=== PATIENT | female | born 1980 | race Caucasian/White ===

== ENCOUNTER 2023-12-16 14:30 | Outpatient (OUT) | payer OTHER, SELFPAY ==
--- NOTE | 2023-12-16 15:06 | P.GSHP_ITS ---
History of Present Illness History of Present Illness Chief complaint: left kidney stone Narrative: Patient presents for preadmission testing. Please see HPI from Dr. Bill dated December 11, 2023. Review of Systems ROS Narrative Please see ROS from Dr. Bill dated December 11, 2023. [facility] Medical History (Updated 12/16/23 @ 14:57 by Debby Rivera NP) Encounter for removal of skin lesion ?L98.9 - Disorder of the skin and subcutaneous tissue, unspecified (ICD-10) Malignant melanoma ?C43.9 - Malignant melanoma of skin, unspecified (ICD-10) PTSD (post-traumatic stress disorder) ?F43.10 - Post-traumatic stress disorder, unspecified (ICD-10) Panic attacks ?F41.0 - Panic disorder [episodic paroxysmal anxiety] (ICD-10) Migraine ?G43.909 - Migraine, unspecified, not intractable, without status migrainosus (ICD-10) Kidney stones ?N20.0 - Calculus of kidney (ICD-10) S/P extracorporeal shock wave therapy ?Z98.890 - Other specified postprocedural states (ICD-10) Surgical History (Updated 12/16/23 @ 14:57 by Debby Rivera NP) History of appendectomy ?Z90.49 - Acquired absence of other specified parts of digestive tract (ICD- 10) History of hysterectomy ?Z90.710 - Acquired absence of both cervix and uterus (ICD-10) S/P cystoscopy ?Z98.890 - Other specified postprocedural states (ICD-10) S/P ureteral stent placement ?Z96.0 - Presence of urogenital implants (ICD-10) Family History (Updated 12/16/23 @ 14:55 by Debby Rivera NP) Other Cancer Family history of DVT Family history of diabetes mellitus Family history of hypertension Family history of stroke Social History (Updated 12/16/23 @ 14:54 by Debby Rivera NP) Within the past year, how often did you have a drink containing alcohol: monthly or less Smoking status: Never smoker Non-prescribed substance use: denies use 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 Highest level of school completed/degree received: Master's degree Meds Home Medications and Allergies Allergies Allergy/AdvReac Type Severity Reaction Status Date / Time latex Allergy Rash Verified 12/16/23 14:53 levofloxacin [From Levaquin] Allergy blisters Verified 12/16/23 14:53 Penicillins Allergy Rash Verified 12/16/23 14:53 Exam Narrative Exam Narrative: Constitutional: Awake, alert, comfortable, well-appearing, nontoxic, interactive, vital signs as charted Head: Normocephalic, atraumatic Neck: Supple, normal appearance, normal range of motion, no meningeal signs, no lymphadenopathy Respiratory: No respiratory distress, breath sounds clear Cardiovascular: Regular rate and rhythm, strong and regular heart tones Abdomen: Nontender, normal bowel sounds, soft, no CVA tenderness Musculoskeletal: Normal gait, no swelling or edema Skin: No rashes or induration, no lesions, only visible skin inspected Neuro: No neurological deficits, normal sensation Psychiatric: Oriented ?3, normal affect Assessment and Plan Assessment and Plan (1) Kidney stones: Plan Left ESWL scheduled with Dr. Bill December 19, 2023.
[2023-12-16 15:08] LABS: Basophils Percent Auto 0.5 % (0.2-2.0); Eosinophils Percent Auto 0.4 % (0.9-7.0); Hematocrit 40.6 % (36.0-48.0); Hemoglobin 13.7 g/dL (12.0-16.0); Immature Granulocytes Abs Auto 0.01 10^3/uL (0.00-0.03); Immature Granulocytes Pct Auto 0.1 % (0.0-0.5); Lymphocytes Absolute Auto 2.3 10^3/uL (1.2-3.8); Lymphocytes Percent Auto 30.3 % (20.5-60.0); Mean Corpuscular HGB Conc 33.7 g/dL (29.9-35.2); Mean Corpuscular Hemoglobin 30.5 pg (26.7-34.0); Mean Corpuscular Volume 90.4 fL (81.0-99.0); Mean Platelet Volume 9.6 fL (9.5-13.5); Monocytes Absolute Auto 0.7 10^3/uL (0.3-0.8); Monocytes Percent Auto 9.8 % (1.7-12.0); Neutrophils Absolute Auto 4.4 10^3/uL (1.4-6.5); Neutrophils Percent Auto 58.9 % (43.0-75.0); Platelet Count 350 10^3/uL (150-450); Red Blood Count 4.49 10^6/uL (4.20-5.40); Red Cell Distribution Width 12.3 % (11.0-15.0); White Blood Count 7.5 10^3/uL (4.0-11.0)
[2023-12-16 15:24] LABS: INR 1.07; Partial Thromboplastin Time 29.3 sec (22.3-36.2); Prothrombin Time 11.3 sec (9.0-11.6)
[2023-12-16 15:25] LABS: Anion Gap 9.1; BUN Creatinine Ratio 7.9; Calcium 9.4 mg/dL (8.5-10.1); Carbon Dioxide 28.6 mmol/L (21.0-32.0); Chloride 102 mmol/L (98-107); Estimated GFR (African America >60 (>=60); Estimated GFR (Non-African Ame 52 (>=60); Glucose 100 mg/dL (74-106); Potassium 3.7 mmol/L (3.5-5.1); Sodium 136 mmol/L (136-145)
== END 2023-12-16 14:31 | disposition home or self-care (01) ==
LOC: PST 14:32
PROVIDERS: PCP Family Medicine; Visit Provider Urology
DX: Z01.812 Encounter for preprocedural laboratory examination (principal); Z01.818 Encounter for other preprocedural examination; N20.0 Calculus of kidney
CPT/HCPCS: 36415; 80048; 85025; 85610; 85730; G0463

== ENCOUNTER 2023-12-19 06:47 | Day surgery (SDC) | payer OTHER, SELFPAY ==
[2023-12-16 15:04] VITALS: BP 115/75; PULSE 69; TEMP 36.6; O2SAT 99; BMI 22.7
[2023-12-19] VITALS (10 sets, daily range): BP systolic 100–125; BP diastolic 64–77; PULSE 51–86; TEMP 36.1–36.6; O2SAT 97–100; BMI 22.7
--- NOTE | 2023-12-19 06:45 | XR_ITS ---
The [address] [address] Patient Name: GISELLE BARRETT MRN: [id number] date: 1980 Sex: F Assigned Patient Location: [facility] Current Patient Location: Accession/Order Number: [id number] Exam Date: 12/19/2023 06:51 Report Date: 12/19/2023 13:20 At the request of: ERICA BILLINGS Procedure: XR abdomen 1V EXAMINATION: XR abdomen 1V HISTORY: kidney stones COMPARISON: 08/02/2022 FINDINGS: KIDNEY/URETER - RIGHT: Increase in upper pole medullary calcifications KIDNEY/URETER - LEFT: Moderately increased diffuse medullary calcifications. Previously noted 10 mm lower pole calcification is normal. Identified PELVIS: No visible ureteral calcifications. Any visible calcifications favor phleboliths. BOWEL: No abnormal dilation or deviation. BONES: No acute abnormality. OTHER: Negative. No abnormal gaseous collections. XR/XR abdomen 1V IMPRESSION: Bilateral medullary nephrocalcinosis, left greater than right Electronically authenticated by: JOYCELYN ADEN Date: 12/19/2023 13:20
--- OUTSIDE RECORDS SUMMARY | 2023-12-19 06:50 | XMS_ITS | CCD ---
Author Organization [facility] Care Team Providers Care Accounts Supervisor Name Role Phone DO Arcenio Rdz Primary Care Provider [phone] MD Tushar Madsen Emergency Provider [phone] DO Arcenio Rdz Primary Care Provider MD Fred Bill Attending Provider DO Kyra Dee Emergency Provider MD Jillian Hahn Admit Provider MD Jillian Hahn Attending Provider MD Dominique Sifuentes Other Provider MD Pete Cardozo Attending Provider [phone] PA[address] EMERY Admitting Unavailable PAY ., DR EMERY Consulting Unavailable PAY ., DR EMERY Attending Unavailable KENDELL, DR ASHTON Primary Care Unavailable BILL ., DR MALDONADO Admitting Unavailable BILL ., DR MALDONADO Consulting Unavailable BILL ., DR MALDONADO Attending Unavailable KENDELL, DR ASHTON Primary Care Unavailable MARSHALL BEST Consulting Unavailable BILL ., DR MALDONADO Admitting Unavailable BILL ., DR MALDONADO Attending Unavailable KENDELL, DR ASHTON Primary Care Unavailable DO Arcenio Rdz Primary Care Provider MD Fred Bill Attending Provider [phone] ARCENIO RDZ Primary Care Physician DO Arcenio Rdz Primary Care Provider Enrico Woods DO Unavailable Arcenio Rdz DO Primary Care Provider DO Arcenio Rdz Primary Care Provider [phone] MD Fred Bill Attending Provider [phone] Fred Bill Attending Unavailable Arcenio Rdz Primary Care Unavailable Bill, Fred Admitting Unavailable Bill, Fred Admitting Unavailable Bill, Fred Attending Unavailable Arcenio Rdz Primary Care Unavailable Jillian Hahn Admitting Unavailable Arcenio Rdz Primary Care Unavailable Dominique Sifuentes Consulting Unavailable CasPete Attending Unavailable Landy, Fred Attending Unavailable Arcenio Rdz Primary Care Unavailable Bill, Fred Admitting Unavailable BILL, Fred R Attending Unavailable LANDY, Fred R Attending Unavailable MACIEL RDZ Attending Unavailable MACIEL RDZ Referring Unavailable BILL, FRED Devine Referring Unavailable Allergies Allergy Classification Reported Allergen(s) Allergy Type Date of Onset Reaction(s) Facility (12 sources) Latex; Translations: [latex] Propensity to adverse reactions 3 Unknown (qualifier value), Hives, Itching, Rash, Swelling [facility] (1 source) Cephalexin Drug Allergy 0 [facility] Repository (2 sources) levoFLOXacin; Translations: [Levaquin] Drug Allergy 0 [facility] Repository (3 sources) levoFLOXacin; Translations: [levofloxacin] Drug Allergy 4 Unknown [facility] (3 sources) Penicillin; Translations: [penicillin] Drug Allergy Unknown Reaction [facility] (1 source) Penicillin G Drug Allergy 4 Unknown [facility] Medications Current Medications Medication Drug Class(es) Dates Sig (Normalized) Sig (Original) cetirizine hydrochloride 10 mg oral tablet (5 sources) Histamine-1 Receptor Antagonist Start: 07-17-2022 take 1 tablet by mouth once daily Cetirizine (Zyrtec) 10 mg Tablet Active 10 MG PO Daily July 17, 2022 12:00am lactobacillus acidophilus [id number] unt oral capsule (5 sources) Start: 07-17-2022 take 10 capsules by mouth once daily Lactobacillus Acidophilus (Probiotic) 10 billion cell Capsule Active 28258 MMU CELLS PO Daily July 17, 2022 12:00am oxybutynin chloride 5 mg oral tablet (12 sources) Cholinergic Muscarinic Antagonist Start: 07-17-2022 take 5 mg by mouth three times daily Oxybutynin Chloride Active 5 MG PO Three times daily 90 July 17, 2022 12:00am Start: 11-07-2019 End: 02-22-2021 take 5 mg by mouth twice daily Oxybutynin Chloride Dis continued 5 MG PO Twice daily 60 November 07, 2019 12:00am February 22, 2021 5:36pm tamsulosin hydrochloride 0.4 mg oral capsule (5 sources) alpha-Adrenergic [place] Start: 07-17-2022 take 0.4 mg by mouth once daily at bedtime Tamsulosin Active 0.4 MG PO Daily at bedtime July 17, 2022 12:00am Topamax (8 sources) Start: 11-17-2019 Topamax Oral Start Date: 11/17/19 Status: Ordered Start: 11-07-2019 take 25 mg by mouth twice hussain y Topiramate Active 25 MG PO Twice daily November 07, 2019 12:00am Completed/Discontinued Medications Medication Drug Class(es) Dates Sig (Normalized) Sig (Original) acetaminophen 325 mg / HYDROcodone bitartrate 5 mg oral tablet (7 sources) Opioid Agonist Start: 11-07-2019 End: 02-22-2021 take 1 tablet by mouth every four to six hours Hydrocodone-Acetamin ophen ([place]) 5-325 mg tablet Discontinued 1 TAB PO EVERY 4-6 HOURS 10 3 November 07, 2019 February 22, 2021 5:36pm amoxicillin 875 mg / clavulanate 125 mg oral tablet (7 sources) Penicillin-class Antibacterial Start: 07-16-2021 End: 07-17-2022 take 1 tablet by mouth twice daily Amoxicillin-Pot Clavulanate Discontinued 1 TAB PO Twice daily July 16, 2021 12:00am July 17, 2022 11:26am cephalexin 500 mg oral capsule (7 sources) Cephalosporin Antibacterial Start: 11-03-2019 End: 02-22-2021 take 1 capsule by mouth every eight hours Cephalexin (Keflex) 500 mg capsule Discontinued 500 MG PO Q8H 30 10 November 03, 2019 12:00am February 22, 2021 5:37pm citric acid 128 mg/ml / sodium citrate 98 mg/ml oral solution (1 source) Calculi Dissolution Agent, Anti-coagulant Start: 12-11-2023 take 4 [tsp_us] by mouth twice daily Oracit oral solution 4 tbsp, Oral, BID, 3,600 mL, Refill(s) 11, Take 4 tsp BID daily, [facility]/pharmacy #[id number], 167, cm, 12/11/23 8:27:00 EDT, Height/Length Dosing, 63.7, kg, 12/11/23 8:27:00 EDT, Weight Dosing Start Date: 12/11/23 Status: Ordered ondansetron 4 mg disintegrating oral tablet (7 sources) Serotonin-3 Receptor Antagonist Start: 11-03-2019 End: 02-22-2021 take 4 mg by mouth every eight hours Ondansetron Discontinued 4 MG PO Q8H 9 November 03, 2019 12:00am February 22, 2021 5:36pm phenazopyridine hydrochloride 100 mg oral tablet (7 sources) Start: 11-03-2019 End: 11-07-2019 take 1 tablet by mouth every eight hours Phenazopyridine (Pyridium) 100 mg tablet Discontinued 100 MG PO Q8H November 03, 2019 12:00am November 07, 2019 1:50am promethazine hydrochloride 25 mg oral tablet (7 sources) Phenothiazine Start: 07-30-2018 End: 02-22-2021 take 25 mg by mouth every six hours Promethazine Discontinued 25 MG PO Q6H July 30, 2018 12:00am February 22, 2021 5:36pm sertraline 100 mg oral tablet (16 sources) Serotonin Reuptake Inhibitor Start: 02-22-2021 End: 07-17-2022 take 100 mg by mouth once daily at bedtime Sertraline Discontinued 100 MG PO Daily at bedtime February 22, 2021 1:00am July 17, 2022 11:26am Start: 11-17-2019 ZolofYessica Acosta Start Date: 11/17/19 Status: Ordered Start: 11-07-2019 End: 02-22-2021 take 50 mg by mouth once daily Sertraline Discontinued 50 MG PO Daily November 07, 2019 12:00am February 22, 2021 5:36pm traMADol hydrochloride 50 mg oral tablet (7 sources) Opioid Agonist Start: 03-01-2021 End: 07-16-2021 take 50 mg by mouth every four to six hours Tramadol Discontinued 50 MG PO EVERY 4-6 HOURS 04 10March 01, 2021 1:00am July 16, 2021 1:52pm vitamin e 100 unt oral capsule (7 sources) Start: 02-22-2021 End: 07-17-2022 take 100 [IU] by mouth once daily at bedtime Vitamin E Discontinued 100 UNIT PO Daily at bedtime February 22, 2021 1:00am July 17, 2022 11:26am Start: 02-22-2021 End: 07-17-2022 take 100 [IU] by mouth once daily at bedtime Vitamin E Discontinued 100 UNIT PO Daily at bedtime February 22, 2021 1:00am July 17, 2022 11:26am Problems Active Problems Problem Classification Problem Date Documented Date Episodic/Chronic Abdominal pain (13 sources) Abdominal pain; Translations: [Unspecified abdominal pain] Onset: 07-20-2022 Resolved: 04-23-2023 03-01-2021 Episodic Anxiety disorders (4 sources) Anxiety disorder, unspecified; Translations: [Agoraphobia with panic attacks] Onset: 07-23-2022 04-23-2023 Chronic Biliary tract disease (1 source) Calculus of bile duct without cholangitis or cholecystitis without obstruction; Translations: [CALC BD NO CHOLANG/CHOLCYST NO OBST] Onset: 07-23-2022 Episodic Calculus of urinary tract (20 sources) Kidney stone; Translations: [Calculus of kidney] Onset: 07-17-2022 11-07-2019 Episodic Esophageal disorders (1 source) Gastro-esophageal reflux disease without esophagitis; Translations: [GERD WITHOUT ESOPHAGITIS] Onset: 07-23-2022 Chronic Fluid and electrolyte disorders (16 sources) Metabolic acidosis; Translations: [Acidosis] Onset: 04-23-2023 11-07-2019 Episodic Genitourinary symptoms and ill-defined conditions (4 sources) Hematuria, unspecified; Translations: [Increased frequency of urination] Onset: 07-23-2022 03-27-2019 Episodic Headache; including migraine (15 sources) Migraine; Translations: [Migraine, unspecified, not intractable, without status migrainosus] Onset: 07-17-2022 07-30-2018 Chronic Menopausal disorders (1 source) Menopausal flushing; Translations: [Menopausal and female climacteric states] Onset: 04-23-2023 04-23-2023 Chronic Nausea and vomiting (1 source) Nausea; Translations: [NAUSEA] Onset: 07-23-2022 Episodic Other diseases of bladder and urethra (3 sources) Urethral stricture; Translations: [Unspecified urethral stricture, female] Onset: 04-23-2023 11-17-2019 Episodic Other diseases of kidney and ureters (4 sources) Hydronephrosis; Translations: [Hydronephrosis with renal and ureteral calculous obstruction] 11-07-2019 Episodic Other diseases of kidney and ureters (4 sources) Hydronephrosis with renal and ureteral calculous obstruction; Translations: [Hydronephrosis with urinary obstruction due to ureteral calculus] Onset: 04-23-2023 11-07-2019 Episodic Other injuries and conditions due to external causes (3 sources) Foreign body in bladder; Translations: [Foreign body in bladder, initial encounter] Onset: 04-23-2023 11-17-2019 Episodic Other non-epithelial cancer of skin (5 sources) Unspecified malignant neoplasm of skin, unspecified; Translations: [Other specified malignant neoplasm of skin, unspecified] Onset: 07-23-2022 03-27-2019 Episodic Other screening for suspected conditions (not mental disorders or infectious disease) (2 sources) Patient encounter status; Translations: [Encounter for screening for malignant neoplasm of vagina] 04-23-2023 Episodic Other skin disorders (3 sources) Acne; Translations: [Acne, unspecified] Onset: 04-23-2023 03-27-2019 Episodic Other upper respiratory disease (1 source) Allergic rhinitis due to animal hair and dander; Translations: [Allergic rhinitis due to animal (cat) (dog) hair and dander] Onset: 04-23-2023 04-23-2023 Chronic Other upper respiratory disease (1 source) Allergic rhinitis; Translations: [Other allergic rhinitis] Onset: 04-23-2023 04-23-2023 Chronic Other upper respiratory infections (8 sources) Sinusitis; Translations: [Chronic sinusitis, unspecified] Onset: 04-23-2023 07-16-2021 Chronic Prolapse of female genital organs (3 sources) Midline cystocele; Translations: [Cystocele, midline] Onset: 04-23-2023 04-23-2023 Chronic Residual codes; unclassified (1 source) Acquired absence of both cervix and uterus; Translations: [ACQUIRED ABSENCE BOTH CERVIX AND UTERUS] Onset: 07-23-2022 Episodic Residual codes; unclassified (1 source) Unspecified symptoms and signs involving cognitive functions and awareness; Translations: [UNS SX SIGNS COG FUNC AND AWARENESS] Onset: 07-23-2022 Episodic Residual codes; unclassified (1 source) Insomnia; Translations: [Insomnia, unspecified] Onset: 04-23-2023 04-23-2023 Episodic Syncope (8 sources) Syncope; Translations: [Syncope and collapse] Onset: 04-23-2023 07-16-2021 Episodic Past or Other Problems Problem Classification Problem Date Documented Da te Episodic/Chronic Menstrual disorders (2 sources) Excessive and frequent menstruation; Translations: [Excessive and frequent menstruation with regular cycle] Onset: 04-23-2023 Resolved: 04-23-2023 04-23-2023 Chronic Urinary tract infections (20 sources) Urinary tract infectious disease; Translations: [Urinary tract infection, site not specified] Onset: 07-17-2022 11-03-2019 Episodic Results Test Name Value Interpretation Reference Range Facility Ambulatory Visit Summaryon 0 12-11-2023 Ambulatory Visit Summary Ambulatory Visit Summary NENAGISELLE Edd :1980 Visit Date:12/11/2023 Ambulatory Visit Instructions Your Diagnosis Kidney stones Your Care Team Attending Physician - Fred BILL MD Primary Care Physician - ARCENIO RDZ DO This Is Your Medications List Contact prescribing physician if questions or concerns potassium citrate (potassium CITRATE 10 mEq ER Tab) Procedures Performed Cystoscopic insertion of ureteric stent (07/17/2022), Hysterectomy (2020), Cystoscopic removal of ureteric stent (11/17/2019), ESWL - Extracorporeal shockwave lithotripsy for renal calculus (11/12/2019), ESWL of kidney (09/29/2015), ESWL of kidney (05/06/2014), ESWL of kidney (05/31/2011), ESWL of kidney (07/08/2008), Ureteroscopic extraction of ureteric calculus without disintegration (08/28/2007), Cystoscopic insertion of ureteric stent (08/16/2006), ESWL of kidney. Discharge Vitals Heart Rate (Peripheral) 84 Respiratory Rate 16 Blood Pressure 140/88 Height 167 cm Height 66 in Weight 63.7 kg Weight 140.14 lb BMI 22.84 What to do next You Need to Schedule the Following Appointments Follow Up with LANDY CRABTREE, HARLAN Brito When: Comments: nigel Puga ESWL Where: [facility] [address], [place] [id number]- [phone] Medications What How Much When Instructions Unchanged potassium citrate (potassium CITRATE 10 mEq ER Tab) 1 Tablets By Mouth 2 times a day Contact prescribing physician if questions or concerns Allergies Latex (Unknown) Levaquin (Unknown Reaction) penicillin (Unknown Reaction) Problems Ongoing - Any problem that you are currently receiving treatment for. Acne Foreign body in bladder, initial encounter Frequent urination Kidney stones Migraine headache Personal history of kidney stones Personal history of skin cancer Stricture of female urethra Patient Survey You may receive a survey via text or e-mail asking about your office visit. Please share your experience with us by completing your survey. We appreciate your feedback and thank you for choosing us for your care. Education Materials Laser Therapy for Kidney Stones, Care After After laser therapy for kidney stones, it is common to have: ? Pain. ? A burning feeling when you pee (urinate). ? Small amounts of blood in your pee (urine). ? A need to pee a lot. ? Parts of the kidney stone in your pee. ? Mild discomfort in your back when you pee. You may have this if you had a small mesh tube (stent) placed during the procedure. Follow these instructions at home: Medicines ? Take kpec-sop-eyqupgl and prescription medicines only as told by your health care provider. ? If you were prescribed antibiotics, take them as told by your provider. Do not stop using the antibiotic even if you start to feel better. ? Ask your provider if the medicine prescribed to you: ? Requires you to avoid driving or using machinery. ? Can cause constipation. You may need to take these actions to prevent or treat constipation: ? Drink enough fluid to keep your pee pale yellow. ? Take nmbu-ish-estlvby or prescription medicines. ? Eat foods that are high in fiber, such as beans, whole grains, and fresh fruits and vegetables. ? Limit foods that are high in fat and processed sugars, such as fried or sweet foods. Activity ? If you were given a sedative during the procedure, it can affect you for several hours. Do not drive or operate machinery until your provider says that it is safe. ? Return to your normal activities as told by your provider. Ask your provider what activities are safe for you. General instructions ? Your provider may recommend that you drink a lot of water for a few hours after your procedure. If you have heart or kidney disease, ask your provider how much you should drink. ? You may be asked to strain your pee to collect any stone pieces that you pass. Your provider may have these pieces tested. ? Do not take baths, swim, or use a hot tub until your provider approves. Ask your provider if you may take warm baths to soothe the burning. ? Keep all follow-up visits. If you have a stent, you will need to go back to your provider to have it removed. Your provider may give you more instructions. Make sure you know what you can and cannot do. Contact a health care provider if: ? You have pain or a burning feeling that lasts for more than 2 days. ? You feel nauseous. ? You vomit more and more often. ? You have trouble peeing. ? You have pain that gets worse or does not get better with medicine. ? You have a fever or shaking chills. Get help right away if: ? You cannot pee, even when your bladder feels full. ? You faint. ? You have chest pain, shortness of breath, or cough up blood. ? You have: ? Bright red blood or blood clots in your pee. ? Sever (more content not included)... Normal [facility] Urology Office/Clinic Noteon 12-11-2023 Urology Office/Clinic Note Urology Office/Clinic Note Chief Complaint 1 year follow up HPI Staff 1 yr with KUB-12/09/23 [facility] [place] [facility] [place] multiple punctate L nephrolithiasis, largest 3 mm. Previous Dx: kidney stones, hx of kidney stones. S/p 24hr urine 10/10/22. L laser litho, L ESWL 08/02/22. L ESWL 11/12/19. Pt is taking Pottasium citrate once a day instead of BID. Dysuria: denies pain or burning Incomplete bladder emptying: denies Hematuria: denies Frequency: denies Urgency: yes Nocturia: denies Stream: denies hesitancy, denies weak stream Leaking: denies Post void dripping: denies Wearing pads/ Depends: denies Urge incontinence: denies Stress incontinence: denies Incontinence without Sensory Awareness: denies Abdominal pain: denies Flank pain: denies Sexual complaints: denies History of Present Illness Tests reviewed: reviewed UA, KUBs I have reviewed the previous health record information and history for this patient from Dr. Bill. I have reviewed and verified the staff HPI to be accurate for this encounter. Review of Systems PHQ Score Initial Depression Screen Score: 0 SCORE ROS - Provider Constitutional: denies weight loss, denies hot flashes. Eyes: denies eye problems. Gastrointestinal: denies nausea, denies vomiting. Cardiovascular: denies chest pain or angina. Integumentary: no dryness Musculoskeletal: denies musculoskeletal symptoms. ENMT: denies otolaryngeal symptoms. Respiratory: no shortness of breath. Heme/Lymph: denies easy bleeding tendency, denies easy bruising tendency. Psychiatric: no confusion, no anxiety. Genitourinary: See HPI. Physical Exam Vitals & Measurements HR: 84(Peripheral) RR: 16 BP: 140/88 HT: 66 in HT: 167 cm WT: 63.7 kg WT: 140.14 lb BMI: 22.84 General Appearance: alert , no acute distress, well nourished, well developed female. Assessment/Plan 1. Kidney stones (N20.0: Calculus of kidney) S/p L ESWL 11/12/19. S/p L ESWL/L stent removal/L URS/L laser litho 08/02/22. 24hr urine 10/10/22 - low citric acid Electrolyte panel 10/10/22 - high Cl KUB 11/28/22 [facility] - L punctate stones, largest measuring 3mm. KUB 06/03/23 [facility] - Multiple punctate L nephrolithiasis, measures up to 3mm. Personal review: around 7 stones on L. KUB 12/09/23 [facility] - Moderate burden microlithiasis along L renal calyces, similar to prior. Question punctate RSP calyceal nephrolith. No definite ureterolithiasis. Calculi within pelvis are favored phleboliths. Personal review: multiple stones on L, bowel contents obstruct view. Unable to tolerate Effer-K (effervescent) as it upsets her stomach. Reviewed imaging results. Still has many small stones on left. Denies current pain. UA today negative for blood and infection. Discussed options of continued monitoring vs intervention. Pt prefers to treat stones given discomfort with stone passage and wanting to avoid stent placement. Risks/benefits of operative intervention discussed. Switched to potassium citrate 10mg bid at prior OV, taking this qd most days due to getting an upset stomach. Discussed switching meds given intolerance but need for stone prevention. Pt is interested. Drinks ~128oz of water per day. Relates this to urinary frequency. -Cont increased water intake -D/c potassium citrate -Start Oracit. Rx sent [facility]. -Will schedule Left ESWL. The procedure risks, benefits, details and treatment alternatives have been discussed with the patient. These include blood urine, infection, bleeding around the kidney, kidney bruising, inability to break up the stone, need for blood transfusion, stent pain, injury to the ureter, bladder irritation from the stent, flank pain, and need for additional procedures, among others. Full informed consent has been obtained. Will order General anesthesia. Follow-up With When Contact Information LANDY CRABTREE, Fred Devine, [facility] [address], [place] [address]- [phone] Additional Instructions: sched L ESWL Patient Education Laser Therapy for Kidney Stones, Care After Laser Therapy for Kidney Stones Kidney Stones, [id number] IChristina, personally scribed for Dr. Bill on 12/11/2023 09:11:27. . Documentation recorded by the scribeChristina, accurately reflects the services(s) I performed and decisions made by me. Authenticated by Dr. Bill on 12/11/2023 09:16:40. Problem List/Past Medical History Ongoing Acne Foreign body in bladder, initial encounter Frequent urination Kidney stones Migraine headache Personal history of kidney stones Personal history of skin cancer Stricture of female urethra Historical No qualifying data Procedure/Surgical History Cystoscopic insertion of ureteric stent (07/17/2022), Hysterectomy (2020), Cystoscopic removal of ureteric stent (11/17/2019), ESWL - Extracorporeal shockwave lithotripsy for renal calculus (11/12/2019), ESWL of kidney (09/28 (more content not included)... Normal [facility] Comment on above: Result Comment: Elec tronically Signed By: Fred BILL MD\.br\Date and Time Signed: 12/11/23 09:16 EDT\.br\Electronically Co-Signed By: Christina Lopes\.br\Date and Time Co-Signed: 12/11/23 09:13 EDT XR ABDOMEN 1 VIEWon 12-09-19 XR ABDOMEN 1 VIEW TITLE OF EXAM: XR - ABDOMEN 1 VIEW REASON FOR EXAM: History of renal stones. TECHNIQUE: 2 radiographs of the abdomen COMPARISONS: Abdomen radiograph 08/02/2022 FINDINGS: Evaluation of the left kidney is hindered by overlying colonic stool and other tissues. Interval removal of the left nephroureteral stent. Moderate burden microlithiasis along left renal calyces, similar to prior accounting for technique differences. Question punctate right superior pole calyceal nephrolith. No definite ureterolithiasis; multiple ovoid subcentimeter pelvic mineralized lesions are favored phleboliths. No acute osseous or focal soft tissue abnormality. IMPRESSION: 1. Left calyceal nephrolithiasis, similar to prior accounting for technique differences. Consider medullary nephrocalcinosis. 2. Question punctate right calyceal nephrolith. 3. Calculi within the pelvis are favored phleboliths. Distal ureterolithiasis is not radiographically excluded. DICTATED ON: 12/10/2023 9:46 AM This report has been electronically signed and approved by the interpreting radiologist. Electronically Signed Kaden Israel M.D. 2023-12-10 09:50:35 Normal Not Available BI MAMMOGRAM SCREENING TOMOS YNTHESIS BILATERALon 11-06-2023 BI MAMMOGRAM SCREENING TOMOSYNTHESIS BILATERAL This is a summary report. The complete report is available in the patient's medical record. If you cannot access the medical record, please contact the sending organization for a detailed fax or copy. BI MAMMOGRAM SCREENING TOMOSYNTHESIS BILATERAL : 11/06/2023 3:16 PM CLINICAL HISTORY: screening. COMPARISONS: December 22, 2020; May 18, 2022. TECHNIQUE: Routine full field 3D breast tomosynthesis was performed bilaterally. CAD analysis was performed and used in the interpretation. FINDINGS: Both breasts remain heterogeneously dense with stable mild asymmetry. There are no dominant masses, suspicious microcalcifications, or areas of architectural distortion identified on today's examination. There is no significant change when compared to the prior examinations identified, given differences in technique and positioning. IMPRESSION: BI-RADS 2: BENIGN FINDINGS. DENSITY: Heterogeneously dense. Board Certified Radiologists. Accredited by the ACR and FDA. MAMMOGRAPHY IS VERY IMPORTANT TO YOUR HEALTH. THE [employer] GUIDELINES RECOMMEND THAT WOMEN 40 YEARS OF AGE AND OLDER SHOULD HAVE A MAMMOGRAM EVERY YEAR. A REMINDER LETTER WILL BE SENT AT THE APPROPRIATE TIME. ELECTRONICALLY SIGNED BY: Yane Willett DO Normal Not Available Comment on above: Order Comment: Last mammogram 05-18-22 NOMS. Us or spot compression prn RAD - MISCon 06-04-2023 RAD - MISC [id number] Normal [facility] XR abdomen 1Von 06-03-2023 XR abdomen 1V [facility] [place] [address] XRay Report Signed Patient: Giselle Nova MR#: [id number] : 1980 Acct:[id number] Age/Sex: 42 / F ADM Date: 06/03/23 Loc: XD Room: Type: [facility] Attending Dr: Fred Bill MD Copies to: Fred Bill MD Ordering Provider: Fred Bill MD Date of Service: 06/03/23 XR/XR abdomen 1V: N20.0,Z87.442 Single view of abdomen COMPARISON: 11/28/2022 HISTORY: Bilateral kidney stone follow-up assessment THORAX: Lung bases unremarkable. FREE AIR: Supine position limits assessment BOWEL: No gaseous intestinal distention. STOOL: No significant stool RENAL STONES: Multiple punctate left nephrolithiasis redemonstrated. This measures up to 3 mm. VASCULAR CALCIFICATIONS: Redemonstrated SOFT TISSUE: Unremarkable BONES: Unremarkable POSTSURGICAL CHANGES: None XR/XR abdomen 1V IMPRESSION: Similar multiple punctate left nephrolithiasis. Largest measures up to 3 mm. Impression dictated by: Yuly Tamayo M.D.06/03/2023 6:05 PM Dictation Location: [place] [address] Transcribed By: PHUC 06/03/231804 Dictated By: Yuly Tamayo DO 06/03/231803 Signed By: 06/03/23 180 [facility] XR KUBon 11-28-2022 XR KUB [facility] [place] Main [place] [address] [place] [address] XRay Report Signed Patient: Giselle Nova MR#: [id number] : 1980 Acct:[id number] Age/Sex: 42 / F ADM Date: 11/28/22 Loc: ICXD Room: Type: [facility] Attending Dr: Fred Bill MD Copies to: Fred Bill MD Ordering Provider: Fred Bill MD Date of Service: 11/28/22 XR/XR KUB: KIDNEY STONE KUB: CLINICAL INFORMATION: Follow-up kidney stones. COMPARISON: KUB 08-04 FINDINGS: Left punctate nephrolithiasis, largest measuring 3 mm. No ureteral calculus is seen. No definite right renal calculus is seen. Phleboliths are seen within the pelvis. No bowel obstruction or free air. XR/XR KUB IMPRESSION: MULTIPLE PUNCTATE LEFT NEPHROLITHIASIS, LARGEST MEASURING 3 MM. Impression dictated by: Trip Singh Jr., DGodfreyOGodfrey11/28/2022 4:37 PM Dictation Location: [place] [address] Transcribed By: [facility] 11/28/22 163 Dictated By: Trip Singh Jr, DO 11/28/22 1636 Signed By: 11/28/22 163 [facility] 24 Hr Urine Uric Acidon 07-2 Uric Acid, 24 Hr Urine 442.3 Normal 173.7 -902. 1 [facility] Comment on above: Order Comment: URINE VOLUME (MILLILTERS): 3050 Result Comment: Perf ormed at: CB - [facility] [address] [id number] Flute Polisher: Ash Castro PhD, Phone: [phone] Performed By: #### C ITRIC UR, U24 CA, MAG 24HRU, OXAL 24HRU, URIC 24HRU, PHOS 24HRU ####[facility] ,#### COL T V, U24 NA, CREA24 ####[facility] Nzu[address] Urine Uric Acid 14.5 mg/dL Normal Not Estab. [facility] Comment on above: Order Comment: URINE VOLUME (MILLILTERS): 3050 Performed By: #### C ITRIC UR, U24 CA, MAG 24HRU, OXAL 24HRU, URIC 24HRU, PHOS 24HRU ####[facility] ,#### COL T V, U24 NA, CREA24 ####[facility] Zxx7324 [address] 24 hour urine sodium measure ment (moles/time)Ordered By: Fred Bill on 10-10-2022 Sodium (24H U) [Moles/Time] 137 mmol/24 40-220 [facility] 24 hour urine uric acid kristina urement (mass/time)Ordered By: Fred Bill on 10-10-2022 Urate (24H U) [Mass/Time] 442.3 mg/24 hr 173.7-902. 1 [facility] Comment on above: Performed at: [address] Director: Ash Castro PhD, Phone: [phone] Blood Urea Nitrogenon 2022 Urea nitrogen [Mass/Vol] 11 mg/dL Normal 7-25 [facility] Comment on above: Performed By: #### L YTES, URIC, CA, BUN, PTH, CREAT #### [facility] [address] biopsyOrdered By: Fred Bill on 10-10-[address] CT [address] [facility] Calciumon 10-10-2022 Calcium [Mass/Vol] 9.0 mg/dL Normal 8.6-10.3 [facility] Comment on above: Performed By: #### L YTES, URIC, CA, BUN, PTH, CREAT #### [facility] [address] Calcium [Mass/time] in 24 ho ur UrineOrdered By: Fred Bill on 10-10-2022 Calcium (24H U) [Mass/Time] 262 mg/24 hr 0-320 [facility] Calcium [Mass/volume] in 24 hour UrineOrdered By: Fred Bill on 10-10-2022 Calcium (24H U) [Mass/Vol] 8.6 mg/dL Not Estab. [facility] Calcium [Mass/volume] in Ser um or PlasmaOrdered By: Fred Bill on 10-10-2022 Calcium [Mass/Vol] 9.0 mg/dL 8.6-10.3 [facility] Calcium, 24Hr Urineon 2022 Calcium, Urine 8.6 mg/dL Normal Not Estab. [facility] Comment on above: Order Comment: URINE VOLUME (MILLILTERS): 3050 Performed By: #### C ITRIC UR, U24 CA, MAG 24HRU, OXAL 24HRU, URIC 24HRU, PHOS 24HRU ####[facility] ,#### COL T V, U24 NA, CREA24 ####[address] Calcium, Urine 24 Hr 262 Normal 0-320 [facility] Comment on above: Order Comment: URINE VOLUME (MILLILTERS): 3050 Performed By: #### C ITRIC UR, U24 CA, MAG 24HRU, OXAL 24HRU, URIC 24HRU, PHOS 24HRU ####[facility] ,#### COL T V, U24 NA, CREA24 ####[address] Carbon dioxide, total [Moles /volume] in Serum or PlasmaOrdered By: Fred Bill on 10-10-2022 CO2 [Moles/Vol] 26.7 mmol/L 21.0-31.0 [facility] Chloride [Moles/volume] in S viji or PlasmaOrdered By: Fred Bill on 10-10-2022 Chloride [Moles/Vol] 108 mmol/L 98-107 [facility] Citric Acid, Urine, 24 Houro n 10-10-2022 Citric Acid, Urine 83 mg/L Normal Undefined [facility] Comment on above: Order Comment: URINE VOLUME (MILLILTERS): 3050 Performed By: #### C ITRIC UR, U24 CA, MAG 24HRU, OXAL 24HRU, URIC 24HRU, PHOS 24HRU ####[facility] ,#### COL T V, U24 NA, CREA24 ####[place] [address] [address] Citric Acid, Urine, 24HR 253 Low 320-1240 [facility] Comment on above: Order Comment: URINE VOLUME (MILLILTERS): 3050 Result Comment: This test was developed and its performance characteristics determined by [facility]. It has not been cleared or approved by the Food and Drug Administration. Performed at: [address] [id number] Flute Polisher: Dayan White MD, Phone: [phone] PERFORMED BY: [facility] [address] [facility] [place] [address] PATHOLOGIST PROFESSOR OF VOICE ZURI HOOD M.D. Performed By: #### C ITRIC UR, U24 CA, MAG 24HRU, OXAL 24HRU, URIC 24HRU, PHOS 24HRU ####[facility] ,#### COL T V, U24 NA, CREA24 ####[place] [id number] [facility] Castillo Time and Vol 24 hr uron 10-10-2022 Total Volume, Urine 3050 Normal [facility] Comment on above: Order Comment: URINE COLLECTION TIME (HRS): 24 URINE VOLUME (MILLILTERS): 3050 Result Comment: PERF ORMED BY: [facility] [address] [place] [address] PATHOLOGIST PROFESSOR OF VOICE ZURI HOOD M.D. Performed By: #### C ITRIC UR, U24 CA, MAG 24HRU, OXAL 24HRU, URIC 24HRU, PHOS 24HRU ####[facility] ,#### COL T V, U24 NA, CREA24 ####[facility] Uqb4864 [address] Urine Collection Time 24 Normal [facility] Comment on above: Order Comment: URINE COLLECTION TIME (HRS): 24 URINE VOLUME (MILLILTERS): 3050 Performed By: #### C ITRIC UR, U24 CA, MAG 24HRU, OXAL 24HRU, URIC 24HRU, PHOS 24HRU ####[facility] ,#### COL T V, U24 NA, CREA24 ####[facility] Rgc1256 [address] Creatinineon 10-10-2022 Creatinine [Mass/Vol] 0.80 mg/dL Normal 0.60-1.20 [facility] Comment on above: Performed By: #### L YTES, URIC, CA, BUN, PTH, CREAT #### [facility] [address] GFR/1.73 sq M.predicted MDRD (S/P/Bld) [Vol rate/Area] mL/min/{1.73_m2} Normal [facility] Comment on above: Performed By: #### L YTES, URIC, CA, BUN, PTH, CREAT #### [facility] [address] [place] [address] Creatinine [Mass/volume] in Serum or PlasmaOrdered By: Fred Bill on 10-10-2022 Creatinine [Mass/Vol] 0.80 mg/dL 0.60-1.20 [facility] Creatinine [Mass/volume] in UrineOrdered By: Fred Bill on 10-10-2022 Creatinine (U) [Mass/Vol] 52.00 mg/dL 11.00-20.[address] [facility] Creatinine, 24 Hr Urineon Creatinine 24 Hour, Urine 1.58 g/24_hr Normal 0.80-1.89 [facility] Comment on above: Order Comment: URINE COLLECTION TIME (HRS): 24 URINE VOLUME (MILLILTERS): 3050 Performed By: #### C ITRIC UR, U24 CA, MAG 24HRU, OXAL 24HRU, URIC 24HRU, PHOS 24HRU ####[facility] ,#### COL T V, U24 NA, CREA24 ####[facility] Creatinine, Urine 52.00 mg/dL High 11.00-20.[address] [facility] Comment on above: Order Comment: URINE COLLECTION TIME (HRS): 24 URINE VOLUME (MILLILTERS): 3050 Performed By: #### C ITRIC UR, U24 CA, MAG 24HRU, OXAL 24HRU, URIC 24HRU, PHOS 24HRU ####[facility] ,#### COL T V, U24 NA, CREA24 ####[place] [address] [address] Electrolyteson 10-10-2022 Anion gap [Moles/Vol] 9.4 mmol/L Normal 6.0-15.0 [facility] Comment on above: Performed By: #### L YTES, URIC, CA, BUN, PTH, CREAT #### [facility] [address] Chloride [Moles/Vol] 108 mmol/L High 98-107 [facility] Comment on above: Performed By: #### L YTES, URIC, CA, BUN, PTH, CREAT #### [facility] [address] CO2 [Moles/Vol] 26.7 mmol/L Normal 21.0-31.0 [facility] Comment on above: Performed By: #### L YTES, URIC, CA, BUN, PTH, CREAT #### [facility] [address] Potassium [Moles/Vol] 4.1 mmol/L Normal 3.5-5.1 [facility] Comment on above: Performed By: #### L YTES, URIC, CA, BUN, PTH, CREAT #### [facility] [address] Sodium [Moles/Vol] 140 mmol/L Normal 136-145 [facility] Comment on above: Performed By: #### L YTES, URIC, CA, BUN, PTH, CREAT #### [facility] [address] Magnesium [Mass/time] in 24 hour UrineOrdered By: Fred Bill on 10-10-2022 Magnesium (24H U) [Mass/Time] 134.2 mg/24 hr 12.0-293.0 [facility] Magnesium [Mass/volume] in U rineOrdered By: Fred Bill on 10-10-2022 Magnesium (U) [Mass/Vol] 4.4 mg/dL Not Estab. [facility] Magnesium, Urine 24Hron 09-16 Magnesium, 24Hr Urine 134.2 Normal 12.0-293.0 [facility] Comment on above: Order Comment: URINE VOLUME (MILLILTERS): 3050 Performed By: #### C ITRIC UR, U24 CA, MAG 24HRU, OXAL 24HRU, URIC 24HRU, PHOS 24HRU ####[facility] ,#### COL T V, U24 NA, CREA24 ####[facility] Ppl7435 [address] Magnesium, Urine 4.4 mg/dL Normal Not Estab. [facility] Comment on above: Order Comment: URINE VOLUME (MILLILTERS): 3050 Performed By: #### C ITRIC UR, U24 CA, MAG 24HRU, OXAL 24HRU, URIC 24HRU, PHOS 24HRU ####[facility] ,#### COL T V, U24 NA, CREA24 ####[facility] Goi9941 [address] No Panel InformationOrdered By: Fred Bill on 10-10-2022 Estimated GFR (CKD-EPI) > 60.0 mL/Min [facility] Creatinine Clearance (Chem N/A [facility] Urine Citric Acid 83 mg/L Undefined [facility] Urine Citric Acid 24 Hour 253 mg/24 hr 320-1240 [facility] Comment on above: This test was develo ped and its performance characteristicsdetermined by [facility]. It has not been cleared orapproved by the Food and Drug Administration.Performed at: BN - [facility] [address] [id number] Director: Dayan White MD, Phone: [phone] Urine Creatinine 24 Hour 1.58 g/24 hr 0.80-1.89 [facility] Oxalate [Mass/time] in 24 ho ur UrineOrdered By: Fred Bill on 10-10-2022 Oxalate (24H U) [Mass/Time] 24 mg/[address] [facility] Comment on above: Performed at: [facility] [address] [id number] Director: Dayan White MD, Phone: [phone] Oxalate [Mass/volume] in Uri neOrdered By: Fred Bill on 10-10-2022 Oxalate (U) [Mass/Vol] 8 mg/L Undefined [facility] Oxalate, Quant, 24Hr Urineon 10-10-2022 Oxalates, Urine 8 mg/L Normal Undefined [facility] Comment on above: Order Comment: URINE VOLUME (MILLILTERS): 3050 Performed By: #### C ITRIC UR, U24 CA, MAG 24HRU, OXAL 24HRU, URIC 24HRU, PHOS 24HRU ####[facility] ,#### COL T V, U24 NA, CREA24 ####[place] [address] [place] [id number] [place] Oxalates, Urine 24Hr 24 Normal [facility] Comment on above: Order Comment: URINE VOLUME (MILLILTERS): 3050 Result Comment: Perf ormed at: BN - [facility] [address] [id number] Flute Polisher: Dayan White MD, Phone: [phone] Performed By: #### C ITRIC UR, U24 CA, MAG 24HRU, OXAL 24HRU, URIC 24HRU, PHOS 24HRU ####[facility] ,#### COL T V, U24 NA, CREA24 ####[place] [id number] [place] Parathyrin.intact [Mass/volu me] in Serum or PlasmaOrdered By: Frde Bill on 10-10-2022 Parathyrin.intact [Mass/Vol] 31.0 pg/mL [facility] Parathyroid Hormone Intacton 10-10-2022 Parathyroid Hormone Intact 31.0 pg/mL Normal [facility] Comment on above: Result Comment: PERF ORMED BY: [facility] [address]111 [place] [id number] PATHOLOGIST PROFESSOR OF VOICE ZURI HOOD M.D. Performed By: #### L YTES, URIC, CA, BUN, PTH, CREAT #### [facility] 1[address] [place] [address] [place] Phosphate [Mass/time] in 24 hour UrineOrdered By: Fred Bill on 10-10-2022 Phosphate (24H U) [Mass/Time] 909 mg/24 hr 261-1078 [facility] Phosphate [Mass/volume] in U rineOrdered By: Fred Bill on 10-10-2022 Phosphate (U) [Mass/Vol] 29.8 mg/dL Not Estab. [facility] Phosphorus, 24Hr Urineon Phosphorous, Urine 29.8 mg/dL Normal Not Estab. [facility] Comment on above: Order Comment: URINE VOLUME (MILLILTERS): 3050 Performed By: #### C ITRIC UR, U24 CA, MAG 24HRU, OXAL 24HRU, URIC 24HRU, PHOS 24HRU ####[facility] ,#### COL T V, U24 NA, CREA24 ####[facility] Uss4308 [place] [id number] [place] Phosphorus, Urine 24Hr 909 Normal 261-1078 [facility] Comment on above: Order Comment: URINE VOLUME (MILLILTERS): 3050 Performed By: #### C ITRIC UR, U24 CA, MAG 24HRU, OXAL 24HRU, URIC 24HRU, PHOS 24HRU ####[facility] ,#### COL T V, U24 NA, CREA24 ####[place] [id number] [facility] Potassium [Moles/volume] in Serum or PlasmaOrdered By: Fred Bill on 10-10-2022 Potassium [Moles/Vol] 4.1 mmol/L 3.5-5.1 [facility] Serum or plasma anion gap de terminationOrdered By: Fred Bill on 10-10-2022 Anion gap [Moles/Vol] 9.4 mmol/L 6.0-15.0 [facility] Sodium [Moles/volume] in Ser um or PlasmaOrdered By: Fred Bill on 10-10-2022 Sodium [Moles/Vol] 140 mmol/L 136-145 [facility] Sodium [Moles/volume] in Uri neOrdered By: Fred Bill on 10-10-2022 Sodium (U) [Moles/Vol] 45.0 mmol/L F [facility] Comment on above: No reference range e stablished Sodium, 24 Hr Urineon 2022 Sodium (U) [Moles/Vol] 45.0 mmol/L Normal F [facility] Comment on above: Order Comment: URINE COLLECTION TIME (HRS): 24 URINE VOLUME (MILLILTERS): 3050 Result Comment: No r eference range established Performed By: #### C ITRIC UR, U24 CA, MAG 24HRU, OXAL 24HRU, URIC 24HRU, PHOS 24HRU ####[facility] ,#### COL T V, U24 NA, CREA24 ####[place] [id number] [facility] Sodium 24 Hour Urine 137 Normal 40-220 [facility] Comment on above: Order Comment: URINE COLLECTION TIME (HRS): 24 URINE VOLUME (MILLILTERS): 3050 Performed By: #### C ITRIC UR, U24 CA, MAG 24HRU, OXAL 24HRU, URIC 24HRU, PHOS 24HRU ####[facility] ,#### COL T V, U24 NA, CREA24 ####[place] [id number] [facility] Urate [Mass/volume] in Serum or PlasmaOrdered By: Fred Bill on 10-10-2022 Urate [Mass/Vol] 5.6 mg/dL 2.3-6.6 [facility] Urea nitrogen [Mass/volume] in Serum or PlasmaOrdered By: Fred Bill on 10-10-2022 Urea nitrogen [Mass/Vol] 11 mg/dL 7 [facility] Uric Acidon 10-10-2022 Urate [Mass/Vol] 5.6 mg/dL Normal 2.3-6.6 [facility] Comment on above: Result Comment: PERF ORMED BY: [facility] [address] [place] [address] PATHOLOGIST PROFESSOR OF VOICE ZURI HOOD M.D. Performed By: #### L YTES, URIC, CA, BUN, PTH, CREAT #### [facility] [address] Urine uric acid measurement (mass/volume)Ordered By: Fred Bill on 10-10-2022 Urate (U) [Mass/Vol] 14.5 mg/dL Not Estab. [facility] Urine volume measurementOrde red By: Fred Bill on 10-10-2022 Specimen volume (U) 3050 ml [facility] AMYLASEon 07-20-2022 Amylase [Catalytic activity/Vol] 30 U/L Normal 25-115 [facility] Comment on above: Performed By: #### L IPA, CMP, DAVID #### [facility] [address] [place] [address] [address] Donna Shaw CBC AUTO DIFFon 07-20-2022 BASO # 0.0 103/ul Normal 0.0-0.1 [facility] Comment on above: Performed By: #### C BC #### [facility] [address] [place] [address] [address] Donna Shaw Basophils/100 WBC (Bld) 0.6 % Normal 0.2-2.0 [facility] Comment on above: Performed By: #### C BC #### [facility] [address] [place] [address] [address] Donna Shaw EO # 0.2 103/ul Normal 0.0-0.7 [facility] Comment on above: Performed By: #### C BC #### [facility] [address] [place] [address] Dr. Donna Shaw Eosinophils/100 WBC (Bld) 2.8 % Normal 0.9-7.0 [facility] Comment on above: Performed By: #### C BC #### [facility] [address] [place] [address] Dr. Donna Shaw Erythrocyte distribution width (RBC) [Ratio] 12.7 % Normal 11.0-15.0 [facility] Comment on above: Performed By: #### C BC #### [facility] [address] [place] [address] Dr. Donna Shaw Hematocrit (Bld) [Volume fraction] 38.4 % Normal 36.0-48.0 [facility] Comment on above: Performed By: #### C BC #### [facility] [address] [place] [address] Dr. Donna Shaw Hemoglobin (Bld) [Mass/Vol] 12.9 g/dL Normal 12.0-16.0 [facility] Comment on above: Performed By: #### C BC #### [facility] [address] [place] [address] Dr. Donna Shaw IG # 0.03 10e3/ul Normal 0.00-0.03 [facility] Comment on above: Performed By: #### C BC #### [facility] [address] [place] [address] Dr. Donna Shaw IG % 0.4 % Normal 0.0-0.5 [facility] Comment on above: Performed By: #### C BC #### [facility] [address] [place] [address] Dr. Donna Shaw LYMPH # 2.3 103/ul Normal 1.2-3.8 [facility] Comment on above: Performed By: #### C BC #### [facility] [address] [place] [address] Dr. Donna Shaw Lymphocytes/100 WBC (Bld) 34.1 % Normal 20.5-60.0 [facility] Comment on above: Performed By: #### C BC #### [facility] [address] [place] [address] Dr. Donna Shaw MANUAL DIFF REQ NO Normal [facility] Comment on above: Performed By: #### C BC #### [facility] [address] [place] [address] Dr. Donna Shaw MCH (RBC) [Entitic mass] 29.7 pg Normal 26.7-34.0 [facility] Comment on above: Performed By: #### C BC #### [facility] [address] [place] [address] Dr. Donna Shaw MCHC (RBC) [Mass/Vol] 33.6 g/dL Normal 29.9-35.2 [facility] Comment on above: Performed By: #### C BC #### [facility] [address] [place] [address] Dr. Donna Shaw MCV (RBC) [Entitic vol] 88.5 fL Normal 81.0-99.0 [facility] Comment on above: Performed By: #### C BC #### [facility] [address] [place] [address] Dr. Donna Shaw MONO # 0.6 103/ul Normal 0.3-0.8 [facility] Comment on above: Performed By: #### C BC #### [facility] [address] [place] [address] Dr. Donna Shaw Monocytes/100 WBC (Bld) 8.3 % Normal 1.7-12.0 [facility] Comment on above: Performed By: #### C BC #### [facility] [address] [place] [address] Dr. Donna Shaw NEUT # 3.6 103/ul Normal 1.4-6.5 [facility] Comment on above: Performed By: #### C BC #### [facility] [address] [place] [address] Dr. Donna Shaw Neutrophils/100 WBC (Bld) 53.8 % Normal 43.0-75.0 [facility] Comment on above: Performed By: #### C BC #### [facility] [address] [place] [address] Dr. Donna Shaw Platelet mean volume (Bld) [Entitic vol] 9.0 fL Critically low 9.5-13.5 [facility] Comment on above: Performed By: #### C BC #### [facility] [address] [place] [address] Dr. Donna Shaw PLT 395 103/ul Normal 150-450 [facility] Comment on above: Performed By: #### C BC #### [facility] [address] [place] [address] Dr. Donna Shaw RBC 4.34 106/ul Normal 4.20-5.40 [facility] Comment on above: Performed By: #### C BC #### [facility] [address] [place] [address] Dr. Donna Shaw WBC 6.7 103/ul Normal 4.0-11.0 [facility] Comment on above: Performed By: #### C BC #### [facility] [address] [place] [address] Dr. Donna Shaw LIPASEon 07-20-2022 Lipase [Catalytic activity/Vol] 49.0 U/L Critically low 73.0-393.0 [facility] Comment on above: Performed By: #### L IPA, CMP, DAVID #### [facility] [address] [place] [address] Dr. Donna Shaw PROF 14(COMP METB)on 023 Albumin [Mass/Vol] 3.4 g/dL Normal 3.4-5.0 [facility] Comment on above: Performed By: #### L IPA, CMP, DAVID #### [facility] [address] [place] [address] Dr. Donna Shaw Albumin/Globulin [Mass ratio] 1.1 {ratio} Normal [facility] Comment on above: Performed By: #### L IPA, CMP, DAVID #### [facility] [address] [place] [address] Dr. Donna Shaw ALP [Catalytic activity/Vol] 52 U/L Normal 46-116 [facility] Comment on above: Performed By: #### L IPA, CMP, DAVID #### [facility] [address] [place] [address] Dr. Donna Shaw ALT [Catalytic activity/Vol] 16 U/L Normal 14-59 [facility] Comment on above: Performed By: #### L IPA, CMP, DAVID #### [facility] [address] [place], [place] [address] Dr. Donna Shaw Anion gap [Moles/Vol] 12.4 mmol/L Normal Th e [facility] Comment on above: Performed By: #### L IPA, CMP, DAVID #### [facility] Laboratory [address] [place] [address] Dr. Donna Shaw AST [Catalytic activity/Vol] 12 U/L Critically low 15-37 [facility] Comment on above: Performed By: #### L IPA, CMP, DAVID #### [facility] [address] [place] [address] Dr. Donna Shaw Bilirubin [Mass/Vol] 0.4 mg/dL Normal 0.2-1.0 [facility] Comment on above: Performed By: #### L IPA, CMP, DAVID #### [facility] [address] [place] [address] Dr. Donna Shaw Calcium [Mass/Vol] 8.6 mg/dL Normal 8.5-10.1 [facility] Comment on above: Performed By: #### L IPA, CMP, DAVID #### [facility] [address] [place] [address] Dr. Donna Shaw Chloride [Moles/Vol] 107 mmol/L Normal 98-107 [facility] Comment on above: Performed By: #### L IPA, CMP, DAVID #### [facility] [address] [place] [address] Dr. Donna Shaw CO2 [Moles/Vol] 26.5 mmol/L Normal 21.0-32.0 [facility] Comment on above: Performed By: #### L IPA, CMP, DAVID #### [facility] [address] [place] [address] Dr. Donna Shaw Creatinine [Mass/Vol] 0.71 mg/dL Normal 0.55-1.02 [facility] Comment on above: Performed By: #### L IPA CMP, DAVID #### [facility] [address] [place] [address] Dr. Donna Shaw EGFR-AF BURKINAN >60 Normal >=60 [facility] Comment on above: Performed By: #### L IPA CMP, DAVID #### [facility] [address] [address] [address] Donna Shaw EGFR-NON AF BURKINAN >60 Normal >=60 [facility] Comment on above: Performed By: #### L IPA CMP, DAVID #### [facility] [address] [place] [address] Dr. Donna Shaw Globulin (S) [Mass/Vol] 3.2 g/dL Normal [facility] Comment on above: Performed By: #### L IPA CMP, DAVID #### [facility] [address] [address] [address] Donna Shaw Glucose [Mass/Vol] 92 mg/dL Normal 74-106 [facility] Comment on above: Performed By: #### L IPA CMP, DAVID #### [facility] [address] [place] [address] Dr. Donna Shaw Potassium [Moles/Vol] 3.9 mmol/L Normal 3.5-5.1 [facility] Comment on above: Performed By: #### L IPA, CMP, DAVID #### [facility] [address] [place] [address] Dr. Donna Shaw Protein [Mass/Vol] 6.6 g/dL Normal 6.4-8.2 [facility] Comment on above: Performed By: #### L IPA CMP, DAVID #### [facility] [address] [address] [address] Donna Shaw Sodium [Moles/Vol] 142 mmol/L Normal 136-145 [facility] Comment on above: Performed By: #### L IPA, CMP, DAVID #### [facility] [address] [address] [address] Donna Shaw Urea nitrogen [Mass/Vol] 8.0 mg/dL Normal 7.0-18.0 [facility] Comment on above: Performed By: #### L IPA, CMP, DAVID #### [facility] [address] [place] [address] Dr. Donna Shaw Urea nitrogen/Creatinine [Mass ratio] 11.3 mg/mg Normal [facility] Comment on above: Performed By: #### L IPA, CMP, DAVID #### [facility] [address] [place] [address] Dr. Donna Shaw PROTIMEon 07-20-2022 INR Coag (PPP) [Relative time] 0.97 {INR} Normal [facility] Comment on above: Performed By: #### P TT, PT #### [facility] [address] [place] [address] Dr. Donna Shaw INR GUIDELINES SEE BELOW Normal [facility] Comment on above: Result Comment: IZABEL RED INR: 2.0 - 3.0 CONDITIONS NOT LISTED BELOW 2.5 - 3.5 FOR PROSTHETIC HEART VALVE REPLACEMENT 2.5 - 3.5 RECURRENT THROMBOSIS Performed By: #### P TT, PT #### [facility] [address] [place] [address] Dr. Donna Shaw PT Coag (PPP) [Time] 10.3 s Normal 9.0-11.6 [facility] Comment on above: Performed By: #### P TT, PT #### [facility] [address] [place] [address] Dr. Donna Shaw PTTon 07-20-2022 aPTT Coag (Bld) [Time] 28.2 s Normal 22.3-36.2 [facility] Comment on above: Performed By: #### P TT, PT #### [facility] [address] [place] [address] Dr. Donna Shaw Basic Metabolic Panelon Anion gap [Moles/Vol] 10.1 mmol/L Normal 6.0-15.0 [facility] Comment on above: Performed By: #### C BC, BMP ####[facility] [place] [address] [facility] Calcium [Mass/Vol] 8.4 mg/dL Low 8.6-10.3 [facility] Comment on above: Performed By: #### C BC, BMP ####[facility] [place] [address] [facility] Chloride [Moles/Vol] 109 mmol/L High 98-107 [facility] Comment on above: Performed By: #### C BC, BMP ####[address] [place] [address] [facility] CO2 [Moles/Vol] 21.9 mmol/L Normal 21.0-31.0 [facility] Comment on above: Performed By: #### C BC, BMP ####[address] [address] [place] [id number] [facility] Creatinine [Mass/Vol] 0.87 mg/dL Normal 0.60-1.20 [facility] Comment on above: Performed By: #### C BC, BMP ####[address] [address] [place] [id number] [place] Creatinine Clr Calc Pharmacy 78.86 [facility] Comment on above: Result Comment: PERF ORMED BY: [facility] [address] [place] [id number] PATHOLOGIST PROFESSOR OF VOICE ZURI HOOD M.D. Performed By: #### C BC, BMP ####[address] [address] [place] [id number] [facility] GFR/1.73 sq M.predicted MDRD (S/P/Bld) [Vol rate/Area] mL/min/{1.73_m2} [facility] Comment on above: Performed By: #### C BC, BMP ####[address] [place] [address] [place] [id number] [facility] Glucose [Mass/Vol] 137 mg/dL High 70-100 [facility] Comment on above: Result Comment: [place] Glucose Reference Range is dependent on time and content of last meal. Glucose of more than 200 mg/dL in a nonstressed, ambulatory subject supports the diagnosis of Diabetes Mellitus. ADA recommended reference range Performed By: #### C BC, BMP ####[facility] [id number] [place] [id number] [facility] Potassium [Moles/Vol] 4.0 mmol/L Normal 3.5-5.1 [facility] Comment on above: Performed By: #### C BC, BMP ####[facility] [id number] Sodium [Moles/Vol] 137 mmol/L Normal 136-145 [facility] Comment on above: Performed By: #### C BC, BMP ####[facility] [id number] Urea nitrogen [Mass/Vol] 11 mg/dL Normal 7-25 [facility] Comment on above: Performed By: #### C BC, BMP ####[facility] [id number] Basophils Auto (Bld) [#/Vol] Ordered By: Jillian Hahn on 07-18-2022 Basophils (Bld) [#/Vol] 0.0 10*3/uL 0.0-0.2 [facility] Basophils/100 WBC Auto (Bld) Ordered By: Jillian Hahn on 07-18-2022 Basophils/100 WBC (Bld) 0.3 % . [facility] Calcium [Mass/volume] in Ser um or PlasmaOrdered By: Jillian Hahn on 07-18-2022 Calcium [Mass/Vol] 8.4 mg/dL 8.6-10.3 [facility] Carbon dioxide, total [Moles /volume] in Serum or PlasmaOrdered By: Jillian Hahn on 07-18-2022 CO2 [Moles/Vol] 21.9 mmol/L 21.0-31.0 [facility] Chloride [Moles/volume] in S viji or PlasmaOrdered By: Jillian Hahn on 07-18-2022 Chloride [Moles/Vol] 109 mmol/L 98-107 [facility] Complete Blood Count Auto Di ffon 07-18-2022 Basophils (Bld) [#/Vol] 0.0 10*3/uL Normal 0.0-0.2 [facility] Comment on above: Result Comment: PERF ORMED BY: [facility] [address] [place] [address] PATHOLOGIST PROFESSOR OF VOICE ZURI HOOD M.D. Performed By: #### C BC, BMP ####[address] [place] [address] [place] [phone] [facility] Basophils/100 WBC (Bld) 0.3 % Normal . [facility] Comment on above: Performed By: #### C BC, BMP ####[address] [place] [phone] [facility] Eosinophils (Bld) [#/Vol] 0.0 10*3/uL Normal 0.0-0.45 [facility] Comment on above: Performed By: #### C ALLAN, BMP ####[place] [address] Eosinophils/100 WBC (Bld) 0.1 % Normal . [facility] Comment on above: Performed By: #### C ALLAN, BMP ####[address] [place] [id number] [facility] Erythrocyte distribution width (RBC) [Ratio] 13.5 % Normal 11.9-15.3 [facility] Comment on above: Performed By: #### C ALLAN, BMP ####[place] [id number] [facility] Hematocrit (Bld) [Volume fraction] 39.3 % Normal 34.0-46.4 [facility] Comment on above: Performed By: #### C BC, BMP ####[address] [place] [phone] [facility] Hemoglobin (Bld) [Mass/Vol] 13.2 g/dL Normal 11.8-15.4 [facility] Comment on above: Performed By: #### C BC, BMP ####[place] [id number] [facility] Lymphocytes (Bld) [#/Vol] 0.8 10*3/uL Low 1.00-4.8 [facility] Comment on above: Performed By: #### C BC, BMP ####[address] [place] [phone] [facility] Lymphocytes/100 WBC (Bld) 10.9 % Normal . [facility] Comment on above: Performed By: #### C BC, BMP ####[address] [place] [phone] [facility] MCH (RBC) [Entitic mass] 29.9 pg Normal 24.7-34.3 [facility] Comment on above: Performed By: #### C BC, BMP ####[address] [place] [id number] [facility] MCV (RBC) [Entitic vol] 88.9 fL Normal 80-100 [facility] Comment on above: Performed By: #### C ALLAN, BMP ####[place] [phone] [facility] Mean Corpuscular HGB Conc 33.6 g/dL Normal 32.0-35.0 [facility] Comment on above: Performed By: #### C BC, BMP ####[place] [id number] [facility] Monocytes (Bld) [#/Vol] 0.2 10*3/uL Normal 0.0-0.8 [facility] Comment on above: Performed By: #### C BC, BMP ####[place] [id number] [facility] Monocytes/100 WBC (Bld) 2.3 % Normal . [facility] Comment on above: Performed By: #### C BC, BMP ####[place] [id number] [facility] Neutrophils (Bld) [#/Vol] 6.3 10*3/uL Normal 1.8-7.7 [facility] Comment on above: Performed By: #### C BC, BMP ####[place] [id number] [facility] Neutrophils/100 WBC (Bld) 86.4 % Normal . [facility] Comment on above: Performed By: #### C ALLAN, BMP ####[facility] [place] [address] [facility] NRBC% 0.1 /100{WBC} Normal 0-0.5 [facility] Comment on above: Performed By: #### C ALLAN, BMP ####[address] [place] [address] [facility] Platelet mean volume (Bld) [Entitic vol] 7.6 fL Normal 6.3-10.7 [facility] Comment on above: Performed By: #### C ALLAN, BMP ####[address] [place] [address] [facility] Platelets (Bld) [#/Vol] 356 10*3/uL Normal 150-450 [facility] Comment on above: Performed By: #### C ALLAN, BMP ####[address] [place] [address] [facility] RBC (Bld) [#/Vol] 4.42 10*6/uL Normal 3.60-5.00 [facility] Comment on above: Performed By: #### C ALLAN, BMP ####[address] [address] [facility] WBC (Bld) [#/Vol] 7.3 10*3/uL Normal 3.8-11.6 [facility] Comment on above: Performed By: #### C ALLAN, BMP ####[place] [id number] [facility] Creatinine [Mass/volume] in Serum or PlasmaOrdered By: Jillian Hahn on 07-18-2022 Creatinine [Mass/Vol] 0.87 mg/dL 0.60-1.20 [facility] Eosinophils Auto (Bld) [#/Vo l]Ordered By: Jillian Hahn on 07-18-2022 Eosinophils (Bld) [#/Vol] 0.0 10*3/uL 0.0-0.45 [facility] Eosinophils/100 WBC Auto (Bl d)Ordered By: Jillian Hahn on 07-18-2022 Eosinophils/100 WBC (Bld) 0.1 % . [facility] Erythrocyte distribution wid th Auto (RBC) [Ratio]Ordered By: Jillian Hahn on 07-18-2022 Erythrocyte distribution width (RBC) [Ratio] 13.5 % 11.9-15.3 [facility] [place] urethrocystogram retroon 07-18-2022 [place] urethrocystogram retro [place] [address] Fluoroscopy Report Signed Patient: Giselle Nova MR#: [id number] : 1980 Acct:[id number] Age/Sex: 41 / F ADM Date: 07/17/22 Loc: 4 Room: [address] [place] [address] Type: ADM INOo Attending Dr: Pete Cardozo MD Copies to: MD Jillian Louie MD Ordering Provider: Jillian Hahn MD Date of Service: 07/17/22 [place]/FL urethrocystogram retro: L KIDNEY STONE LEFT RETROGRADE UROGRAM - 6 images COMPARISON: 07/17/2022 KUB and 11/07/2019 CT CLINICAL DATA: Left lower quadrant pain and left-sided stones Multiple spot films of the abdomen were obtained before, during and after retrograde injection of contrast into the distal left ureter. On the book trimmer view, the left renal and ureteropelvic junction stones are again noted. The opacified left ureter is within normal limits for caliber and position. There is a filling defect at the ureteropelvic junction related to the stone. The collecting system is never opacified adequately for evaluation. A wire was placed up to the kidney and subsequently exchanged for an internal ureteral stent. The UPJ stone is believed to been pushed back into the kidney during stent placement. Cumulative Air Kerma in mGy: 107.5 mGy Impression dictated by: Lisa Bunch M.D.07/18/2022 10:30 AM Dictation Location: [place] [address] Transcribed By: [facility] 07/18/22 1030 Dictated By: Lisa Bunch MD 07/18/22 1026 Signed By: 07/18/[address] [facility] Glucose [Mass/volume] in Ser um or PlasmaOrdered By: Jillian Hahn on 07-18-2022 Glucose [Mass/Vol] 137 mg/dL 70-100 [facility] Comment on above: ADA recommended refe rence rangeRandom Glucose Reference Range is dependent on time and content of last meal. Glucose of more than 200 mg/dL in a nonstressed, ambulatory subject supports the diagnosis of Diabetes Mellitus. Hematocrit Auto (Bld) [Volum e fraction]Ordered By: Jillian Hahn on 07-18-2022 Hematocrit (Bld) [Volume fraction] 39.3 % 34.0-46.4 [facility] Hemoglobin [Mass/volume] in BloodOrdered By: Jillian Hahn on 07-18-2022 Hemoglobin (Bld) [Mass/Vol] 13.2 g/dL 11.8-15.4 [facility] Leukocytes [#/volume] correc valente for nucleated erythrocytes in Blood by Automated counOrdered By: Jillian Hahn on 07-18-2022 WBC corrected for nucl RBC Auto (Bld) [#/Vol] 7.3 10*3/uL 3.8-11.6 [facility] Lymphocytes Auto (Bld) [#/Vo l]Ordered By: Jillian Hahn on 07-18-2022 Lymphocytes (Bld) [#/Vol] 0.8 10*3/uL 1.00-4.8 [facility] Lymphocytes/100 WBC Auto (Bl d)Ordered By: Jillian Hahn on 07-18-2022 Lymphocytes/100 WBC (Bld) 10.9 % . [facility] MCH Auto (RBC) [Entitic mass ]Ordered By: Jillian Hahn on 07-18-2022 MCH (RBC) [Entitic mass] 29.9 pg 24.7-34.3 [facility] MCHC Auto (RBC) [Mass/Vol]Or dered By: Jillian Hahn on 07-18-2022 MCHC (RBC) [Mass/Vol] 33.6 g/dL 32.0-35.0 [facility] MCV Auto (RBC) [Entitic vol] Ordered By: Jillian Hahn on 07-18-2022 MCV (RBC) [Entitic vol] 88.9 fL 80-100 [facility] Monocytes Auto (Bld) [#/Vol] Ordered By: Jillian Hahn on 07-18-2022 Monocytes (Bld) [#/Vol] 0.2 10*3/uL 0.0-0.8 [facility] Monocytes/100 WBC Auto (Bld) Ordered By: Jillian Hahn on 07-18-2022 Monocytes/100 WBC (Bld) 2.3 % . [facility] Neutrophils Auto (Bld) [#/Vo l]Ordered By: Jillian Hahn on 07-18-2022 Neutrophils (Bld) [#/Vol] 6.3 10*3/uL 1.8-7.7 [facility] Neutrophils/100 WBC Auto (Bl d)Ordered By: Jillian Hahn on 07-18-2022 Neutrophils/100 WBC (Bld) 86.4 % . [facility] No Panel InformationOrdered By: Jillian Hahn on 07-18-2022 Estimated GFR (CKD-EPI) > 60.0 mL/Min [facility] Creatinine Clearance (Chem 78.86 [facility] Nucleated erythrocytes [Pres ence] in Blood by Automated countOrdered By: Jillian Hahn on 07-18-2022 Nucleated RBC Auto Ql (Bld) 0.1 /100{WBC} 0-0.5 [facility] Platelet mean volume Auto (B ld) [Entitic vol]Ordered By: Jillian Hahn on 07-18-2022 Platelet mean volume (Bld) [Entitic vol] 7.6 fL 6.3-10.7 [facility] Platelets Auto (Bld) [#/Vol] Ordered By: Jillian Hahn on 07-18-2022 Platelets (Bld) [#/Vol] 356 10*3/uL 150-450 [facility] Potassium [Moles/volume] in Serum or PlasmaOrdered By: Jillian Hahn on 07-18-2022 Potassium [Moles/Vol] 4.0 mmol/L 3.5-5.1 [facility] RBC Auto (Bld) [#/Vol]Ordere d By: Jillian Hahn on 07-18-2022 RBC (Bld) [#/Vol] 4.42 10*6/uL 3.60-5.00 [facility] Serum or plasma anion gap de terminationOrdered By: Jillian Hahn on 07-18-2022 Anion gap [Moles/Vol] 10.1 mmol/L 6.0-15.0 [facility] Sodium [Moles/volume] in Ser um or PlasmaOrdered By: Jillian Hahn on 07-18-2022 Sodium [Moles/Vol] 137 mmol/L 136-145 [facility] Urea nitrogen [Mass/volume] in Serum or PlasmaOrdered By: Jillian Hahn on 07-18-2022 Urea nitrogen [Mass/Vol] 11 mg/dL 7-25 [facility] WBC Auto (Bld) [#/Vol]Ordere d By: Jillian Hahn on 07-18-2022 WBC (Bld) [#/Vol] 7.3 10*3/uL 3.8-11.6 [facility] Alanine aminotransferase [En zymatic activity/volume] in Serum or PlasmaOrdered By: Kyra Dee on 07-17-2022 ALT [Catalytic activity/Vol] 10 U/L 7-52 [facility] Albumin [Mass/volume] in Ser um or Plasma by Bromocresol green (BCG) dye binding methoOrdered By: Kyra Dee on 07-17-2022 Albumin BCG dye [Mass/Vol] 4.2 g/dL 3.5-5.7 [facility] Alkaline phosphatase [Enzyma tic activity/volume] in Serum or PlasmaOrdered By: Kyra Dee on 07-17-2022 ALP [Catalytic activity/Vol] 47 U/L 34-104 [facility] Aspartate aminotransferase [ Enzymatic activity/volume] in Serum or PlasmaOrdered By: Kyra Dee on 07-17-2022 AST [Catalytic activity/Vol] 14 U/L 13-39 [facility] Automated erythrocytes count in urine sediment (number/area)Ordered By: Kyra Dee on 07-17-2022 RBC Auto (Urine sed) [#/Area] 10-19 [HPF] 0-4 [facility] Automated leukocytes count i n urine sediment (number/area)Ordered By: Kyra Dee on 07-17-2022 WBC Auto (Urine sed) [#/Area] 20-49 [HPF] 0-4 [facility] Basic Metabolic Panelon Anion gap [Moles/Vol] 12.3 mmol/L Normal 6.0-15.0 [facility] Comment on above: Performed By: #### C BC, LIPASE, HEPATIC, BMP ####[address] Calcium [Mass/Vol] 8.9 mg/dL Normal 8.6-10.3 [facility] Comment on above: Performed By: #### C BC, LIPASE, HEPATIC, BMP ####[address] Chloride [Moles/Vol] 107 mmol/L Normal 98-107 [facility] Comment on above: Performed By: #### C BC, LIPASE, HEPATIC, BMP ####[address] CO2 [Moles/Vol] 22.4 mmol/L Normal 21.0-31.0 [facility] Comment on above: Performed By: #### C BC, LIPASE, HEPATIC, BMP ####[address] Creatinine [Mass/Vol] 1.03 mg/dL Normal 0.60-1.20 [facility] Comment on above: Performed By: #### C BC, LIPASE, HEPATIC, BMP ####[address] Creatinine Clr Calc Pharmacy 66.61 [facility] Comment on above: Performed By: #### C BC, LIPASE, HEPATIC, BMP ####[address] GFR/1.73 sq M.predicted MDRD (S/P/Bld) [Vol rate/Area] mL/min/{1.73_m2} [facility] Comment on above: Performed By: #### C BC, LIPASE, HEPATIC, BMP ####[place] [address] Glucose [Mass/Vol] 91 mg/dL Normal 70-100 [facility] Comment on above: Result Comment: [facility] Glucose Reference Range is dependent on time and content of last meal. Glucose of more than 200 mg/dL in a nonstressed, ambulatory subject supports the diagnosis of Diabetes Mellitus. ADA recommended reference range Performed By: #### C BC, LIPASE, HEPATIC, BMP ####[place] [address] Potassium [Moles/Vol] 3.7 mmol/L Normal 3.5-5.1 [facility] Comment on above: Performed By: #### C BC, LIPASE, HEPATIC, BMP ####[place] [address] Sodium [Moles/Vol] 138 mmol/L Normal 136-145 [facility] Comment on above: Performed By: #### C BC, LIPASE, HEPATIC, BMP ####[address] Urea nitrogen [Mass/Vol] 15 mg/dL Normal 7-25 [facility] Comment on above: Performed By: #### C BC, LIPASE, HEPATIC, BMP ####[place] [address] Basophils Auto (Bld) [#/Vol] Ordered By: Kyra Dee on 07-17-2022 Basophils (Bld) [#/Vol] 0.1 10*3/uL 0.0-0.2 [facility] Basophils/100 WBC Auto (Bld) Ordered By: Kyra Dee on 07-17-2022 Basophils/100 WBC (Bld) 0.6 % . [facility] Bilirubin Test strip Ql (U)O rdered By: Kyra Dee on 07-17-2022 Bilirubin Ql (U) Negative Negative [facility] Bilirubin.direct [Mass/volum e] in Serum or PlasmaOrdered By: Kyra Dee on 07-17-2022 Bilirubin.direct [Mass/Vol] 0.10 mg/dL 0.03-0.18 [facility] Bilirubin.total [Mass/volume ] in Serum or PlasmaOrdered By: Kyra Dee on 07-17-2022 Bilirubin [Mass/Vol] 0.6 mg/dL 0.3-1.0 [facility] Calcium [Mass/volume] in Ser um or PlasmaOrdered By: Kyra Dee on 07-17-2022 Calcium [Mass/Vol] 8.9 mg/dL 8.6-10.3 [facility] Carbon dioxide, total [Moles /volume] in Serum or PlasmaOrdered By: Kyra Dee on 07-17-2022 CO2 [Moles/Vol] 22.4 mmol/L 21.0-31.0 [facility] Chloride [Moles/volume] in S viji or PlasmaOrdered By: Kyra Dee on 07-17-2022 Chloride [Moles/Vol] 107 mmol/L 98-107 [facility] Color Auto (U)Ordered By: Me pedro luis Dee on 07-17-2022 Color (U) Yellow Yellow [facility] Complete Blood Count Auto Di ffon 07-17-2022 Basophils (Bld) [#/Vol] 0.1 10*3/uL Normal 0.0-0.2 [facility] Comment on above: Result Comment: PERF ORMED BY: [facility] [address] [place] [id number] PATHOLOGIST PROFESSOR OF VOICE ZURI HOOD M.D. Performed By: #### C BC, LIPASE, HEPATIC, BMP ####[place] [address] Basophils/100 WBC (Bld) 0.6 % Normal . [facility] Comment on above: Performed By: #### C BC, LIPASE, HEPATIC, BMP ####[place] [address] [place] [id number] [facility] Eosinophils (Bld) [#/Vol] 0.2 10*3/uL Normal 0.0-0.45 [facility] Comment on above: Performed By: #### C BC, LIPASE, HEPATIC, BMP ####[place] [address] [place] [id number] [facility] Eosinophils/100 WBC (Bld) 1.9 % Normal . [facility] Comment on above: Performed By: #### C BC, LIPASE, HEPATIC, BMP ####[address] Erythrocyte distribution width (RBC) [Ratio] 13.4 % Normal 11.9-15.3 [facility] Comment on above: Performed By: #### C BC, LIPASE, HEPATIC, BMP ####[address] Hematocrit (Bld) [Volume fraction] 39.9 % Normal 34.0-46.4 [facility] Comment on above: Performed By: #### C BC, LIPASE, HEPATIC, BMP ####[address] Hemoglobin (Bld) [Mass/Vol] 13.3 g/dL Normal 11.8-15.4 [facility] Comment on above: Performed By: #### C BC, LIPASE, HEPATIC, BMP ####[address] Lymphocytes (Bld) [#/Vol] 1.7 10*3/uL Normal 1.00-4.8 [facility] Comment on above: Performed By: #### C BC, LIPASE, HEPATIC, BMP ####[address] Lymphocytes/100 WBC (Bld) 14.7 % Normal . [facility] Comment on above: Performed By: #### C BC, LIPASE, HEPATIC, BMP ####[address] MCH (RBC) [Entitic mass] 29.3 pg Normal 24.7-34.3 [facility] Comment on above: Performed By: #### C BC, LIPASE, HEPATIC, BMP ####[address] MCV (RBC) [Entitic vol] 87.9 fL Normal 80-100 [facility] Comment on above: Performed By: #### C BC, LIPASE, HEPATIC, BMP ####[place] [address] [place] [id number] [facility] Mean Corpuscular HGB Conc 33.4 g/dL Normal 32.0-35.0 [facility] Comment on above: Performed By: #### C BC, LIPASE, HEPATIC, BMP ####[address] [address] [facility] Monocytes (Bld) [#/Vol] 1.2 10*3/uL High 0.0-0.8 [facility] Comment on above: Performed By: #### C BC, LIPASE, HEPATIC, BMP ####[address] [address] [facility] Monocytes/100 WBC (Bld) 16.75 % Normal 0.00-20.00 [facility] Comment on above: Performed By: #### C BC, LIPASE, HEPATIC, BMP ####[place] [id number] [facility] Monocytes/100 WBC (Bld) 10.3 % Normal . [facility] Comment on above: Performed By: #### C BC, LIPASE, HEPATIC, BMP ####[address] [address] [facility] Neutrophils (Bld) [#/Vol] 8.2 10*3/uL High 1.8-7.7 [facility] Comment on above: Performed By: #### C BC, LIPASE, HEPATIC, BMP ####[place] [id number] [facility] Neutrophils/100 WBC (Bld) 72.5 % Normal . [facility] Comment on above: Performed By: #### C BC, LIPASE, HEPATIC, BMP ####[address] [address] [facility] NRBC% 0.1 /100{WBC} Normal 0-0.5 [facility] Comment on above: Performed By: #### C BC, LIPASE, HEPATIC, BMP ####[place] [id number] [facility] Platelet mean volume (Bld) [Entitic vol] 7.6 fL Normal 6.3-10.7 [facility] Comment on above: Performed By: #### C BC, LIPASE, HEPATIC, BMP ####[place] [address] [place] [address] [facility] Platelets (Bld) [#/Vol] 380 10*3/uL Normal 150-450 [facility] Comment on above: Performed By: #### C BC, LIPASE, HEPATIC, BMP ####[place] [id number] [facility] RBC (Bld) [#/Vol] 4.53 10*6/uL Normal 3.60-5.00 [facility] Comment on above: Performed By: #### C BC, LIPASE, HEPATIC, BMP ####[place] [id number] [facility] WBC (Bld) [#/Vol] 11.4 10*3/uL Normal 3.8-11.6 [facility] Comment on above: Performed By: #### C BC, LIPASE, HEPATIC, BMP ####[place] [id number] [facility] Creatinine [Mass/volume] in Serum or PlasmaOrdered By: Kyra Dee on 07-17-2022 Creatinine [Mass/Vol] 1.03 mg/dL 0.60-1.20 [facility] Dipstick and Microscopicon 0 07-17-2022 Appearance (U) Cloudy Critically abnormal Clear [facility] Comment on above: Order Comment: Name Collection Type:: Clean-Voided Midstream Performed By: #### C UU, ADDONUAPLUS, UHCG ####[place] [phone] [facility] Bacteria,Urine 2+ High None Seen [facility] Comment on above: Order Comment: Name Collection Type:: Clean-Voided Midstream Performed By: #### C UU, ADDONUAPLUS, UHCG ####[place] [phone] [facility] Bilirubin,Urine Negative Normal Negative [facility] Comment on above: Order Comment: Name Collection Type:: Clean-Voided Midstream Performed By: #### C UU, ADDONUAPLUS, UHCG ####[address] [address] [facility] Color (U) Yellow Normal Yellow [facility] Comment on above: Order Comment: Name Collection Type:: Clean-Voided Midstream Performed By: #### C UU, ADDONUAPLUS, UHCG ####[address] [address] [facility] Glucose Ql (U) Normal Normal Normal [facility] Comment on above: Order Comment: Name Collection Type:: Clean-Voided Midstream Performed By: #### C UU, ADDONUAPLUS, UHCG ####[address] [address] [place] Hyaline Casts,Urine 0-8 Normal 0-8 [facility] Comment on above: Order Comment: Name Collection Type:: Clean-Voided Midstream Performed By: #### C UU, ADDONUAPLUS, UHCG ####[address] [address] [facility] Ketones Ql (U) Trace High Negative [facility] Comment on above: Order Comment: Name Collection Type:: Clean-Voided Midstream Performed By: #### C UU, ADDONUAPLUS, UHCG ####[address] [address] [facility] Leukocyte esterase Test strip Ql (U) 2+ High Negative [facility] Comment on above: Order Comment: Name Collection Type:: Clean-Voided Midstream Performed By: #### C UU, ADDONUAPLUS, UHCG ####[address] [address] [place] Nitrite,Urine Negative Normal Negative [facility] Comment on above: Order Comment: Name Collection Type:: Clean-Voided Midstream Performed By: #### C UU, ADDONUAPLUS, UHCG ####[address] [address] [place] Occult Blood,Urine 1+ High Negative [facility] Comment on above: Order Comment: Name Collection Type:: Clean-Voided Midstream Performed By: #### C UU, ADDONUAPLUS, UHCG ####[address] pH (U) 6.0 [pH] Normal 5.0-9.0 [facility] Comment on above: Order Comment: Name Collection Type:: Clean-Voided Midstream Performed By: #### C UU, ADDONUAPLUS, UHCG ####[address] Protein (U) [Mass/Vol] 30 mg/dL High Negative [facility] Comment on above: Order Comment: Name Collection Type:: Clean-Voided Midstream Performed By: #### C UU, ADDONUAPLUS, UHCG ####[address] RBC,Urine 10-19 High 0-4 [facility] Comment on above: Order Comment: Name Collection Type:: Clean-Voided Midstream Performed By: #### C UU, ADDONUAPLUS, UHCG ####[address] Specificy [place],Urine 1.021 Normal 1.001-1.[address] [facility] Comment on above: Order Comment: Name Collection Type:: Clean-Voided Midstream Performed By: #### C UU, ADDONUAPLUS, UHCG ####[place] [phone] [facility] Squamous Epithelial Cell,Urine 3-4 High 0-2 [facility] Comment on above: Order Comment: Name Collection Type:: Clean-Voided Midstream Performed By: #### C UU, ADDONUAPLUS, UHCG ####[address] Urobilinogen,Urine Normal Normal Normal [facility] Comment on above: Order Comment: Name Collection Type:: Clean-Voided Midstream Performed By: #### C UU, ADDONUAPLUS, UHCG ####[facility] [place] [phone] [facility] WBC,Urine 20-49 High 0-4 [facility] Comment on above: Order Comment: Name Collection Type:: Clean-Voided Midstream Performed By: #### [facility] ####[facility] [place] [phone] [facility] ECG 12 lead ECGon 07-17-2022 ECG 12 lead ECG [facility] Main [place] [address] [place] [address] Electrocardiograph Report Signed Patient: Giselle Nova MR#: [id number] : 1980 Acct:[id number] Age/Sex: 41 / F ADM Date: 07/17/22 Loc: ER Room: Type: [facility] ER Attending Dr: Ordering Provider: Kyra Dee DO Date of Service: 07/17/2205/10/1157 ECG/ECG 12 lead ECG: Abdominal Pain Copies to: Test Reason : Blood Pressure : / mmHG Vent. Rate : 077 BPM Atrial Rate : 077 BPM P-R Int : 152 ms QRS Dur : 094 ms QT Int : 386 ms P-R-T Axes : 083 084 070 degrees QTc Int : 436 ms Normal sinus rhythm Confirmed by Luiz SMALL DO ([id number]) on 07/17/2022 12:40:03 PM Referred By: Electronically Signed By:Luiz SMALL DO Transcribed By: MUS Signed By Luiz Small DO 0 07/17/[address] [facility] Eosinophils Auto (Bld) [#/Vo l]Ordered By: Kyra Dee on 07-17-2022 Eosinophils (Bld) [#/Vol] 0.2 10*3/uL 0.0-0.45 [facility] Eosinophils/100 WBC Auto (Bl d)Ordered By: Kyra Dee on 07-17-2022 Eosinophils/100 WBC (Bld) 1.9 % . [facility] Erythrocyte distribution wid th Auto (RBC) [Ratio]Ordered By: Kyra Dee on 07-17-2022 Erythrocyte distribution width (RBC) [Ratio] 13.4 % 11.9-15.3 [facility] Globulin Calc (S) [Mass/Vol] Ordered By: Kyra Dee on 07-17-2022 Globulin (S) [Mass/Vol] 2.5 g/dL [facility] Glucose [Mass/volume] in Ser um or PlasmaOrdered By: Kyra Dee on 07-17-2022 Glucose [Mass/Vol] 91 mg/dL 70-100 [facility] Comment on above: ADA recommended refe rence rangeRandom Glucose Reference Range is dependent on time and content of last meal. Glucose of more than 200 mg/dL in a nonstressed, ambulatory subject supports the diagnosis of Diabetes Mellitus. HCG ( test) IA.rapi d Ql (U)Ordered By: Kyra Dee on 07-17-2022 HCG ( test) Ql (U) Negative [facility] HCG,Urineon 07-17-2022 Beta HCG ( test) Ql (U) Negative Normal [facility] Comment on above: Order Comment: Name Collection Type:: Clean-Voided Midstream Result Comment: PERF ORMED BY: [facility] [address] [facility] [place] [phone] PATHOLOGIST PROFESSOR OF VOICE ZURI HOOD M.D. Performed By: #### C UU, ADDONUAPLUS, CG ####[place] [address] [place] [address] [facility] Hematocrit Auto (Bld) [Volum e fraction]Ordered By: Kyra Dee on 07-17-2022 Hematocrit (Bld) [Volume fraction] 39.9 % 34.0-46.4 [facility] Hemoglobin [Mass/volume] in BloodOrdered By: Kyra Dee on 07-17-2022 Hemoglobin (Bld) [Mass/Vol] 13.3 g/dL 11.8-15.4 [facility] Hepatic Panelon 07-17-2022 Albumin [Mass/Vol] 4.2 g/dL Normal 3.5-5.7 [facility] Comment on above: Performed By: #### C BC, LIPASE, HEPATIC, BMP ####[facility] [address] [place] [phone] [facility] Albumin/Globulin [Mass ratio] 1.7 {ratio} Normal [facility] Comment on above: Performed By: #### C BC, LIPASE, HEPATIC, BMP ####[place] [address] [place] [phone] [facility] ALP [Catalytic activity/Vol] 47 U/L Normal 34-104 [facility] Comment on above: Performed By: #### C BC, LIPASE, HEPATIC, BMP ####[address] ALT [Catalytic activity/Vol] 10 U/L Normal 7-52 [facility] Comment on above: Performed By: #### C BC, LIPASE, HEPATIC, BMP ####[address] AST [Catalytic activity/Vol] 14 U/L Normal 13-39 [facility] Comment on above: Performed By: #### C BC, LIPASE, HEPATIC, BMP ####[address] Bilirubin [Mass/Vol] 0.6 mg/dL Normal 0.3-1.0 [facility] Comment on above: Performed By: #### C BC, LIPASE, HEPATIC, BMP ####[address] Bilirubin,Indirect 0.5 mg/dL Normal [facility] Comment on above: Performed By: #### C BC, LIPASE, HEPATIC, BMP ####[address] Bilirubin.indirect [Mass/Vol] 0.10 mg/dL Normal 0.03-0.18 [facility] Comment on above: Performed By: #### C BC, LIPASE, HEPATIC, BMP ####[address] Globulin (S) [Mass/Vol] 2.5 g/dL Normal [facility] Comment on above: Performed By: #### C BC, LIPASE, HEPATIC, BMP ####[address] Protein [Mass/Vol] 6.7 g/dL Normal 6.4-8.9 [facility] Comment on above: Performed By: #### C BC, LIPASE, HEPATIC, BMP ####[facility] [address] [place] [phone] [facility] Ketones Auto test strip (U) [Mass/Vol]Ordered By: Kyra Dee on 07-17-2022 Ketones (U) [Mass/Vol] Trace Negative [facility] - UrinalysisOrder ed By: Kyra Dee on 07-17-2022 Hyaline casts LM Ql (Urine sed) 0-8 [LPF] 0-8 [facility] Leukocytes [#/volume] correc valente for nucleated erythrocytes in Blood by Automated counOrdered By: Kyra Dee on 07-17-2022 WBC corrected for nucl RBC Auto (Bld) [#/Vol] 11.4 10*3/uL 3.8-11.6 [facility] Lipaseon 07-17-2022 Lipase [Catalytic activity/Vol] 15.0 U/L Normal 11.0-82.0 [facility] Comment on above: Result Comment: PERF ORMED BY: [facility] [address] [place] [phone] PATHOLOGIST PROFESSOR OF VOICE ZURI HOOD M.D. Performed By: #### C BC, LIPASE, HEPATIC, BMP ####[place] [address] [place] [address] [facility] Lipase [Enzymatic activity/v olume] in Serum or PlasmaOrdered By: Kyra Dee on 07-17-2022 Lipase [Catalytic activity/Vol] 15.0 U/L 11.0-82.0 [facility] Lymphocytes Auto (Bld) [#/Vo l]Ordered By: Kyra Dee on 07-17-2022 Lymphocytes (Bld) [#/Vol] 1.7 10*3/uL 1.00-4.8 [facility] Lymphocytes/100 WBC Auto (Bl d)Ordered By: Kyra Dee on 07-17-2022 Lymphocytes/100 WBC (Bld) 14.7 % . [facility] MCH Auto (RBC) [Entitic mass ]Ordered By: Kyra Dee on 07-17-2022 MCH (RBC) [Entitic mass] 29.3 pg 24.7-34.3 [facility] MCHC Auto (RBC) [Mass/Vol]Or dered By: Kyra Dee on 07-17-2022 MCHC (RBC) [Mass/Vol] 33.4 g/dL 32.0-35.0 [facility] MCV Auto (RBC) [Entitic vol] Ordered By: Kyra Dee on 07-17-2022 MCV (RBC) [Entitic vol] 87.9 fL 80-100 [facility] Monocyte distribution width [Entitic volume] in Blood by AutomatedOrdered By: Kyra Dee on 07-17-2022 Monocyte distribution width Auto (Bld) [Entitic vol] 16.75 % 0.00-20.00 [facility] Monocytes Auto (Bld) [#/Vol] Ordered By: Kyra Dee on 07-17-2022 Monocytes (Bld) [#/Vol] 1.2 10*3/uL 0.0-0.8 [facility] Monocytes/100 WBC Auto (Bld) Ordered By: Kyra Dee on 07-17-2022 Monocytes/100 WBC (Bld) 10.3 % . [facility] Neutrophils Auto (Bld) [#/Vo l]Ordered By: Kyra Dee on 07-17-2022 Neutrophils (Bld) [#/Vol] 8.2 10*3/uL 1.8-7.7 [facility] Neutrophils/100 WBC Auto (Bl d)Ordered By: Kyra Dee on 07-17-2022 Neutrophils/100 WBC (Bld) 72.5 % . [facility] Nitrite Test strip Ql (U)Ord ered By: Kyra Dee on 07-17-2022 Nitrite Ql (U) Negative Negative [facility] No Panel InformationOrdered By: Kyra Dee on 07-17-2022 Estimated GFR (CKD-EPI) > 60.0 mL/Min [facility] Creatinine Clearance (Chem 66.61 [facility] Nucleated erythrocytes [Pres ence] in Blood by Automated countOrdered By: Kyra Dee on 07-17-2022 Nucleated RBC Auto Ql (Bld) 0.1 /100{WBC} 0-0.5 [facility] Platelet mean volume Auto (B ld) [Entitic vol]Ordered By: Kyra Dee on 07-17-2022 Platelet mean volume (Bld) [Entitic vol] 7.6 fL 6.3-10.7 [facility] Platelets Auto (Bld) [#/Vol] Ordered By: Kyra Dee on 07-17-2022 Platelets (Bld) [#/Vol] 380 10*3/uL 150-450 [facility] Potassium [Moles/volume] in Serum or PlasmaOrdered By: Kyra Dee on 07-17-2022 Potassium [Moles/Vol] 3.7 mmol/L 3.5-5.1 [facility] Protein Auto test strip (U) [Mass/Vol]Ordered By: Kyra Dee on 07-17-2022 Protein (U) [Mass/Vol] 30 mg/dL Negative Fi [facility] Protein [Mass/volume] in Ser um or PlasmaOrdered By: Kyra Dee on 07-17-2022 Protein [Mass/Vol] 6.7 g/dL 6.4-8.9 [facility] RBC Auto (Bld) [#/Vol]Ordere d By: Kyra Dee on 07-17-2022 RBC (Bld) [#/Vol] 4.53 10*6/uL 3.60-5.00 [facility] Serum or plasma albumin/glob ulin mass ratioOrdered By: Kyra Dee on 07-17-2022 Albumin/Globulin [Mass ratio] 1.7 {ratio} [facility] Serum or plasma anion gap de terminationOrdered By: Kyra Dee on 07-17-2022 Anion gap [Moles/Vol] 12.3 mmol/L 6.0-15.0 [facility] Serum or plasma non-glucuron idated bilirubin measurement (mass/volume)Ordered By: Kyra Dee on 07-17-2022 Bilirubin.indirect [Mass/Vol] 0.5 mg/dL [facility] Sodium [Moles/volume] in Ser um or PlasmaOrdered By: Kyra Dee on 07-17-2022 Sodium [Moles/Vol] 138 mmol/L 136-145 [facility] Specific gravity Auto test s trip (U) [Rel density]Ordered By: Kyra Dee on 07-17-2022 Specific gravity (U) [Rel density] 1.021 1.001-1.[address] [facility] Squamous epithelial cells de tection in urine sediment by light microscopyOrdered By: Kyra Dee on 07-17-2022 Epithelial cells.squamous LM Ql (Urine sed) 3-4 [HPF] 0-2 [facility] Troponin I High Sensitivityo n 07-17-2022 Troponin I High Sensitivity 2.4 pg/mL Normal 0.0-15.0 [facility] Comment on above: Result Comment: PERF ORMED BY: [address] [place] [address] PATHOLOGIST PROFESSOR OF VOICE ZURI HOOD M.D. Performed By: #### H S TROP ####[address] [address] [facility] Troponin I.cardiac [Mass/vol ume] in Serum or Plasma by Detection limit <= 0.01 ng/Ordered By: Kyra Dee on 07-17-2022 Troponin I.cardiac DL <= 0.01 ng/mL [Mass/Vol] 2.4 pg/mL 0.0-15.0 [facility] Urea nitrogen [Mass/volume] in Serum or PlasmaOrdered By: Kyra Dee on 07-17-2022 Urea nitrogen [Mass/Vol] 15 mg/dL 7-25 [facility] Urine Cultureon 07-17-2022 Bacteria identified Cx Nom (U) <9,000 colonies/ml mixed bacterial skin contaminants 2 Days PERFORMED BY: [facility] [address] [place] [address] PATHOLOGIST PROFESSOR OF VOICE ZURI HOOD M.D. Normal [facility] Comment on above: Performed By: #### C UU, ALY, CG ####[address] [address] [facility] Urine bacteria detection by automated methodOrdered By: Kyra Dee on 07-17-2022 Bacteria Auto Ql (U) 2+ None Seen [facility] Urine clarity by refractomet ry automatedOrdered By: Kyra Dee on 07-17-2022 Clarity Refractometry automated (U) Cloudy Clear [facility] Urine culture routineOrdered By: Kyra Dee on 07-17-2022 Bacteria identified Cx Nom (U) [address] [facility] Urine glucose measurement by automated test strip (mass/volume)Ordered By: Kyra Dee on 07-17-2022 Glucose Auto test strip (U) [Mass/Vol] Normal mg/dL Normal [facility] Urine hemoglobin detection b y automated test stripOrdered By: Kyra Dee on 07-17-2022 Hemoglobin Auto test strip Ql (U) 1+ Negative [facility] Urine leukocyte esterase det ection by automated test stripOrdered By: Kyra Dee on 07-17-2022 Leukocyte esterase Auto test strip Ql (U) 2+ Negative [facility] Urobilinogen Auto test strip (U) [Mass/Vol]Ordered By: Kyra Dee on 07-17-2022 Urobilinogen (U) [Mass/Vol] Normal mg/dL Normal [facility] WBC Auto (Bld) [#/Vol]Ordere d By: Kyra Dee on 07-17-2022 WBC (Bld) [#/Vol] 11.4 10*3/uL 3.8-11.6 [facility] XR KUBon 07-17-2022 XR KUB [facility] [place] [address] XRay Report Signed Patient: Giselle Nova MR#: [id number] : 1980 Acct:[id number] Age/Sex: 41 / F ADM Date: 07/17/22 Loc: ER Room: Type: [facility] ER Attending Dr: Copies to: Kyra Dee DO Ordering Provider: Kyra Dee DO Date of Service: 07/17/22 XR/XR KUB: Abdominal Pain, epigastric, hx of kidney stones KUB: COMPARISON: 05/29/2022 CLINICAL DATA: Epigastric pain for the past couple weeks and severe pain at the left lower quadrant with nausea today. History of kidney stones. Supine view of the abdomen and pelvis was obtained. There is air within stomach. There is air and stool within the colon. There is no dilated small bowel. There is a stone at the lower pole of the left kidney measuring approximately 7-8 mm. A stone within the left kidney on the prior has now moved down to the area of the ureteropelvic junction. This stone is approximately 9 mm in size. There are no obvious radiopaque stones on the right. Multiple pelvic phleboliths are again seen. No soft tissue masses are present. The bony structures are intact. XR/XR KUB IMPRESSION: LEFT NEPHROLITHIASIS AND INTERVAL MOVEMENT OF A LEFT STONE TO THE URETEROPELVIC JUNCTION. Impression dictated by: Lisa Bunch M.D.07/17/2022 1:00 PM Dictation Location: [place] [address] Transcribed By: [facility] 07/17/22 1300 Dictated By: Lisa Bunch MD 07/17/22 1258 Signed By: 07/17/[address] [facility] pH Auto test strip (U)Ordere d By: Kyra Dee on 07-17-2022 pH (U) 6.0 [pH] 5.0-9.0 [facility] SCREENING MAMMOGRAM W/DIANA, BILATERAL*on 05-18-2022 SCREENING MAMMOGRAM W/DIANA, BILATERAL* CLINICAL HISTORY: Screening Mammogram COMPARISON: Prior from 12/22/2020 TECHNIQUE: 2D and 3D mammogram imaging of both breasts was performed. RESULT: DENSITY: Heterogeneously dense, which may obscure small masses. There is no suspicious mass, asymmetry, architectural distortion, or calcification. No significant change since the prior mammogram. IMPRESSION: BIRADS 1 : NEGATIVE, NORMAL INTERVAL FOLLOW UP FOLLOW UP: 12 months DENSITY: Heterogeneously dense MAMMOGRAPHY IS VERY IMPORTANT TO YOUR HEALTH. THE CURRENT [employer] AND [employer] GUIDELINES RECOMMENDS ANNUAL MAMMOGRAPHY BEGINNING AT AGE 40 THIS FACILITY USES A REMINDER SYSTEM TO ENSURE ALL PATIENTS RECEIVE REMINDER NOTIFICATIONS AT THE APPROPRIATE TIME BASED ON THE RECOMMENDATIONS OF THIS EXAM. Board Certified Radiologist. Accredited by the ACR and FDA. Report reported and signed by Ck Escalante on 05/18/2022 1633 Normal [facility] Activated partial thrombopla stin time (aPTT) in platelet poor plasma by coagulation aOrdered By: Kristen Viera on 07-16-2021 aPTT Coag (PPP) [Time] 32.0 s 25.1-36.5 Fi [facility] Basophils Auto (Bld) [#/Vol] Ordered By: Kristen Viera on 07-16-2021 Basophils (Bld) [#/Vol] 0.1 10*3/uL 0.0-0.2 [facility] Basophils/100 WBC Auto (Bld) Ordered By: Kristen Viera on 07-16-2021 Basophils/100 WBC (Bld) 1.0 % [facility] Blood hemoglobin measurement (mass/volume)Ordered By: Kristen Viera on 07-16-2021 Hemoglobin (Bld) [Mass/Vol] 13.8 g/dL 11.8-15.4 [facility] Blood leukocytes automated c ount (number/volume)Ordered By: Kristen Viera on 07-16-2021 WBC (Bld) [#/Vol] 11.5 10*3/uL 4.5-11.0 [facility] Creatine kinase [Enzymatic a ctivity/volume] in Serum or PlasmaOrdered By: Kristen Viera on 07-16-2021 CK [Catalytic activity/Vol] 61 U/L 22-269 [facility] Creatinine and Glomerular fi ltration rate.predicted panel (S/P/Bld)Ordered By: Kristen Viera on 07-16-2021 Creatinine [Mass/Vol] 0.70 mg/dL 0.44-1.03 [facility] Eosinophils Auto (Bld) [#/Vo l]Ordered By: Kristen Viera on 07-16-2021 Eosinophils (Bld) [#/Vol] 0.4 10*3/uL 0.0-0.45 [facility] Eosinophils/100 WBC Auto (Bl d)Ordered By: Kristen Viera on 07-16-2021 Eosinophils/100 WBC (Bld) 3.6 % [facility] Erythrocyte distribution wid th Auto (RBC) [Ratio]Ordered By: Kristen Viera on 07-16-2021 Erythrocyte distribution width (RBC) [Ratio] 13.2 % 11.9-15.3 [facility] Estimated glomerular filtrat ion rate (GFR) non- AmericanOrdered By: Kristen Viera on 07-16-2021 GFR/1.73 sq M.predicted among non-blacks MDRD (S/P/Bld) [Vol rate/Area] > 60 mL/Min [facility] Hematocrit Auto (Bld) [Volum e fraction]Ordered By: Kristen Viera on 07-16-2021 Hematocrit (Bld) [Volume fraction] 40.4 % 34.0-46.4 [facility] Laboratory - Chemistry and C hemistry - challengeOrdered By: Kristen Viera on 07-16-2021 Natriuretic peptide B (Bld) [Mass/Vol] 76.0 pg/mL 5-100 [facility] - CoagulationOrde red By: Kristen Viera on 07-16-2021 PT Coag (PPP) [Time] 11.5 s 9.0-12.9 [facility] - Hematology and Cell countsOrdered By: Kristen Viera on 07-16-2021 Nucleated RBC/100 WBC (Bld) [Ratio] 0.0 % 0-0.5 [facility] Lymphocytes Auto (Bld) [#/Vo l]Ordered By: Kristen Viera on 07-16-2021 Lymphocytes (Bld) [#/Vol] 1.3 10*3/uL 1.00-4.8 [facility] Lymphocytes/100 WBC Auto (Bl d)Ordered By: Kristen Viera on 07-16-2021 Lymphocytes/100 WBC (Bld) 11.6 % [facility] MCH Auto (RBC) [Entitic mass ]Ordered By: Kristen Viera on 07-16-2021 MCH (RBC) [Entitic mass] 30.1 pg 24.7-34.3 [facility] MCHC Auto (RBC) [Mass/Vol]Or dered By: Kristen Viera on 07-16-2021 MCHC (RBC) [Mass/Vol] 34.1 g/dL 32.0-35.0 [facility] MCV Auto (RBC) [Entitic vol] Ordered By: Kristen Viera on 07-16-2021 MCV (RBC) [Entitic vol] 88.2 fL 80-100 [facility] Monocytes Auto (Bld) [#/Vol] Ordered By: Kristen Viera on 07-16-2021 Monocytes (Bld) [#/Vol] 0.8 10*3/uL 0.0-0.8 [facility] Monocytes/100 WBC Auto (Bld) Ordered By: Kristen Viera on 07-16-2021 Monocytes/100 WBC (Bld) 7.0 % [facility] Neutrophils Auto (Bld) [#/Vo l]Ordered By: Kristen Viera on 07-16-2021 Neutrophils (Bld) [#/Vol] 8.8 10*3/uL 1.8-7.7 [facility] Neutrophils/100 WBC Auto (Bl d)Ordered By: Kristen Viera on 07-16-2021 Neutrophils/100 WBC (Bld) 76.8 % [facility] No Panel InformationOrdered By: Kristen Viera on 07-16-2021 Estimated GFR () > 60 mL/Min [facility] Comment on above: GFR estimated refere nce range: According to KDOQI guidelines, <60 ml/min/1.73m2 is sufficient to diagnose a patient with chronic kidney disease. Pharmacy Creatinine Clearance (Chem 99.01 [facility] Platelet mean volume Auto (B ld) [Entitic vol]Ordered By: Kristen Viera on 07-16-2021 Platelet mean volume (Bld) [Entitic vol] 7.8 fL 6.3-10.7 [facility] Platelet poor plasma interna tional normalized ratio (INR) by coagulation assay (relatOrdered By: Krsiten Viera on 07-16-2021 INR Coag (PPP) [Relative time] 1.0 {INR} [facility] Comment on above: INR Therapeutic Rang e A) Pre- and Peroperative OAT started two weeks before surgery. NOT HIP SURGERY: 1.5 - 2.5 HIP SURGERY: 2 - 3B) Primary and secondary prevention of venous THROMBOSIS: 2 - 3C) Active venous thrombosis, pulmonary embolismand prevention of recurrent venous thrombosis: 2 - 3D) Prevention of arterial thromboembolismincluding patients with mechanical heart valves: 3 - 4.5 Platelets Auto (Bld) [#/Vol] Ordered By: Kristen Viera on 07-16-2021 Platelets (Bld) [#/Vol] 351 10*3/uL 150-450 [facility] RBC Auto (Bld) [#/Vol]Ordere d By: Kristen Viera on 07-16-2021 RBC (Bld) [#/Vol] 4.58 10*6/uL 3.60-5.00 [facility] Serum or plasma calcium kristina urement (mass/volume)Ordered By: Kristen Viera on 07-16-2021 Calcium [Mass/Vol] 8.7 mg/dL 8.2-10.2 [facility] Serum or plasma chloride will surement (moles/volume)Ordered By: Kristen Viera on 07-16-2021 Chloride [Moles/Vol] 107 mmol/L 95-114 [facility] Serum or plasma creatine kin ase MB (CKMB)/total creatine kinase (CK) ratio by calculaOrdered By: Kristen Viera on 07-16-2021 CK.MB Calc [Catalytic fraction] 3.2 % 0.00-2.50 [facility] Serum or plasma creatine kin ase MB measurement (mass/volume)Ordered By: Kristen Viera on 07-16-2021 CK.MB [Mass/Vol] 2.0 ng/mL 0.6-6.3 [facility] Serum or plasma glucose kristina urement (mass/volume)Ordered By: Kristen Viera on 07-16-2021 Glucose [Mass/Vol] 86 mg/dL 70-100 [facility] Comment on above: ADA recommended refe rence rangeRandom Glucose Reference Range is dependent on time and content of last meal. Glucose of more than 200 mg/dL in a nonstressed, ambulatory subject supports the diagnosis of Diabetes Mellitus. Serum or plasma potassium me asurement (moles/volume)Ordered By: Kristen Viera on 07-16-2021 Potassium [Moles/Vol] 3.9 mmol/L 3.5-5.1 [facility] Serum or plasma sodium measu rement (moles/volume)Ordered By: Kristen Viera on 07-16-2021 Sodium [Moles/Vol] 136 mmol/L 136-146 [facility] Serum or plasma total carbon dioxide measurement (moles/volume)Ordered By: Kristne Viera on 07-16-2021 CO2 [Moles/Vol] 18.5 mmol/L 22.0-30.0 [facility] Serum or plasma urea nitroge n measurement (mass/volume)Ordered By: Kristen Viera on 07-16-2021 Urea nitrogen [Mass/Vol] 13 mg/dL 9- [facility] Troponin I.cardiac [Mass/vol ume] in Serum or Plasma by High sensitivity methodOrdered By: Kristen Viera on 07-16-2021 Troponin I.cardiac High sensitivity method [Mass/Vol] < 3 pg/mL 0-15 [facility] Vital Signs Date Time Vital Sign Value Performing Clinician Facility 12-11-2023 08:24-0400 Blood Pressure Location Fred BILL [facility] 12-11-2023 08:24-0400 Diastolic blood pressure 88 mm[Hg] Fred BILL [facility] 12-11-2023 08:24-0400 Heart rate 84 /min Fred BILL [facility] 12-11-2023 08:24-0400 Respiratory rate 16 /min Fred BILL [facility] 12-11-2023 08:24-0400 Systolic blood pressure 140 mm[Hg] Fred BILL [facility] 04-23-2023 15:57-0500 Body height 166.4 cm Maciel Rdz DO Work Phone: [facility] 04-23-2023 15:57-0500 Body mass index (BMI) [Ratio] 22.94 kg/m2 Maciel Rdz DO Work Phone: [facility] 04-23-2023 15:57-0500 Body weight 63.5 kg Maciel Rdz DO Work Phone: [facility] 04-23-2023 15:57-0500 Diastolic blood pressure 66 mm[Hg] Maciel Rdz DO Work Phone: [facility] 04-23-2023 15:57-0500 Systolic blood pressure 104 mm[Hg] Maciel Rdz DO Work Phone: [facility] 07-18-2022 12:04-0400 Body temperature 98.5 [degF] DO Arcenio Rdz Work Phone: [facility] 07-18-2022 12:04-0400 Diastolic blood pressure 56 mm[Hg] DO Arcenio Rdz Work Phone: [facility] 07-18-2022 12:04-0400 Heart rate 88 /min DO Arcenio Rdz Work Phone: [facility] 07-18-2022 12:04-0400 Respiratory rate 14 /min DO Arcenio Rdz Work Phone: [facility] 07-18-2022 12:04-0400 SaO2% (BldA) [Mass fraction] 98 % DO Arcenio Rdz Work Phone: [facility] 07-18-2022 12:04-0400 Systolic blood pressure 92 mm[Hg] DO Arcenio Rdz Work Phone: [facility] 07-18-2022 00:48-0400 Body weight 65.5 kg DO Arcenio Rdz Work Phone: [facility] 07-17-2022 19:16-0400 Inhaled oxygen flow rate 8 L/min DO Arcenio Rdz Work Phone: [facility] 07-17-2022 18:21-0400 Body height 167.64 cm DO Arcenio Rdz Work Phone: [facility] 07-17-2022 18:21-0400 Body mass index (BMI) [Ratio] 22.8 kg/m2 DO Arcenio Floreser Work Phone: [facility] 05-02-2023 18:21-0400 Body weight 64.41 kg DO Arcenio Kendell Work Phone: [facility] 07-17-2022 16:01-0400 Body temperature 98.3 [degF] DO Arcenio Floreser Work Phone: [facility] 07-17-2022 16:01-0400 Diastolic blood pressure 57 mm[Hg] DO Arcenio Floreser Work Phone: [facility] 07-17-2022 16:01-0400 Heart rate 70 /min DO Arcenio Floreser Work Phone: [facility] 07-17-2022 16:01-0400 Respiratory rate 16 /min DO Arcenio Floreser Work Phone: [phone] [place] [address] 07-17-2022 16:01-0400 SaO2% (BldA) [Mass fraction] 98 % DO Arcenio Floreser Work Phone: [facility] 07-17-2022 16:01-0400 Systolic blood pressure 105 mm[Hg] DO Arcenio Floreser Work Phone: [facility] 07-16-2021 15:44-0400 Diastolic blood pressure 65 mm[Hg] DO Arcenio Floreser Work Phone: [facility] 07-16-2021 15:44-0400 Heart rate 76 /min DO Arcenio Floreser Work Phone: [facility] 07-16-2021 15:44-0400 Respiratory rate 20 /min DO Arcenio Floreser Work Phone: [facility] 07-16-2021 15:44-0400 SaO2% (BldA) [Mass fraction] 97 % DO Arcenio Kendell Work Phone: [facility] 07-16-2021 15:44-0400 Systolic blood pressure 106 mm[Hg] DO Arcenio Kendell Work Phone: [facility] 07-16-2021 11:58-0400 Body height 167.64 cm DO Arcenio Floreser Work Phone: [facility] 07-16-2021 11:58-0400 Body mass index (BMI) [Ratio] 22.6 kg/m2 DO Arcenio Rdz Work Phone: [facility] 07-16-2021 11:58-0400 Body temperature 98.8 [degF] DO Arcenio Rdz Work Phone: [facility] 07-16-2021 11:58-0400 Body weight 63.5 kg DO Arcenio Rdz Work Phone: [facility] Encounters Encounter Date Encounter Type Care Provider Facility Start: 12-19-2023 ambulatory Fred BILL Facili ty:CD:[id number] Start: 12-11-2023 End: 12-11-2023 ambulatory Fred BILL Facility: [place] Start: 12-11-2023 End: 12-11-2023 Patient encounter procedure Fred BILL [facility] Start: 12-09-2023 End: 12-09-2023 ambulatory FRED BILL Not Available Start: 11-06-2023 End: 11-06-2023 ambulatory MACIEL RDZ Not Available Start: 06-03-2023 End: 06-03-2023 ambulatory Fred Bill Facility:[facility] Start: 06-03-2023 End: 06-03-2023 ambulatory DO Arcenio Rdz Work Phone: [facility] Work Phone: Start: 06-03-2023 End: 06-03-2023 Patient encounter procedure DO Arcenio Rdz Work Phone: [facility] [place] Work Phone: Start: 04-23-2023 End: 04-23-2023 Patient encounter status Maciel Rdz DO Work Phone: [facility] Start: 04-23-2023 End: 04-23-2023 Periodic preventive med est patient 40-64yrs Maciel Rdz DO Work Phone: [facility] Comment on above: Encounter for gyneco logical examination without abnormal finding; Encounter for Papanicolaou smear of vagina; Breast cancer screening by mammogram Start: 04-23-2023 End: 04-23-2023 ambulatory MACIEL RDZ Not Available Start: 12-03-2022 End: 12-03-2022 Patient encounter procedure Fred BILL [facility] Start: 11-28-2022 End: 11-28-2022 ambulatory Fred Bill Facility:[facility] Start: 11-28-2022 End: 11-28-2022 ambulatory DO Arcenio Rdz Work Phone: [facility] Work Phone: Start: 11-28-2022 End: 11-28-2022 Patient encounter procedure DO Arcenio Rdz Work Phone: [facility] [address] Work Phone: Start: 10-10-2022 End: 10-10-2022 ambulatory DO Arcenio Rdz Work Phone: [facility] Work Phone: Start: 10-10-2022 End: 10-10-2022 Patient encounter procedure DO Arcenio Rdz Work Phone: [facility] [place] Work Phone: Start: 07-23-2022 Encounter for preprocedural laboratory examination DR YULY TERAN . [facility] Start: 07-20-2022 End: 07-21-[address] FRED BILL . Facility:[facility] Start: 07-20-2022 End: 07-21-2022 Encounter for preprocedural laboratory examination DR FRED BILL . Facility:[facility] Start: 07-17-2022 End: 07-18-2022 ambulatory Jillian Hahn Facility:[facility] Start: 07-17-2022 End: 07-18-2022 Evaluation and management of inpatient DO Arcenio Rdz Work Phone: [facility] Work Phone: Start: 07-17-2022 End: 07-18-2022 observation encounter DO Arcenio Rdz Work Phone: [facility] Work Phone: Start: 05-29-2022 End: 05-29-2022 ambulatory DO Arcenio Rdz Work Phone: [facility] Work Phone: Start: 05-29-2022 End: 05-29-2022 Patient encounter procedure DO Arcenio Rdz Work Phone: [facility] [place] Work Phone: Start: 07-16-2021 End: 07-16-2021 Emergency department patient visit DO Arcenio Rdz Work Phone: [facility]Emergency Room Procedures Date Procedure Procedure Detail Performing Clinician Start: 06-03-2023 Diagnostic radiograp hy of abdomen DO Arcenio Rdz Work Phone: Start: 11-28-2022 Diagnostic radiograp hy of abdomen DO Arcenio Rdz Work Phone: Start: 07-17-2022 Cystoscopy DO Arcenio mcclellan Work Phone: Start: 07-17-2022 Urine culture DO Arcenio nobles Work Phone: Start: 07-17-2022 Diagnostic radiograp hy of abdomen DO Arcenio Rdz Work Phone: Start: 07-17-2022 Cystoscopic insertio n of ureteric stent Fred LANDY Comment on above: Cysto/LRG/ L URS/ L stent placement Start: 05-29-2022 Diagnostic radiograp hy of abdomen DO Arcenio Rdz Work Phone: Start: 05-18-2022 Mammography Maciel Samson uner DO Work Phone: Start: 07-16-2021 CT of head without contrast DO Arcenio Rdz Work Phone: Start: 07-16-2021 Plain chest X-ray DO Delfino hillman Kendell Work Phone: Start: 03-18-2020 Hysterectomy Fred GOMEZ Start: 11-17-2019 Cystoscopic removal of ureteric stent Fred BILL Start: 11-12-2019 Extracorporeal shock wave lithotripsy of calculus of kidney Fred BILL Start: 09-29-2015 Extracorporeal shock wave lithotripsy of calculus of kidney Fred BILL Start: 05-06-2014 Extracorporeal shock wave lithotripsy of calculus of kidney Fred BILL Start: 05-31-2011 Extracorporeal shock wave lithotripsy of calculus of kidney Fred BILL Start: 07-08-2008 Extracorporeal shock wave lithotripsy of calculus of kidney Fred BILL Start: 08-28-2007 Ureteroscopic extrac tion of ureteric calculus without disintegration Fred BILL Start: 08-16-2006 Cystoscopic insertio n of ureteric stent Fred BILL Comment on above: 06/2007 Extracorporeal shock wave lithotripsy of calculus of kidney Fred BILL Plan of Treatment Date Care Activity Detail Author Start: 04-27-2024 End: 04-27-2024 Patient encounter procedure 04/27/2024 3:30 PM EST Office Visit [facility] [address] [place] [id number] Maciel Rdz DO [address] [place] [address] [facility] Start: 05-20-2023 End: 06-21-2024 DBT Breast - bilateral screening Bilateral screening mammogram with tomosynthesis Imaging Routine Breast cancer screening by mammogram Expected: 05/20/2023, Expires: 06/21/2024 [facility] Comment on above: Expected: 05/20/2023 , Expires: 06/21/2024 Start: 05-19-2023 Screening for malignant neoplasm of breast Mammogram [facility] Start: 11-16-2022 Influenza vaccination Influenza Vacc ine (#1) [facility] Start: 10-10-2022 [facility] Start: 08-02-2022 ambulatory Ambulatory Facility:[facility] Start: 07-18-2022 Blood chemistry [facility] Start: 07-18-2022 End: 07-18-2022 [facility] Start: 07-17-2022 [facility] Start: 07-17-2022 Hospital admission [facility] Start: 07-17-2022 Referral to urologist [facility] Start: 07-17-2022 [facility] Start: 07-17-2022 Urine culture Urine Culture [facility] Calcium [Mass/time] in [address] [facility] Calcium [Mass/volume ] in [address] [facility] Magnesium [Mass/time ] in [address] [facility] Magnesium [Mass/volume] in Urine [facility] Oxalate [Mass/time] in [address] [facility] Patient Education [facility] Work Phone: Patient referral [facility] Work Phone: Phosphate [Mass/time ] in [address] [facility] Phosphate [Mass/volume] in Urine [facility] THINPREP IMAGING PAP W/REFL HPV MRNA E6/E7 THINPREP IMAGING PAP W/REFL HPV MRNA E6/E7 Pathology and Cytology Routine Encounter for Papanicolaou smear of vagina Ordered: 04/23/2023 [facility] Work Phone: Comment on above: Ordered: 04/23/2023 Urate [Mass/time] in [address] [facility] Urate [Mass/volume] in Urine [facility] Immunizations Immunization Date Immunization Notes Care Provider Timbo bray 11-07-2020 COVID-19 mRNA, Comirnaty (Pfizer) DO Arcenio Rdz Work Phone: [facility] 10-17-2020 COVID-19 mRNA, Comirnaty (Pfizer) DO Arcenio Rdz Work Phone: [facility] 03-18-2020 SARS-CoV-2 (COVID-19 ) mRNA BNT-162b2 eamonx Fred BILL [facility] Comment on above: Result Comment: pt i s fully vaccinated but does not know the dates Payers Date Payer Category Payer Self-pay [id number] 2014 Managed Care HMO (unspecified) [employer]ET[employer] AETNA [id number] 2014-Present [address] [place] [address] HMO [id number] 1979 Unknown [id number] 93 1979 Unknown [id number] 93 1979 Unknown [id number] 93 1979 Unknown [id number] 27 1979 Unknown [id number] 259 1979 Unknown [id number] 259 1979 Unknown [id number] 259 1959 Private Health Insurance [id number] 1959 Unknown [id number] Unknown [id number] 31 Unknown [id number] 31 Unknown [id number] 31 Unknown [id number] 31 Social History Date Type Detail Facility Start: 07-16-2021 End: 12-11-2023 Tobacco smoking status NHIS Never smoked tobacco (finding) [facility] Start: 1980 Sex Assigned At Female F [facility] Tobacco smoking status No Smokin g Status Entered [facility] Start: 04-23-2023 Sex Assigned At Female F [facility] Start: 04-23-2023 Tobacco use and exposure Smokeless tobacco non-user [facility] Start: 04-23-2023 Alcohol intake Ex-drinker (finding) [facility] Start: 04-23-2023 History of Social function [facility] How often to you hav e a drink containing alcohol? Never [facility] How many standard drinks containing alcohol do you have on a typical day? Patient does not drink [facility] Start: 04-23-2023 Alcohol Comment Once a month [facility] Start: 1980 Sex Assigned At Not on file [facility] Medical Equipment Procedure Code Equipment Code Equipment Origin al Text Equipment Identifier Dates Cystoscopy, with ureteral calculus manipulation and stent placement Polymeric ureteral stent [id number] FDA Start: 11-07-2019 Cystoscopy, with ureteral calculus manipulation and stent placement Polymeric ureteral stent ()[id number] FDA Start: 07-17-2022 Goals Date Patient Goal Desired Activity /State Functional Status Date Assessment Result Facility 12-11-2023 Functional Status N/A [facility] [place] 07-18-2022 Functional status Patient at Baseline [facility] Work Phone: 07-17-2022 Functional status Patient at Baseline [facility] Work Phone: Mental Status Date Assessment Result Facility 07-18-2022 Cognitive function Cognitive Sta tus Patient at Baseline [facility] Work Phone: 07-17-2022 Cognitive function Cognitive Sta tus Patient at Baseline [facility] Work Phone: Clinical Notes 07-17-2022 to 12-11-2023 Nichelle Lucas MA - 04/23/2023 4:00 PM EST Note Date & Type Note Facility 12-11-2023 Hospital Discharge instructions Patient Education 12/11/2023 09:07:20 Laser Therapy for Kidney Stones, Care After Laser Therapy for Kidney Stones, Care After After laser therapy for kidney stones, it is common to have: Pain. A burning feeling when you pee (urinate). Small amounts of blood in your pee (urine). A need to pee a lot. Parts of the kidney stone in your pee. Mild discomfort in your back when you pee. You may have this if you had a small mesh tube (stent) placed during the procedure. Follow these instructions at home: Medicines Take fihe-qyc-jsnaxpo and prescription medicines only as told by your health care provider. If you were prescribed antibiotics, take them as told by your provider. Do not stop using the antibiotic even if you start to feel better. Ask your provider if the medicine prescribed to you: ?Requires you to avoid driving or using machinery. ?Can cause constipation. You may need to take these actions to prevent or treat constipation: ?Drink enough fluid to keep your pee pale yellow. ?Take axzi-kvb-xwalhiq or prescription medicines. ?Eat foods that are high in fiber, such as beans, whole grains, and fresh fruits and vegetables. ?Limit foods that are high in fat and processed sugars, such as fried or sweet foods. Activity If you were given a sedative during the procedure, it can affect you for several hours. Do not drive or operate machinery until your provider says that it is safe. Return to your normal activities as told by your provider. Ask your provider what activities are safe for you. General instructions Your provider may recommend that you drink a lot of water for a few hours after your procedure. If you have heart or kidney disease, ask your provider how much you should drink. You may be asked to strain your pee to collect any stone pieces that you pass. Your provider may have these pieces tested. Do not take baths, swim, or use a hot tub until your provider approves. Ask your provider if you may take warm baths to soothe the burning. Keep all follow-up visits. If you have a stent, you will need to go back to your provider to have it removed. Your provider may give you more instructions. Make sure you know what you can and cannot do. Contact a health care provider if: You have pain or a burning feeling that lasts for more than 2 days. You feel nauseous. You vomit more and more often. You have trouble peeing. You have pain that gets worse or does not get better with medicine. You have a fever or shaking chills. Get help right away if: You cannot pee, even when your bladder feels full. You faint. You have chest pain, shortness of breath, or cough up blood. You have: ?Bright red blood or blood clots in your pee. ?Severe pain or discomfort. ?Pain in your abdomen. ?Swelling in your legs. These symptoms may be an emergency. Get help right away. Call 911. Do not wait to see if the symptoms will go away. Do not drive yourself to the hospital. This information is not intended to replace advice given to you by your health care provider. Make sure you discuss any questions you have with your health care provider. Document Revised: 11/02/2022 Document Reviewed: 11/02/2022 [employer] Patient Education 2023 [employer]. 12/11/2023 09:07:19 Laser Therapy for Kidney Stones Laser Therapy for Kidney Stones Laser therapy for kidney stones is a procedure to break up rock-like masses that form inside the kidneys (kidney stones). It is done using a device that beams a strong light (laser) on the kidney stones. This breaks the stones up into small pieces. These small pieces may leave your body when you pee (urinate) or may be taken out during the procedure. You may need laser therapy if you have kidney stones that are painful or that are stopping you from being able to pee. Tell a health care provider about: Any allergies you have. All medicines you are taking, including vitamins, herbs, eye drops, creams, and huxt-cvg-xhwdltt medicines. Any problems you or family members have had with anesthesia. Any bleeding problems you have. Any surgeries you have had. Any medical conditions you have. Whether you are or may be . What are the risks? Your health care provider will talk with you about risks. These may include: Infection. Bleeding. Allergic reactions to medicines. Damage to: ?The part of your body that drains pee (urine) from the bladder (urethra). ?The bladder. ?The tube that connects the bladder to the kidneys (ureter). Urinary tract infection (UTI). Urethral stricture. This is when the urethra is narrowed by scarring. Trouble peeing. Blockage of the kidney. This may be caused by a piece of kidney stone. What happens before the procedure? When to stop eating and drinking Follow instructions from your provider about what you may eat and drink. These may include: 8 hours before the procedure ?Stop eating most foods. Do not eat meat, fried foods, or fatty foods. ?Eat only light foods, such as toast or crackers. ?All liquids are okay except energy drinks and alcohol. 6 hours before the procedure ?Stop eating. ?Drink only clear liquids, such as water, clear fruit juice, black coffee, plain tea, and sports drinks. ?Do not drink energy drinks or alcohol. 2 hours before the procedure ?Stop drinking all liquids. ?You may be allowed to take medicines with small sips of water. If you do not follow your provider's instructions, your procedure may be delayed or canceled. Medicines Ask your provider about: ?Changing or stopping your regular medicines. These include any diabetes medicines or blood thinners you take. ?Taking medicines such as aspirin and ibuprofen. These medicines can thin your blood. Do not take them unless your provider tells you to. ?Taking jkhm-rzk-jarskgm medicines, vitamins, herbs, and supplements. Tests You may have a physical exam before the procedure. You may also have tests done. These may include: ?Imaging tests. ?Blood or pee tests. Surgery safety Ask your provider: ?How your surgery site will be marked. ?What steps will be taken to help prevent infection. These steps may include: ?Removing hair at the surgery site. ?Washing skin with a soap that kills germs. ?Taking antibiotics. General instructions Do not use any products that contain nicotine or tobacco for at least 4 weeks before the procedure. These products include cigarettes, chewing tobacco, and vaping devices, such as e-cigarettes. If you need help quitting, ask your provider. If you will be going home right after the procedure, plan to have a responsible adult: ?Take you home from the hospital or clinic. You will not be allowed to drive. ?Care for you for the time you are told. What happens during the procedure? An IV will be inserted into one of your veins. You will be given: ?A sedative. This helps you relax. ?Anesthesia. This keeps you from feeling pain. It will make you fall asleep for surgery. A tool with a camera on the end (ureteroscope) will be put into your urethra. It will be moved through your bladder to your kidney. It will send pictures to a screen in the operating room. This will show what parts of your kidney need to be treated. A tube will be put through the ureteroscope. It will be moved into your kidney. The laser device will be put into your kidney through the tube. The laser will be used to break up the kidney stones. A tool with a tiny wire basket may be put through the tube into your kidney. This can help remove the small pieces of the kidney stone. A small mesh tube (stent) may be placed to allow your kidney to drain. The tube and ureteroscope will be taken out at the end of the surgery. The procedure may vary among providers and hospitals. What happens after the procedure? Your blood pressure, heart rate, breathing rate, and blood oxygen level will be monitored until you leave the hospital or clinic. If you had a stent placed, it may have a string that will be secured to your skin. This helps your provider remove the stent. You may be given a strainer to collect any stone pieces that you pass in your pee. Your provider may have these tested. This information is not intended to replace advice given to you by your health care provider. Make sure you discuss any questions you have with your health care provider. Document Revised: 11/02/2022 Document Reviewed: 11/02/2022 [employer] Patient Education 2023 [employer] 12/11/2023 09:07:15 Kidney Stones, Akpu-mg-Lwzn Kidney Stones Kidney stones are rock-like masses that form inside of the kidneys. Kidneys are organs that make pee (urine). A kidney stone may move into other parts of the urinary tract, including: The tubes that connect the kidneys to the bladder (ureters). The bladder. The tube that carries urine out of the body (urethra). Kidney stones can cause very bad pain and can block the flow of pee. The stone usually leaves your body through your pee. A doctor may need to take out the stone. What are the causes? Kidney stones may be caused by: Too much calcium in the body. This may be caused by too much parathyroid hormone in the blood. Uric acid crystals in the bladder. The body makes uric acid when you eat certain foods. Narrowing of one or both of the ureters. A kidney blockage that you were born with. Past surgery on the kidney or the ureters. What increases the risk? You are more likely to develop this condition if: You have had a kidney stone in the past. Other people in your family have had kidney stones. You do not drink enough water. You eat a diet that is high in protein, salt (sodium), or sugar. You are very overweight (obese). What are the signs or symptoms? Symptoms of a kidney stone may include: Pain in the side of the belly, right below the ribs. Pain usually spreads to the groin. Needing to pee often or right away. Pain when peeing. Blood in your pee. Feeling like you may vomit (nauseous). Vomiting. Fever and chills. How is this treated? Treatment depends on the size, location, and makeup of the kidney stones. The stones will often pass out of the body when you pee. You may need to: Drink more fluid to help pass the stone. ?In some cases, you may be given fluids through an IV tube at the hospital. Take medicine for pain. Change your diet to help keep kidney stones from coming back. Sometimes, you may need: A procedure to break up kidney stones using a beam of light (laser) or shock waves. Surgery to remove the kidney stones. Follow these instructions at home: Medicines Take hsml-qms-kxsceqp and prescription medicines only as told by your doctor. Ask your doctor if the medicine prescribed to you requires you to avoid driving or using machinery. Eating and drinking Drink enough fluid to keep your pee pale yellow. ?You may be told to drink at least 8 10 glasses of water each day. This will help you pass the stone. If told by your doctor, change your diet. You may be told to: ?Limit how much salt you eat. ?Eat more fruits and vegetables. ?Limit how much meat, poultry, fish, and eggs you eat. Follow instructions from your doctor about what you may eat and drink. General instructions Collect pee samples as told by your doctor. You may need to collect a pee sample: ?24 hours after a stone comes out. ?8 12 weeks after a stone comes out, and every 6 12 months after that. Strain your pee every time you pee. Use the strainer that your doctor recommends. Do not throw out the stone. Keep it so that it can be tested by your doctor. Keep all follow-up visits. You may need X-rays and ultrasounds to make sure the stone has come out. How is this prevented? To prevent another kidney stone: Drink enough fluid to keep your pee pale yellow. This is the best way to prevent kidney stones. Eat healthy foods. Avoid certain foods as told by your doctor. You may be told to eat less protein. Stay at a healthy weight. Where to find more information National Kidney Foundation (NKF): kidney.org [facility] (UCF): urologyhealth.org Contact a doctor if: You have pain that gets worse or does not get better with medicine. Get help right away if: You have a fever or chills. You get very bad pain. You get new pain in your belly. You faint. You cannot pee. This information is not intended to replace advice given to you by your health care provider. Make sure you discuss any questions you have with your health care provider. Document Revised: 10/26/2022 Document Reviewed: 10/26/2022 [employer] Patient Education 2023 [employer]. Follow Up Care 12/04/2022 08:26:02 With:LANDY CRABTREE, Fred Devine, URL Address: [facility] [address] , [place] [address]- [phone] When: Unknown Comments:nigel SAUCEDO [facility] 12-11-2023 Note Patient Education Nephrology Laser Therapy for Kidney Stones, Care After After laser therapy for kidney stones, it is common to have: ? Pain. ? A burning feeling when you pee (urinate). ? Small amounts of blood in your pee (urine). ? A need to pee a lot. ? Parts of the kidney stone in your pee. ? Mild discomfort in your back when you pee. You may have this if you had a small mesh tube (stent) placed during the procedure. Follow these instructions at home: Medicines ? Take iwcd-sxl-ajogseu and prescription medicines only as told by your health care provider. ? If you were prescribed antibiotics, take them as told by your provider. Do not stop using the antibiotic even if you start to feel better. ? Ask your provider if the medicine prescribed to you: ? Requires you to avoid driving or using machinery. ? Can cause constipation. You may need to take these actions to prevent or treat constipation: ? Drink enough fluid to keep your pee pale yellow. ? Take domv-gwd-tczbpkh or prescription medicines. ? Eat foods that are high in fiber, such as beans, whole grains, and fresh fruits and vegetables. ? Limit foods that are high in fat and processed sugars, such as fried or sweet foods. Activity ? If you were given a sedative during the procedure, it can affect you for several hours. Do not drive or operate machinery until your provider says that it is safe. ? Return to your normal activities as told by your provider. Ask your provider what activities are safe for you. General instructions ? Your provider may recommend that you drink a lot of water for a few hours after your procedure. If you have heart or kidney disease, ask your provider how much you should drink. ? You may be asked to strain your pee to collect any stone pieces that you pass. Your provider may have these pieces tested. ? Do not take baths, swim, or use a hot tub until your provider approves. Ask your provider if you may take warm baths to soothe the burning. ? Keep all follow-up visits. If you have a stent, you will need to go back to your provider to have it removed. Your provider may give you more instructions. Make sure you know what you can and cannot do. Contact a health care provider if: ? You have pain or a burning feeling that lasts for more than 2 days. ? You feel nauseous. ? You vomit more and more often. ? You have trouble peeing. ? You have pain that gets worse or does not get better with medicine. ? You have a fever or shaking chills. Get help right away if: ? You cannot pee, even when your bladder feels full. ? You faint. ? You have chest pain, shortness of breath, or cough up blood. ? You have: ? Bright red blood or blood clots in your pee. ? Severe pain or discomfort. ? Pain in your abdomen. ? Swelling in your legs. These symptoms may be an emergency. Get help right away. Call 911. ? Do not wait to see if the symptoms will go away. ? Do not drive yourself to the hospital. This information is not intended to replace advice given to you by your health care provider. Make sure you discuss any questions you have with your health care provider. Document Revised: 11/02/2022 Document Reviewed: 11/02/2022 [employer] Patient Education ? 2023 [employer]. Laser Therapy for Kidney Stones Laser therapy for kidney stones is a procedure to break up rock-like masses that form inside the kidneys (kidney stones). It is done using a device that beams a strong light (laser) on the kidney stones. This breaks the stones up into small pieces. These small pieces may leave your body when you pee (urinate) or may be taken out during the procedure. You may need laser therapy if you have kidney stones that are painful or that are stopping you from being able to pee. Tell a health care provider about: ? Any allergies you have. ? All medicines you are taking, including vitamins, herbs, eye drops, creams, and zbog-vhp-rkhwtdo medicines. ? Any problems you or family members have had with anesthesia. ? Any bleeding problems you have. ? Any surgeries you have had. ? Any medical conditions you have. ? Whether you are or may be . What are the risks? Your health care provider will talk with you about risks. These may include: ? Infection. ? Bleeding. ? Allergic reactions to medicines. ? Damage to: ? The part of your body that drains pee (urine) from the bladder (urethra). ? The bladder. ? The tube that connects the bladder to the kidneys (ureter). ? Urinary tract infection (UTI). ? Urethral stricture. This is when the urethra is narrowed by scarring. ? Trouble peeing. ? Blockage of the kidney. This may be caused by a piece of kidney stone. What happens before the procedure? When to stop eating and drinking Follow instructions from your provider about what you may eat and drink. These may include: ? 8 hours before the procedure ? Stop eating most foods. Do not e (more content not included)... [facility] 04-23-2023 History of Present illness Narrative Images from the original note were not included. Maciel Rdz, DO Obstetrics and Gynecology Giselle Nova 1980 04/23/23 [id number] Yearly Wellness Exam Chief Complaint Patient presents with Gynecologic Exam LMP: [facility] BS 2020 HRT: None Last pap 04-18-22 neg. Last mammogram 05-18-22 [facility]. 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 Visit Vitals BP 104/66 Ht 5' 5.5 Wt 140 lb BMI 22.94 kg/m OB Status Hysterectomy Smoking Status Never BSA 1.71 m OB History Para Term AB Living 3 2 2 1 2 SAB IAB Ectopic Multiple Live Births 1 2 # Outcome Date GA Lbr Bernardo/2nd Weight Sex Delivery Anes PTL Lv 3 Term 2006 6 lb 9 oz M Vag-Spont LIZY 2 Term 2003 7 lb 3 oz M Vag-Spont LIZY 1 SAB Current Outpatient Medications on File Prior to Visit Medication Sig sertraline (Zoloft) 100 MG tablet Take 100 mg by mouth in the morning. No current facility-administered medications on file prior to visit. Allergies Allergen Reactions Latex Hives, Itching, Rash and Swelling Other Reaction(s): Unknown Levofloxacin Unknown Penicillin G Unknown Past Surgical History: Procedure Laterality Date APPENDECTOMY 1997 HYSTERECTOMY 03/01/2021 [facility] HYSTEROSCOPY 10/29/2014 D+C/Ablation LEG SURGERY Left 2012 melanoma - left leg LITHOTRIPSY 2006 & 2008 & 2012 LITHOTRIPSY 10/2019 OTHER SURGICAL HISTORY Bilateral 2006 Repair of bilateral cervical lacerations SKIN SURGERY 2012 wide excision;Disease:Melanoma VAGINAL DELIVERY x2 Past Medical History: Diagnosis Date Allergies History of kidney stones Melanoma (CMS/HCC) 2012 Migraines (CMS/HCC) x2 ROS General: Chills denies. Allergy/Immunology: Rash denies. ENT: Difficulty swallowing denies. Endocrine: Cold intolerance denies. Heat intolerance denies. Respiratory: Chest pain denies. Shortness of breath denies. Breast: Bloody nipple discharge denies. Breast lump denies. Cardiovascular: Chest pain denies. Gastrointestinal: Abdominal pain denies. Blood in stool denies. Hematology: Easy bruising denies. Prolonged bleeding denies. Women Only: Breast lump denies. Vaginal bleeding between periods denies. Vaginal discharge/itching denies. Genitourinary: Blood in urine denies. Painful urination denies. Incontinence denies. Skin: Hair changesdenies. Neurologic: Seizures denies. Stroke denies. Psychiatric: Anxiety denies. Depressed mood denies. EXAM GENERAL EXAMINATION alert oriented well developed, well nourished. HEAD: normocephalic atraumatic. EYES: sclera anicteric. EARS: no obvious hearing deficit. NECK/THYROID: neck supple no cervical lymphadenopathy no thyromegaly. LYMPH NODES: no axillary, supraclavicular or inguinal adenopathy. SKIN: warm and dry. HEART: regular rate and rhythm. LUNGS: clear to auscultation bilaterally. CHEST:axillary nodes grossly normal. BREASTS:no masses palpable bilaterally, normal nipples bilaterally - everted - finely fibrocystic changes- dense - well supported- axilla negative. ABDOMEN: soft, nontender, nondistended, no masses palpable. BACK: no costovertebral angle tenderness, no obvious scoliosis/kyphosis. 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 1 pelvic prolapse. RECTAL:normal tone , no masses palpable , only small external hemorrhoids. EXTREMITIES no edema. NEUROLOGIC: alert and oriented. PSYCH: cooperative with exam. ICD-10-CM 1. Encounter for gynecological examination without abnormal finding Z01.419 Pelvic and breast exam completed. Findings of today's exam discussed with the patient. Continue MSBE. Ca/Vit D recommendations reviewed with the patient. The patient is to contact the office with any changes to her gynecological condition or any changes with breast or bleeding. The patient is to return in 1 year or as needed 2. Encounter for Papanicolaou smear of vagina Z12.72 THINPREP IMAGING PAP W/REFL HPV MRNA E6/E7 Thinprep collected. Will notify patient if results are abnormal. 3. Breast cancer screening by mammogram Z12.31 Bilateral screening mammogram with tomosynthesis Screening mammogram ordered. Patient to call and schedule. 4. Discussed migraines had 3 in a row, only takes Motrin. Previously took Topamax but stopped due to symptoms. Samples of Ubrevly given. Entered by Nichelle Lucas MA acting as scribe for Dr. Maciel Rdz. Signature Nichelle Lucas MA Date 04/23/23 . Time 4:03 PM . The documentation recorded by the scribe accurately reflects the service(s) I personally performed and the decisions I made. Signature Angelique Rdz D.O. Date 04/23/23 Time 5:00PM. documented in this encounter [facility] 09-19-2022 Hospital Discharge instructions Follow Up Care 09/19/2022 09:40:53 With:LANDY CRABTREE, Fred Devine, URL Address: [facility] [address], [place] [address] [phone] When: Unknown [facility] 07-17-2022 Consult note Note Date/Time July 17, 2022 6:48pm [facility] EN[facility] [address] [place] [id number] Urology Consult Note Signed Patient: Giselle Nova MR#: [id number] : 1980 Acct:[id number] Age/Sex: 41 / F Adm Date: 3 Loc: 4N Room: 3C1878-7 Type: ADM INOo Attending Dr: Jillian Hahn MD Copies to: MD Jillian Thayer MD Paul J Bruner,DO~ History of Present Illness Consult Details Consult Date: 07/17/2022 Requesting Provider: Jillian Hahn MD HPI: 41-year-old female with history of nephrolithiasis requiring ESWL and stent placement in the past by Dr. Bill presents to ER with significant left upper quadrant pain.? She mentioned having upper abdominal pain for about 2 weeks which has been intermittent not a typical kidney stone pain.? Yesterday the painbecame more constant in the left quadrant and severe.? Endorses nausea but no vomiting, fever, chills, dysuria or other urinary complaints. Work-up in the ERrevealed a 9 mm stone in the left UPJ along with other nonobstructing stones on KUB. Labs within normal limits except for UA concerning for infection. Review of Systems Review of Systems Review of systems: General: denies fever, chills, wt loss Skin: denies rash or jaundice HEENT: denies epistaxis or oral lesion Neurological: denies weakness or sensory change Respiratory: denies dyspnea or shortness of breath Cardiac: denies chest pain or palpitations Gastrointestinal: + nausea,- emesis,- diarrhea Urinary: denies dysuria or hematuria Musculoskeletal: denies muscle or back pain Psychiatric: denies mood or affect disorder Hematologic: denies easy bleeding or bruising PMFSH Vaccinated for COVID-19?: Yes Medical History Anxiety Kidney stone Melanoma Migraine PTSD (post-traumatic stress disorder) Surgical History History of appendectomy History of endometrial ablation History of lithotripsy Hx of hysterectomy Family History Mother Brain cancer Hypertension Father Hypertension A-fib Melanoma Prostate cancer Social History Smoking Status: Never smoker Substance Use Type: Alcohol Substance Abuse Comment: social Meds Medications and Allergies Allergies latex Adverse Reaction (Verified 07/17/22 11:27) Hives Home Medications topiramate 25 mg tablet 25 mg PO BID 11/07/19 [History Confirmed 07/17/22] Lactobacillus acidophilus 10 billion cell capsule (Probiotic) 10,000 mmu cells PO DAILY 07/17/22 [History Confirmed 07/17/22] cetirizine 10 mg tablet (Zyrtec) 10 mg PO DAILY 07/17/22 [History Confirmed 07/17/22] Exam Physical Exam Vital Signs: Temp Pulse Resp BP Pulse Ox O2 Del Method 98.3 F 70 16 105/57 L 98 Room Air 07/17/22 16:01 07/17/22 16:01 07/17/22 16:01 07/17/22 16:07/17/22 16:01 07/17/22 16:01 Narrative: General: The patient appears nontoxic. Does not appear ill. Skin: Warm, dry. No gross lesions are identified. HEENT: Normocephalic, atraumatic. Oral mucosa moist. Respiratory: No increased respiratory effort. On room air. Cardiac: Regular rate and rhythm. No peripheral lower extremity edema GI: Abdomen is soft, LUQ TTP, non distended : The bladder is nonpalpable, non-tender. There is L CVA tenderness, none on the right. Musculoskeletal: Moves all extremities, normal strength Neurologic: Awake, alert, oriented, no acute focal deficits Psychiatric: Affect normal to clinical condition, cooperative Results Labs 07/17/22 12:09 07/17/22 12:09 Labs: Laboratory Results - Last 48 hrs. 07/17/22 12:09: Urine Color Yellow, Urine Appearance Cloudy A, Urine pH 6.0, Ur Specific [place] 1.021, Urine Protein 30 H, Urine Glucose (UA) Normal, Urine Ketones Trace H, Urine Occult Blood 1+ H, Urine Nitrite Negative, Urine Bilirubin Negative, Urine Urobilinogen Normal, Ur Leukocyte Esterase 2+ H, UrineRBC 10-19 H, Urine WBC 20-49 H, Ur Squamous Epith Cells 3-4 H, Urine Bacteria 2+H, Hyaline Casts 0-8, Urine HCG, Qual Negative 07/17/22 12:09: Troponin I High Sens 2.4 07/17/22 12:09: PHA Creatinine Clear 66.61, Sodium 138, Potassium 3.7, Chloride 107, Carbon Dioxide 22.4, Anion Gap 12.3, BUN 15, Creatinine 1.03, Est GFR (CKD-EPI) > 60.0, Glucose 91, Calcium 8.9, Total Bilirubin 0.6, Direct Bilirubin 0.10, Indirect Bilirubin 0.5, AST 14, ALT 10, Alkaline Phosphatase 47, Total Protein 6.7, Albumin 4.2, Globulin 2.5, Albumin/Globulin Ratio 1.7, Lipase 15.0 07/17/22 12:09: Corrected WBC 11.4, Uncorrected WBC Count 11.4, RBC 4.53, Hgb 13.3, Hct 39.9, MCV 87.9, MCH 29.3, MCHC 33.4, RDW 13.4, Plt Count 380, MPV 7.6,Neut % (Auto) 72.5, Lymph % (Auto) 14.7, [place] % (Auto) 10.3, Eos % (Auto) 1.9, Baso % (Auto) 0.6, Nucleat RBC Rel Count 0.1, Neut # (Auto) 8.2 H, Lymph # (Auto) 1.7, [place] # (Auto) 1.2 H, Eos # (Auto) 0.2, Baso # (Auto) 0.1, Monocyte Dist Width 16.75 Microbiology Microbiology: 07/17/22 12:09 Clean Void Midstream Urine Culture - Pending Imaging Abdominal x-ray: report reviewed Additional studies: Ordering Provider: Kyra Dee DO Date of Service: 07/17/22 XR/XR KUB: Abdominal Pain, epigastric, hx of kidney stones ? KUB: COMPARISON: 05/29/2022 CLINICAL DATA: Epigastric pain for the past couple weeks and severe pain at the left lower quadrant with nausea today.? History of kidney stones. Supine view of the abdomen and pelvis was obtained.? There is air within stomach.? There is air and stool within the colon.? There is no dilated small bowel.? There is a stone at the lower pole of the left kidney measuring approximately 7-8 mm.? A stone within the left kidney on the prior has now moveddown to the area of the ureteropelvic junction.? This stone is approximately 9 mm in size.? There are no obvious radiopaque stones on the right.? Multiple pelvic phleboliths are again seen.? No soft tissue masses are present.? The bonystructures are intact. XR/XR KUB IMPRESSION: ? LEFT NEPHROLITHIASIS AND INTERVAL MOVEMENT OF A LEFT STONE TO THE URETEROPELVIC JUNCTION. ? Assessment/Plan (1) Urinary tract infection: Code(s): N39.0 - Urinary tract infection, site not specified (2) Calculus of proximal left ureter: Code(s): N20.1 - Calculus of ureter (3) Renal colic: Code(s): N23 - Unspecified renal colic Plan 41-year-old female as above presents with severe left upper quadrant pain, UTI and x-ray findings of a 9 mm left UPJ stone. Discussed risks and benefits of management options. Patient elected to proceed to the OR for cystoscopy, left retrograde pyelogram, left ureteral stent placement. She understands the stone will be treated at a later date when her infection has resolved. Risks were discussed including but not limited to bleeding, pain, infection, damage to surrounding structures and need for additional procedures. She understands that the stent is not permanent and needs to be removed or exchanged within 3 months to prevent encrustation and/or renal damage. Documented By: Dominique Sifuentes MD 07/17/22 184 Signed By: <Electronically signed by Dominique Sifuentes MD> 07/17/22 185 [facility] Work Phone: [phone] 748-827105-02-2023 History and physical note Author Jillian Hahn [facility] July 17, 2022 3:34pm Note Date/Time July 17, 2022 3:34pm [facility] [address] [place] [address] Hospitalist H&P Signed Patient: Giselle Nova MR#: [id number] : 1980 Acct:[id number] Age/Sex: 41 / F Adm Date: 3 Loc: Room: [address] [place] [address] Type: ADM IN Attending Dr: Jillian Hahn MD Copies to: MD Arcenio Padilla,DO~ HPI DATE OF EXAMINATION: 07/17/22 CHIEF COMPLAINT: Left-sided abdominal pain. HISTORY OF PRESENT ILLNESS: Patient is a pleasant 41-year-old female with history of nephrolithiasis requiring lithotripsy and stent placement in the past. She presented to ER withcomplaint of significant left quadrant pain. She mentioned having upper abdominal pain for about 2 weeks which has been intermittent not a typical kidney stone pain. Yesterday the pain became more constant in the left quadrantand severe. Pain was 10 out of 10 intensity. Due to severity of the pain she presented to the emergency room. Pain was not associated with nausea or vomiting. In the emergency room x-ray showing left nephrolithiasis and stone inthe left ureteropelvic junction. She denies dysuria or hematuria. Patient doeshave history of nephrolithiasis and follows with Dr. Bill. She mentioned having work-up done for kidney stone and was recommended citrates which she was not able to tolerate due to nausea and vomiting. She denies fever, chills or recent medication or any supplement. She does drink topiramate for migraine prophylaxis. Review of Systems Review of Systems All other systems reviewed & are negative unless noted below or in HPI PMFSH Vaccinated for COVID-19?: Yes Medical History (Updated 07/17/22 @ 13:59 by Kyra Dee DO) Anxiety Kidney stone Melanoma Migraine PTSD (post-traumatic stress disorder) Surgical History History of appendectomy History of endometrial ablation History of lithotripsy Hx of hysterectomy Family History Mother Brain cancer Hypertension Father Hypertension A-fib Melanoma Prostate cancer Social History Smoking Status: Never smoker Substance Use Type: Alcohol Substance Abuse Comment: social Meds Medications and Allergies Allergies latex Adverse Reaction (Verified 07/17/22 11:27) Hives Home Medications topiramate 25 mg tablet 25 mg PO BID 11/07/19 [History Confirmed 07/17/22] cetirizine 10 mg tablet (Zyrtec) 10 mg PO DAILY 07/17/22 [History Confirmed 07/17/22] Exam Physical Exam Vital Signs: Temp Pulse Resp BP Pulse Ox O2 Del Method 97.4 F L 73 18 114/73 98 Room Air 07/17/22 11:25 07/17/22 14:04 07/17/22 14:04 07/17/22 14:04 07/17/22 14:04 07/17/22 14:04 Const General: cooperative Orientation: alert, awake and oriented x3 HEENT Head: normal to inspection, no palpable skull fracture, normocephalic and atraumatic Eyes Pupils: PERRL EOM: EOM intact bilaterally and No nystagmus Neck Neck: normal visual inspection and full ROM Resp Effort & Inspection: normal respiratory effort and able to speak in complete sentences Auscultation: no rales, no rhonchi and no wheezes Cardio Rate: regular rate Rhythm: regular rhythm Heart Sounds: S1 normal and S2 normal GI Palpation: soft, not firm, no guarding and tender (No signs of acute peritonitis) in the LUQ and with no rebound tenderness Neuro General: patient alert, patient awake, patient oriented x3, moves all extremities and no focal motor deficits Cranial Nerves: CN's II-XII intact bilaterally Cognition: normal cognition Speech: speech normal Extrem General: no clubbing, cyanosis or edema and no pedal edema Results Lab Results Labs: Laboratory Last Values Corrected WBC 11.4 X10E3/uL (3.8-11.6) 07/17/22 12:09 Uncorrected WBC Count 11.4 x10E3/uL (3.8-11.6) 07/17/22 12:09 RBC 4.53 X10E6/uL (3.60-5.00) 07/17/22 12:09 Hgb 13.3 g/dL (11.8-15.4) 07/17/22 12:09 Hct 39.9 % (34.0-46.4) 07/17/22 12:09 MCV 87.9 fl (80-100) 07/17/22 12:09 MCH 29.3 pg (24.7-34.3) 07/17/22 12:09 MCHC 33.4 g/dL (32.0-35.0) 07/17/22 12:09 RDW 13.4 % (11.9-15.3) 07/17/22 12:09 Plt Count 380 x10E3/uL (150-450) 07/17/22 12:09 MPV 7.6 fl (6.3-10.7) 07/17/22 12:09 Neut % (Auto) 72.5 % (.) 07/17/22 12:09 Lymph % (Auto) 14.7 % (.) 07/17/22 12:09 [place] % (Auto) 10.3 % (.) 07/17/22 12:09 Eos % (Auto) 1.9 % (.) 07/17/22 12:09 Baso % (Auto) 0.6 % (.) 07/17/22 12:09 Nucleat RBC Rel Count 0.1 /100 WBC (0-0.5) 07/17/22 12:09 Neut # (Auto) 8.2 x10E3/uL (1.8-7.7) H 07/17/22 12:09 Lymph # (Auto) 1.7 x10E3/uL (1.00-4.8) 07/17/22 12:09 [place] # (Auto) 1.2 x10E3/uL (0.0-0.8) H 07/17/22 12:09 Eos # (Auto) 0.2 x10E3/uL (0.0-0.45) 07/17/22 12:09 Baso # (Auto) 0.1 x10E3/uL (0.0-0.2) 07/17/22 12:09 Monocyte Dist Width 16.75 % (0.00-20.00) 07/17/22 12:09 PHA Creatinine Clear 66.61 07/17/22 12:09 Sodium 138 mmol/L (136-145) 07/17/22 12:09 Potassium 3.7 mmol/L (3.5-5.1) 07/17/22 12:09 Chloride 107 mmol/L (98-107) 07/17/22 12:09 Carbon Dioxide 22.4 mmol/L (21.0-31.0) 07/17/22 12:09 Anion Gap 12.3 mEq/L (6.0-15.0) 07/17/22 12:09 BUN 15 mg/dL (7-25) 07/17/22 12:09 Creatinine 1.03 mg/dL (0.60-1.20) 07/17/22 12:09 Est GFR (CKD-EPI) > 60.0 mL/Min 07/17/22 12:09 Glucose 91 mg/dL (70-100) 07/17/22 12:09 Calcium 8.9 mg/dL (8.6-10.3) 07/17/22 12:09 Total Bilirubin 0.6 mg/dl (0.3-1.0) 07/17/22 12:09 Direct Bilirubin 0.10 mg/dL (0.03-0.18) 07/17/22 12:09 Indirect Bilirubin 0.5 mg/dL 07/17/22 12:09 AST 14 U/L (13-39) 07/17/22 12:09 ALT 10 U/L (7-52) 07/17/22 12:09 Alkaline Phosphatase 47 U/L (34-104) 07/17/22 12:09 Troponin I High Sens 2.4 pg/mL (0.0-15.0) 07/17/22 12:09 Total Protein 6.7 gm/dL (6.4-8.9) 07/17/22 12:09 Albumin 4.2 gm/dL (3.5-5.7) 07/17/22 12:09 Globulin 2.5 gm/dL 07/17/22 12:09 Albumin/Globulin Ratio 1.7 07/17/22 12:09 Lipase 15.0 U/L (11.0-82.0) 07/17/22 12:09 Urine Color Yellow (Yellow) 07/17/22 12:09 Urine Appearance Cloudy (Clear) A 07/17/22 12:09 Urine pH 6.0 (5.0-9.0) 07/17/22 12:09 Ur Specific [place] 1.021 (1.001-1.030) 07/17/22 12:09 Urine Protein 30 mg/dL (Negative) H 07/17/22 12:09 Urine Glucose (UA) Normal mg/dL (Normal) 07/17/22 12:09 Urine Ketones Trace (Negative) H 07/17/22 12:09 Urine Occult Blood 1+ (Negative) H 07/17/22 12:09 Urine Nitrite Negative (Negative) 07/17/22 12:09 Urine Bilirubin Negative (Negative) 07/17/22 12:09 Urine Urobilinogen Normal mg/dL (Normal) 07/17/22 12:09 Ur Leukocyte Esterase 2+ (Negative) H 07/17/22 12:09 Urine RBC 10-19 /HPF (0-4) H 07/17/22 12:09 Urine WBC 20-49 /HPF (0-4) H 07/17/22 12:09 Ur Squamous Epith Cells 3-4 /HPF (0-2) H 07/17/22 12:09 Urine Bacteria 2+ (None Seen) H 07/17/22 12:09 Hyaline Casts 0-8 /LPF (0-8) 07/17/22 12:09 Urine HCG, Qual Negative 07/17/22 12:09 A&P - Hospitalist Assessment/Plan (1) Left nephrolithiasis: (2) Calculus of proximal left ureter: (3) Migraine: Plan Patient history of nephrolithiasis presented to ER with complaint of severe left-sided abdominal pain found to have stone in the ureteropelvic junction. Patient will be admitted and will consult urology. ER physician has discussed case with urology for intervention later today. Continue antibiotic until urinecultures are back. Pain management and IV hydration. DVT prophylaxis with SCDs. Patient does take topiramate for migraine prophylaxis increased incidenceof kidney stone with Topiramate. Will recommend discussing with her primary care provider regarding switching to some other medication for migraine prophylaxis given her recurrent nephrolithiasis. Documented By: Jillian Hahn MD 07/17/22 1527 Signed By: <Electronically signed by Jillian Hahn MD> 07/17/22 1534 [facility] Work Phone: Consult note Author Dominique Sifuentes [facility] July 17, 2022 6:52pm Note Date/Time July 17, 2022 6:48pm [facility] [address] [place] [address] Urology Consult Note Signed Patient: Giselle Nova MR#: [id number] : 1980 Acct:[id number] Age/Sex: 41 / F Adm Date: 3 Loc: 4N Room: [address] [place] [address] Type: ADM INOo Attending Dr: Jillian Hahn MD Copies to: MD Jillian Thayer MD Paul J Bruner,DO~ History of Present Illness Consult Details Consult Date: 07/17/2022 Requesting Provider: Jillian Hahn MD HPI: 41-year-old female with history of nephrolithiasis requiring ESWL and stent placement in the past by Dr. Bill presents to ER with significant left upper quadrant pain.? She mentioned having upper abdominal pain for about 2 weeks which has been intermittent not a typical kidney stone pain.? Yesterday the painbecame more constant in the left quadrant and severe.? Endorses nausea but no vomiting, fever, chills, dysuria or other urinary complaints. Work-up in the ERrevealed a 9 mm stone in the left UPJ along with other nonobstructing stones on KUB. Labs within normal limits except for UA concerning for infection. Review of Systems Review of Systems Review of systems: General: denies fever, chills, wt loss Skin: denies rash or jaundice HEENT: denies epistaxis or oral lesion Neurological: denies weakness or sensory change Respiratory: denies dyspnea or shortness of breath Cardiac: denies chest pain or palpitations Gastrointestinal: + nausea,- emesis,- diarrhea Urinary: denies dysuria or hematuria Musculoskeletal: denies muscle or back pain Psychiatric: denies mood or affect disorder Hematologic: denies easy bleeding or bruising PMFSH Vaccinated for COVID-19?: Yes Medical History Anxiety Kidney stone Melanoma Migraine PTSD (post-traumatic stress disorder) Surgical History History of appendectomy History of endometrial ablation History of lithotripsy Hx of hysterectomy Family History Mother Brain cancer Hypertension Father Hypertension A-fib Melanoma Prostate cancer Social History Smoking Status: Never smoker Substance Use Type: Alcohol Substance Abuse Comment: social Meds Medications and Allergies Allergies latex Adverse Reaction (Verified 07/17/22 11:27) Hives Home Medications topiramate 25 mg tablet 25 mg PO BID 11/07/19 [History Confirmed 07/17/22] Lactobacillus acidophilus 10 billion cell capsule (Probiotic) 10,000 mmu cells PO DAILY 07/17/22 [History Confirmed 07/17/22] cetirizine 10 mg tablet (Zyrtec) 10 mg PO DAILY 07/17/22 [History Confirmed 07/17/22] Exam Physical Exam Vital Signs: Temp Pulse Resp BP Pulse Ox O2 Del Method 98.3 F 70 16 105/57 L 98 Room Air 07/17/22 16:01 07/17/22 16:01 07/17/22 16:01 07/17/22 16:01 07/17/22 16:01 07/17/22 16:01 Narrative: General: The patient appears nontoxic. Does not appear ill. Skin: Warm, dry. No gross lesions are identified. HEENT: Normocephalic, atraumatic. Oral mucosa moist. Respiratory: No increased respiratory effort. On room air. Cardiac: Regular rate and rhythm. No peripheral lower extremity edema GI: Abdomen is soft, LUQ TTP, non distended : The bladder is nonpalpable, non-tender. There is L CVA tenderness, none on the right. Musculoskeletal: Moves all extremities, normal strength Neurologic: Awake, alert, oriented, no acute focal deficits Psychiatric: Affect normal to clinical condition, cooperative Results Labs 07/17/22 12:09 07/17/22 12:09 Labs: Laboratory Results - Last 48 hrs. 07/17/22 12:09: Urine Color Yellow, Urine Appearance Cloudy A, Urine pH 6.0, Ur Specific [place] 1.021, Urine Protein 30 H, Urine Glucose (UA) Normal, Urine Ketones Trace H, Urine Occult Blood 1+ H, Urine Nitrite Negative, Urine Bilirubin Negative, Urine Urobilinogen Normal, Ur Leukocyte Esterase 2+ H, UrineRBC 10-19 H, Urine WBC 20-49 H, Ur Squamous Epith Cells 3-4 H, Urine Bacteria 2+H, Hyaline Casts 0-8, Urine HCG, Qual Negative 07/17/22 12:09: Troponin I High Sens 2.4 07/17/22 12:09: PHA Creatinine Clear 66.61, Sodium 138, Potassium 3.7, Chloride 107, Carbon Dioxide 22.4, Anion Gap 12.3, BUN 15, Creatinine 1.03, Est GFR (CKD-EPI) > 60.0, Glucose 91, Calcium 8.9, Total Bilirubin 0.6, Direct Bilirubin 0.10, Indirect Bilirubin 0.5, AST 14, ALT 10, Alkaline Phosphatase 47, Total Protein 6.7, Albumin 4.2, Globulin 2.5, Albumin/Globulin Ratio 1.7, Lipase 15.0 07/17/22 12:09: Corrected WBC 11.4, Uncorrected WBC Count 11.4, RBC 4.53, Hgb 13.3, Hct 39.9, MCV 87.9, MCH 29.3, MCHC 33.4, RDW 13.4, Plt Count 380, MPV 7.6,Neut % (Auto) 72.5, Lymph % (Auto) 14.7, [place] % (Auto) 10.3, Eos % (Auto) 1.9, Baso % (Auto) 0.6, Nucleat RBC Rel Count 0.1, Neut # (Auto) 8.2 H, Lymph # (Auto) 1.7, [place] # (Auto) 1.2 H, Eos # (Auto) 0.2, Baso # (Auto) 0.1, Monocyte Dist Width 16.75 Microbiology Microbiology: 07/17/22 12:09 Clean Void Midstream Urine Culture - Pending Imaging Abdominal x-ray: report reviewed Additional studies: Ordering Provider: Kyra Dee DO Date of Service: 07/17/22 XR/XR KUB: Abdominal Pain, epigastric, hx of kidney stones ? KUB: COMPARISON: 05/29/2022 CLINICAL DATA: Epigastric pain for the past couple weeks and severe pain at the left lower quadrant with nausea today.? History of kidney stones. Supine view of the abdomen and pelvis was obtained.? There is air within stomach.? There is air and stool within the colon.? There is no dilated small bowel.? There is a stone at the lower pole of the left kidney measuring approximately 7-8 mm.? A stone within the left kidney on the prior has now moveddown to the area of the ureteropelvic junction.? This stone is approximately 9 mm in size.? There are no obvious radiopaque stones on the right.? Multiple pelvic phleboliths are again seen.? No soft tissue masses are present.? The bonystructures are intact. XR/XR KUB IMPRESSION: ? LEFT NEPHROLITHIASIS AND INTERVAL MOVEMENT OF A LEFT STONE TO THE URETEROPELVIC JUNCTION. ? Assessment/Plan (1) Urinary tract infection: Code(s): N39.0 - Urinary tract infection, site not specified (2) Calculus of proximal left ureter: Code(s): N20.1 - Calculus of ureter (3) Renal colic: Code(s): N23 - Unspecified renal colic Plan 41-year-old female as above presents with severe left upper quadrant pain, UTI and x-ray findings of a 9 mm left UPJ stone. Discussed risks and benefits of management options. Patient elected to proceed to the OR for cystoscopy, left retrograde pyelogram, left ureteral stent placement. She understands the stone will be treated at a later date when her infection has resolved. Risks were discussed including but not limited to bleeding, pain, infection, damage to surrounding structures and need for additional procedures. She understands that the stent is not permanent and needs to be removed or exchanged within 3 months to prevent encrustation and/or renal damage. Documented By: Dominique Sifuentes MD 07/17/22 1847 Signed By: <Electronically signed by Dominique Sifuentes MD> 07/17/22 1852 [facility] Work Phone: Evaluation + Plan note Future Appointments Appointment Date:12/04/2022 08:00:00 AM Scheduled Provider:Fred BILL MD Location:[facility] Appointment Type:URO Office Visit [facility] evaluation noteNo assessment information available [facility] Work Phone: Evaluation note* Diagnosis Onset Date Resolution Status Calculus of proximal left ureter acute Left nephrolithiasis acute Migraine acute Pyelonephritis acute Renal colic acute Urinary tract infection acut e [facility] Work Phone: Evaluation note* Diagnosis Encounter for gynecological examination without abnormal finding Encounter for Papanicolaou smear of vagina Breast cancer screening by mammogram documented in [facility] N[facility] No data available for this section [facility] Hospital Discharge instructions Additional Instructions Patient was Rest Tylenol Motrin if needed for pain Take antibiotic as instructed. Sinusitis Follow-up with Dr. Cote tomorrow Return here if any problems persist or worsen as instructed include chest pain, shortness of breath, numbness, tingling or any other complaint[facility] Work Phone: Hospital Discharge instructions Additional Instructions Take Tylenol 650 mg every 6 hours, alternate with Ibuprofen 400-600mg every 6 hours in between for pain relief. Tamsulosin daily for stent discomfort. Take at night if you get dizzy or lightheaded, stop if unable to tolerate. Oxybutynin as needed for bladder spasms/stent pain. May cause dry mouth/eyes and constipation. Take stool softeners. You can buy AZO [id number] and use as needed for burning with urination. This will make your urine orange. Drink plenty of water and fluids You must follow up to ensure your stent is removed. Failure to do so may result in recurrent infections and renal failure.[facility] Work Phone: Progress note Author Pete Cardozo [facility] July 18, 2022 3:13pm Note Date/Time July 18, 2022 12:18p [facility] [address] [place], [place] [id number] Hospitalist Progress Note Signed Patient: Giselle Nova MR#: [id number] : 1980 Acct:[id number] Age/Sex: 41 / F Adm Date: 3 Loc: 4N Room: [address] [place] [address] Type: DIS INOo Attending Dr: Pete Cardozo MD Copies to: ~ Date of Service: 07/18/2022 Subjective Subjective Narrative: Patient seen and examined. Patient is comfortably resting in bed. States that she has occasional bladder spasms after placing the stent but denies any fever or chills. She is otherwise hemodynamically stable and is afebrile Exam Physical Exam Vital Signs: Temp Pulse Resp BP Pulse Ox O2 Del Method O2 Flow Rate 97.9 F 71 16 104/66 99 Room Air 8 07/18/22 07:48 07/18/22 07:48 07/18/22 07:48 07/18/22 07:48 07/18/22 07:48 07/18/22 08:00 07/17/22 19:16 Narrative: General: Awake, alert, oriented x3 not in acute distress HEENT: Normocephalic, atraumatic, PERRLA, normal mucosa Cardiovascular: Regular rate and rhythm , S1-S2 heard, no murmurs or gallops Lungs: No wheezing or rhonchi heard Gastrointestinal: Soft, nontender, bowel sounds heard Extremities: No edema Neurological: no sensory or motor deficit Skin: Dry and warm, no rashes or lesions Psych: Normal mood and affect Objective Lab Results 07/18/22 04:54 07/18/22 04:54 Microbiology Results Microbiology 07/17/22 12:09 Clean Void Midstream Urine Culture - Preliminary No Growth 1 Day Meds Allergies and Active Meds Allergies latex Adverse Reaction (Verified 07/17/22 11:27) Hives Active Meds: Active Medications Generic Name Dose Route Start Last Admin Trade Name Freq PRN Reason Stop Dose Admin Acetaminophen 650 mg 07/17/22 15:35 Acetaminophen 325 Mg Tablet PO 07/17/23 15:34 Q6HR PRN Pain Scale 1 - 3 or fever Hydralazine HCl 10 mg 07/17/22 15:35 Hydralazine 20 Mg/Ml Vial IV-PUSH 07/17/23 15:34 Q4H PRN Hypertension Hyoscyamine 0.125 mg 07/18/22 10:11 07/18/22 10:17 Hyoscyamine Sulfate 0.125 Mg Tab.Rapdis PO 07/18/23 10:10 0.125 mg Q4H PRN Administration Bladder Spasms Lactated Ringer's 1,000 mls @ 100 mls/hr 07/17/22 15:45 07/18/22 05:53 Lactated Ringers IV 07/17/23 15:44 100 mls/hr .Q10H GEOVANNA Administration Ceftriaxone Sodium 1 gm in 50 mls @ 100 mls/hr 07/18/22 15:45 07/17/22 19:00 Rocephin IV 100 mls/hr Q24H GEOVANNA Administration Lactated Ringer's 1,000 mls @ 20 mls/hr 07/17/22 15:42 07/17/22 19:17 Lactated Ringers IV 07/18/22 15:41 20 mls/hr .Q24H ONE Infusion Ketorolac Tromethamine 30 mg 07/17/22 15:35 Ketorolac Tromethamine 30 Mg/Ml Vial IV-PUSH 07/22/22 15:34 Q6H PRN Pain Scale 4 - 7 Morphine Sulfate 2 mg 07/17/22 15:35 07/17/22 16:18 Morphine Sulfate 2 Mg/Ml Vial IV-PUSH 2 mg Q4H PRN Administration Pain Scale 8 - 10 Ondansetron HCl 4 mg 07/17/22 15:35 Ondansetron 4 Mg/2 Ml Vial IV-PUSH 07/17/23 15:34 Q8H PRN Nausea And Vomiting Sodium Chloride 0 ml 07/17/22 11:25 Sodium Chloride 0.9 % 10 Ml Syringe IV-PUSH 07/17/23 11:24 PRN PRN Flush Sodium Chloride 0 ml 07/17/22 15:42 Sodium Chloride 0.9 % 10 Ml Syringe IV-PUSH 07/17/23 15:41 PRN PRN Flush A&P - Hospitalist Assessment/Plan (1) Left nephrolithiasis: (2) Calculus of proximal left ureter: (3) Migraine: Plan Patient underwent cystoscopy with stent placement yesterday She is hemodynamically stable and is afebrile Labs showed no leukocytosis with normal kidney functions Urine culture showed no growth so far Urology has cleared the patient for discharge Patient will be discharged home on oxybutynin Patient to follow-up with urology as an outpatient Patient is on topiramate for migraine. Educated her to discuss with her PCP if he can change topiramate as it can cause kidney stones, she verbalized understanding Educated patient to go to ER or call her physician if symptoms recur or worsen, she verbalized understanding. Patient is being discharged today Documented By: Pete Cardozo MD 07/18/22 1218 Signed By: <Electronically signed by Pete Cardozo MD> 07/18/22 1513 [facility] Work Phone: Progress note No data available for this section [facility] Chief Complaint and Reason for Visit Chief Complaint passed out twice Chief Complaint KUB Chief Complaint KUB abd pain Reason for Visit Calculus of proximal left ureter Left nephrolithiasis Migraine Pyelonephritis Renal colic Urinary tract infection Chief Complaint abd pain 24 hour urine and labs Reason for Visit Calculus of proximal left ureter Left nephrolithiasis Migraine Pyelonephritis Renal colic Urinary tract infection Chief Complaint 24 hour urine and la bs Chief Complaint n20.0 z87.442 Family History No Family History Records Found Relationship Condition Age at Onset Recorded Date/T omero Not Specified Malignant neoplasm of brain Unknown Hypertension Unknown father Hypertension Unknown Atrial fibrillation Unknown Malignant melanoma Unknown Malignant neoplasm of prostate Unknown Advance Directives No Advanced Directives Records Found Advance Directive Response Recorded Date/ Time Advance Directives No January 24, 2017 9:39am Summary Purpose Additional Source Comments Care Teams (unrecognized sec tion and content) Team Status: Active Member Role Status Dates Arcenio Rdz DO Primary Care Provider Active Team Status: Inactive Member Role Status Dates Arcenio Rdz DO Primary Care Provider Active Kyra Dee , Emergency Provider Active Jillian Hahn MD Admit Provider Active Dominique Sifuentes MD Other Provider Active Pete Cardozo MD Attending Provider Active Team Status: Inactive Member Role Status Dates Arcenio Rdz DO Primary Care Provider Active Fred Bill MD Attending Provider Active Team Status: Active Member Role Status Dates Arcenio Rdz DO Primary Care Provider Active Kyra Dee DO Emergency Provider Active Jillian Hahn MD Admit Provider, Attending Provider Active Dominique Sifuentes MD Other Provider Active Team Status: Inactive Member Role Status Dates Arcenio Rdz DO Primary Care Provider Active Tushar Madsen MD Emergency Provider Active Accounts Supervisor Relationship Specialty Start Date End Date Enrico WoodsDO [address] [place] [address] PCP - Medical [employer] 08/16/22 Arcenio Rdz DO [address] [place] [address] PCP - General Family Medicine 07/24/22 Team Status: Inactive Member Role Status Dates Arcenio Rdz DO Primary Care Provider Active St art: June 03, 2023 End: June 03, 2023 Fred Bill MD Attending Provider Active St art: June 03, 2023 End: June 03, 2023 Goals (unrecognized section and content) Goals may be documented in a n alternate sectionGoals may be documented in an alternate section No data available for this sectionGoals may be documented in an alternate sectionGoals may be documented in an alternate section No data available for this section INFORMATION SOURCE (unrecogn ized section and content) DATE CREATED AUTHOR 05/20/[address] [facility] dical Specialist DATE CREATED AUTHOR AUTHOR[facility]S [facility]GANIZ ATION [facility] DATE CREATED AUTHOR AUTHOR'S ORGANIZ ATION 06/11/2023 [facility] DATE CREATED AUTHOR AUTHOR'S ORGANIZ ATION 12/13/2023 [facility] DATE CREATED AUTHOR AUTHOR'S ORGANIZ ATION 12/14/[address] [facility] EPIC Reason for Visit (unrecogniz ed section and content) Reason Comments Gynecologic Exam LMP: TLH BS 2020HRT: NoneLast pap 04-18-22 neg.Last mammogram 05-18-22 [facility].Denies SCREEN WRITER concerns. FOR RECORDS PERTAINING TO PATIENTS WHO ARE OR HAVE BEEN ENROLLED IN A CHEMICAL DEPENDENCY/SUBSTANCEABUSE PROGRAM, SOME INFORMATION MAY BE OMITTED. This clinical summary was aggregated from multiple sources. Caution should be exercised in using it in the provision of clinical care. This summary normalizes information from multiple sources, and as a consequence, information in this document may materially change the coding, format and clinical context of patient data. In addition, data may be omitted in some cases. CLINICAL DECISIONS SHOULD BE BASED ON THE PRIMARY CLINICAL RECORDS. [facility]. provides no warranty or guarantee of the accuracy or completeness of information in this document.
[2023-12-19] MEDS: LACTATED RINGER'S SOLUTION 1,000 ML 50 ML IV (07:17)
[2023-12-19] MEDS: GENTAMICIN SULFATE 120 MG in 0.9 % SODIUM CHLORIDE 100 ML 206 MG IV (07:53)
--- NOTE | 2023-12-19 08:30 | PM.URSON ---
Urology Surgery Operative Note Operative Note Procedure Date: 12/19/23 Time Out Performed: yes Pre-op Diagnosis: Left nephrolithiasis Post-op Diagnosis: same as pre-op Procedures performed: 1. Left ESWL. Anesthesia: General-LMA Primary Surgeon: Fred Bill Complications: None Estimated blood loss (mL): 0 Findings: Multiple left renal calculi Specimens: None Drains: None Indications for Procedures: This lady has recurrent left nephrolithiasis fairly regularly. She is unable to take her potassium citrate for stone prevention. She now presents for left ESWL due to more recurrent renal calculi. She has signed an informed consent after risks were explained. Some of these risks include bleeding, perinephric hematoma, infection and anesthesia to name a few. Detailed description of Procedure: The patient was brought to the Operating Room and placed on Siemens electromagnetic lithotripsy treatment table in the supine position. SCDs were placed on their lower extremities and turned on and functioning during the entire case. Timeout was done by all parties in the room. We all agreed upon the patient's identification and the planned procedures for this patient. General Anesthesia was then administered via LMA. Treatment head was then brought to the patient's correct side. While using flourscopy the stones were identified and the largest mid group was lined up into the crosshairs. We then began applying shocks. We started at power level 2.0. We increased to a maximum power level of 3.5. Intermittent fluoroscopy showed that the stones were fairly slow to fragment. We applied 1000 shocks to this group in the midpole. We then applied thousand into the lower pole group. We then went back to the midpole group and applied the last 1000 shocks. The small stone burden in the upper pole was getting energy from the midpole lithotripsy. After applying 3000 shocks. We fragmented numerous stones. It appeared as though there were still a few solid stones remaining. Somewhere in the mid and somewhere in the lower pole. The procedure was then terminated. She was then transferred to [place] and wheeled to PACU in stable condition. The plan will be to check a KUB in a month. If we still have persistent stones we would then recommend a second ESWL treatment.
== END 2023-12-19 09:35 | disposition home or self-care (01) ==
PROVIDERS: PCP Family Medicine; Visit Provider Urology
PROC: (CPT 873; principal; 2023-12-19 08:00)
DX: N20.0 Calculus of kidney (principal); Z90.49 Acquired absence of other specified parts of digestive tract; Z90.710 Acquired absence of both cervix and uterus; F43.10 Post-traumatic stress disorder, unspecified; F41.0 Panic disorder [episodic paroxysmal anxiety]
CPT/HCPCS: 50590; 36415; 74018; J1580; J2001; J2250; J2704; J3010

== ENCOUNTER 2024-01-16 15:16 | Outpatient (OUT) | payer OTHER, SELFPAY ==
--- OUTSIDE RECORDS SUMMARY | 2024-01-16 15:39 | XMS_ITS | CCD ---
Author Organization [facility] ion [facility] Care Team Providers Care Industrial Chemist Name Role Phone DO Arcenio Rdz Primary Care Provider MD Tushar Madsen Emergency Provider DO Arcenio Rdz Primary Care Provider [phone] MD Fred Bill Attending Provider DO Kyra Dee Emergency Provider MD Jillian Hahn Admit Provider MD Jillian Hahn Attending Provider [phone] MD Dominique Sifuentes Other Provider MD Pete Cardozo Attending Provider PAY ., DR EMERY Admitting Unavailable PAY [...] Care Provider MD Fred Bill Attending Provider [phone] ARCENIO RDZ Primary Care Physician DO Arcenio Rdz Primary Care Provider [phone] Enrico Woods DO Unavailable [phone] Arcenio Rdz DO Primary Care Provider DO Arcenio Rdz Primary Care Provider MD Fred Bill Attending Provider Fred Bill Attending Unavailable Arcenio Rdz Primary Care Unavailable Bill, Fred Admitting Unavailable Bill, Fred Admitting Unavailable Bill, Fred Attending Unavailable Arcenio Rdz Primary Care Unavailable Jillian Hahn Admitting Unavailable Kendell, Arcenio Primary Care Unavailable Dominique Sifuentes Consulting Unavailable Pete Cardozo Attending Unavailable Bill, Fred Attending Unavailable Arcenio Rdz Primary Care Unavailable Bill, Fred Admitting Unavailable KENDELL, MACIEL Juan Attending Unavailable KENDELL, MACIEL Juan Referring Unavailable BILL, FRED R Referring Unavailable BILL, FRED R Referring Unavailable BILL, Fred R Attending Unavailable BILL, Fred R Attending Unavailable BILL, Fred R Attending Unavailable Allergies Allergy Classification Reported Allergen(s) Allergy Type Date of Onset Reaction(s) Facility (12 sources) Latex; Translations: [latex] Propensity to adverse reactions 3 Unknown (qualifier value), Hives, Itching, Rash, Swelling [facility] (1 source) Cephalexin Drug Allergy 0 [facility] Repository (2 sources) levoFLOXacin; Translations: [Levaquin] Drug Allergy 0 [facility] Repository (3 sources) levoFLOXacin; Translations: [levofloxacin] Drug Allergy 4 Unknown [facility] (3 sources) Penicillin; Translations: [penicillin] Drug Allergy Unknown Reaction [facility] (1 source) Penicillin G Drug Allergy 4 Unknown [facility] Medications Current Medications Medication Drug Class(es) Dates Sig (Normalized) Sig (Original) cetirizine hydrochloride 10 mg oral tablet (5 sources) Histamine-1 Receptor Antagonist Start: 07-17-2022 take 1 tablet by mouth once daily Cetirizine (Zyrtec) 10 mg Tablet Active 10 MG PO Daily July 17, 2022 12:00am lactobacillus acidophilus [id number] unt oral capsule (5 sources) Start: 07-17-2022 take 10 capsules by mouth once daily Lactobacillus Acidophilus (Probiotic) 10 billion cell Capsule Active 85120 MMU CELLS PO Daily July 17, 2022 12:00am oxybutynin chloride 5 mg oral tablet (12 sources) Cholinergic Muscarinic Antagonist Start: 07-17-2022 take 5 mg by mouth three times daily Oxybutynin Chloride Active 5 MG PO Three times daily July 17, 2022 12:00am Start: 11-07-2019 End: [...] every four to six hours Hydrocodone-Acetamin ophen (Holt) 5-325 mg tablet Discontinued 1 TAB PO [...] Refill(s) 11, Take 4 tsp BID daily, [facility]/pharmacy #[id number], 167, cm, 12/11/23 8:27:00 EDT, Height/Length [...] 1:00am July 17, 2022 11:26am Start: 11-17-2019 Zoloft Oral, D aily Start Date: 11/17/19 Status: Ordered Start: 11-07-2019 [...] Test Name Value Interpretation Reference Range Facility XR ABDOMEN 1 VIEWon 12-25-19 24 XR ABDOMEN 1 VIEW XR - ABDOMEN 1 VIEW Reason for exam: Follow up lithotripsy, left flank pain Views: 1 view in 2 images Imaging findings: There are multiple punctate left renal calyceal calculi in the upper, mid and lower poles. Punctate densities are also visible in the right upper and lower pole calyces. The abdominal bowel gas pattern is nonobstructive. No mass, organomegaly, or suspicious calcification. Negative for free intraperitoneal air. The skeleton is unremarkable. Impression: Bilateral calyceal calculi, more numerous on the left. No significant change from 12/09/2023. Dictated on: 12/26/2023 8:58 AM This report has been electronically signed and approved by the interpreting Radiologist. Electronically Signed Tushar Pitt M.D. 2023-12-26 08:59:13 Normal Not Available Ambulatory Visit Summaryon 0 12-11-2023 Ambulatory Visit Summary Ambulatory Visit Summary GISELLE NOVA :1980 Visit Date:12/11/2023 Ambulatory Visit Instructions Your Diagnosis Kidney stones Your Care Team Attending Physician - MANUELITO CRABTREE, Fred Devine Primary Care Physician - ARCENIO RDZ DO [...] Schedule the Following Appointments Follow Up with MANUELITO CRABTREE, HARLAN Brito When: Comments: nigel Puga ESWL Where: [facility] [address] , [place] [address]- [phone] Medications What How Much When Instructions Unchanged [...] these instructions at home: Medicines ? Take sesd-okr-avocvpm and prescription medicines only as told by [...] keep your pee pale yellow. ? Take knhr-dyp-rgdpbwv or prescription medicines. ? Eat foods that [...] Sever (more content not included)... Normal [facility] Urology Office/Clinic Noteon 12-11-2023 Urology Office/Clinic Note Urology Office/Clinic Note Chief Complaint 1 year follow up HPI Staff 1 yr with KUB-12/09/23 [facility] 06/03/23 FR - Similar multiple punctate L nephrolithiasis, largest [...] panel 10/10/22 - high Cl KUB 11/28/22 FR - L punctate stones, largest measuring 3mm. KUB 06/03/23 FR - Multiple punctate L nephrolithiasis, measures up [...] -D/c potassium citrate -Start Orac[facility]. [place] [facility] [place]SW[place]. The procedure risks, [...] General anesthesia. Follow-up With When Contact Information MANUELITO CRABTREE, Fred Devine, UR [facility] [address], [place] [address]- [phone] Additional Instructions: sched L ESWL Patient Education Laser Therapy for Kidney Stones, Care After Laser Therapy for Kidney Stones Kidney Stones, Pdwf-ll-Bdne IChristina, personally scribed for Dr. Bill on 12/11/2023 09:11:27. . Documentation recorded by the scribe, Christina Lopes, accurately reflects the services(s) I performed and [...] kidney (09/28 (more content not included)... Normal [facility] Comment on above: Result Comment: Elec [...] Normal Not Available BI MAMMOGRAM SCREENING TOMOS LUIS BILATERALon 11-06-2023 BI MAMMOGRAM SCREENING TOMOSYNTHESIS BILATERAL [...] IS VERY IMPORTANT TO YOUR HEALTH. THE [employer] GUIDELINES RECOMMEND THAT WOMEN 40 YEARS OF AGE AND OLDER SHOULD HAVE A MAMMOGRAM EVERY YEAR. A REMINDER LETTER WILL BE SENT AT THE APPROPRIATE TIME. ELECTRONICALLY SIGNED BY: Yane Willett, Normal Not Available Comment on above: Order Comment: Last mammogram 05-18-22 [facility] Us or spot compression prn RAD - MISCon 06-04-2023 RAD - MISC [id number] Normal [facility] XR abdomen 1Von 06-03-2023 XR abdomen 1V [facility] [place] [address] XRay Report Signed Patient: Giselle Nova MR#: [id number] : 1980 Acct:[id number] Age/Sex: 42 / F ADM Date: 06/03/23 Loc: XD Room: Type: [facility] Attending Dr: Fred Bill MD Copies to: [...] Yuly Tamayo M.D.06/03/2023 6:05 PM Dictation Location: [place] [address] Transcribed By: [facility] 06/03/231804 Dictated By: Yuly Tamayo DO 06/03/231803 Signed By: 06/03/23 180 Normal [facility] XR KUBon 11-28-2022 XR KUB [facility] [place] [address] XRay Report Signed Patient: Giselle Nova MR#: [id number] : 1980 Acct:[id number] Age/Sex: 42 / F ADM Date: 11/28/22 Loc: ICXD Room: Type: [facility] Attending Dr: Fred Bill MD Copies to: [...] MM. Impression dictated by: Trip Singh Jr., D.O.11/28/2022 4:37 PM Dictation Location: [place] [address] Transcribed By: [facility] 11/28/22 163 Dictated By: Trip Singh Jr, DO 11/28/22 1636 Signed By: 11/28/22 1637 Normal [facility] 24 Hr Urine Uric Acidon 09-16 Uric Acid, 24 Hr Urine 442.3 Normal 173.7 -902. 1 [facility] Comment on above: Order Comment: URINE VOLUME (MILLILTERS): 3050 Result Comment: Perf ormed at: - [facility] [address] [id number] Emergency Doctor: Ash Castro PhD, Phone: [phone] Performed By: #### C ITRIC UR, U24 CA, MAG 24HRU, OXAL 24HRU, URIC 24HRU, PHOS 24HRU ####[facility] ,#### COL T V, U24 NA, CREA24 ####[facility] Tcd[address] Urine Uric Acid 14.5 mg/dL Normal Not Estab. [facility] Comment on above: Order Comment: URINE VOLUME (MILLILTERS): 3050 Performed By: #### C ITRIC UR, U24 CA, MAG 24HRU, OXAL 24HRU, URIC 24HRU, PHOS 24HRU ####[facility] ,#### COL T V, U24 NA, CREA24 ####[facility] Bap[address] 24 hour urine sodium measure ment (moles/time)Ordered By: Fred Bill on 10-10-2022 Sodium (24H U) [Moles/Time] 137 mmol/24 40-220 [facility] 24 hour urine uric acid kristina urement (mass/time)Ordered By: Fred Bill on 10-10-2022 Urate (24H U) [Mass/Time] 442.3 mg/24 hr 173.7-902. 1 [facility] Comment on above: Performed at: NORM - Edd [facility]hn [id number] [place] [place] [id number] Director: Ash Castro PhD, Phone: [phone] Blood Urea Nitrogenon 2022 Urea nitrogen [Mass/Vol] 11 mg/dL Normal 7-25 [facility] Comment on above: Performed By: #### L YTES, URIC, CA, BUN, PTH, CREAT #### [facility] [address] [id number] [facility] CT biopsyOrdered By: Fred Bill on 10-10-2022 CT biopsy 24 Hours [facility] Calciumon 10-10-2022 Calcium [Mass/Vol] 9.0 mg/dL Normal 8.6-10.3 [facility] Comment on above: Performed By: #### L YTES, URIC, CA, BUN, PTH, CREAT #### [facility] [address] [id number] [place] Calcium [Mass/time] in 24 ho ur UrineOrdered By: Fred Bill on 10-10-2022 Calcium (24H U) [Mass/Time] 262 mg/24 hr 0-320 [facility] Calcium [Mass/volume] in 24 hour UrineOrdered By: Fred Bill on 10-10-2022 Calcium (24H U) [Mass/Vol] 8.6 mg/dL Not Estab. [facility] Calcium [Mass/volume] in Ser um or PlasmaOrdered By: Fred Bill on 10-10-2022 Calcium [Mass/Vol] 9.0 mg/dL 8.6-10.3 [facility] Calcium, 24Hr Urineon 2022 Calcium, Urine 8.6 mg/dL Normal Not Estab. [facility] Comment on above: Order Comment: URINE VOLUME (MILLILTERS): 3050 Performed By: #### C ITRIC UR, U24 CA, MAG 24HRU, OXAL 24HRU, URIC 24HRU, PHOS 24HRU ####[facility] ,#### COL T V, U24 NA, CREA24 ####[facility] Bwn[address] [place] [address] [place] Calcium, Urine 24 Hr 262 Normal 0-320 [facility] Comment on above: Order Comment: URINE VOLUME (MILLILTERS): 3050 Performed By: #### C ITRIC UR, U24 CA, MAG 24HRU, OXAL 24HRU, URIC 24HRU, PHOS 24HRU ####[facility] ,#### COL T V, U24 NA, CREA24 ####[facility] [place] [address] [facility] Carbon dioxide, total [Moles /volume] in Serum or PlasmaOrdered By: Fred Bill on 10-10-2022 CO2 [Moles/Vol] 26.7 mmol/L 21.0-31.0 [facility] Chloride [Moles/volume] in S viji or PlasmaOrdered By: Fred Bill on 10-10-2022 Chloride [Moles/Vol] 108 mmol/L 98-107 [facility] Citric Acid, Urine, 24 Houro n 10-10-2022 Citric Acid, Urine 83 mg/L Normal Undefined [facility] Comment on above: Order Comment: URINE VOLUME (MILLILTERS): 3050 Performed By: #### C ITRIC UR, U24 CA, MAG 24HRU, OXAL 24HRU, URIC 24HRU, PHOS 24HRU ####[facility] ,#### COL T V, U24 NA, CREA24 ####[place] [address] [place] [id number] [facility] Citric Acid, Urine, 24HR 253 Low 320-1240 [facility] Comment on above: Order Comment: URINE VOLUME (MILLILTERS): 3050 Result Comment: This test was developed and its performance characteristics determined by [facility]. It has not been cleared or approved by the Food and Drug Administration. Performed at: [address] [id number] Emergency Doctor: Dayan White MD, Phone: [phone] PERFORMED BY: [facility] [address] [place] [id number] PATHOLOGIST BENCH WORKER HELPER ZURI HOOD M.D. Performed By: #### C ITRIC UR, U24 CA, MAG 24HRU, OXAL 24HRU, URIC 24HRU, PHOS 24HRU ####[facility] ,#### COL T V, U24 NA, CREA24 ####[address] Castillo Time and Vol 24 hr uron 10-10-2022 Total Volume, Urine 3050 Normal [facility] Comment on above: Order Comment: URINE COLLECTION TIME (HRS): 24 URINE VOLUME (MILLILTERS): 3050 Result Comment: PERF ORMED BY: [place] [address] PATHOLOGIST BENCH WORKER HELPER ZURI HOOD M.D. Performed By: #### C ITRIC UR, U24 CA, MAG 24HRU, OXAL 24HRU, URIC 24HRU, PHOS 24HRU ####[facility] ,#### COL T V, U24 NA, CREA24 ####[address] Urine Collection Time 24 Normal [facility] Comment on above: Order Comment: URINE COLLECTION TIME (HRS): 24 URINE VOLUME (MILLILTERS): 3050 Performed By: #### C ITRIC UR, U24 CA, MAG 24HRU, OXAL 24HRU, URIC 24HRU, PHOS 24HRU ####[facility] ,#### COL T V, U24 NA, CREA24 ####[address] Creatinineon 10-10-2022 Creatinine [Mass/Vol] 0.80 mg/dL Normal 0.60-1.20 [facility] Comment on above: Performed By: #### L YTES, URIC, CA, BUN, PTH, CREAT #### [address] GFR/1.73 sq M.predicted MDRD (S/P/Bld) [Vol rate/Area] mL/min/{1.73_m2} [facility] Comment on above: Performed By: #### L YTES, URIC, CA, BUN, PTH, CREAT #### [address] [place] [address] [place] Creatinine [Mass/volume] in Serum or PlasmaOrdered By: Fred Bill on 10-10-2022 Creatinine [Mass/Vol] 0.80 mg/dL 0.60-1.20 [facility] Creatinine [Mass/volume] in UrineOrdered By: Fred Bill on 10-10-2022 Creatinine (U) [Mass/Vol] 52.00 mg/dL 11.00-20.0 0 [facility] Creatinine, 24 Hr Urineon Creatinine 24 Hour, Urine 1.58 g/24_hr Normal 0.80-1.89 [facility] Comment on above: Order Comment: URINE COLLECTION TIME (HRS): 24 URINE VOLUME (MILLILTERS): 3050 Performed By: #### C ITRIC UR, U24 CA, MAG 24HRU, OXAL 24HRU, URIC 24HRU, PHOS 24HRU ####[facility] ,#### COL T V, U24 NA, CREA24 ####[facility] C[address] [place] [id number] [facility] Creatinine, Urine 52.00 mg/dL High 11.00-20.0 0 [facility] Comment on above: Order Comment: URINE COLLECTION TIME (HRS): 24 URINE VOLUME (MILLILTERS): 3050 Performed By: #### C ITRIC UR, U24 CA, MAG 24HRU, OXAL 24HRU, URIC 24HRU, PHOS 24HRU ####[facility] ,#### COL T V, U24 NA, CREA24 ####[facility] [address] [place] [id number] [facility] Electrolyteson 10-10-2022 Anion gap [Moles/Vol] 9.4 mmol/L Normal 6.0-15.0 [facility] Comment on above: Performed By: #### L YTES, URIC, CA, BUN, PTH, CREAT #### [facility] [address] Chloride [Moles/Vol] 108 mmol/L High 98-107 [facility] Comment on above: Performed By: #### L YTES, URIC, CA, BUN, PTH, CREAT #### [facility] [address] [place] [address] [place] CO2 [Moles/Vol] 26.7 mmol/L Normal 21.0-31.0 [facility] Comment on above: Performed By: #### L YTES, URIC, CA, BUN, PTH, CREAT #### [facility] [address] [place] [address] [place] Potassium [Moles/Vol] 4.1 mmol/L Normal 3.5-5.1 [facility] Comment on above: Performed By: #### L YTES, URIC, CA, BUN, PTH, CREAT #### [facility] [address] [place] [address] [place] Sodium [Moles/Vol] 140 mmol/L Normal 136-145 [facility] Comment on above: Performed By: #### L YTES, URIC, CA, BUN, PTH, CREAT #### [facility] [address] Magnesium [Mass/time] in 24 hour UrineOrdered By: Fred Bill on 10-10-2022 Magnesium (24H U) [Mass/Time] 134.2 mg/24 hr 12.0-293.0 [facility] Magnesium [Mass/volume] in U rineOrdered By: Fred Bill on 10-10-2022 Magnesium (U) [Mass/Vol] 4.4 mg/dL Not Estab. [facility] Magnesium, Urine 24Hron 09-16 Magnesium, 24Hr Urine 134.2 Normal 12.0-293.0 [facility] Comment on above: Order Comment: URINE VOLUME (MILLILTERS): 3050 Performed By: #### C ITRIC UR, U24 CA, MAG 24HRU, OXAL 24HRU, URIC 24HRU, PHOS 24HRU ####[facility] ,#### COL T V, U24 NA, CREA24 ####[facility] Inc[address] Magnesium, Urine 4.4 mg/dL Normal Not Estab. [facility] Comment on above: Order Comment: URINE VOLUME (MILLILTERS): 3050 Performed By: #### C ITRIC UR, U24 CA, MAG 24HRU, OXAL 24HRU, URIC 24HRU, PHOS 24HRU ####[facility] ,#### COL T V, U24 NA, CREA24 ####[facility] Ifu[address] No Panel InformationOrdered By: Fred Bill on 10-10-2022 Estimated GFR (CKD-EPI) > 60.0 mL/Min [facility] Creatinine Clearance (Chem N/A [facility] Urine Citric Acid 83 mg/L Undefined [facility] Urine Citric Acid 24 Hour 253 mg/24 hr 320-1240 [facility] Comment on above: This test was develo ped and its performance characteristicsdetermined by [facility]. It has not been cleared orapproved by the Food and Drug Administration.Performed at: BN - [facility] [address] [id number] Director: Dyaan White MD, Phone: [phone] Urine Creatinine 24 Hour 1.58 g/24 hr 0.80-1.89 [facility] Oxalate [Mass/time] in 24 ho ur UrineOrdered By: Fred Bill on 10-10-2022 Oxalate (24H U) [Mass/Time] 24 mg/24 hr 4-31 [facility] Comment on above: Performed at: [facility] [address] [id number] Director: Dayan White MD, Phone: [phone] Oxalate [Mass/volume] in Uri neOrdered By: Fred Bill on 10-10-2022 Oxalate (U) [Mass/Vol] 8 mg/L Undefined [facility] Oxalate, Quant, 24Hr Urineon 10-10-2022 Oxalates, Urine 8 mg/L Normal Undefined [facility] Comment on above: Order Comment: URINE VOLUME (MILLILTERS): 3050 Performed By: #### C ITRIC UR, U24 CA, MAG 24HRU, OXAL 24HRU, URIC 24HRU, PHOS 24HRU ####[facility] ,#### COL T V, U24 NA, CREA24 ####[facility] [place] [id number] [place] Oxalates, Urine 24Hr 24 Normal [facility] Comment on above: Order Comment: URINE VOLUME (MILLILTERS): 3050 Result Comment: Perf ormed at: [facility] [id number] Emergency Doctor: Dayan White MD, Phone: [phone] Performed By: #### C ITRIC UR, U24 CA, MAG 24HRU, OXAL 24HRU, URIC 24HRU, PHOS 24HRU ####[facility] ,#### COL T V, U24 NA, CREA24 ####[address] Parathyrin.intact [Mass/volu me] in Serum or PlasmaOrdered By: Fred Bill on 10-10-2022 Parathyrin.intact [Mass/Vol] 31.0 pg/mL [facility] Parathyroid Hormone Intacton 10-10-2022 Parathyroid Hormone Intact 31.0 pg/mL Normal [facility] Comment on above: Result Comment: PERF ORMED BY: [place] [address] PATHOLOGIST BENCH WORKER HELPER ZURI HOOD M.D. Performed By: #### L YTES, URIC, CA, BUN, PTH, CREAT #### [facility] [address] [place] [address] Phosphate [Mass/time] in 24 hour UrineOrdered By: Fred Bill on 10-10-2022 Phosphate (24H U) [Mass/Time] 909 mg/24 hr 261-1078 [facility] Phosphate [Mass/volume] in U rineOrdered By: Fred Bill on 10-10-2022 Phosphate (U) [Mass/Vol] 29.8 mg/dL Not Estab. [facility] Phosphorus, 24Hr Urineon Phosphorous, Urine 29.8 mg/dL Normal Not Estab. [facility] Comment on above: Order Comment: URINE VOLUME (MILLILTERS): 3050 Performed By: #### C ITRIC UR, U24 CA, MAG 24HRU, OXAL 24HRU, URIC 24HRU, PHOS 24HRU ####[facility] ,#### COL T V, U24 NA, CREA24 ####[facility] [place] [address] [facility] Phosphorus, Urine 24Hr 909 Normal 261-1078 [facility] Comment on above: Order Comment: URINE VOLUME (MILLILTERS): 3050 Performed By: #### C ITRIC UR, U24 CA, MAG 24HRU, OXAL 24HRU, URIC 24HRU, PHOS 24HRU ####[facility] ,#### COL T V, U24 NA, CREA24 ####[place] [address] [place] [address] [facility] Potassium [Moles/volume] in Serum or PlasmaOrdered By: Fred Bill on 10-10-2022 Potassium [Moles/Vol] 4.1 mmol/L 3.5-5.1 [facility] Serum or plasma anion gap de terminationOrdered By: Fred Bill on 10-10-2022 Anion gap [Moles/Vol] 9.4 mmol/L 6.0-15.0 [facility] Sodium [Moles/volume] in Ser um or PlasmaOrdered By: Fred Bill on 10-10-2022 Sodium [Moles/Vol] 140 mmol/L 136-145 [facility] Sodium [Moles/volume] in Uri neOrdered By: Fred Bill on 10-10-2022 Sodium (U) [Moles/Vol] 45.0 mmol/L [facility] Comment on above: No reference range e stablished Sodium, 24 Hr Urineon 2022 Sodium (U) [Moles/Vol] 45.0 mmol/L Normal F [facility] Comment on above: Order Comment: URINE COLLECTION TIME (HRS): 24 URINE VOLUME (MILLILTERS): 3050 Result Comment: No r eference range established Performed By: #### C ITRIC UR, U24 CA, MAG 24HRU, OXAL 24HRU, URIC 24HRU, PHOS 24HRU ####[facility] ,#### COL T V, U24 NA, CREA24 ####[facility] [address]af[address] Sodium 24 Hour Urine 137 Normal 40-220 [facility] Comment on above: Order Comment: URINE COLLECTION TIME (HRS): 24 URINE VOLUME (MILLILTERS): 3050 Performed By: #### C ITRIC UR, U24 CA, MAG 24HRU, OXAL 24HRU, URIC 24HRU, PHOS 24HRU ####[facility] ,#### COL T V, U24 NA, CREA24 ####[facility] Urate [Mass/volume] in Serum or PlasmaOrdered By: Fred Bill on 10-10-2022 Urate [Mass/Vol] 5.6 mg/dL 2.3-6.6 [facility] Urea nitrogen [Mass/volume] in Serum or PlasmaOrdered By: Fred Bill on 10-10-2022 Urea nitrogen [Mass/Vol] 11 mg/dL 7-25 [facility] Uric Acidon 10-10-2022 Urate [Mass/Vol] 5.6 mg/dL Normal 2.3-6.6 [facility] Comment on above: Result Comment: PERF ORMED BY: [facility] [address] [facility] [place] [address] PATHOLOGIST BENCH WORKER HELPER ZURI HOOD M.D. Performed By: #### L YTES, URIC, CA, BUN, PTH, CREAT #### [facility] [address] Urine uric acid measurement (mass/volume)Ordered By: Fred Bill on 10-10-2022 Urate (U) [Mass/Vol] 14.5 mg/dL Not Estab. [facility] Urine volume measurementOrde red By: Fred Bill on 10-10-2022 Specimen volume (U) 3050 ml [facility] AMYLASEon 07-20-2022 Amylase [Catalytic activity/Vol] 30 U/L Normal 25-115 [facility] Comment on above: Performed By: #### L IPA, CMP, DAVID #### [facility] [address] [id number] Donna Shaw CBC AUTO DIFFon 07-20-2022 BASO # 0.0 103/ul Normal 0.0-0.1 [facility] Comment on above: Performed By: #### C BC #### [facility] [address] [address] [address] Donna Shaw Basophils/100 WBC (Bld) 0.6 % Normal 0.2-2.0 [facility] Comment on above: Performed By: #### C BC #### [facility] [address] [place] [address] Dr. Donna Shaw EO # 0.2 103/ul Normal 0.0-0.7 [facility] Comment on above: Performed By: #### C BC #### [facility] [address] [place] [address] Dr. Donna Shaw Eosinophils/100 WBC (Bld) 2.8 % Normal 0.9-7.0 [facility] Comment on above: Performed By: #### C BC #### [facility] [address] [place] [address] Dr. Donna Shaw Erythrocyte distribution width (RBC) [Ratio] 12.7 % Normal 11.0-15.0 [facility] Comment on above: Performed By: #### C BC #### [facility] [address] [place] [address] Dr. Donna Shaw Hematocrit (Bld) [Volume fraction] 38.4 % Normal 36.0-48.0 [facility] Comment on above: Performed By: #### C BC #### [facility] [address] [place] [address] Dr. Donna Shaw Hemoglobin (Bld) [Mass/Vol] 12.9 g/dL Normal 12.0-16.0 [facility] Comment on above: Performed By: #### C BC #### [facility] [address] [place] [address] Dr. Donna Shaw IG # 0.03 10e3/ul Normal 0.00-0.03 [facility] Comment on above: Performed By: #### C BC #### [facility] [address] [place] [address] Dr. Donna Shaw IG % 0.4 % Normal 0.0-0.5 [facility] Comment on above: Performed By: #### C BC #### [facility] [address] [place] [address] Dr. Donna Shaw LYMPH # 2.3 103/ul Normal 1.2-3.8 [facility] Comment on above: Performed By: #### C BC #### [facility] [address] [place] [address] Dr. Donna Shaw Lymphocytes/100 WBC (Bld) 34.1 % Normal 20.5-60.0 [facility] Comment on above: Performed By: #### C BC #### [facility] [address] [place] [address] Dr. Donna Shaw MANUAL DIFF REQ NO Normal [facility] Comment on above: Performed By: #### C BC #### [facility] [address] [place] [address] Dr. Donna Shaw MCH (RBC) [Entitic mass] 29.7 pg Normal 26.7-34.0 [facility] Comment on above: Performed By: #### C BC #### [facility] [address] [place] [address] Dr. Donna Shaw MCHC (RBC) [Mass/Vol] 33.6 g/dL Normal 29.9-35.2 [facility] Comment on above: Performed By: #### C BC #### [facility] [address] [place] [address] Dr. Donna Shaw MCV (RBC) [Entitic vol] 88.5 fL Normal 81.0-99.0 [facility] Comment on above: Performed By: #### C BC #### [facility] [address] [place] [address] Dr. Donna Shaw MONO # 0.6 103/ul Normal 0.3-0.8 [facility] Comment on above: Performed By: #### C BC #### [facility] [address] [place] [address] Dr. Donna Shaw Monocytes/100 WBC (Bld) 8.3 % Normal 1.7-12.0 [facility] Comment on above: Performed By: #### C BC #### [facility] [address] [place] [address] Dr. Donna Shaw NEUT # 3.6 103/ul Normal 1.4-6.5 [facility] Comment on above: Performed By: #### C BC #### [facility] [address] [place] [address] Dr. Donna Shaw Neutrophils/100 WBC (Bld) 53.8 % Normal 43.0-75.0 [facility] Comment on above: Performed By: #### C BC #### [facility] [address] [place] [address] Dr. Donna Shaw Platelet mean volume (Bld) [Entitic vol] 9.0 fL Critically low 9.5-13.5 [facility] Comment on above: Performed By: #### C BC #### [facility] [address] [place] [address] Dr. Donna Shaw PLT 395 103/ul Normal 150-450 [facility] Comment on above: Performed By: #### C BC #### [facility] [address] [place] [address] Dr. Donna Shaw RBC 4.34 106/ul Normal 4.20-5.40 [facility] Comment on above: Performed By: #### C BC #### [facility] [address] [place] [address] Dr. Donna Shaw WBC 6.7 103/ul Normal 4.0-11.0 [facility] Comment on above: Performed By: #### C BC #### [facility] [address] [place] [address] Dr. Donna Shaw LIPASEon 07-20-2022 Lipase [Catalytic activity/Vol] 49.0 U/L Critically low 73.0-393.0 [facility] Comment on above: Performed By: #### L IPA, CMP, DAVID #### [facility] [address] [address] [address] Donna Shaw PROF 14(COMP METB)on 023 Albumin [Mass/Vol] 3.4 g/dL Normal 3.4-5.0 [facility] Comment on above: Performed By: #### L IPA, CMP, DAVID #### [facility] [address] [address] [address] Donna Shaw Albumin/Globulin [Mass ratio] 1.1 {ratio} Normal [facility] Comment on above: Performed By: #### L IPA, CMP, DAVID #### [facility] [address] [place] [address] Dr. Donna Shaw ALP [Catalytic activity/Vol] 52 U/L Normal 46-116 [facility] Comment on above: Performed By: #### L IPA, CMP, DAVID #### [facility] [address] [place] [address] Dr. Donna Shaw ALT [Catalytic activity/Vol] 16 U/L Normal 14-59 [facility] Comment on above: Performed By: #### L IPA, CMP, DAVID #### [facility] [address] [place] [address] Dr. Donna Shaw Anion gap [Moles/Vol] 12.4 mmol/L Normal [facility] Comment on above: Performed By: #### L IPA, CMP, DAVID #### [facility] [address] [place] [address] Dr. Donna Shaw AST [Catalytic activity/Vol] 12 U/L Critically low 15-37 [facility] Comment on above: Performed By: #### L IPA, CMP, DAVID #### [facility] [address] [place] [address] Dr. Donna Shaw Bilirubin [Mass/Vol] 0.4 mg/dL Normal 0.2-1.0 [facility] Comment on above: Performed By: #### L IPA, CMP, DAVID #### [facility] [address] [address] [address] Donna Shaw Calcium [Mass/Vol] 8.6 mg/dL Normal 8.5-10.1 [facility] Comment on above: Performed By: #### L IPA, CMP, DAVID #### [facility] [address] [address] [address] Donna Shaw Chloride [Moles/Vol] 107 mmol/L Normal 98-107 [facility] Comment on above: Performed By: #### L IPA, CMP, DAVID #### [facility] [address] [address] [address] Donna Shaw CO2 [Moles/Vol] 26.5 mmol/L Normal 21.0-32.0 [facility] Comment on above: Performed By: #### L IPA, CMP, DAVID #### [facility] [address] [place] [address] Dr. Donna Shaw Creatinine [Mass/Vol] 0.71 mg/dL Normal 0.55-1.02 [facility] Comment on above: Performed By: #### L IPA, CMP, DAVID #### [facility] [address] [place] [address] Dr. Donna Shaw EGFR-AF GIBRALTARIAN >60 Normal >=60 [facility] Comment on above: Performed By: #### L IPA, CMP, DAVID #### [facility] [address] [place] [address] Dr. Donna Shaw EGFR-NON AF GIBRALTARIAN >60 Normal >=60 [facility] Comment on above: Performed By: #### L IPA, CMP, DAVID #### [facility] [address] [place] [address] Dr. Donna Shaw Globulin (S) [Mass/Vol] 3.2 g/dL Normal [facility] Comment on above: Performed By: #### L IPA, CMP, DAVID #### [facility] [address] [place] [address] Dr. Donna Shaw Glucose [Mass/Vol] 92 mg/dL Normal 74-106 [facility] Comment on above: Performed By: #### L IPA, CMP, DAVID #### [facility] [address] [address] [address] Donna Shaw Potassium [Moles/Vol] 3.9 mmol/L Normal 3.5-5.1 [facility] Comment on above: Performed By: #### L IPA, CMP, DAVID #### [facility] [address] [place] [address] Dr. Donna Shaw Protein [Mass/Vol] 6.6 g/dL Normal 6.4-8.2 [facility] Comment on above: Performed By: #### L IPA, CMP, DAVID #### [facility] [address] [place] [address] Dr. Donna Shaw Sodium [Moles/Vol] 142 mmol/L Normal 136-145 [facility] Comment on above: Performed By: #### L IPA, CMP, DAVID #### [facility] [address] [place] [address] Dr. Donna Shaw Urea nitrogen [Mass/Vol] 8.0 mg/dL Normal 7.0-18.0 [facility] Comment on above: Performed By: #### L IPA, CMP, DAVID #### [facility] [address] [place] [address] Dr. Donna Shaw Urea nitrogen/Creatinine [Mass ratio] 11.3 mg/mg Normal [facility] Comment on above: Performed By: #### L IPA, CMP, DAVID #### [facility] [address] [place] [address] Dr. Donna Shaw PROTIMEon 07-20-2022 INR Coag (PPP) [Relative time] 0.97 {INR} Normal [facility] Comment on above: Performed By: #### P TT, PT #### [facility] [address] [place] [address] Dr. Donna Shaw INR GUIDELINES SEE BELOW Normal [facility] Comment on above: Result Comment: IZABEL RED INR: 2.0 - 3.0 CONDITIONS NOT LISTED BELOW 2.5 - 3.5 FOR PROSTHETIC HEART VALVE REPLACEMENT 2.5 - 3.5 RECURRENT THROMBOSIS Performed By: #### P TT, PT #### [facility] [address] [address] [address] Donna Shaw PT Coag (PPP) [Time] 10.3 s Normal 9.0-11.6 [facility] Comment on above: Performed By: #### P TT, PT #### [facility] [address] [place] [address] Dr. Donna Shaw PTTon 07-20-2022 aPTT Coag (Bld) [Time] 28.2 s Normal 22.3-36.2 [facility] Comment on above: Performed By: #### P TT, PT #### [facility] [address] [address] [address] Donna Shaw Basic Metabolic Panelon Anion gap [Moles/Vol] 10.1 mmol/L Normal 6.0-15.0 [facility] Comment on above: Performed By: #### C BC, BMP ####[id number] [place] [id number] [facility] Calcium [Mass/Vol] 8.4 mg/dL Low 8.6-10.3 [facility] Comment on above: Performed By: #### C BC, BMP ####[address] [place] [address] [facility] Chloride [Moles/Vol] 109 mmol/L High 98-107 [facility] Comment on above: Performed By: #### C BC, BMP ####[facility] [id number] [place] [address] [facility] CO2 [Moles/Vol] 21.9 mmol/L Normal 21.0-31.0 [facility] Comment on above: Performed By: #### C BC, BMP ####[facility] [place] [address] [place] Creatinine [Mass/Vol] 0.87 mg/dL Normal 0.60-1.20 [facility] Comment on above: Performed By: #### C BC, BMP ####[facility] [id number] [place] [address] [place] Creatinine Clr Calc Pharmacy 78.86 [facility] Comment on above: Result Comment: PERF ORMED BY: [facility] [address] [place] [address] PATHOLOGIST BENCH WORK[employer] HELPER ZURI HOOD M.D. Performed By: #### C ALLAN, BMP ####[address] [place] [id number] [facility] GFR/1.73 sq M.predicted MDRD (S/P/Bld) [Vol rate/Area] mL/min/{1.73_m2} Normal [facility] Comment on above: Performed By: #### C ALLAN, BMP ####[address] [place] [id number] [facility] Glucose [Mass/Vol] 137 mg/dL High 70-100 [facility] Comment on above: Result Comment: [place] Glucose Reference Range is dependent on time and content of last meal. Glucose of more than 200 mg/dL in a nonstressed, ambulatory subject supports the diagnosis of Diabetes Mellitus. ADA recommended reference range Performed By: #### C ALLAN, BMP ####[address] [place] [id number] [facility] Potassium [Moles/Vol] 4.0 mmol/L Normal 3.5-5.1 [facility] Comment on above: Performed By: #### C ALLAN, BMP ####[address] [place] [id number] [facility] Sodium [Moles/Vol] 137 mmol/L Normal 136-145 [facility] Comment on above: Performed By: #### C ALLAN, BMP ####[address] [place] [id number] [facility] Urea nitrogen [Mass/Vol] 11 mg/dL Normal 7-25 [facility] Comment on above: Performed By: #### C ALLAN, BMP ####[id number] [place] Basophils Auto (Bld) [#/Vol] Ordered By: Jillian Hahn on 07-18-2022 Basophils (Bld) [#/Vol] 0.0 10*3/uL 0.0-0.2 [facility] Basophils/100 WBC Auto (Bld) Ordered By: Jillian Hahn on 07-18-2022 Basophils/100 WBC (Bld) 0.3 % . [facility] Calcium [Mass/volume] in Ser um or PlasmaOrdered By: Jillian Hahn on 07-18-2022 Calcium [Mass/Vol] 8.4 mg/dL 8.6-10.3 [facility] Carbon dioxide, total [Moles /volume] in Serum or PlasmaOrdered By: Jillian Hahn on 07-18-2022 CO2 [Moles/Vol] 21.9 mmol/L 21.0-31.0 [facility] Chloride [Moles/volume] in S viji or PlasmaOrdered By: Jillian Hahn on 07-18-2022 Chloride [Moles/Vol] 109 mmol/L 98-107 [facility] Complete Blood Count Auto Di ffon 07-18-2022 Basophils (Bld) [#/Vol] 0.0 10*3/uL Normal 0.0-0.2 [facility] Comment on above: Result Comment: PERF ORMED BY: [facility] [address] [place] [address] PATHOLOGIST BENCH WORK[employer] HELPER ZURI HOOD M.D. Performed By: #### C ALLAN BMP ####[address] Basophils/100 WBC (Bld) 0.3 % Normal . [facility] Comment on above: Performed By: #### C ALLAN, BMP ####[address] Eosinophils (Bld) [#/Vol] 0.0 10*3/uL Normal 0.0-0.45 [facility] Comment on above: Performed By: #### C ALLAN, BMP ####[address] Eosinophils/100 WBC (Bld) 0.1 % Normal . [facility] Comment on above: Performed By: #### C ALLAN, BMP ####[address] Erythrocyte distribution width (RBC) [Ratio] 13.5 % Normal 11.9-15.3 [facility] Comment on above: Performed By: #### C ALLAN, BMP ####[address] Hematocrit (Bld) [Volume fraction] 39.3 % Normal 34.0-46.4 [facility] Comment on above: Performed By: #### C ALLAN, BMP ####[address] Hemoglobin (Bld) [Mass/Vol] 13.2 g/dL Normal 11.8-15.4 [facility] Comment on above: Performed By: #### C ALLAN, BMP ####[address] Lymphocytes (Bld) [#/Vol] 0.8 10*3/uL Low 1.00-4.8 [facility] Comment on above: Performed By: #### C ALLAN, BMP ####[address] Lymphocytes/100 WBC (Bld) 10.9 % Normal . [facility] Comment on above: Performed By: #### C ALLAN, BMP ####[address] MCH (RBC) [Entitic mass] 29.9 pg Normal 24.7-34.3 [facility] Comment on above: Performed By: #### C ALLAN, BMP ####[address] MCV (RBC) [Entitic vol] 88.9 fL Normal 80-100 [facility] Comment on above: Performed By: #### C ALLAN, BMP ####[address] Mean Corpuscular HGB Conc 33.6 g/dL Normal 32.0-35.0 [facility] Comment on above: Performed By: #### C ALLAN, BMP ####[address] Monocytes (Bld) [#/Vol] 0.2 10*3/uL Normal 0.0-0.8 [facility] Comment on above: Performed By: #### C ALLAN, BMP ####[address] Monocytes/100 WBC (Bld) 2.3 % Normal . [facility] Comment on above: Performed By: #### C ALLAN, BMP ####[address] Neutrophils (Bld) [#/Vol] 6.3 10*3/uL Normal 1.8-7.7 [facility] Comment on above: Performed By: #### C ALLAN, BMP ####[address] Neutrophils/100 WBC (Bld) 86.4 % Normal . [facility] Comment on above: Performed By: #### C ALLAN, BMP ####[address] NRBC% 0.1 /100{WBC} Normal 0-0.5 [facility] Comment on above: Performed By: #### C ALLAN, BMP ####[address] Platelet mean volume (Bld) [Entitic vol] 7.6 fL Normal 6.3-10.7 [facility] Comment on above: Performed By: #### C ALLAN, BMP ####[address] Platelets (Bld) [#/Vol] 356 10*3/uL Normal 150-450 [facility] Comment on above: Performed By: #### C ALLAN, BMP ####[address] RBC (Bld) [#/Vol] 4.42 10*6/uL Normal 3.60-5.00 [facility] Comment on above: Performed By: #### C ALLAN, BMP ####[address] WBC (Bld) [#/Vol] 7.3 10*3/uL Normal 3.8-11.6 [facility] Comment on above: Performed By: #### C BC, BMP ####[facility] [id number] Creatinine [Mass/volume] in Serum or PlasmaOrdered By: Jillian Hahn on 07-18-2022 Creatinine [Mass/Vol] 0.87 mg/dL 0.60-1.20 [facility] Eosinophils Auto (Bld) [#/Vo l]Ordered By: Jillian Hahn on 07-18-2022 Eosinophils (Bld) [#/Vol] 0.0 10*3/uL 0.0-0.45 [facility] Eosinophils/100 WBC Auto (Bl d)Ordered By: Jillian Hahn on 07-18-2022 Eosinophils/100 WBC (Bld) 0.1 % . [facility] Erythrocyte distribution wid th Auto (RBC) [Ratio]Ordered By: Jillian Hahn on 07-18-2022 Erythrocyte distribution width (RBC) [Ratio] 13.5 % 11.9-15.3 [facility] [place] urethrocystogram retroon 07-18-2022 [place] urethrocystogram retro [facility] [place] [address] Fluoroscopy Report Signed Patient: Giselle Nova MR#: [id number] : 1980 Acct:[id number] Age/Sex: 41 / F ADM Date: 07/17/22 Loc: 4N Room: 7G4644-7 Type: ADM INOo Attending Dr: Pete Cardozo [...] into the distal left ureter. On the instructor substitute cosmetology view, the left renal and ureteropelvic junction [...] Lisa Bunch M.D.07/18/2022 10:30 AM Dictation Location: [facility]--10 Transcribed By: [facility] 07/18/22 1030 Dictated By: Lisa Bunch MD 07/18/22 1026 Signed By: 07/18/22 1030 Normal [facility] Glucose [Mass/volume] in Ser um or PlasmaOrdered By: Jillian Hahn on 07-18-2022 Glucose [Mass/Vol] 137 mg/dL 70-100 [facility] Comment on above: ADA recommended refe rence rangeRandom Glucose Reference Range is dependent on time and content of last meal. Glucose of more than 200 mg/dL in a nonstressed, ambulatory subject supports the diagnosis of Diabetes Mellitus. Hematocrit Auto (Bld) [Volum e fraction]Ordered By: Jillian Hahn on 07-18-2022 Hematocrit (Bld) [Volume fraction] 39.3 % 34.0-46.4 [facility] Hemoglobin [Mass/volume] in BloodOrdered By: Jillian Hahn on 07-18-2022 Hemoglobin (Bld) [Mass/Vol] 13.2 g/dL 11.8-15.4 [facility] Leukocytes [#/volume] correc valente for nucleated erythrocytes in Blood by Automated counOrdered By: Jillian Hahn on 07-18-2022 WBC corrected for nucl RBC Auto (Bld) [#/Vol] 7.3 10*3/uL 3.8-11.6 [facility] Lymphocytes Auto (Bld) [#/Vo l]Ordered By: Jillian Hahn on 07-18-2022 Lymphocytes (Bld) [#/Vol] 0.8 10*3/uL 1.00-4.8 [facility] Lymphocytes/100 WBC Auto (Bl d)Ordered By: Jillian Hahn on 07-18-2022 Lymphocytes/100 WBC (Bld) 10.9 % . [facility] MCH Auto (RBC) [Entitic mass ]Ordered By: Jillian Hahn on 07-18-2022 MCH (RBC) [Entitic mass] 29.9 pg 24.7-34.3 [facility] MCHC Auto (RBC) [Mass/Vol]Or dered By: Jillian Hahn on 07-18-2022 MCHC (RBC) [Mass/Vol] 33.6 g/dL 32.0-35.0 [facility] MCV Auto (RBC) [Entitic vol] Ordered By: Jillian Hahn on 07-18-2022 MCV (RBC) [Entitic vol] 88.9 fL 80-100 [facility] Monocytes Auto (Bld) [#/Vol] Ordered By: Jillian Hahn on 07-18-2022 Monocytes (Bld) [#/Vol] 0.2 10*3/uL 0.0-0.8 [facility] Monocytes/100 WBC Auto (Bld) Ordered By: Jillian Hahn on 07-18-2022 Monocytes/100 WBC (Bld) 2.3 % . [facility] Neutrophils Auto (Bld) [#/Vo l]Ordered By: Jillian Hahn on 07-18-2022 Neutrophils (Bld) [#/Vol] 6.3 10*3/uL 1.8-7.7 [facility] Neutrophils/100 WBC Auto (Bl d)Ordered By: Jillian Hahn on 07-18-2022 Neutrophils/100 WBC (Bld) 86.4 % . [facility] No Panel InformationOrdered By: Jillian Hahn on 07-18-2022 Estimated GFR (CKD-EPI) > 60.0 mL/Min [facility] Creatinine Clearance (Chem 78.86 [facility] Nucleated erythrocytes [Pres ence] in Blood by Automated countOrdered By: Jillian Hahn on 07-18-2022 Nucleated RBC Auto Ql (Bld) 0.1 /100{WBC} 0-0.5 [facility] Platelet mean volume Auto (B ld) [Entitic vol]Ordered By: Jillian Hahn on 07-18-2022 Platelet mean volume (Bld) [Entitic vol] 7.6 fL 6.3-10.7 [facility] Platelets Auto (Bld) [#/Vol] Ordered By: Jillian Hahn on 07-18-2022 Platelets (Bld) [#/Vol] 356 10*3/uL 150-450 [facility] Potassium [Moles/volume] in Serum or PlasmaOrdered By: Jillian Hahn on 07-18-2022 Potassium [Moles/Vol] 4.0 mmol/L 3.5-5.1 [facility] RBC Auto (Bld) [#/Vol]Ordere d By: Jillian Hahn on 07-18-2022 RBC (Bld) [#/Vol] 4.42 10*6/uL 3.60-5.00 [facility] Serum or plasma anion gap de terminationOrdered By: Jillian Hahn on 07-18-2022 Anion gap [Moles/Vol] 10.1 mmol/L 6.0-15.0 [facility] Sodium [Moles/volume] in Ser um or PlasmaOrdered By: Jillian Hahn on 07-18-2022 Sodium [Moles/Vol] 137 mmol/L 136-145 [facility] Urea nitrogen [Mass/volume] in Serum or PlasmaOrdered By: Jillian Hahn on 07-18-2022 Urea nitrogen [Mass/Vol] 11 mg/dL 7 [facility] WBC Auto (Bld) [#/Vol]Ordere d By: Jillian Hahn on 07-18-2022 WBC (Bld) [#/Vol] 7.3 10*3/uL 3.8-11.6 [facility] Alanine aminotransferase [En zymatic activity/volume] in Serum or PlasmaOrdered By: Kyra Dee on 07-17-2022 ALT [Catalytic activity/Vol] 10 U/L 752 [facility] Albumin [Mass/volume] in Ser um or Plasma by Bromocresol green (BCG) dye binding methoOrdered By: Kyra Dee on 07-17-2022 Albumin BCG dye [Mass/Vol] 4.2 g/dL 3.5-5.7 [facility] Alkaline phosphatase [Enzyma tic activity/volume] in Serum or PlasmaOrdered By: Kyra Dee on 07-17-2022 ALP [Catalytic activity/Vol] 47 U/L 34-104 [facility] Aspartate aminotransferase [ Enzymatic activity/volume] in Serum or PlasmaOrdered By: Kyra Dee on 07-17-2022 AST [Catalytic activity/Vol] 14 U/L 13-39 [facility] Automated erythrocytes count in urine sediment (number/area)Ordered By: Kyra Dee on 07-17-2022 RBC Auto (Urine sed) [#/Area] 10-19 [HPF] 0-4 [facility] Automated leukocytes count i n urine sediment (number/area)Ordered By: Kyra Dee on 07-17-2022 WBC Auto (Urine sed) [#/Area] 20-49 [HPF] 0-4 [facility] Basic Metabolic Panelon Anion gap [Moles/Vol] 12.3 mmol/L Normal 6.0-15.0 [facility] Comment on above: Performed By: #### C BC, LIPASE, HEPATIC, BMP ####[facility] [address] [place] [address] [facility] Calcium [Mass/Vol] 8.9 mg/dL Normal 8.6-10.3 [facility] Comment on above: Performed By: #### C BC, LIPASE, HEPATIC, BMP ####[facility] [address] [place] [address] [facility] Chloride [Moles/Vol] 107 mmol/L Normal 98-107 [facility] Comment on above: Performed By: #### C BC, LIPASE, HEPATIC, BMP ####[facility] [address] [place] [address] [facility] CO2 [Moles/Vol] 22.4 mmol/L Normal 21.0-31.0 [facility] Comment on above: Performed By: #### C BC, LIPASE, HEPATIC, BMP ####[facility] [place] [address] [facility] Creatinine [Mass/Vol] 1.03 mg/dL Normal 0.60-1.20 [facility] Comment on above: Performed By: #### C BC, LIPASE, HEPATIC, BMP ####[facility] [place] [address] [facility] Creatinine Clr Calc Pharmacy 66.61 [facility] Comment on above: Performed By: #### C BC, LIPASE, HEPATIC, BMP ####[address] [place] [address] [facility] GFR/1.73 sq M.predicted MDRD (S/P/Bld) [Vol rate/Area] mL/min/{1.73_m2} [facility] Comment on above: Performed By: #### C BC, LIPASE, HEPATIC, BMP ####[place] [id number] [facility] Glucose [Mass/Vol] 91 mg/dL Normal 70-100 [facility] Comment on above: Result Comment: [facility] Glucose Reference Range is dependent on time and content of last meal. Glucose of more than 200 mg/dL in a nonstressed, ambulatory subject supports the diagnosis of Diabetes Mellitus. ADA recommended reference range Performed By: #### C BC, LIPASE, HEPATIC, BMP ####[id number] [place] [id number] [facility] Potassium [Moles/Vol] 3.7 mmol/L Normal 3.5-5.1 [facility] Comment on above: Performed By: #### C BC, LIPASE, HEPATIC, BMP ####[address] [place] [address] [place] [place] [facility] Sodium [Moles/Vol] 138 mmol/L Normal 136-145 [facility] Comment on above: Performed By: #### C BC, LIPASE, HEPATIC, BMP ####[id number] [place] [address] [facility] Urea nitrogen [Mass/Vol] 15 mg/dL Normal 7-25 [facility] Comment on above: Performed By: #### C BC, LIPASE, HEPATIC, BMP ####[facility] [id number] [place] [id number] [facility] Basophils Auto (Bld) [#/Vol] Ordered By: Kyra Dee on 07-17-2022 Basophils (Bld) [#/Vol] 0.1 10*3/uL 0.0-0.2 [facility] Basophils/100 WBC Auto (Bld) Ordered By: Kyra Dee on 07-17-2022 Basophils/100 WBC (Bld) 0.6 % . [facility] Bilirubin Test strip Ql (U)O rdered By: Kyra Dee on 07-17-2022 Bilirubin Ql (U) Negative Negative [facility] Bilirubin.direct [Mass/volum e] in Serum or PlasmaOrdered By: Kyra Dee on 07-17-2022 Bilirubin.direct [Mass/Vol] 0.10 mg/dL 0.03-0.18 [facility] Bilirubin.total [Mass/volume ] in Serum or PlasmaOrdered By: Kyra Dee on 07-17-2022 Bilirubin [Mass/Vol] 0.6 mg/dL 0.3-1.0 [facility] Calcium [Mass/volume] in Ser um or PlasmaOrdered By: Kyra Dee on 07-17-2022 Calcium [Mass/Vol] 8.9 mg/dL 8.6-10.3 [facility] Carbon dioxide, total [Moles /volume] in Serum or PlasmaOrdered By: Kyra Dee on 07-17-2022 CO2 [Moles/Vol] 22.4 mmol/L 21.0-31.0 [facility] Chloride [Moles/volume] in S viji or PlasmaOrdered By: Kyra Dee on 07-17-2022 Chloride [Moles/Vol] 107 mmol/L 98-107 [facility] Color Auto (U)Ordered By: Me pedro luis Dee on 07-17-2022 Color (U) Yellow Yellow [facility] Complete Blood Count Auto Di ffon 07-17-2022 Basophils (Bld) [#/Vol] 0.1 10*3/uL Normal 0.0-0.2 [facility] Comment on above: Result Comment: PERF ORMED BY: [facility] [address] [place] [address] PATHOLOGIST [employer] WORK[employer] HELPER ZURI HOOD M.D. Performed By: #### C BC, LIPASE, HEPATIC, BMP ####[address] Basophils/100 WBC (Bld) 0.6 % Normal . [facility] Comment on above: Performed By: #### C BC, LIPASE, HEPATIC, BMP ####[address] Eosinophils (Bld) [#/Vol] 0.2 10*3/uL Normal 0.0-0.45 [facility] Comment on above: Performed By: #### C BC, LIPASE, HEPATIC, BMP ####[address] Eosinophils/100 WBC (Bld) 1.9 % Normal . [facility] Comment on above: Performed By: #### C BC, LIPASE, HEPATIC, BMP ####[address] Erythrocyte distribution width (RBC) [Ratio] 13.4 % Normal 11.9-15.3 [facility] Comment on above: Performed By: #### C BC, LIPASE, HEPATIC, BMP ####[address] Hematocrit (Bld) [Volume fraction] 39.9 % Normal 34.0-46.4 [facility] Comment on above: Performed By: #### C BC, LIPASE, HEPATIC, BMP ####[address] Hemoglobin (Bld) [Mass/Vol] 13.3 g/dL Normal 11.8-15.4 [facility] Comment on above: Performed By: #### C BC, LIPASE, HEPATIC, BMP ####[address] Lymphocytes (Bld) [#/Vol] 1.7 10*3/uL Normal 1.00-4.8 [facility] Comment on above: Performed By: #### C BC, LIPASE, HEPATIC, BMP ####[address] Lymphocytes/100 WBC (Bld) 14.7 % Normal . [facility] Comment on above: Performed By: #### C BC, LIPASE, HEPATIC, BMP ####[address] MCH (RBC) [Entitic mass] 29.3 pg Normal 24.7-34.3 [facility] Comment on above: Performed By: #### C BC, LIPASE, HEPATIC, BMP ####[address] MCV (RBC) [Entitic vol] 87.9 fL Normal 80-100 [facility] Comment on above: Performed By: #### C BC, LIPASE, HEPATIC, BMP ####[address] Mean Corpuscular HGB Conc 33.4 g/dL Normal 32.0-35.0 [facility] Comment on above: Performed By: #### C BC, LIPASE, HEPATIC, BMP ####[address] Monocytes (Bld) [#/Vol] 1.2 10*3/uL High 0.0-0.8 [facility] Comment on above: Performed By: #### C BC, LIPASE, HEPATIC, BMP ####[address] Monocytes/100 WBC (Bld) 16.75 % Normal 0.00-20.00 [facility] Comment on above: Performed By: #### C BC, LIPASE, HEPATIC, BMP ####[address] Monocytes/100 WBC (Bld) 10.3 % Normal . [facility] Comment on above: Performed By: #### C BC, LIPASE, HEPATIC, BMP ####[address] Neutrophils (Bld) [#/Vol] 8.2 10*3/uL High 1.8-7.7 [facility] Comment on above: Performed By: #### C BC, LIPASE, HEPATIC, BMP ####[address] Neutrophils/100 WBC (Bld) 72.5 % Normal . [facility] Comment on above: Performed By: #### C BC, LIPASE, HEPATIC, BMP ####[address] NRBC% 0.1 /100{WBC} Normal 0-0.5 [facility] Comment on above: Performed By: #### C BC, LIPASE, HEPATIC, BMP ####[address] Platelet mean volume (Bld) [Entitic vol] 7.6 fL Normal 6.3-10.7 [facility] Comment on above: Performed By: #### C BC, LIPASE, HEPATIC, BMP ####[address] Platelets (Bld) [#/Vol] 380 10*3/uL Normal 150-450 [facility] Comment on above: Performed By: #### C BC, LIPASE, HEPATIC, BMP ####[address] RBC (Bld) [#/Vol] 4.53 10*6/uL Normal 3.60-5.00 [facility] Comment on above: Performed By: #### C BC, LIPASE, HEPATIC, BMP ####[address] WBC (Bld) [#/Vol] 11.4 10*3/uL Normal 3.8-11.6 [facility] Comment on above: Performed By: #### C BC, LIPASE, HEPATIC, BMP ####[address] Creatinine [Mass/volume] in Serum or PlasmaOrdered By: Kyra Dee on 07-17-2022 Creatinine [Mass/Vol] 1.03 mg/dL 0.60-1.20 [facility] Dipstick and Microscopicon 0 07-17-2022 Appearance (U) Cloudy Critically abnormal Clear [facility] Comment on above: Order Comment: Name Collection Type:: Clean-Voided Midstream Performed By: #### C UU, ADDONUAPLUS, UHCG ####[address] [address] [facility] Bacteria,Urine 2+ High None Seen [facility] Comment on above: Order Comment: Name Collection Type:: Clean-Voided Midstream Performed By: #### C UU, ADDONUAPLUS, UHCG ####[address] [address] [facility] Bilirubin,Urine Negative Normal Negative [facility] Comment on above: Order Comment: Name Collection Type:: Clean-Voided Midstream Performed By: #### C UU, ADDONUAPLUS, UHCG ####[address] [address] [facility] Color (U) Yellow Normal Yellow [facility] Comment on above: Order Comment: Name Collection Type:: Clean-Voided Midstream Performed By: #### C UU, ADDONUAPLUS, UHCG ####[address] [address] [facility] Glucose Ql (U) Normal Normal Normal [facility] Comment on above: Order Comment: Name Collection Type:: Clean-Voided Midstream Performed By: #### C UU, ADDONUAPLUS, UHCG ####[address] [address] [place] Hyaline Casts,Urine 0-8 Normal 0-8 [facility] Comment on above: Order Comment: Name Collection Type:: Clean-Voided Midstream Performed By: #### C UU, ADDONUAPLUS, UHCG ####[address] [address] [facility] Ketones Ql (U) Trace High Negative [facility] Comment on above: Order Comment: Name Collection Type:: Clean-Voided Midstream Performed By: #### C UU, ADDONUAPLUS, UHCG ####[address] Leukocyte esterase Test strip Ql (U) 2+ High Negative [facility] Comment on above: Order Comment: Name Collection Type:: Clean-Voided Midstream Performed By: #### C UU, ADDONUAPLUS, UHCG ####[id number] [facility] Nitrite,Urine Negative Normal Negative [facility] Comment on above: Order Comment: Name Collection Type:: Clean-Voided Midstream Performed By: #### C UU, ADDONUAPLUS, UHCG ####[address] Occult Blood,Urine 1+ High Negative [facility] Comment on above: Order Comment: Name Collection Type:: Clean-Voided Midstream Performed By: #### C UU, ADDONUAPLUS, UHCG ####[address] pH (U) 6.0 [pH] Normal 5.0-9.0 [facility] Comment on above: Order Comment: Name Collection Type:: Clean-Voided Midstream Performed By: #### C UU, ADDONUAPLUS, UHCG ####[id number] [facility] Protein (U) [Mass/Vol] 30 mg/dL High Negative [facility] Comment on above: Order Comment: Name Collection Type:: Clean-Voided Midstream Performed By: #### C UU, ADDONUAPLUS, UHCG ####[id number] [facility] RBC,Urine 10-19 High 0-4 [facility] Comment on above: Order Comment: Name Collection Type:: Clean-Voided Midstream Performed By: #### C UU, ADDONUAPLUS, UHCG ####[address] Specificy [place],Urine 1.021 Normal 1.001-1.03 0 [facility] Comment on above: Order Comment: Name Collection Type:: Clean-Voided Midstream Performed By: #### C UU, ADDONUAPLUS, UHCG ####[id number] [place] [address] [facility] Squamous Epithelial Cell,Urine 3-4 High 0-2 [facility] Comment on above: Order Comment: Name Collection Type:: Clean-Voided Midstream Performed By: #### C UU, ADDONUAPLUS, UHCG ####[id number] [place] [address] [facility] Urobilinogen,Urine Normal Normal Normal [facility] Comment on above: Order Comment: Name Collection Type:: Clean-Voided Midstream Performed By: #### C UU, ADDONUAPLUS, UHCG ####[address] [address] [facility] WBC,Urine 20-49 High 0-4 [facility] Comment on above: Order Comment: Name Collection Type:: Clean-Voided Midstream Performed By: #### C UU, ADDONUAPLUS, UHCG ####[address] [address] [facility] ECG 12 lead ECGon 07-17-2022 ECG 12 lead ECG [facility] [place] [address] Electrocardiograph Report Signed Patient: Giselle Nova MR#: [id number] : 1980 Acct:[id number] Age/Sex: 41 / F ADM Date: 07/17/22 Loc: ER Room: Type: [facility] ER Attending Dr: Ordering Provider: Kyra Dee [...] sinus rhythm Confirmed by Luiz SMALL DO ([id number]) on 07/17/2022 12:40:03 PM Referred By: Electronically Signed By:Luiz SMALL DO Transcribed By: MUS Signed By Luiz Small DO 0 07/17/22 1240 Normal [facility] Eosinophils Auto (Bld) [#/Vo l]Ordered By: Kyra Dee on 07-17-2022 Eosinophils (Bld) [#/Vol] 0.2 10*3/uL 0.0-0.45 [facility] Eosinophils/100 WBC Auto (Bl d)Ordered By: Kyra Dee on 07-17-2022 Eosinophils/100 WBC (Bld) 1.9 % . [facility] Erythrocyte distribution wid th Auto (RBC) [Ratio]Ordered By: Kyra Dee on 07-17-2022 Erythrocyte distribution width (RBC) [Ratio] 13.4 % 11.9-15.3 [facility] Globulin Calc (S) [Mass/Vol] Ordered By: Kyra Dee on 07-17-2022 Globulin (S) [Mass/Vol] 2.5 g/dL [facility] Glucose [Mass/volume] in Ser um or PlasmaOrdered By: Kyra Dee on 07-17-2022 Glucose [Mass/Vol] 91 mg/dL 70-100 [facility] Comment on above: ADA recommended refe rence rangeRandom Glucose Reference Range is dependent on time and content of last meal. Glucose of more than 200 mg/dL in a nonstressed, ambulatory subject supports the diagnosis of Diabetes Mellitus. HCG ( test) IA.rapi d Ql (U)Ordered By: Kyra Dee on 07-17-2022 HCG ( test) Ql (U) Negative [facility] HCG,Urineon 07-17-2022 Beta HCG ( test) Ql (U) Negative Normal [facility] Comment on above: Order Comment: Name Collection Type:: Clean-Voided Midstream Result Comment: PERF ORMED BY: [facility] [address] [place] [address] PATHOLOGIST BEN[employer] WORK[employer] HELPER ZURI HOOD M.D. Performed By: #### C UU, ADDONUAPLUS, [facility] ####[address] Hematocrit Auto (Bld) [Volum e fraction]Ordered By: Kyra Dee on 07-17-2022 Hematocrit (Bld) [Volume fraction] 39.9 % 34.0-46.4 [facility] Hemoglobin [Mass/volume] in BloodOrdered By: Kyra Dee on 07-17-2022 Hemoglobin (Bld) [Mass/Vol] 13.3 g/dL 11.8-15.4 [facility] Hepatic Panelon 07-17-2022 Albumin [Mass/Vol] 4.2 g/dL Normal 3.5-5.7 [facility] Comment on above: Performed By: #### C BC, LIPASE, HEPATIC, BMP ####[address] Albumin/Globulin [Mass ratio] 1.7 {ratio} Normal [facility] Comment on above: Performed By: #### C BC, LIPASE, HEPATIC, BMP ####[id number] [facility] ALP [Catalytic activity/Vol] 47 U/L Normal 34-104 [facility] Comment on above: Performed By: #### C BC, LIPASE, HEPATIC, BMP ####[id number] [facility] ALT [Catalytic activity/Vol] 10 U/L Normal 7-52 [facility] Comment on above: Performed By: #### C BC, LIPASE, HEPATIC, BMP ####[address] [id number] [facility] AST [Catalytic activity/Vol] 14 U/L Normal 13-39 [facility] Comment on above: Performed By: #### C BC, LIPASE, HEPATIC, BMP ####[address] [id number] [facility] Bilirubin [Mass/Vol] 0.6 mg/dL Normal 0.3-1.0 [facility] Comment on above: Performed By: #### C BC, LIPASE, HEPATIC, BMP ####[facility] [place] [id number] [facility] Bilirubin,Indirect 0.5 mg/dL Normal [facility] Comment on above: Performed By: #### C BC, LIPASE, HEPATIC, BMP ####[address] [place] [id number] [facility] Bilirubin.indirect [Mass/Vol] 0.10 mg/dL Normal 0.03-0.18 [facility] Comment on above: Performed By: #### C BC, LIPASE, HEPATIC, BMP ####[address] [place] [id number] [facility] Globulin (S) [Mass/Vol] 2.5 g/dL Normal [facility] Comment on above: Performed By: #### C BC, LIPASE, HEPATIC, BMP ####[address] [place] [id number] [facility] Protein [Mass/Vol] 6.7 g/dL Normal 6.4-8.9 [facility] Comment on above: Performed By: #### C BC, LIPASE, HEPATIC, BMP ####[place] [id number] [facility] Ketones Auto test strip (U) [Mass/Vol]Ordered By: Kyra Dee on 07-17-2022 Ketones (U) [Mass/Vol] Trace Negative [facility] Laboratory - UrinalysisOrder ed By: Kyra Dee on 07-17-2022 Hyaline casts LM Ql (Urine sed) 0-8 [LPF] 0-8 [facility] Leukocytes [#/volume] correc valente for nucleated erythrocytes in Blood by Automated counOrdered By: Kyra Dee on 07-17-2022 WBC corrected for nucl RBC Auto (Bld) [#/Vol] 11.4 10*3/uL 3.8-11.6 [facility] Lipaseon 07-17-2022 Lipase [Catalytic activity/Vol] 15.0 U/L Normal 11.0-82.0 [facility] Comment on above: Result Comment: PERF ORMED BY: [facility] [address] [place] [id number] PATHOLOGIST BENCH WORKER HELPER ZURI HOOD M.D. Performed By: #### C BC, LIPASE, HEPATIC, BMP ####[facility] [address] [place] [id number] [facility] Lipase [Enzymatic activity/v olume] in Serum or PlasmaOrdered By: Kyra Dee on 07-17-2022 Lipase [Catalytic activity/Vol] 15.0 U/L 11.0-82.0 [facility] Lymphocytes Auto (Bld) [#/Vo l]Ordered By: Kyra Dee on 07-17-2022 Lymphocytes (Bld) [#/Vol] 1.7 10*3/uL 1.00-4.8 [facility] Lymphocytes/100 WBC Auto (Bl d)Ordered By: Kyra Dee on 07-17-2022 Lymphocytes/100 WBC (Bld) 14.7 % . [facility] MCH Auto (RBC) [Entitic mass ]Ordered By: Kyra Dee on 07-17-2022 MCH (RBC) [Entitic mass] 29.3 pg 24.7-34.3 [facility] MCHC Auto (RBC) [Mass/Vol]Or dered By: Kyra Dee on 07-17-2022 MCHC (RBC) [Mass/Vol] 33.4 g/dL 32.0-35.0 [facility] MCV Auto (RBC) [Entitic vol] Ordered By: Kyra Dee on 07-17-2022 MCV (RBC) [Entitic vol] 87.9 fL 80-100 [facility] Monocyte distribution width [Entitic volume] in Blood by AutomatedOrdered By: Kyra Dee on 07-17-2022 Monocyte distribution width Auto (Bld) [Entitic vol] 16.75 % 0.00-20.00 [facility] Monocytes Auto (Bld) [#/Vol] Ordered By: Kyra Dee on 07-17-2022 Monocytes (Bld) [#/Vol] 1.2 10*3/uL 0.0-0.8 [facility] Monocytes/100 WBC Auto (Bld) Ordered By: Kyra Dee on 07-17-2022 Monocytes/100 WBC (Bld) 10.3 % . [facility] Neutrophils Auto (Bld) [#/Vo l]Ordered By: Kyra Dee on 07-17-2022 Neutrophils (Bld) [#/Vol] 8.2 10*3/uL 1.8-7.7 [facility] Neutrophils/100 WBC Auto (Bl d)Ordered By: Kyra Dee on 07-17-2022 Neutrophils/100 WBC (Bld) 72.5 % . [facility] Nitrite Test strip Ql (U)Ord ered By: Kyra Dee on 07-17-2022 Nitrite Ql (U) Negative Negative [facility] No Panel InformationOrdered By: Kyra Dee on 07-17-2022 Estimated GFR (CKD-EPI) > 60.0 mL/Min [facility] Creatinine Clearance (Chem 66.61 [facility] Nucleated erythrocytes [Pres ence] in Blood by Automated countOrdered By: Kyra Dee on 07-17-2022 Nucleated RBC Auto Ql (Bld) 0.1 /100{WBC} 0-0.5 [facility] Platelet mean volume Auto (B ld) [Entitic vol]Ordered By: Kyra Dee on 07-17-2022 Platelet mean volume (Bld) [Entitic vol] 7.6 fL 6.3-10.7 [facility] Platelets Auto (Bld) [#/Vol] Ordered By: Kyra Dee on 07-17-2022 Platelets (Bld) [#/Vol] 380 10*3/uL 150-450 [facility] Potassium [Moles/volume] in Serum or PlasmaOrdered By: Kyra Dee on 07-17-2022 Potassium [Moles/Vol] 3.7 mmol/L 3.5-5.1 [facility] Protein Auto test strip (U) [Mass/Vol]Ordered By: Kyra Dee on 07-17-2022 Protein (U) [Mass/Vol] 30 mg/dL Negative [facility] Protein [Mass/volume] in Ser um or PlasmaOrdered By: Kyra Dee on 07-17-2022 Protein [Mass/Vol] 6.7 g/dL 6.4-8.9 [facility] RBC Auto (Bld) [#/Vol]Ordere d By: Kyra Dee on 07-17-2022 RBC (Bld) [#/Vol] 4.53 10*6/uL 3.60-5.00 [facility] Serum or plasma albumin/glob ulin mass ratioOrdered By: Kyra Dee on 07-17-2022 Albumin/Globulin [Mass ratio] 1.7 {ratio} [facility] Serum or plasma anion gap de terminationOrdered By: Kyra Dee on 07-17-2022 Anion gap [Moles/Vol] 12.3 mmol/L 6.0-15.0 [facility] Serum or plasma non-glucuron idated bilirubin measurement (mass/volume)Ordered By: Kyra Dee on 07-17-2022 Bilirubin.indirect [Mass/Vol] 0.5 mg/dL [facility] Sodium [Moles/volume] in Ser um or PlasmaOrdered By: Kyra Dee on 07-17-2022 Sodium [Moles/Vol] 138 mmol/L 136-145 [facility] Specific gravity Auto test s trip (U) [Rel density]Ordered By: Kyra Dee on 07-17-2022 Specific gravity (U) [Rel density] 1.021 1.001-1.03 0 [facility] Squamous epithelial cells de tection in urine sediment by light microscopyOrdered By: Kyra Dee on 07-17-2022 Epithelial cells.squamous LM Ql (Urine sed) 3-4 [HPF] 0-2 [facility] Troponin I High Sensitivityo n 07-17-2022 Troponin I High Sensitivity 2.4 pg/mL Normal 0.0-15.0 [facility] Comment on above: Result Comment: PERF ORMED BY: [facility] [address] [facility] [address] PATHOLOGIST [employer] WORK[employer] HELPER ZURI HOOD M.D. Performed By: #### H S TROP ####[facility] Troponin I.cardiac [Mass/vol ume] in Serum or Plasma by Detection limit <= 0.01 ng/Ordered By: Kyra Dee on 07-17-2022 Troponin I.cardiac DL <= 0.01 ng/mL [Mass/Vol] 2.4 pg/mL 0.0-15.0 [facility] Urea nitrogen [Mass/volume] in Serum or PlasmaOrdered By: Kyra Dee on 07-17-2022 Urea nitrogen [Mass/Vol] 15 mg/dL 7-25 [facility] Urine Cultureon 07-17-2022 Bacteria identified Cx Nom (U) <9,000 colonies/ml mixed bacterial skin contaminants 2 Days PERFORMED BY: [facility] [address] [place] [id number] PATHOLOGIST BENCH WORKER HELPER ZURI HOOD M.D. [facility] Comment on above: Performed By: #### C UU, ADDONUAPLUS, CG ####[facility] [place] [id number] [facility] Urine bacteria detection by automated methodOrdered By: Kyra Dee on 07-17-2022 Bacteria Auto Ql (U) 2+ None Seen [facility] Urine clarity by refractomet ry automatedOrdered By: Kyra Dee on 07-17-2022 Clarity Refractometry automated (U) Cloudy Clear [facility] Urine culture routineOrdered By: Kyra Dee on 07-17-2022 Bacteria identified Cx Nom (U) 2 Days [facility] Urine glucose measurement by automated test strip (mass/volume)Ordered By: Kyra Dee on 07-17-2022 Glucose Auto test strip (U) [Mass/Vol] Normal mg/dL Normal [facility] Urine hemoglobin detection b y automated test stripOrdered By: Kyra Dee on 07-17-2022 Hemoglobin Auto test strip Ql (U) 1+ Negative [facility] Urine leukocyte esterase det ection by automated test stripOrdered By: Kyra Dee on 07-17-2022 Leukocyte esterase Auto test strip Ql (U) 2+ Negative [facility] Urobilinogen Auto test strip (U) [Mass/Vol]Ordered By: Kyra Dee on 07-17-2022 Urobilinogen (U) [Mass/Vol] Normal mg/dL Normal [facility] WBC Auto (Bld) [#/Vol]Ordere d By: Kyra Dee on 07-17-2022 WBC (Bld) [#/Vol] 11.4 10*3/uL 3.8-11.6 [facility] XR KUBon 07-17-2022 XR KUB [facility] [address] [place] [address] [place] [address] XRay Report Signed Patient: Giselle Nova MR#: [id number] : 1980 Acct:[id number] Age/Sex: 41 / F ADM Date: 07/17/22 Loc: ER Room: Type: [facility] ER Attending Dr: Copies to: Kyra Dee [...] Lisa Bunch M.D.07/17/2022 1:00 PM Dictation Location: [place] [address] Transcribed By: [facility] 07/17/22 1300 Dictated By: Lisa Bunch MD 07/17/22 1258 Signed By: 07/17/22 1300 Normal [facility] pH Auto test strip (U)Ordere d By: Kyra Dee on 07-17-2022 pH (U) 6.0 [pH] 5.0-9.0 [facility] SCREENING MAMMOGRAM W/DIANA, BILATERAL*on 05-18-2022 [...] VERY IMPORTANT TO YOUR HEALTH. THE CURRENT [place] [employer] GUIDELINES RECOMMENDS ANNUAL MAMMOGRAPHY BEGINNING AT AGE 39 THIS FACILITY USES A REMINDER SYSTEM TO ENSURE ALL PATIENTS RECEIVE REMINDER NOTIFICATIONS AT THE APPROPRIATE TIME BASED ON THE RECOMMENDATIONS OF THIS EXAM. Board Certified Radiologist. Accredited by the ACR and FDA. Report reported and signed by Ck Escalante on 05/18/2022 1633 Normal [facility] Activated partial thrombopla stin time (aPTT) in platelet poor plasma by coagulation aOrdered By: Kristen Viera on 07-16-2021 aPTT Coag (PPP) [Time] 32.0 s 25.1-36.5 [facility] Basophils Auto (Bld) [#/Vol] Ordered By: Kristen Viera on 07-16-2021 Basophils (Bld) [#/Vol] 0.1 10*3/uL 0.0-0.2 [facility] Basophils/100 WBC Auto (Bld) Ordered By: Kristen Viera on 07-16-2021 Basophils/100 WBC (Bld) 1.0 % [facility] Blood hemoglobin measurement (mass/volume)Ordered By: Kristen Viera on 07-16-2021 Hemoglobin (Bld) [Mass/Vol] 13.8 g/dL 11.8-15.4 [facility] Blood leukocytes automated c ount (number/volume)Ordered By: Kristen Viera on 07-16-2021 WBC (Bld) [#/Vol] 11.5 10*3/uL 4.5-11.0 [facility] Creatine kinase [Enzymatic a ctivity/volume] in Serum or PlasmaOrdered By: Kristen Viera on 07-16-2021 CK [Catalytic activity/Vol] 61 U/L 22-269 [facility] Creatinine and Glomerular fi ltration rate.predicted panel (S/P/Bld)Ordered By: Kristen Viera on 07-16-2021 Creatinine [Mass/Vol] 0.70 mg/dL 0.44-1.03 [facility] Eosinophils Auto (Bld) [#/Vo l]Ordered By: Kristen Viera on 07-16-2021 Eosinophils (Bld) [#/Vol] 0.4 10*3/uL 0.0-0.45 [facility] Eosinophils/100 WBC Auto (Bl d)Ordered By: Kristen Viera on 07-16-2021 Eosinophils/100 WBC (Bld) 3.6 % [facility] Erythrocyte distribution wid th Auto (RBC) [Ratio]Ordered By: Kristen Viera on 07-16-2021 Erythrocyte distribution width (RBC) [Ratio] 13.2 % 11.9-15.3 [facility] Estimated glomerular filtrat ion rate (GFR) non- AmericanOrdered By: Kristen Viera on 07-16-2021 GFR/1.73 sq M.predicted among non-blacks MDRD (S/P/Bld) [Vol rate/Area] > 60 mL/Min [facility] Hematocrit Auto (Bld) [Volum e fraction]Ordered By: Kristen Viera on 07-16-2021 Hematocrit (Bld) [Volume fraction] 40.4 % 34.0-46.4 [facility] Laboratory - Chemistry and C hemistry - challengeOrdered By: Kristen Viera on 07-16-2021 Natriuretic peptide B (Bld) [Mass/Vol] 76.0 pg/mL 5-100 [facility] Laboratory - CoagulationOrde red By: Kristen Viera on 07-16-2021 PT Coag (PPP) [Time] 11.5 s 9.0-12.9 [facility] Laboratory - Hematology and Cell countsOrdered By: Kristen Viera on 07-16-2021 Nucleated RBC/100 WBC (Bld) [Ratio] 0.0 % 0-0.5 [facility] Lymphocytes Auto (Bld) [#/Vo l]Ordered By: Kristen Viera on 07-16-2021 Lymphocytes (Bld) [#/Vol] 1.3 10*3/uL 1.00-4.8 [facility] Lymphocytes/100 WBC Auto (Bl d)Ordered By: Kristen Viera on 07-16-2021 Lymphocytes/100 WBC (Bld) 11.6 % [facility] MCH Auto (RBC) [Entitic mass ]Ordered By: Kristen Viera on 07-16-2021 MCH (RBC) [Entitic mass] 30.1 pg 24.7-34.3 [facility] MCHC Auto (RBC) [Mass/Vol]Or dered By: Kristen Viera on 07-16-2021 MCHC (RBC) [Mass/Vol] 34.1 g/dL 32.0-35.0 [facility] MCV Auto (RBC) [Entitic vol] Ordered By: Kristen Viera on 07-16-2021 MCV (RBC) [Entitic vol] 88.2 fL 80-100 [facility] Monocytes Auto (Bld) [#/Vol] Ordered By: Kristen Viera on 07-16-2021 Monocytes (Bld) [#/Vol] 0.8 10*3/uL 0.0-0.8 [facility] Monocytes/100 WBC Auto (Bld) Ordered By: Kristen Viera on 07-16-2021 Monocytes/100 WBC (Bld) 7.0 % [facility] Neutrophils Auto (Bld) [#/Vo l]Ordered By: Kristen Viera on 07-16-2021 Neutrophils (Bld) [#/Vol] 8.8 10*3/uL 1.8-7.7 [facility] Neutrophils/100 WBC Auto (Bl d)Ordered By: Kristen Viera on 07-16-2021 Neutrophils/100 WBC (Bld) 76.8 % [facility] No Panel InformationOrdered By: Kristen Viera on 07-16-2021 Estimated GFR () > 60 mL/Min [facility] Comment on above: GFR estimated refere nce range: According to KDOQI guidelines, <60 ml/min/1.73m2 is sufficient to diagnose a patient with chronic kidney disease. Pharmacy Creatinine Clearance (Chem 99.01 [facility] Platelet mean volume Auto (B ld) [Entitic vol]Ordered By: Kristen Viera on 07-16-2021 Platelet mean volume (Bld) [Entitic vol] 7.8 fL 6.3-10.7 [facility] Platelet poor plasma interna tional normalized ratio (INR) by coagulation assay (relatOrdered By: Kristen Viera on 07-16-2021 INR Coag (PPP) [Relative time] 1.0 {INR} [facility] Comment on above: INR Therapeutic [...] 07-16-2021 Platelets (Bld) [#/Vol] 351 10*3/uL 150-450 [facility] RBC Auto (Bld) [#/Vol]Ordere d By: Kristen Viera on 07-16-2021 RBC (Bld) [#/Vol] 4.58 10*6/uL 3.60-5.00 [facility] Serum or plasma calcium kristina urement (mass/volume)Ordered By: Kristen Viera on 07-16-2021 Calcium [Mass/Vol] 8.7 mg/dL 8.2-10.2 [facility] Serum or plasma chloride will surement (moles/volume)Ordered By: Kristen Viera on 07-16-2021 Chloride [Moles/Vol] 107 mmol/L 95-114 [facility] Serum or plasma creatine kin ase MB (CKMB)/total creatine kinase (CK) ratio by calculaOrdered By: Kristen Viera on 07-16-2021 CK.MB Calc [Catalytic fraction] 3.2 % 0.00-2.50 [facility] Serum or plasma creatine kin ase MB measurement (mass/volume)Ordered By: Kristen Viera on 07-16-2021 CK.MB [Mass/Vol] 2.0 ng/mL 0.6-6.3 [facility] Serum or plasma glucose kristina urement (mass/volume)Ordered By: Kristen Viera on 07-16-2021 Glucose [Mass/Vol] 86 mg/dL 70-100 [facility] Comment on above: ADA recommended refe rence rangeRandom Glucose Reference Range is dependent on time and content of last meal. Glucose of more than 200 mg/dL in a nonstressed, ambulatory subject supports the diagnosis of Diabetes Mellitus. Serum or plasma potassium me asurement (moles/volume)Ordered By: Kristen Viera on 07-16-2021 Potassium [Moles/Vol] 3.9 mmol/L 3.5-5.1 [facility] Serum or plasma sodium measu rement (moles/volume)Ordered By: Kristen Viera on 07-16-2021 Sodium [Moles/Vol] 136 mmol/L 136-146 [facility] Serum or plasma total carbon dioxide measurement (moles/volume)Ordered By: Kristen Viera on 07-16-2021 CO2 [Moles/Vol] 18.5 mmol/L 22.0-30.0 [facility] Serum or plasma urea nitroge n measurement (mass/volume)Ordered By: Kristen Viera on 07-16-2021 Urea nitrogen [Mass/Vol] 13 mg/dL 9- [facility] Troponin I.cardiac [Mass/vol ume] in Serum or Plasma by High sensitivity methodOrdered By: Kristen Viera on 07-16-2021 Troponin I.cardiac High sensitivity method [Mass/Vol] < 3 pg/mL 0-15 [facility] Vital Signs Date Time Vital Sign Value Performing Clinician Facility 12-11-2023 08:24-0400 Blood Pressure Location Fred BILL [facility] 12-11-2023 08:24-0400 Diastolic blood pressure 88 mm[Hg] Fred BILL [facility] 12-11-2023 08:24-0400 Heart rate 84 /min Fred BILL [facility] 12-11-2023 08:24-0400 Respiratory rate 16 /min Fred BILL [facility] 12-11-2023 08:24-0400 Systolic blood pressure 140 mm[Hg] Fred BILL [facility] 04-23-2023 15:57-0500 Body height 166.4 cm Maciel Rdz DO Work Phone: [facility] 04-23-2023 15:57-0500 Body mass index (BMI) [Ratio] 22.94 kg/m2 Maciel Rdz DO Work Phone: [facility] 04-23-2023 15:57-0500 Body weight 63.5 kg Maciel Rdz DO Work Phone: [facility] 04-23-2023 15:57-0500 Diastolic blood pressure 66 mm[Hg] Maciel Rdz DO Work Phone: [facility] 04-23-2023 15:57-0500 Systolic blood pressure 104 mm[Hg] Maciel Rdz DO Work Phone: [facility] 07-18-2022 12:04-0400 Body temperature 98.5 [degF] DO Arcenio Rdz Work Phone: [facility] 07-18-2022 12:04-0400 Diastolic blood pressure 56 mm[Hg] DO Arcenio Rdz Work Phone: [facility] 07-18-2022 12:04-0400 Heart rate 88 /min DO Arcenio Floreser Work Phone: [facility] 07-18-2022 12:04-0400 Respiratory rate 14 /min DO Arcenio Floreser Work Phone: [facility] 07-18-2022 12:04-0400 SaO2% (BldA) [Mass fraction] 98 % DO Arcenio Floreser Work Phone: 2(249)377-163564 [address] 07-18-2022 12:04-0400 Systolic blood pressure 92 mm[Hg] DO Arcenio Floreser Work Phone: 2(597)694-415603 [place] [address] 07-18-2022 00:48-0400 Body weight 65.5 kg DO Arcenio Rdz Work Phone: 3(117)902-359764 [address] 07-17-2022 19:16-0400 Inhaled oxygen flow rate 8 L/min DO Arcenio Rdz Work Phone: 5(921)075-906303 [place] [address] 07-17-2022 18:21-0400 Body height 167.64 cm DO Arcenio Rdz Work Phone: 1(637)917-195303 [place] [address] 07-17-2022 18:21-0400 Body mass index (BMI) [Ratio] 22.8 kg/m2 DO Arcenio Rdz Work Phone: 7(524)278-624203 [place] [address] 07-17-2022 18:21-0400 Body weight 64.41 kg DO Arcenio Rdz Work Phone: 2(756)278-188103 [place] [address] 07-17-2022 16:01-0400 Body temperature 98.3 [degF] DO Arcenio Rdz Work Phone: 5(371)099-672203 [place] [address] 07-17-2022 16:01-0400 Diastolic blood pressure 57 mm[Hg] DO Arcenio Rdz Work Phone: 1(804)758-672564 [address] 07-17-2022 16:01-0400 Heart rate 70 /min DO Arcenio Rdz Work Phone: 3(670)218-122464 [address] 07-17-2022 16:01-0400 Respiratory rate 16 /min DO Arcenio Rdz Work Phone: 9(801)855-276864 [address] 07-17-2022 16:01-0400 SaO2% (BldA) [Mass fraction] 98 % DO Arcenio Floreser Work Phone: 8(788)125-130583 [place] [address] 07-17-2022 16:01-0400 Systolic blood pressure 105 mm[Hg] DO Arcenio Floreser Work Phone: 6(626)580-893264 [address] 07-16-2021 15:44-0400 Diastolic blood pressure 65 mm[Hg] DO Arcenio Floreser Work Phone: [facility] 07-16-2021 15:44-0400 Heart rate 76 /min DO Arcenio Rdz Work Phone: [facility] 07-16-2021 15:44-0400 Respiratory rate 20 /min DO Arcenio Rdz Work Phone: [facility] 07-16-2021 15:44-0400 SaO2% (BldA) [Mass fraction] 97 % DO Arcenio Rdz Work Phone: [facility] 07-16-2021 15:44-0400 Systolic blood pressure 106 mm[Hg] DO Arcenio Rdz Work Phone: [facility] 07-16-2021 11:58-0400 Body height 167.64 cm DO Arcenio Rdz Work Phone: [facility] 07-16-2021 11:58-0400 Body mass index (BMI) [Ratio] 22.6 kg/m2 DO Arcenio Rdz Work Phone: [facility] 07-16-2021 11:58-0400 Body temperature 98.8 [degF] DO Arcenio Rdz Work Phone: [facility] 07-16-2021 11:58-0400 Body weight 63.5 kg DO Arcenio Rdz Work Phone: [facility] Encounters Encounter Date Encounter Type Care Provider Facility Start: 01-16-2024 ambulatory Fred BILL Facili ty:[id number] Start: 12-25-2023 End: 12-25-2023 ambulatory FRED BILL Not Available Start: 12-19-2023 End: 12-19-2023 ambulatory Fred BILL Facility:CD:[id number] Start: 12-11-2023 End: 12-11-2023 ambulatory Fred BILL Facility:[facility] Start: 12-11-2023 End: 12-11-2023 Patient encounter procedure Fred BILL [facility] Start: 12-09-2023 End: 12-09-2023 ambulatory FREDJACKIE BILL Not Available Start: 11-06-2023 End: 11-06-2023 ambulatory MACIEL RDZ Not Available Start: 06-03-2023 End: 06-03-2023 ambulatory Fredjackie Bill Facility:[facility] Start: 06-03-2023 End: 06-03-2023 ambulatory DO Arcenio Rdz Work Phone: [facility] Work Phone: Start: 06-03-2023 End: 06-03-2023 Patient encounter procedure DO Arcenio Kendell Work Phone: [facility] [address] [place] Work Phone: Start: 04-23-2023 End: 04-23-2023 Patient encounter status Maciel Rdz DO Work Phone: [facility] Start: 04-23-2023 End: 04-23-2023 Periodic preventive med est patient 40-64yrs Maciel Rdz DO Work Phone: [facility] Comment on above: Encounter for gyneco logical examination without abnormal finding; Encounter for Papanicolaou smear of vagina; Breast cancer screening by mammogram Start: 04-23-2023 End: 04-23-2023 ambulatory MACIEL RDZ Not Available Start: 12-03-2022 End: 12-03-2022 Patient encounter procedure Fred R MANUELITO [facility] Start: 11-28-2022 End: 11-28-2022 ambulatory Fredjackie Bill Facility:[facility] Start: 11-28-2022 End: 11-28-2022 ambulatory DO Arcenio Rdz Work Phone: [facility] Work Phone: Start: 11-28-2022 End: 11-28-2022 Patient encounter procedure DO Arcenio Rdz Work Phone: [facility] [address] Work Phone: Start: 10-10-2022 End: 10-10-2022 ambulatory DO Arcenio Rdz Work Phone: [facility] Work Phone: Start: 10-10-2022 End: 10-10-2022 Patient encounter procedure DO Arcenio Rdz Work Phone: [facility] [address] [place] Work Phone: Start: 07-23-2022 Encounter for preprocedural laboratory examination DR YULY TERAN . [facility] Start: 07-20-2022 End: 07-21-[address] FRED BILL . Facility:[facility] Start: 07-20-2022 End: 07-21-2022 Encounter for preprocedural laboratory examination DR FRED BILL . Facility:[facility] Start: 07-17-2022 End: 07-18-2022 ambulatory Jillian Hahn Facility:[facility] Start: 07-17-2022 End: 07-18-2022 Evaluation and management of inpatient DO Arcenio Rdz Work Phone: [facility] Work Phone: Start: 07-17-2022 End: 07-18-2022 observation encounter DO Arcenio Rdz Work Phone: [facility] Work Phone: Start: 05-29-2022 End: 05-29-2022 ambulatory DO Arcenio Rdz Work Phone: [facility] Work Phone: Start: 05-29-2022 End: 05-29-2022 Patient encounter procedure DO Arcenio Rdz Work Phone: [facility] [place] Work Phone: Start: 07-16-2021 End: 07-16-2021 Emergency department patient visit DO Arcenio Rdz Work Phone: [facility]-Emergency Room Procedures Date Procedure Procedure Detail Performing Clinician Start: 06-03-2023 Diagnostic radiograp hy of abdomen DO Arcenio Rdz Work Phone: Start: 11-28-2022 Diagnostic radiograp hy of abdomen DO Arcenio Rdz Work Phone: Start: 07-17-2022 Cystoscopy DO Arcenio Davies uner Work Phone: Start: 07-17-2022 Urine culture DO Arcenio nobles Work Phone: Start: 07-17-2022 Diagnostic radiograp hy of abdomen DO Arcenio Rdz Work Phone: Start: 07-17-2022 Cystoscopic insertio n of ureteric stent Fred BILL Comment on above: Cysto/LRG/ L URS/ L stent placement Start: 05-29-2022 Diagnostic radiograp hy of abdomen DO Arcenio Rdz Work Phone: Start: 05-18-2022 Mammography Maciel Davies uner DO Work Phone: Start: 07-16-2021 CT of head without contrast DO Arcenio Rdz Work Phone: Start: 07-16-2021 Plain chest X-ray DO Delfino Rdz Work Phone: Start: 03-18-2020 Hysterectomy Fred GOMEZ Start: 11-17-2019 Cystoscopic removal of ureteric stent Fred BILL Start: 11-12-2019 Extracorporeal shock wave lithotripsy of calculus of kidney Fred BILL Start: 09-29-2015 Extracorporeal shock wave lithotripsy of calculus of kidney Fredjackie BILL Start: 05-06-2014 Extracorporeal shock wave lithotripsy of calculus of kidney Fred BILL Start: 05-31-2011 Extracorporeal shock wave lithotripsy of calculus of kidney Fredjackie BILL Start: 07-08-2008 Extracorporeal shock wave lithotripsy [...] procedure 04/27/2024 3:30 PM EST Office Visit [facility] [address] [place] [address] Maciel Rdz, DO [address] [place] [address] [facility] Start: 05-20-2023 End: 06-21-2024 DBT Breast - bilateral screening Bilateral screening mammogram with tomosynthesis Imaging Routine Breast cancer screening by mammogram Expected: 05/20/2023, Expires: 06/21/2024 [facility] Comment on above: Expected: 05/20/2023 , Expires: 06/21/2024 Start: 05-19-2023 Screening for malignant neoplasm of breast Mammogram [facility] Start: 11-16-2022 Influenza vaccination Influenza Vacc ine (#1) [facility] Start: 10-10-2022 [facility] Start: 08-02-2022 ambulatory Ambulatory Facility:[facility] 1 Start: 07-18-2022 Blood chemistry [facility] Start: 07-18-2022 End: 07-18-2022 [facility] Start: 07-17-2022 [facility] Start: 07-17-2022 Hospital admission [facility] Start: 07-17-2022 Referral to urologist Dayami [facility] Start: 07-17-2022 [facility] Start: 07-17-2022 Urine culture Urine Culture [facility] Calcium [Mass/time] in 24 hour Urine [facility] Calcium [Mass/volume ] in 24 hour Urine [facility] Magnesium [Mass/time ] in 24 hour Urine [facility] Magnesium [Mass/volume] in Urine [facility] Oxalate [Mass/time] in 24 hour Urine [facility] Patient Education [facility] Work Phone: Patient referral [facility] Work Phone: Phosphate [Mass/time ] in 24 hour Urine [facility] Phosphate [Mass/volume] in Urine [facility] THINPREP IMAGING PAP W/REFL HPV MRNA E6/E7 THINPREP IMAGING PAP W/REFL HPV MRNA E6/E7 Pathology and Cytology Routine Encounter for Papanicolaou smear of vagina Ordered: 04/23/2023 [facility] Work Phone: Comment on above: Ordered: 04/23/2023 Urate [Mass/time] in 24 hour Urine [facility] Urate [Mass/volume] in Urine [facility] Immunizations Immunization Date Immunization Notes Care Provider Timbo bray 11-07-2020 COVID-19 mRNA, Comirnaty (Pfizer) DO Arcenio Rdz Work Phone: [facility] 10-17-2020 COVID-19 mRNA, Comirnaty (Pfizer) DO Arcenio Rdz Work Phone: [facility] 03-18-2020 SARS-CoV-2 (COVID-19 ) mRNA BNT-162b2 vax Fred BILL [facility] Comment on above: Result Comment: pt i s fully vaccinated but does not know the dates Payers Date Payer Category Payer Private Health Insurance [id number] 2022 Self-pay [id number] 2014 Managed Care HMO (unspecified) AETNAY AETNA [id number] 2014-Present [address] [place] [address] HMO [id number] 1979 Unknown [id number] 93 1979 Unknown [id number] [id number] 93 1979 Unknown [id number] [id number] 93 1979 Unknown [id number] [id number] 259 1979 Unknown [id number] 2.16.840.1.592617.3.579.2.1 259 1979 Unknown [id number] 2.16.840.1.963381.3.579.2.1 259 1979 Unknown [id number] 2.16.840.1.211736.3.579.2.1 259 1979 Unknown [id number] 2.16.840.1.757429.3.579.2.7 27 1979 Unknown [id number] [id number] 27 1959 Private Health Insurance [id number] 1959 Unknown [id number] Unknown [id number] [id number] 31 Unknown [id number] [id number] 31 Unknown [id number] [id number] 31 Unknown [id number] [id number] 31 Social History Date Type Detail Facility Start: 07-16-2021 End: 12-11-2023 Tobacco smoking status DCIS Never smoked tobacco (finding) [facility] Start: 1980 Sex Assigned At Female F [facility] Tobacco smoking status No Smokin g Status Entered [facility] Start: 04-23-2023 Sex Assigned At Female F [facility] Start: 04-23-2023 Tobacco use and exposure [...] Sex Assigned At Not on file [facility] Medical Equipment Procedure Code Equipment Code Equipment Origin al Text Equipment Identifier Dates Cystoscopy, with ureteral calculus manipulation and stent placement Polymeric ureteral stent [id number] FDA Start: 11-07-2019 Cystoscopy, with ureteral calculus manipulation and stent placement Polymeric ureteral stent ()[id number] FDA Start: 07-17-2022 Goals Date Patient Goal Desired Activity /State Functional Status Date Assessment Result Facility 12-11-2023 Functional Status N/A [facility] 07-18-2022 Functional status Patient at Baseline [facility] Work Phone: 07-17-2022 Functional status Patient at Baseline [facility] Work Phone: Mental Status Date Assessment Result Facility 07-18-2022 Cognitive function Cognitive Sta tus Patient at Baseline [facility] Work Phone: 07-17-2022 Cognitive function Cognitive Sta tus Patient at Baseline [facility] Work Phone: Clinical Notes 07-17-2022 to [...] Follow these instructions at home: Medicines Take zoqw-zvs-vakeqet and prescription medicines only as told by [...] to keep your pee pale yellow. ?Take vavd-ifg-qqjmjdq or prescription medicines. ?Eat foods that are [...] provider. Document Revised: 11/02/2022 Document Reviewed: 11/02/2022 [employer] Patient Education 2023 [employer]. 12/11/2023 09:07:19 Laser Therapy for Kidney Stones [...] including vitamins, herbs, eye drops, creams, and bexc-cxh-tszxorf medicines. Any problems you or family members [...] unless your provider tells you to. ?Taking qjfr-ekq-njfwbfn medicines, vitamins, herbs, and supplements. Tests You [...] provider. Document Revised: 11/02/2022 Document Reviewed: 11/02/2022 [employer] Patient Education 2023 [employer] 12/11/2023 09:07:15 Kidney Stones, Amtr-zn-Whbx Kidney Stones Kidney stones are rock-like masses [...] Follow these instructions at home: Medicines Take ziyy-znj-jllzsbn and prescription medicines only as told by [...] Kidney Foundation (NKF): kidney.org Urology Care Foundation (F): urologyhealth.org Contact a doctor if: You have [...] provider. Document Revised: 10/26/2022 Document Reviewed: 10/26/2022 [employer] Patient Education 2023 [employer]. Follow Up Care 12/04/2022 08:26:02 With:MANUELITO CRABTREE, Fred Devine, URL Address: [facility] [address] , [place] [address]- [phone] When: Unknown Comments:nigel SAUCEDO [facility] 12-11-2023 Note Patient Education Nephrology Laser [...] these instructions at home: Medicines ? Take wneh-oii-liwexeg and prescription medicines only as told by [...] keep your pee pale yellow. ? Take bqii-zzw-jsppmbn or prescription medicines. ? Eat foods that [...] provider. Document Revised: 11/02/2022 Document Reviewed: 11/02/2022 [employer] Patient Education ? 2023 [employer]. Laser Therapy for Kidney Stones Laser therapy [...] including vitamins, herbs, eye drops, creams, and rdfo-hiq-tmdgtqa medicines. ? Any problems you or family [...] Do not e (more content not included)... [facility] 04-23-2023 History of Present illness Narrative Images from the original note were not included. Maciel Rdz, DO Obstetrics and Gynecology Giselle Nova 1980 04/23/23 [id number] Yearly Wellness Exam Chief Complaint Patient presents with Gynecologic Exam LMP: TLH BS 2021 HRT: None Last pap 2-1-23 neg. Last mammogram 05-18-22 [facility]. Denies CLINICAL TRIALS ASSISTANT concerns. Visit Vitals BP 104/66 Ht 5' [...] Past Surgical History: Procedure Laterality Date APPENDECTOMY 1996 HYSTERECTOMY 03/01/2021 [facility] BS HYSTEROSCOPY 10/29/2014 D+C/Ablation LEG SURGERY Left 2012 melanoma - left leg LITHOTRIPSY 2006 & 2008 & 2011 LITHOTRIPSY 10/2019 OTHER SURGICAL HISTORY Bilateral 2006 Repair of bilateral cervical lacerations SKIN SURGERY 2012 wide excision;Disease:Melanoma VAGINAL DELIVERY x2 Past Medical History: Diagnosis Date Allergies History of kidney stones Melanoma ([facility] 2012 Migraines ([facility]) x2 ROS General: Chills denies. Allergy/Immunology: Rash [...] costovertebral angle tenderness, no obvious scoliosis/kyphosis. 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 documented in this encounter [facility] 09-19-2022 Hospital Discharge instructions [facility] 09/19/2022 09:40:53 With:MANUELITO CRABTREE, Fred Devine, GUEVARAL Address: [facility] [address] [place] [address]- [phone] When: Unknown [facility] 07-17-2022 Consult note Note Date/Time July 17, 2022 6:48pm [facility] [address] [place] [id number] Urology Consult Note Signed Patient: Giselle Nova MR#: [id number] : 1980 Acct:[id number] Age/Sex: 41 / F Adm Date: 3 Loc: 4N Room: [address] [place] [address] Type: ADM INOo Attending Dr: Jillian Hahn [...] Cloudy A, Urine pH 6.0, Ur Specific [place] 1.021, Urine Protein 30 H, Urine Glucose [...] % (Auto) 72.5, Lymph % (Auto) 14.7, [place] % (Auto) 10.3, Eos % (Auto) 1.9, Baso % (Auto) 0.6, Nucleat RBC Rel Count 0.1, Neut # (Auto) 8.2 H, Lymph # (Auto) 1.7, [place] # (Auto) 1.2 H, Eos # (Auto) [...] damage. Documented By: Dominique Sifuentes MD 07/17/22 [id number] Signed By: <Electronically signed by Dominique Sifuentes MD> 07/17/22 [id number] [facility] Work Phone: 1(278) 319-449405-02-2023 History and physical note Author Jillian Hahn [facility] July 17, 2022 3:34pm Note Date/Time July 17, 2022 3:34pm [facility] [address] [place] [address] Hospitalist H&P Signed Patient: Giselle Nova MR#: [id number] : 1980 Acct:[id number] Age/Sex: 41 / F Adm Date: 3 Loc: Room: [address] [place] [address] Type: ADM IN Attending Dr: Jillian Hahn MD Copies to: MD Arcenio Padilla DO~ HPI DATE OF EXAMINATION: 07/17/22 CHIEF COMPLAINT: [...] % (Auto) 14.7 % (.) 07/17/22 12:09 [place] % (Auto) 10.3 % (.) 07/17/22 12:09 Eos % (Auto) 1.9 % (.) 07/17/22 12:09 Baso % (Auto) 0.6 % (.) 07/17/22 12:09 Nucleat RBC Rel Count 0.1 /100 WBC (0-0.5) 07/17/22 12:09 Neut # (Auto) 8.2 x10E3/uL (1.8-7.7) H 07/17/22 12:09 Lymph # (Auto) 1.7 x10E3/uL (1.00-4.8) 07/17/22 12:09 [place] # (Auto) 1.2 x10E3/uL (0.0-0.8) H 07/17/22 [...] pH 6.0 (5.0-9.0) 07/17/22 12:09 Ur Specific [place] 1.021 (1.001-1.030) 07/17/22 12:09 Urine Protein 30 [...] recurrent nephrolithiasis. Documented By: Jillian Hahn MD 07/17/221526 Signed By: <Electronically signed by Jillian Hahn MD> 07/17/22 7674 [facility] Work Phone: Consult note Author Dominique Sifuentes [facility] July 17, 2022 6:52pm Note Date/Time July 17, 2022 6:48pm [facility] [address] [place] [address] Urology Consult Note Signed Patient: Giselle Nova MR#: [id number] : 1980 Acct:[id number] Age/Sex: 41 / F Adm Date: 3 Loc: 4N Room: [address] [place] [address] Type: ADM INOo Attending Dr: Jillian Hahn [...] Cloudy A, Urine pH 6.0, Ur Specific [place] 1.021, Urine Protein 30 H, Urine Glucose [...] % (Auto) 72.5, Lymph % (Auto) 14.7, [place] % (Auto) 10.3, Eos % (Auto) 1.9, Baso % (Auto) 0.6, Nucleat RBC Rel Count 0.1, Neut # (Auto) 8.2 H, Lymph # (Auto) 1.7, [place] # (Auto) 1.2 H, Eos # (Auto) [...] damage. Documented By: Dominique Sifuentes MD 07/17/22 7 Signed By: <Electronically signed by Dominique Sifuentes MD> 07/17/22 1852 [facility] [employer] Work Phone: Evaluation + Plan note Future Appointments Appointment Date:12/04/2022 08:00:00 AM Scheduled Provider:Fred BILL MD Location:[facility] Appointment Type:URO Office Visit [facility] evaluation noteNo assessment information available [facility] Work Phone: Evaluation note* Diagnosis Onset Date Resolution Status Calculus of proximal left ureter acute Left nephrolithiasis acute Migraine acute Pyelonephritis acute Renal colic acute Urinary tract infection acut e [facility] Work Phone: Evaluation note* Diagnosis Encounter for gynecological examination without abnormal finding Encounter for Papanicolaou smear of vagina Breast cancer screening by mammogram documented in this encounter [facility] N[facility] No data available for this section [facility] Hospital Discharge instructions Additional Instructions Patient was Rest Tylenol Motrin if needed for pain Take antibiotic as instructed. Sinusitis Follow-up with Dr. Cote tomorrow Return here if any problems persist or worsen as instructed include chest pain, shortness of breath, numbness, tingling or any other [facility] Work Phone: Hospital Discharge instructions Additional [...] Take stool softeners. You can buy AZO [id number] and use as needed for burning with urination. This will make your urine orange. Drink plenty of water and fluids You must follow up to ensure your stent is removed. Failure to do so may result in recurrent infections and renal failure.[facility] Work Phone: Progress note Author Pete Cardozo [facility] July 18, 2022 3:13pm Note Date/Time July 18, 2022 12:18p m [facility] [address] [place] [address] Hospitalist Progress Note Signed Patient: Giselle Nova MR#: [id number] : 1980 Acct:[id number] Age/Sex: 41 / F Adm Date: 3 Loc: 4N Room: [address] [place] [address] Type: DIS INOo Attending Dr: Pete Cardozo [...] signed by Pete Cardozo MD> 07/18/22 1513 [facility] Work Phone: Progress note No data available for this section [facility] Chief Complaint and Reason for Visit [...] content) Team Status: Active Member Role Status Arie Rdz DO Primary Care Provider Active Team Status: Inactive Member Role Status Arie Rdz DO Primary Care Provider Active Kyra Dee , DO Emergency Provider Active Jillian Hahn MD Admit Provider Active Dominique Sifuentes MD Other Provider Active Pete Cardozo MD Attending Provider Active Team Status: Inactive Member Role Status Arie Rdz DO Primary Care Provider Active Fred Bill MD Attending Provider Active Team Status: Active Member Role Status Arie Rdz DO Primary Care Provider Active Kyra Dee DO Emergency Provider Active Jillian Hahn MD Admit Provider, Attending Provider Active Dominique Sifuentes MD Other Provider Active Team Status: Inactive Member Role Status Arie Rdz DO Primary Care Provider Active Tushar Madsen MD Emergency Provider Active 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 Start Date End Date Enrico Woods DO [address] [place] [address] PCP - Medical [place] [employer] 08/16/22 Arcenio Rdz DO [address] [place] [address] PCP - General Family Medicine 07/24/22 Team Status: Inactive Member Role Status Dates Arcenio Rdz DO Primary Care Provider Active St art: June 03, 2023 End: June 03, 2023 Fred Bill MD Attending Provider Active art: June 03, 2023 End: June 03, [...] section and content) DATE CREATED AUTHOR 05/20/2022 [facility] dical Specialist DATE CREATED AUTHOR AUTHOR'S ORGANIZ ATION 07/24/2022 [facility] DATE CREATED AUTHOR AUTHOR'S ORGANIZ ATION 06/11/2023 [facility] DATE CREATED AUTHOR AUTHOR'S ORGANIZ ATION 12/30/2023 [facility]ists [facility] DATE CREATED AUTHOR AUTHOR'S ORGANIZ ATION 01/09/2024 [facility] Reason for Visit (unrecogniz ed section and content) Reason Comments Gynecologic Exam LMP: TLH BS 2020HRT: NoneLast pap 04-18-22 neg.Last mammogram 05-18-22 [facility]Denies CLINICAL TRIALS ASSISTANT concerns. FOR RECORDS PERTAINING TO PATIENTS WHO [...] BE BASED ON THE PRIMARY CLINICAL RECORDS. [employer] provides no warranty or guarantee of the accuracy or completeness of information in this document.
== END 2024-01-16 15:17 | disposition home or self-care (01) ==
LOC: PST 15:17
PROVIDERS: PCP Family Medicine; Visit Provider Urology
DX: Z01.818 Encounter for other preprocedural examination (principal); N20.0 Calculus of kidney; Z85.820 Personal history of malignant melanoma of skin

== ENCOUNTER 2024-01-23 06:52 | Day surgery (SDC) | payer OTHER, SELFPAY ==
[2024-01-23] VITALS (11 sets, daily range): BP systolic 106–120; BP diastolic 68–81; PULSE 58–73; TEMP 36.1–36.4; O2SAT 89–100; BMI 22.5
--- NOTE | 2024-01-23 06:45 | XR_ITS ---
The [address] [address] Patient Name: GISELLE BARRETT MRN: [id number] date: 1980 Sex: F [facility]igned [facility] Current Patient Location: [facility] Accession/Order Number: [id number] Exam Date: 01/23/2024 06:55 Report Date: 01/27/2024 12:11 At the request of: ERICA BILLINGS Procedure: XR abdomen 1V EXAMINATION: XR abdomen 1V HISTORY: kidney stones COMPARISON: 12/19/2023 FINDINGS: KIDNEY/URETER - RIGHT: No visible renal or ureteral calcifications. KIDNEY/URETER - LEFT: Numerous left renal calcifications PELVIS: No visible ureteral calcifications. Any visible calcifications favor phleboliths. BOWEL: No abnormal dilation or deviation. BONES: No acute abnormality. OTHER: Negative. No abnormal gaseous collections. XR/XR abdomen 1V IMPRESSION: Slight progression of left medullary nephrocalcinosis Electronically authenticated by: JOYCELYN ADEN Date: 01/27/2024 12:11
--- OUTSIDE RECORDS SUMMARY | 2024-01-23 06:54 | XMS_ITS | CCD ---
Author Organization [facility] ion [facility] Care Team Providers Care Wholesale Manager Name Role Phone DO Arcenio Rdz Primary [...] Care Provider MD Fred Bill Attending Provider ARCENIO RDZ Primary Care Physician [phone] DO Arcenio Rdz Primary Care Provider Enrico Woods DO Unavailable Arcenio Rdz DO Primary Care Provider DO Arcenio Rdz Primary Care Provider MD Fred Bill Attending Provider [phone] Fred Bill Attending Unavailable Arcenio Rdz Primary [...] Unknown (qualifier value), Hives, Itching, Rash, Swelling [facility] (1 source) Cephalexin Drug Allergy 0 [facility] Repository (2 sources) levoFLOXacin; Translations: [Levaquin] Drug Allergy 0 [facility] (3 sources) levoFLOXacin; Translations: [levofloxacin] Drug Allergy 4 Unknown [facility] (3 sources) Penicillin; Translations: [penicillin] Drug Allergy Unknown Reaction [facility] (1 source) Penicillin G Drug Allergy 4 Unknown [facility] Medications Current Medications Medication Drug Class(es) Dates Sig (Normalized) Sig (Original) cetirizine hydrochloride 10 mg oral tablet (5 sources) Histamine-1 Receptor Antagonist Start: 07-17-2022 take 1 tablet by mouth once daily Cetirizine (Zyrtec) 10 mg Tablet Active 10 MG PO Daily July 17, 2022 12:00am lactobacillus acidophilus [id number] unt oral capsule (5 sources) Start: 07-17-2022 take 10 capsules by mouth once daily Lactobacillus Acidophilus (Probiotic) 10 billion cell Capsule Active 64448 MMU CELLS PO Daily July 17, 2022 [...] every four to six hours Hydrocodone-Acetamin ophen ([place]) 5-325 mg tablet Discontinued 1 TAB PO [...] Refill(s) 11, Take 4 tsp BID daily, [facility]/pharmacy #[id number], 167, cm, 12/11/23 8:27:00 EDT, Height/Length [...] ESWL Where: [facility] [address] , [place] [address]- [phone] Medications What How Much When Instructions Unchanged [...] these instructions at home: Medicines ? Take xnvb-mxj-kqighub and prescription medicines only as told by [...] keep your pee pale yellow. ? Take lgcl-sps-ievbppw or prescription medicines. ? Eat foods that [...] Sever (more content not included)... Normal [facility] Urology Office/Clinic Noteon 12-11-2023 Urology Office/Clinic [...] -D/c potassium citrate -Start Oracit. Rx sent [facility]. -Will schedule Left ESWL. The procedure risks, [...] [facility] [address], [place] [address] [phone] Additional Instructions: sched L ESWL Patient Education Laser Therapy for Kidney Stones, Care After Laser Therapy for Kidney Stones Kidney Stones, Wwxb-bf-Yiss IChristina, personally scribed for Dr. Bill on 12/11/2023 09:11:27. . Documentation recorded by the scribe, Christina Lpoes, accurately reflects the services(s) I performed and [...] kidney (09/28 (more content not included)... Normal [facility] Comment on above: Result Comment: Elec [...] IS VERY IMPORTANT TO YOUR HEALTH. THE [employer] GUIDELINES RECOMMEND THAT WOMEN 40 YEARS OF AGE AND OLDER SHOULD HAVE A MAMMOGRAM EVERY YEAR. A REMINDER LETTER WILL BE SENT AT THE APPROPRIATE TIME. ELECTRONICALLY SIGNED BY: Yane Willett, Normal Not Available Comment on above: Order Comment: Last mammogram 05-18-22 [facility] or spot compression prn RAD - MISCon 06-04-2023 RAD - MISC [id number] Normal [facility] XR abdomen 1Von 06-03-2023 XR abdomen 1V [facility] [place] [address] XRay Report Signed Patient: Giselle Nova MR#: [id number] : 1980 Acct:[id number] Age/Sex: 42 / F ADM Date: 06/03/23 Loc: XD Room: Type: [facility] Attending Dr: Fred Bill MD Copies [...] Yuly Tamayo M.D.06/03/2023 6:05 PM Dictation Location: [place] [address] Transcribed By: [facility] 06/03/231804 Dictated By: Yuly Tamayo DO 06/03/231803 Signed By: 06/03/23 180 Normal [facility] XR KUBon 11-28-2022 XR KUB [facility] [place] [address] XRay Report Signed Patient: Giselle Nova MR#: [id number] : 1980 Acct:[id number] Age/Sex: 42 / F ADM Date: 11/28/22 Loc: ICXD Room: Type: [facility] Attending Dr: Fred Bill MD Copies [...] Singh Jr., D.O.11/28/2022 4:37 PM Dictation Location: [place] [address] Transcribed By: [facility] 11/28/22 163 Dictated By: Trip Singh Jr, DO 11/28/22 1636 Signed By: 11/28/22 1637 Normal [facility] 24 Hr Urine Uric Acidon 09-16 Uric Acid, 24 Hr Urine 442.3 Normal 173.7 -902. 1 [facility] Comment on above: Order Comment: URINE VOLUME (MILLILTERS): 3050 Result Comment: Perf ormed at: - [facility] [place] [address] [place] [id number] Channeling Machine Operator: Ash Castro PhD, Phone: [phone] Performed By: #### C ITRIC UR, U24 CA, MAG 24HRU, OXAL 24HRU, URIC 24HRU, PHOS 24HRU ####[facility] ,#### COL T V, U24 NA, CREA24 ####[facility] [id number] [address] Urine Uric Acid 14.5 mg/dL Normal Not Estab. [facility] Comment on above: Order Comment: URINE VOLUME (MILLILTERS): 3050 Performed By: #### C ITRIC UR, U24 CA, MAG 24HRU, OXAL 24HRU, URIC 24HRU, PHOS 24HRU ####[facility] ,#### COL T V, U24 NA, CREA24 ####[facility] [id number] [address] 24 hour urine sodium measure ment (moles/time)Ordered By: Fred Bill on 10-10-2022 Sodium (24H U) [Moles/Time] 137 mmol/24 40-220 [facility] 24 hour urine uric acid kristina urement (mass/time)Ordered By: Fred Bill on 10-10-2022 Urate (24H U) [Mass/Time] 442.3 mg/24 hr 173.7-902. 1 [facility] Comment on above: Performed at: NORM - Edd [address] [place] [id number] Director: Ash Castro PhD, Phone: [phone] Blood Urea Nitrogenon 2022 Urea nitrogen [Mass/Vol] 11 mg/dL Normal 7-25 [facility] Comment on above: Performed By: #### L YTES, URIC, CA, BUN, PTH, CREAT #### [facility] [address] [place] [id number] [facility] CT biopsyOrdered By: Fred Bill on 10-10-2022 CT biopsy 24 Hours [facility] Calciumon 10-10-2022 Calcium [Mass/Vol] 9.0 mg/dL Normal 8.6-10.3 [facility] Comment on above: Performed By: #### L YTES, URIC, CA, BUN, PTH, CREAT #### [facility] [address] [place] [id number] [place] Calcium [Mass/time] in 24 ho ur UrineOrdered By: Fred Bill on 10-10-2022 Calcium (24H U) [Mass/Time] 262 mg/24 hr 0-320 [facility] Calcium [Mass/volume] in 24 hour UrineOrdered By: Fred Bill on 10-10-2022 Calcium (24H U) [Mass/Vol] 8.6 mg/dL Not Estab. [facility] Calcium [Mass/volume] in Ser um or PlasmaOrdered By: Fred Bill on 10-10-2022 Calcium [Mass/Vol] 9.0 mg/dL 8.6-10.3 [facility] Calcium, 24Hr Urineon 2022 Calcium, Urine 8.6 mg/dL Normal Not Estab. [facility] Comment on above: Order Comment: URINE VOLUME (MILLILTERS): 3050 Performed By: #### C ITRIC UR, U24 CA, MAG 24HRU, OXAL 24HRU, URIC 24HRU, PHOS 24HRU ####[facility] ,#### COL T V, U24 NA, CREA24 ####[facility] [id number] [place] [address] [place] Calcium, Urine 24 Hr 262 Normal 0-320 [facility] Comment on above: Order Comment: URINE VOLUME (MILLILTERS): 3050 Performed By: #### C ITRIC UR, U24 CA, MAG 24HRU, OXAL 24HRU, URIC 24HRU, PHOS 24HRU ####[facility] ,#### COL T V, U24 NA, CREA24 ####[facility] [place] [address] [facility] Carbon dioxide, total [Moles /volume] in Serum or PlasmaOrdered By: Fred Bill on 10-10-2022 CO2 [Moles/Vol] 26.7 mmol/L 21.0-31.0 [facility] Chloride [Moles/volume] in S viji or PlasmaOrdered By: Fred Bill on 10-10-2022 Chloride [Moles/Vol] 108 mmol/L 98-107 [facility] Citric Acid, Urine, 24 Houro n 10-10-2022 Citric Acid, Urine 83 mg/L Normal Undefined [facility] Comment on above: Order Comment: URINE VOLUME (MILLILTERS): 3050 Performed By: #### C ITRIC UR, U24 CA, MAG 24HRU, OXAL 24HRU, URIC 24HRU, PHOS 24HRU ####[facility] ,#### COL T V, U24 NA, CREA24 ####[place] [id number] [place] [id number] [facility] Citric Acid, Urine, 24HR 253 Low 320-1240 [facility] Comment on above: Order Comment: URINE VOLUME (MILLILTERS): 3050 Result Comment: This test was developed and its performance characteristics determined by [facility]. It has not been cleared or approved by the Food and Drug Administration. Performed at: [address] [id number] Channeling Machine Operator: Dayna White MD, Phone: [phone] PERFORMED BY: [facility] [address] [place] [id number] PATHOLOGIST TIME PIECE REPAIRER ZURI HOOD M.D. Performed By: #### C ITRIC UR, U24 CA, MAG 24HRU, OXAL 24HRU, URIC 24HRU, PHOS 24HRU ####[facility] ,#### COL T V, U24 NA, CREA24 ####[address] Castillo Time and Vol 24 hr uron 10-10-2022 Total Volume, Urine 3050 Normal [facility] Comment on above: Order Comment: URINE COLLECTION TIME (HRS): 24 URINE VOLUME (MILLILTERS): 3050 Result Comment: PERF ORMED BY: [place] [address] PATHOLOGIST TIME PIECE REPAIRER ZURI HOOD M.D. Performed By: #### C ITRIC UR, U24 CA, MAG 24HRU, OXAL 24HRU, URIC 24HRU, PHOS 24HRU ####[facility] ,#### COL T V, U24 NA, CREA24 ####[address] Urine Collection Time 24 Normal [facility] Comment on above: Order Comment: URINE COLLECTION TIME (HRS): 24 URINE VOLUME (MILLILTERS): 3050 Performed By: #### C ITRIC UR, U24 CA, MAG 24HRU, OXAL 24HRU, URIC 24HRU, PHOS 24HRU ####[facility] ,#### COL T V, U24 NA, CREA24 ####[address] Creatinineon 10-10-2022 Creatinine [Mass/Vol] 0.80 mg/dL Normal 0.60-1.20 [facility] Comment on above: Performed By: #### L YTES, URIC, CA, BUN, PTH, CREAT #### [address] GFR/1.73 sq M.predicted MDRD (S/P/Bld) [Vol rate/Area] mL/min/{1.73_m2} [facility] Comment on above: Performed By: #### L YTES, URIC, CA, BUN, PTH, CREAT #### [address] [place] [address] [place] Creatinine [Mass/volume] in Serum or PlasmaOrdered By: Fred Bill on 10-10-2022 Creatinine [Mass/Vol] 0.80 mg/dL 0.60-1.20 [facility] Creatinine [Mass/volume] in UrineOrdered By: Fred Bill on 10-10-2022 Creatinine (U) [Mass/Vol] 52.00 mg/dL 11.00-20.0 0 [facility] Creatinine, 24 Hr Urineon Creatinine 24 Hour, Urine 1.58 g/24_hr Normal 0.80-1.89 [facility] Comment on above: Order Comment: URINE COLLECTION TIME (HRS): 24 URINE VOLUME (MILLILTERS): 3050 Performed By: #### C ITRIC UR, U24 CA, MAG 24HRU, OXAL 24HRU, URIC 24HRU, PHOS 24HRU ####[facility] ,#### COL T V, U24 NA, CREA24 ####[facility] [address] [place] [id number] [facility] Creatinine, Urine 52.00 mg/dL High 11.00-20.0 0 [facility] Comment on above: Order Comment: URINE COLLECTION TIME (HRS): 24 URINE VOLUME (MILLILTERS): 3050 Performed By: #### C ITRIC UR, U24 CA, MAG 24HRU, OXAL 24HRU, URIC 24HRU, PHOS 24HRU ####[facility] ,#### COL T V, U24 NA, CREA24 ####[facility] [id number] [place] [id number] [facility] Electrolyteson 10-10-2022 Anion gap [Moles/Vol] 9.4 mmol/L Normal 6.0-15.0 [facility] Comment on above: Performed By: #### L YTES, URIC, CA, BUN, PTH, CREAT #### [facility] [address] Chloride [Moles/Vol] 108 mmol/L High 98-107 [facility] Comment on above: Performed By: #### L YTES, URIC, CA, BUN, PTH, CREAT #### [facility] [address] [place] [address] [place] CO2 [Moles/Vol] 26.7 mmol/L Normal 21.0-31.0 [facility] Comment on above: Performed By: #### L YTES, URIC, CA, BUN, PTH, CREAT #### [facility] [address] [place] [address] [place] Potassium [Moles/Vol] 4.1 mmol/L Normal 3.5-5.1 [facility] Comment on above: Performed By: #### L YTES, URIC, CA, BUN, PTH, CREAT #### [facility] [address] [place] [address] [place] Sodium [Moles/Vol] 140 mmol/L Normal 136-145 [facility] Comment on above: Performed By: #### L YTES, URIC, CA, BUN, PTH, CREAT #### [facility] [address] Magnesium [Mass/time] in 24 hour UrineOrdered By: Fred Bill on 10-10-2022 Magnesium (24H U) [Mass/Time] 134.2 mg/24 hr 12.0-293.0 [facility] Magnesium [Mass/volume] in U rineOrdered By: Fred Bill on 10-10-2022 Magnesium (U) [Mass/Vol] 4.4 mg/dL Not Estab. [facility] Magnesium, Urine 24Hron 09-16 Magnesium, 24Hr Urine 134.2 Normal 12.0-293.0 [facility] Comment on above: Order Comment: URINE VOLUME (MILLILTERS): 3050 Performed By: #### C ITRIC UR, U24 CA, MAG 24HRU, OXAL 24HRU, URIC 24HRU, PHOS 24HRU ####[facility] ,#### COL T V, U24 NA, CREA24 ####[facility] [id number] [address] Magnesium, Urine 4.4 mg/dL Normal Not Estab. [facility] Comment on above: Order Comment: URINE VOLUME (MILLILTERS): 3050 Performed By: #### C ITRIC UR, U24 CA, MAG 24HRU, OXAL 24HRU, URIC 24HRU, PHOS 24HRU ####[facility] ,#### COL T V, U24 NA, CREA24 ####[facility] [id number] [address] No Panel InformationOrdered By: Fred Bill on 10-10-2022 Estimated GFR (CKD-EPI) > 60.0 mL/Min [facility] Creatinine Clearance (Chem N/A [facility] Urine Citric Acid 83 mg/L Undefined [facility] Urine Citric Acid 24 Hour 253 mg/24 hr 320-1240 [facility] Comment on above: This test was develo ped and its performance characteristicsdetermined by [facility]. It has not been cleared orapproved by the Food and Drug Administration.Performed at: BN - [facility] [address] [id number] Director: aDyan White MD, Phone: [phone] Urine Creatinine 24 Hour 1.58 g/24 hr 0.80-1.89 [facility] Oxalate [Mass/time] in 24 ho ur UrineOrdered By: Fred Bill on 10-10-2022 Oxalate (24H U) [Mass/Time] 24 mg/24 hr 4-31 [facility] Comment on above: Performed at: [facility] [address] [id number] Director: Dayan White MD, Phone: [phone] Oxalate [Mass/volume] in Uri neOrdered By: Fred Bill on 10-10-2022 Oxalate (U) [Mass/Vol] 8 mg/L Undefined [facility] Oxalate, Quant, 24Hr Urineon 10-10-2022 Oxalates, Urine 8 mg/L Normal Undefined [facility] Comment on above: Order Comment: URINE VOLUME (MILLILTERS): 3050 Performed By: #### C ITRIC UR, U24 CA, MAG 24HRU, OXAL 24HRU, URIC 24HRU, PHOS 24HRU ####[facility] ,#### COL T V, U24 NA, CREA24 ####[facility] [place] [id number] [place] Oxalates, Urine 24Hr 24 Normal [facility] Comment on above: Order Comment: URINE VOLUME (MILLILTERS): 3050 Result Comment: Perf ormed at: [facility] [id number] Channeling Machine Operator: Dayan White MD, Phone: [phone] Performed By: #### C ITRIC UR, U24 CA, MAG 24HRU, OXAL 24HRU, URIC 24HRU, PHOS 24HRU ####[facility] ,#### COL T V, U24 NA, CREA24 ####[address] Parathyrin.intact [Mass/volu me] in Serum or PlasmaOrdered By: Fred Bill on 10-10-2022 Parathyrin.intact [Mass/Vol] 31.0 pg/mL [facility] Parathyroid Hormone Intacton 10-10-2022 Parathyroid Hormone Intact 31.0 pg/mL Normal [facility] Comment on above: Result Comment: PERF ORMED BY: [place] [address] PATHOLOGIST TIME PIECE REPAIRER ZURI HOOD M.D. Performed By: #### L YTES, URIC, CA, BUN, PTH, CREAT #### [facility] [address] [place] [address] Phosphate [Mass/time] in 24 hour UrineOrdered By: Fred Bill on 10-10-2022 Phosphate (24H U) [Mass/Time] 909 mg/24 hr 261-1078 [facility] Phosphate [Mass/volume] in U rineOrdered By: Fred Bill on 10-10-2022 Phosphate (U) [Mass/Vol] 29.8 mg/dL Not Estab. [facility] Phosphorus, 24Hr Urineon Phosphorous, Urine 29.8 mg/dL Normal Not Estab. [facility] Comment on above: Order Comment: URINE VOLUME (MILLILTERS): 3050 Performed By: #### C ITRIC UR, U24 CA, MAG 24HRU, OXAL 24HRU, URIC 24HRU, PHOS 24HRU ####[facility] ,#### COL T V, U24 NA, CREA24 ####[facility] [place] [address] [facility] Phosphorus, Urine 24Hr 909 Normal 261-1078 [facility] Comment on above: Order Comment: URINE VOLUME (MILLILTERS): 3050 Performed By: #### C ITRIC UR, U24 CA, MAG 24HRU, OXAL 24HRU, URIC 24HRU, PHOS 24HRU ####[facility] ,#### COL T V, U24 NA, CREA24 ####[place] [id number] [place] [address] [facility] Potassium [Moles/volume] in Serum or PlasmaOrdered By: Fred Bill on 10-10-2022 Potassium [Moles/Vol] 4.1 mmol/L 3.5-5.1 [facility] Serum or plasma anion gap de terminationOrdered By: Fred Bill on 10-10-2022 Anion gap [Moles/Vol] 9.4 mmol/L 6.0-15.0 [facility] Sodium [Moles/volume] in Ser um or PlasmaOrdered By: Fred Bill on 10-10-2022 Sodium [Moles/Vol] 140 mmol/L 136-145 [facility] Sodium [Moles/volume] in Uri neOrdered By: Fred Bill on 10-10-2022 Sodium (U) [Moles/Vol] 45.0 mmol/L [facility] Comment on above: No reference range e stablished Sodium, 24 Hr Urineon 2022 Sodium (U) [Moles/Vol] 45.0 mmol/L Normal F [facility] Comment on above: Order Comment: URINE COLLECTION TIME (HRS): 24 URINE VOLUME (MILLILTERS): 3050 Result Comment: No r eference range established Performed By: #### C ITRIC UR, U24 CA, MAG 24HRU, OXAL 24HRU, URIC 24HRU, PHOS 24HRU ####[facility] ,#### COL T V, U24 NA, CREA24 ####[facility] [id number] [address] Sodium 24 Hour Urine 137 Normal 40-220 [facility] Comment on above: Order Comment: URINE COLLECTION TIME (HRS): 24 URINE VOLUME (MILLILTERS): 3050 Performed By: #### C ITRIC UR, U24 CA, MAG 24HRU, OXAL 24HRU, URIC 24HRU, PHOS 24HRU ####[facility] ,#### COL T V, U24 NA, CREA24 ####[facility] Urate [Mass/volume] in Serum or PlasmaOrdered By: Fred Bill on 10-10-2022 Urate [Mass/Vol] 5.6 mg/dL 2.3-6.6 [facility] Urea nitrogen [Mass/volume] in Serum or PlasmaOrdered By: Fred Bill on 10-10-2022 Urea nitrogen [Mass/Vol] 11 mg/dL 7-25 [facility] Uric Acidon 10-10-2022 Urate [Mass/Vol] 5.6 mg/dL Normal 2.3-6.6 [facility] Comment on above: Result Comment: PERF ORMED BY: [facility] [address] [facility] [place] [address] PATHOLOGIST TIME PIECE REPAIRER ZURI HOOD M.D. Performed By: #### L YTES, URIC, CA, BUN, PTH, CREAT #### [facility] [address] Urine uric acid measurement (mass/volume)Ordered By: Fred Bill on 10-10-2022 Urate (U) [Mass/Vol] 14.5 mg/dL Not Estab. [facility] Urine volume measurementOrde red By: Fred Bill on 10-10-2022 Specimen volume (U) 3050 ml [facility] AMYLASEon 07-20-2022 Amylase [Catalytic activity/Vol] 30 U/L Normal 25-115 [facility] Comment on above: Performed By: #### L IPA, CMP, DAVID #### [facility] [address] [id number] Donna Shaw CBC AUTO DIFFon 07-20-2022 BASO # 0.0 103/ul Normal 0.0-0.1 [facility] Comment on above: Performed By: #### C BC #### [facility] [address] [place] [address] [address] Donna Shaw Basophils/100 WBC (Bld) 0.6 % Normal 0.2-2.0 [facility] Comment on above: Performed By: #### C BC #### [facility] [address] [place] [address] Dr. Donna Shaw EO # 0.2 103/ul Normal 0.0-0.7 [facility] Comment on above: Performed By: #### C BC #### [facility] [address] [place] [address] Dr. Donna Shaw Eosinophils/100 WBC (Bld) 2.8 % Normal 0.9-7.0 [facility] Comment on above: Performed By: #### C BC #### [facility] [address] [place] [address] Dr. Donna Shaw Erythrocyte distribution width (RBC) [Ratio] 12.7 % Normal 11.0-15.0 [facility] Comment on above: Performed By: #### C BC #### [facility] [address] [place] [address] Dr. Donna Shaw Hematocrit (Bld) [Volume fraction] 38.4 % Normal 36.0-48.0 [facility] Comment on above: Performed By: #### C BC #### [facility] [address] [place] [address] Dr. Donna Shaw Hemoglobin (Bld) [Mass/Vol] 12.9 g/dL Normal 12.0-16.0 [facility] Comment on above: Performed By: #### C BC #### [facility] [address] [place] [address] Dr. Donna Shaw IG # 0.03 10e3/ul Normal 0.00-0.03 [facility] Comment on above: Performed By: #### C BC #### [facility] [address] [place] [address] Dr. Donna Shaw IG % 0.4 % Normal 0.0-0.5 [facility] Comment on above: Performed By: #### C BC #### [facility] [address] [place] [address] Dr. Donna Shaw LYMPH # 2.3 103/ul Normal 1.2-3.8 [facility] Comment on above: Performed By: #### C BC #### [facility] [address] [place] [address] Dr. Donna Shaw Lymphocytes/100 WBC (Bld) 34.1 % Normal 20.5-60.0 [facility] Comment on above: Performed By: #### C BC #### [facility] [address] [place] [address] Dr. Donna Shaw MANUAL DIFF REQ NO Normal [facility] Comment on above: Performed By: #### C BC #### [facility] [address] [place] [address] Dr. Donna Shaw MCH (RBC) [Entitic mass] 29.7 pg Normal 26.7-34.0 [facility] Comment on above: Performed By: #### C BC #### [facility] [address] [place] [address] Dr. Donna Shaw MCHC (RBC) [Mass/Vol] 33.6 g/dL Normal 29.9-35.2 [facility] Comment on above: Performed By: #### C BC #### [facility] [address] [place] [address] Dr. Donna Shaw MCV (RBC) [Entitic vol] 88.5 fL Normal 81.0-99.0 [facility] Comment on above: Performed By: #### C BC #### [facility] [address] [place] [address] Dr. Donna Shaw MONO # 0.6 103/ul Normal 0.3-0.8 [facility] Comment on above: Performed By: #### C BC #### [facility] [address] [place] [address] Dr. Donna Shaw Monocytes/100 WBC (Bld) 8.3 % Normal 1.7-12.0 [facility] Comment on above: Performed By: #### C BC #### [facility] [address] [place] [address] Dr. Donna Shaw NEUT # 3.6 103/ul Normal 1.4-6.5 [facility] Comment on above: Performed By: #### C BC #### [facility] [address] [place] [address] Dr. Donna Shaw Neutrophils/100 WBC (Bld) 53.8 % Normal 43.0-75.0 [facility] Comment on above: Performed By: #### C BC #### [facility] [address] [place] [address] Dr. Donna Shaw Platelet mean volume (Bld) [Entitic vol] 9.0 fL Critically low 9.5-13.5 [facility] Comment on above: Performed By: #### C BC #### [facility] [address] [place] [address] Dr. Donna Shaw PLT 395 103/ul Normal 150-450 [facility] Comment on above: Performed By: #### C BC #### [facility] [address] [place] [address] Dr. Donna Shaw RBC 4.34 106/ul Normal 4.20-5.40 [facility] Comment on above: Performed By: #### C BC #### [facility] [address] [place] [address] Dr. Donna Shaw WBC 6.7 103/ul Normal 4.0-11.0 [facility] Comment on above: Performed By: #### C BC #### [facility] [address] [place] [address] Dr. Donna Shaw LIPASEon 07-20-2022 Lipase [Catalytic activity/Vol] 49.0 U/L Critically low 73.0-393.0 [facility] Comment on above: Performed By: #### L IPA, CMP, DAVID #### [facility] [address] [address] [address] Donna Shaw PROF 14(COMP METB)on 023 Albumin [Mass/Vol] 3.4 g/dL Normal 3.4-5.0 [facility] Comment on above: Performed By: #### L IPA, CMP, DAVID #### [facility] [address] [address] [address] Donna Shaw Albumin/Globulin [Mass ratio] 1.1 {ratio} Normal [facility] Comment on above: Performed By: #### L IPA, CMP, DAVID #### [facility] [address] [place] [address] Dr. Donna Shaw ALP [Catalytic activity/Vol] 52 U/L Normal 46-116 [facility] Comment on above: Performed By: #### L IPA, CMP, DAVID #### [facility] [address] [place] [address] Dr. Donna Shaw ALT [Catalytic activity/Vol] 16 U/L Normal 14-59 [facility] Comment on above: Performed By: #### L IPA, CMP, DAVID #### [facility] [address] [place] [address] Dr. Donna Shaw Anion gap [Moles/Vol] 12.4 mmol/L Normal [facility] Comment on above: Performed By: #### L IPA, CMP, DAVID #### [facility] [address] [place] [address] Dr. Donna Shaw AST [Catalytic activity/Vol] 12 U/L Critically low 15-37 [facility] Comment on above: Performed By: #### L IPA, CMP, DAVID #### [facility] [address] [place] [address] Dr. Donna Shaw Bilirubin [Mass/Vol] 0.4 mg/dL Normal 0.2-1.0 [facility] Comment on above: Performed By: #### L IPA, CMP, DAVID #### [facility] [address] [address] [address] Donna Shaw Calcium [Mass/Vol] 8.6 mg/dL Normal 8.5-10.1 [facility] Comment on above: Performed By: #### L IPA, CMP, DAVID #### [facility] [address] [address] [address] Donna Shaw Chloride [Moles/Vol] 107 mmol/L Normal 98-107 [facility] Comment on above: Performed By: #### L IPA, CMP, DAVID #### [facility] [address] [address] [address] Donna Shaw CO2 [Moles/Vol] 26.5 mmol/L Normal 21.0-32.0 [facility] Comment on above: Performed By: #### L IPA, CMP, DAVID #### [facility] [address] [place] [address] Dr. Donna Shaw Creatinine [Mass/Vol] 0.71 mg/dL Normal 0.55-1.02 [facility] Comment on above: Performed By: #### L IPA, CMP, DAVID #### [facility] [address] [place] [address] Dr. Donna Shaw EGFR-AF BERMUDIAN >60 Normal >=60 [facility] Comment on above: Performed By: #### L IPA, CMP, DAVID #### [facility] [address] [place] [address] Dr. Donna Shaw EGFR-NON AF BERMUDIAN >60 Normal >=60 [facility] Comment on above: Performed By: #### L IPA, CMP, DAVID #### [facility] [address] [place] [address] Dr. Donna Shaw Globulin (S) [Mass/Vol] 3.2 g/dL Normal [facility] Comment on above: Performed By: #### L IPA, CMP, DAVID #### [facility] [address] [place] [address] Dr. Donna Shaw Glucose [Mass/Vol] 92 mg/dL Normal 74-106 [facility] Comment on above: Performed By: #### L IPA, CMP, DAVID #### [facility] [address] [address] [address] Donna Shaw Potassium [Moles/Vol] 3.9 mmol/L Normal 3.5-5.1 [facility] Comment on above: Performed By: #### L IPA, CMP, DAVID #### [facility] [address] [place] [address] Dr. Donna Shaw Protein [Mass/Vol] 6.6 g/dL Normal 6.4-8.2 [facility] Comment on above: Performed By: #### L IPA, CMP, DAVID #### [facility] [address] [place] [address] Dr. Donna Shaw Sodium [Moles/Vol] 142 mmol/L Normal 136-145 [facility] Comment on above: Performed By: #### L IPA, CMP, DAVID #### [facility] [address] [place] [address] Dr. Donna Shaw Urea nitrogen [Mass/Vol] 8.0 mg/dL Normal 7.0-18.0 [facility] Comment on above: Performed By: #### L IPA, CMP, DAVID #### [facility] [address] [place] [address] Dr. Donna Shaw Urea nitrogen/Creatinine [Mass ratio] 11.3 mg/mg Normal [facility] Comment on above: Performed By: #### L IPA, CMP, DAVID #### [facility] [address] [place] [address] Dr. Donna Shaw PROTIMEon 07-20-2022 INR Coag (PPP) [Relative time] 0.97 {INR} Normal [facility] Comment on above: Performed By: #### P TT, PT #### [facility] [address] [place] [address] Dr. Donna Shaw INR GUIDELINES SEE BELOW Normal [facility] Comment on above: Result Comment: IZABEL RED INR: 2.0 - 3.0 CONDITIONS NOT LISTED BELOW 2.5 - 3.5 FOR PROSTHETIC HEART VALVE REPLACEMENT 2.5 - 3.5 RECURRENT THROMBOSIS Performed By: #### P TT, PT #### [facility] [address] [address] [address] Donna Shaw PT Coag (PPP) [Time] 10.3 s Normal 9.0-11.6 [facility] Comment on above: Performed By: #### P TT, PT #### [facility] [address] [place] [address] Dr. Donna Shaw PTTon 07-20-2022 aPTT Coag (Bld) [Time] 28.2 s Normal 22.3-36.[address] [facility] Comment on above: Performed By: #### P TT, PT #### [facility] [address] [address] [address] Donna Shaw Basic Metabolic Panelon Anion gap [Moles/Vol] 10.1 mmol/L Normal 6.0-15.0 [facility] Comment on above: Performed By: #### C BC, BMP ####[id number] [id number] [facility] Calcium [Mass/Vol] 8.4 mg/dL Low 8.6-10.3 [facility] Comment on above: Performed By: #### C BC, BMP ####[id number] [place] [address] [facility] Chloride [Moles/Vol] 109 mmol/L High 98-107 [facility] Comment on above: Performed By: #### C BC, BMP ####[facility] [address] [place] [address] [facility] CO2 [Moles/Vol] 21.9 mmol/L Normal 21.0-31.0 [facility] Comment on above: Performed By: #### C BC, BMP ####[facility] [place] [address] [place] Creatinine [Mass/Vol] 0.87 mg/dL Normal 0.60-1.20 [facility] Comment on above: Performed By: #### C BC, BMP ####[facility] [id number] [place] [address] [place] Creatinine Clr Calc Pharmacy 78.86 [facility] Comment on above: Result Comment: PERF ORMED BY: [facility] [address] [place] [address] PATHOLOGIST TIME PIECE REPAIRER ZURI HOOD M.D. Performed By: #### C ALLAN, BMP ####[id number] [place] [id number] [facility] GFR/1.73 sq M.predicted MDRD (S/P/Bld) [Vol rate/Area] mL/min/{1.73_m2} Normal [facility] Comment on above: Performed By: #### C ALLAN, BMP ####[id number] [place] [id number] [facility] Glucose [Mass/Vol] 137 mg/dL High 70-100 [facility] Comment on above: Result Comment: [place] Glucose Reference Range is dependent on time and content of last meal. Glucose of more than 200 mg/dL in a nonstressed, ambulatory subject supports the diagnosis of Diabetes Mellitus. ADA recommended reference range Performed By: #### C ALLAN, BMP ####[id number] [place] [id number] [facility] Potassium [Moles/Vol] 4.0 mmol/L Normal 3.5-5.1 [facility] Comment on above: Performed By: #### C ALLAN, BMP ####[id number] [place] [id number] [facility] Sodium [Moles/Vol] 137 mmol/L Normal 136-145 [facility] Comment on above: Performed By: #### C ALLAN, BMP ####[id number] [place] [id number] [facility] Urea nitrogen [Mass/Vol] 11 mg/dL Normal 7-25 [facility] Comment on above: Performed By: #### C ALLAN, BMP ####[id number] [place] Basophils Auto (Bld) [#/Vol] Ordered By: Jillian Hahn on 07-18-2022 Basophils (Bld) [#/Vol] 0.0 10*3/uL 0.0-0.2 [facility] Basophils/100 WBC Auto (Bld) Ordered By: Jillian Hahn on 07-18-2022 Basophils/100 WBC (Bld) 0.3 % . [facility] Calcium [Mass/volume] in Ser um or PlasmaOrdered By: Jillian Hahn on 07-18-2022 Calcium [Mass/Vol] 8.4 mg/dL 8.6-10.3 [facility] Carbon dioxide, total [Moles /volume] in Serum or PlasmaOrdered By: Jillian Hahn on 07-18-2022 CO2 [Moles/Vol] 21.9 mmol/L 21.0-31.0 [facility] Chloride [Moles/volume] in S viji or PlasmaOrdered By: Jillian Hahn on 07-18-2022 Chloride [Moles/Vol] 109 mmol/L 98-107 [facility] Complete Blood Count Auto Di ffon 07-18-2022 Basophils (Bld) [#/Vol] 0.0 10*3/uL Normal 0.0-0.2 [facility] Comment on above: Result Comment: PERF ORMED BY: [facility] [address] [facility] [place] [address] PATHOLOGIST TIME PIECE REPAIRER ZURI HOOD M.D. Performed By: #### C ALLAN BMP ####[address] Basophils/100 WBC (Bld) 0.3 % Normal . [facility] Comment on above: Performed By: #### C ALLAN, BMP ####[address] Eosinophils (Bld) [#/Vol] 0.0 10*3/uL Normal 0.0-0.45 [facility] Comment on above: Performed By: #### C ALLAN, BMP ####[address] Eosinophils/100 WBC (Bld) 0.1 % Normal . [facility] Comment on above: Performed By: #### C ALLAN, BMP ####[address] Erythrocyte distribution width (RBC) [Ratio] 13.5 % Normal 11.9-15.3 [facility] Comment on above: Performed By: #### C ALLAN, BMP ####[address] Hematocrit (Bld) [Volume fraction] 39.3 % Normal 34.0-46.4 [facility] Comment on above: Performed By: #### C ALLAN, BMP ####[address] Hemoglobin (Bld) [Mass/Vol] 13.2 g/dL Normal 11.8-15.4 [facility] Comment on above: Performed By: #### C ALLAN, BMP ####[address] Lymphocytes (Bld) [#/Vol] 0.8 10*3/uL Low 1.00-4.8 [facility] Comment on above: Performed By: #### C ALLAN, BMP ####[address] Lymphocytes/100 WBC (Bld) 10.9 % Normal . [facility] Comment on above: Performed By: #### C ALLAN, BMP ####[address] MCH (RBC) [Entitic mass] 29.9 pg Normal 24.7-34.3 [facility] Comment on above: Performed By: #### C ALLNA, BMP ####[address] MCV (RBC) [Entitic vol] 88.9 fL Normal 80-100 [facility] Comment on above: Performed By: #### C ALLAN, BMP ####[address] Mean Corpuscular HGB Conc 33.6 g/dL Normal 32.0-35.0 [facility] Comment on above: Performed By: #### C ALLAN, BMP ####[address] Monocytes (Bld) [#/Vol] 0.2 10*3/uL Normal 0.0-0.8 [facility] Comment on above: Performed By: #### C ALLAN, BMP ####[address] Monocytes/100 WBC (Bld) 2.3 % Normal . [facility] Comment on above: Performed By: #### C ALLAN, BMP ####[address] Neutrophils (Bld) [#/Vol] 6.3 10*3/uL Normal 1.8-7.7 [facility] Comment on above: Performed By: #### C ALLAN, BMP ####[address] Neutrophils/100 WBC (Bld) 86.4 % Normal . [facility] Comment on above: Performed By: #### C ALLAN, BMP ####[address] NRBC% 0.1 /100{WBC} Normal 0-0.5 [facility] Comment on above: Performed By: #### C ALLAN, BMP ####[address] Platelet mean volume (Bld) [Entitic vol] 7.6 fL Normal 6.3-10.7 [facility] Comment on above: Performed By: #### C ALLAN, BMP ####[address] Platelets (Bld) [#/Vol] 356 10*3/uL Normal 150-450 [facility] Comment on above: Performed By: #### C ALLAN, BMP ####[address] RBC (Bld) [#/Vol] 4.42 10*6/uL Normal 3.60-5.00 [facility] Comment on above: Performed By: #### C ALLAN, BMP ####[address] WBC (Bld) [#/Vol] 7.3 10*3/uL Normal 3.8-11.6 [facility] Comment on above: Performed By: #### C BC, BMP ####[facility] [id number] Creatinine [Mass/volume] in Serum or PlasmaOrdered By: Jillian Hahn on 07-18-2022 Creatinine [Mass/Vol] 0.87 mg/dL 0.60-1.20 [facility] Eosinophils Auto (Bld) [#/Vo l]Ordered By: Jillian Hahn on 07-18-2022 Eosinophils (Bld) [#/Vol] 0.0 10*3/uL 0.0-0.45 [facility] Eosinophils/100 WBC Auto (Bl d)Ordered By: Jillian Hahn on 07-18-2022 Eosinophils/100 WBC (Bld) 0.1 % . [facility] Erythrocyte distribution wid th Auto (RBC) [Ratio]Ordered By: Jillian Hahn on 07-18-2022 Erythrocyte distribution width (RBC) [Ratio] 13.5 % 11.9-15.3 [facility] [place] urethrocystogram retroon 07-18-2022 [place] urethrocystogram retro [facility] [place] [address] Fluoroscopy Report Signed Patient: Giselle Nova MR#: [id number] : 1980 Acct:[id number] Age/Sex: 41 / F ADM Date: 07/17/22 Loc: 4N Room: 3M7266-0 Type: ADM INOo Attending Dr: Pete Cardozo [...] into the distal left ureter. On the mitering machine operator view, the left renal and ureteropelvic junction [...] Lisa Bunch M.D.07/18/2022 10:30 AM Dictation Location: [facility]--10 Transcribed By: [facility] 07/18/22 1030 Dictated By: Lisa Bunch MD 07/18/22 1026 Signed By: 07/18/22 1030 Normal [facility] Glucose [Mass/volume] in Ser um or PlasmaOrdered By: Jillian Hahn on 07-18-2022 Glucose [Mass/Vol] 137 mg/dL 70-100 [facility] Comment on above: ADA recommended refe rence rangeRandom Glucose Reference Range is dependent on time and content of last meal. Glucose of more than 200 mg/dL in a nonstressed, ambulatory subject supports the diagnosis of Diabetes Mellitus. Hematocrit Auto (Bld) [Volum e fraction]Ordered By: Jillian Hahn on 07-18-2022 Hematocrit (Bld) [Volume fraction] 39.3 % 34.0-46.4 [facility] Hemoglobin [Mass/volume] in BloodOrdered By: Jillian Hahn on 07-18-2022 Hemoglobin (Bld) [Mass/Vol] 13.2 g/dL 11.8-15.4 [facility] Leukocytes [#/volume] correc valente for nucleated erythrocytes in Blood by Automated counOrdered By: Jillian Hahn on 07-18-2022 WBC corrected for nucl RBC Auto (Bld) [#/Vol] 7.3 10*3/uL 3.8-11.6 [facility] Lymphocytes Auto (Bld) [#/Vo l]Ordered By: Jillian Hahn on 07-18-2022 Lymphocytes (Bld) [#/Vol] 0.8 10*3/uL 1.00-4.8 [facility] Lymphocytes/100 WBC Auto (Bl d)Ordered By: Jillian Hahn on 07-18-2022 Lymphocytes/100 WBC (Bld) 10.9 % . [facility] MCH Auto (RBC) [Entitic mass ]Ordered By: Jillian Hahn on 07-18-2022 MCH (RBC) [Entitic mass] 29.9 pg 24.7-34.3 [facility] MCHC Auto (RBC) [Mass/Vol]Or dered By: Jillian Hahn on 07-18-2022 MCHC (RBC) [Mass/Vol] 33.6 g/dL 32.0-35.0 [facility] MCV Auto (RBC) [Entitic vol] Ordered By: Jillian Hahn on 07-18-2022 MCV (RBC) [Entitic vol] 88.9 fL 80-100 [facility] Monocytes Auto (Bld) [#/Vol] Ordered By: Jillian Hahn on 07-18-2022 Monocytes (Bld) [#/Vol] 0.2 10*3/uL 0.0-0.8 [facility] Monocytes/100 WBC Auto (Bld) Ordered By: Jillian Hahn on 07-18-2022 Monocytes/100 WBC (Bld) 2.3 % . [facility] Neutrophils Auto (Bld) [#/Vo l]Ordered By: Jillian Hahn on 07-18-2022 Neutrophils (Bld) [#/Vol] 6.3 10*3/uL 1.8-7.7 [facility] Neutrophils/100 WBC Auto (Bl d)Ordered By: Jillian Hahn on 07-18-2022 Neutrophils/100 WBC (Bld) 86.4 % . [facility] No Panel InformationOrdered By: Jillian Hahn on 07-18-2022 Estimated GFR (CKD-EPI) > 60.0 mL/Min [facility] Creatinine Clearance (Chem 78.86 [facility] Nucleated erythrocytes [Pres ence] in Blood by Automated countOrdered By: Jillian Hahn on 07-18-2022 Nucleated RBC Auto Ql (Bld) 0.1 /100{WBC} 0-0.5 [facility] Platelet mean volume Auto (B ld) [Entitic vol]Ordered By: Jillian Hahn on 07-18-2022 Platelet mean volume (Bld) [Entitic vol] 7.6 fL 6.3-10.7 [facility] Platelets Auto (Bld) [#/Vol] Ordered By: Jillian Hahn on 07-18-2022 Platelets (Bld) [#/Vol] 356 10*3/uL 150-450 [facility] Potassium [Moles/volume] in Serum or PlasmaOrdered By: Jillian Hahn on 07-18-2022 Potassium [Moles/Vol] 4.0 mmol/L 3.5-5.1 [facility] RBC Auto (Bld) [#/Vol]Ordere d By: Jillian Hahn on 07-18-2022 RBC (Bld) [#/Vol] 4.42 10*6/uL 3.60-5.00 [facility] Serum or plasma anion gap de terminationOrdered By: Jillian Hahn on 07-18-2022 Anion gap [Moles/Vol] 10.1 mmol/L 6.0-15.0 [facility] Sodium [Moles/volume] in Ser um or PlasmaOrdered By: Jillian Hahn on 07-18-2022 Sodium [Moles/Vol] 137 mmol/L 136-145 [facility] Urea nitrogen [Mass/volume] in Serum or PlasmaOrdered By: Jillian Hahn on 07-18-2022 Urea nitrogen [Mass/Vol] 11 mg/dL 7 [facility] WBC Auto (Bld) [#/Vol]Ordere d By: Jillian Hahn on 07-18-2022 WBC (Bld) [#/Vol] 7.3 10*3/uL 3.8-11.6 [facility] Alanine aminotransferase [En zymatic activity/volume] in Serum or PlasmaOrdered By: Kyra Dee on 07-17-2022 ALT [Catalytic activity/Vol] 10 U/L 752 [facility] Albumin [Mass/volume] in Ser um or Plasma by Bromocresol green (BCG) dye binding methoOrdered By: Kyra Dee on 07-17-2022 Albumin BCG dye [Mass/Vol] 4.2 g/dL 3.5-5.7 [facility] Alkaline phosphatase [Enzyma tic activity/volume] in Serum or PlasmaOrdered By: Kyra Dee on 07-17-2022 ALP [Catalytic activity/Vol] 47 U/L 34-104 [facility] Aspartate aminotransferase [ Enzymatic activity/volume] in Serum or PlasmaOrdered By: Kyra Dee on 07-17-2022 AST [Catalytic activity/Vol] 14 U/L 13-39 [facility] Automated erythrocytes count in urine sediment (number/area)Ordered By: Kyra Dee on 07-17-2022 RBC Auto (Urine sed) [#/Area] 10-19 [HPF] 0-4 [facility] Automated leukocytes count i n urine sediment (number/area)Ordered By: Kyra Dee on 07-17-2022 WBC Auto (Urine sed) [#/Area] 20-49 [HPF] 0-4 [facility] Basic Metabolic Panelon Anion gap [Moles/Vol] 12.3 mmol/L Normal 6.0-15.0 [facility] Comment on above: Performed By: #### C BC, LIPASE, HEPATIC, BMP ####[facility] [id number] [place] [address] [facility] Calcium [Mass/Vol] 8.9 mg/dL Normal 8.6-10.3 [facility] Comment on above: Performed By: #### C BC, LIPASE, HEPATIC, BMP ####[facility] [address] [place] [address] [facility] Chloride [Moles/Vol] 107 mmol/L Normal 98-107 [facility] Comment on above: Performed By: #### C BC, LIPASE, HEPATIC, BMP ####[facility] [id number] [place] [address] [facility] CO2 [Moles/Vol] 22.4 mmol/L Normal 21.0-31.0 [facility] Comment on above: Performed By: #### C BC, LIPASE, HEPATIC, BMP ####[facility] [place] [address] [facility] Creatinine [Mass/Vol] 1.03 mg/dL Normal 0.60-1.20 [facility] Comment on above: Performed By: #### C BC, LIPASE, HEPATIC, BMP ####[facility] [place] [address] [facility] Creatinine Clr Calc Pharmacy 66.61 [facility] Comment on above: Performed By: #### C BC, LIPASE, HEPATIC, BMP ####[id number] [place] [address] [facility] GFR/1.73 sq M.predicted MDRD (S/P/Bld) [Vol rate/Area] mL/min/{1.73_m2} [facility] Comment on above: Performed By: #### C BC, LIPASE, HEPATIC, BMP ####[place] [id number] [facility] Glucose [Mass/Vol] 91 mg/dL Normal 70-100 [facility] Comment on above: Result Comment: [facility] Glucose Reference Range is dependent on time and content of last meal. Glucose of more than 200 mg/dL in a nonstressed, ambulatory subject supports the diagnosis of Diabetes Mellitus. ADA recommended reference range Performed By: #### C BC, LIPASE, HEPATIC, BMP ####[id number] [place] [id number] [facility] Potassium [Moles/Vol] 3.7 mmol/L Normal 3.5-5.1 [facility] Comment on above: Performed By: #### C BC, LIPASE, HEPATIC, BMP ####[address] [place] [address] [facility] Sodium [Moles/Vol] 138 mmol/L Normal 136-145 [facility] Comment on above: Performed By: #### C BC, LIPASE, HEPATIC, BMP ####[id number] [place] [address] [facility] Urea nitrogen [Mass/Vol] 15 mg/dL Normal 7-25 [facility] Comment on above: Performed By: #### C BC, LIPASE, HEPATIC, BMP ####[facility] [id number] [place] [id number] [facility] Basophils Auto (Bld) [#/Vol] Ordered By: Kyra Dee on 07-17-2022 Basophils (Bld) [#/Vol] 0.1 10*3/uL 0.0-0.2 [facility] Basophils/100 WBC Auto (Bld) Ordered By: Kyra Dee on 07-17-2022 Basophils/100 WBC (Bld) 0.6 % . [facility] Bilirubin Test strip Ql (U)O rdered By: Kyra Dee on 07-17-2022 Bilirubin Ql (U) Negative Negative [facility] Bilirubin.direct [Mass/volum e] in Serum or PlasmaOrdered By: Kyra Dee on 07-17-2022 Bilirubin.direct [Mass/Vol] 0.10 mg/dL 0.03-0.18 [facility] Bilirubin.total [Mass/volume ] in Serum or PlasmaOrdered By: Kyra Dee on 07-17-2022 Bilirubin [Mass/Vol] 0.6 mg/dL 0.3-1.0 [facility] Calcium [Mass/volume] in Ser um or PlasmaOrdered By: Kyra Dee on 07-17-2022 Calcium [Mass/Vol] 8.9 mg/dL 8.6-10.3 [facility] Carbon dioxide, total [Moles /volume] in Serum or PlasmaOrdered By: Kyra Dee on 07-17-2022 CO2 [Moles/Vol] 22.4 mmol/L 21.0-31.0 [facility] Chloride [Moles/volume] in S viji or PlasmaOrdered By: Kyra Dee on 07-17-2022 Chloride [Moles/Vol] 107 mmol/L 98-107 [facility] Color Auto (U)Ordered By: Me pedro luis Dee on 07-17-2022 Color (U) Yellow Yellow [facility] Complete Blood Count Auto Di ffon 07-17-2022 Basophils (Bld) [#/Vol] 0.1 10*3/uL Normal 0.0-0.2 [facility] Comment on above: Result Comment: PERF ORMED BY: [facility] [address] [place] [address] PATHOLOGIST TIME PIECE REPAIRER ZURI HOOD M.D. Performed By: #### C BC, LIPASE, HEPATIC, BMP ####[address] Basophils/100 WBC (Bld) 0.6 % Normal . [facility] Comment on above: Performed By: #### C BC, LIPASE, HEPATIC, BMP ####[address] Eosinophils (Bld) [#/Vol] 0.2 10*3/uL Normal 0.0-0.45 [facility] Comment on above: Performed By: #### C BC, LIPASE, HEPATIC, BMP ####[address] Eosinophils/100 WBC (Bld) 1.9 % Normal . [facility] Comment on above: Performed By: #### C BC, LIPASE, HEPATIC, BMP ####[address] Erythrocyte distribution width (RBC) [Ratio] 13.4 % Normal 11.9-15.3 [facility] Comment on above: Performed By: #### C BC, LIPASE, HEPATIC, BMP ####[address] Hematocrit (Bld) [Volume fraction] 39.9 % Normal 34.0-46.4 [facility] Comment on above: Performed By: #### C BC, LIPASE, HEPATIC, BMP ####[address] Hemoglobin (Bld) [Mass/Vol] 13.3 g/dL Normal 11.8-15.4 [facility] Comment on above: Performed By: #### C BC, LIPASE, HEPATIC, BMP ####[address] Lymphocytes (Bld) [#/Vol] 1.7 10*3/uL Normal 1.00-4.8 [facility] Comment on above: Performed By: #### C BC, LIPASE, HEPATIC, BMP ####[address] Lymphocytes/100 WBC (Bld) 14.7 % Normal . [facility] Comment on above: Performed By: #### C BC, LIPASE, HEPATIC, BMP ####[address] MCH (RBC) [Entitic mass] 29.3 pg Normal 24.7-34.3 [facility] Comment on above: Performed By: #### C BC, LIPASE, HEPATIC, BMP ####[address] MCV (RBC) [Entitic vol] 87.9 fL Normal 80-100 [facility] Comment on above: Performed By: #### C BC, LIPASE, HEPATIC, BMP ####[address] Mean Corpuscular HGB Conc 33.4 g/dL Normal 32.0-35.0 [facility] Comment on above: Performed By: #### C BC, LIPASE, HEPATIC, BMP ####[address] Monocytes (Bld) [#/Vol] 1.2 10*3/uL High 0.0-0.8 [facility] Comment on above: Performed By: #### C BC, LIPASE, HEPATIC, BMP ####[address] Monocytes/100 WBC (Bld) 16.75 % Normal 0.00-20.00 [facility] Comment on above: Performed By: #### C BC, LIPASE, HEPATIC, BMP ####[address] Monocytes/100 WBC (Bld) 10.3 % Normal . [facility] Comment on above: Performed By: #### C BC, LIPASE, HEPATIC, BMP ####[address] Neutrophils (Bld) [#/Vol] 8.2 10*3/uL High 1.8-7.7 [facility] Comment on above: Performed By: #### C BC, LIPASE, HEPATIC, BMP ####[address] Neutrophils/100 WBC (Bld) 72.5 % Normal . [facility] Comment on above: Performed By: #### C BC, LIPASE, HEPATIC, BMP ####[address] NRBC% 0.1 /100{WBC} Normal 0-0.5 [facility] Comment on above: Performed By: #### C BC, LIPASE, HEPATIC, BMP ####[address] Platelet mean volume (Bld) [Entitic vol] 7.6 fL Normal 6.3-10.7 [facility] Comment on above: Performed By: #### C BC, LIPASE, HEPATIC, BMP ####[address] Platelets (Bld) [#/Vol] 380 10*3/uL Normal 150-450 [facility] Comment on above: Performed By: #### C BC, LIPASE, HEPATIC, BMP ####[address] RBC (Bld) [#/Vol] 4.53 10*6/uL Normal 3.60-5.00 [facility] Comment on above: Performed By: #### C BC, LIPASE, HEPATIC, BMP ####[address] WBC (Bld) [#/Vol] 11.4 10*3/uL Normal 3.8-11.6 [facility] Comment on above: Performed By: #### C BC, LIPASE, HEPATIC, BMP ####[address] Creatinine [Mass/volume] in Serum or PlasmaOrdered By: Kyra Dee on 07-17-2022 Creatinine [Mass/Vol] 1.03 mg/dL 0.60-1.20 [facility] Dipstick and Microscopicon 0 07-17-2022 Appearance (U) Cloudy Critically abnormal Clear [facility] Comment on above: Order Comment: Name Collection Type:: Clean-Voided Midstream Performed By: #### C UU, ADDONUAPLUS, UHCG ####[address] [address] [facility] Bacteria,Urine 2+ High None Seen [facility] Comment on above: Order Comment: Name Collection Type:: Clean-Voided Midstream Performed By: #### C UU, ADDONUAPLUS, UHCG ####[address] [address] [facility] Bilirubin,Urine Negative Normal Negative [facility] Comment on above: Order Comment: Name Collection Type:: Clean-Voided Midstream Performed By: #### C UU, ADDONUAPLUS, UHCG ####[address] [address] [facility] Color (U) Yellow Normal Yellow [facility] Comment on above: Order Comment: Name Collection Type:: Clean-Voided Midstream Performed By: #### C UU, ADDONUAPLUS, UHCG ####[address] [address] [facility] Glucose Ql (U) Normal Normal Normal [facility] Comment on above: Order Comment: Name Collection Type:: Clean-Voided Midstream Performed By: #### C UU, ADDONUAPLUS, UHCG ####[address] [address] [place] Hyaline Casts,Urine 0-8 Normal 0-8 [facility] Comment on above: Order Comment: Name Collection Type:: Clean-Voided Midstream Performed By: #### C UU, ADDONUAPLUS, UHCG ####[address] [address] [facility] Ketones Ql (U) Trace High Negative [facility] Comment on above: Order Comment: Name Collection Type:: Clean-Voided Midstream Performed By: #### C UU, ADDONUAPLUS, UHCG ####[address] Leukocyte esterase Test strip Ql (U) 2+ High Negative [facility] Comment on above: Order Comment: Name Collection Type:: Clean-Voided Midstream Performed By: #### C UU, ADDONUAPLUS, UHCG ####[place] [id number] [facility] Nitrite,Urine Negative Normal Negative [facility] Comment on above: Order Comment: Name Collection Type:: Clean-Voided Midstream Performed By: #### C UU, ADDONUAPLUS, UHCG ####[address] Occult Blood,Urine 1+ High Negative [facility] Comment on above: Order Comment: Name Collection Type:: Clean-Voided Midstream Performed By: #### C UU, ADDONUAPLUS, UHCG ####[address] pH (U) 6.0 [pH] Normal 5.0-9.0 [facility] Comment on above: Order Comment: Name Collection Type:: Clean-Voided Midstream Performed By: #### C UU, ADDONUAPLUS, UHCG ####[place] [id number] [facility] Protein (U) [Mass/Vol] 30 mg/dL High Negative [facility] Comment on above: Order Comment: Name Collection Type:: Clean-Voided Midstream Performed By: #### C UU, ADDONUAPLUS, UHCG ####[place] [id number] [facility] RBC,Urine 10-19 High 0-4 [facility] Comment on above: Order Comment: Name Collection Type:: Clean-Voided Midstream Performed By: #### C UU, ADDONUAPLUS, UHCG ####[address] Specificy [place],Urine 1.021 Normal 1.001-1.03 0 [facility] Comment on above: Order Comment: Name Collection Type:: Clean-Voided Midstream Performed By: #### C UU, ADDONUAPLUS, UHCG ####[place] [id number] [place] [address] [facility] Squamous Epithelial Cell,Urine 3-4 High 0-2 [facility] Comment on above: Order Comment: Name Collection Type:: Clean-Voided Midstream Performed By: #### C UU, ADDONUAPLUS, UHCG ####[place] [id number] [place] [address] [facility] Urobilinogen,Urine Normal Normal Normal [facility] Comment on above: Order Comment: Name Collection Type:: Clean-Voided Midstream Performed By: #### C UU, ADDONUAPLUS, UHCG ####[address] [address] [facility] WBC,Urine 20-49 High 0-4 [facility] Comment on above: Order Comment: Name Collection Type:: Clean-Voided Midstream Performed By: #### C UU, ADDONUAPLUS, UHCG ####[address] [address] [facility] ECG 12 lead ECGon 07-17-2022 ECG 12 lead ECG [facility] [place] [address] Electrocardiograph Report Signed Patient: Giselle Nova MR#: [id number] : 1980 Acct:[id number] Age/Sex: 41 / F ADM Date: 07/17/22 Loc: ER Room: Type: [facility] ER Attending Dr: Ordering Provider: Kyra [...] sinus rhythm Confirmed by Luiz SMALL DO ([id number]) on 07/17/2022 12:40:03 PM Referred By: Electronically Signed By:Luiz SMALL DO Transcribed By: MUS Signed By Luiz Small DO 0 07/17/22 1240 Normal [facility] Eosinophils Auto (Bld) [#/Vo l]Ordered By: Kyra Dee on 07-17-2022 Eosinophils (Bld) [#/Vol] 0.2 10*3/uL 0.0-0.45 [facility] Eosinophils/100 WBC Auto (Bl d)Ordered By: Kyra Dee on 07-17-2022 Eosinophils/100 WBC (Bld) 1.9 % . [facility] Erythrocyte distribution wid th Auto (RBC) [Ratio]Ordered By: Kyra Dee on 07-17-2022 Erythrocyte distribution width (RBC) [Ratio] 13.4 % 11.9-15.3 [facility] Globulin Calc (S) [Mass/Vol] Ordered By: Kyra Dee on 07-17-2022 Globulin (S) [Mass/Vol] 2.5 g/dL [facility] Glucose [Mass/volume] in Ser um or PlasmaOrdered By: Kyra Dee on 07-17-2022 Glucose [Mass/Vol] 91 mg/dL 70-100 [facility] Comment on above: ADA recommended refe rence rangeRandom Glucose Reference Range is dependent on time and content of last meal. Glucose of more than 200 mg/dL in a nonstressed, ambulatory subject supports the diagnosis of Diabetes Mellitus. HCG ( test) IA.rapi d Ql (U)Ordered By: Kyra Dee on 07-17-2022 HCG ( test) Ql (U) Negative [facility] HCG,Urineon 07-17-2022 Beta HCG ( test) Ql (U) Negative Normal [facility] Comment on above: Order Comment: Name Collection Type:: Clean-Voided Midstream Result Comment: PERF ORMED BY: [facility] [address] [place] [address] PATHOLOGIST TIME PIECE REPAIRER ZURI HOOD M.D. Performed By: #### C UU, ADDONUAPLUS, [facility] ####[address] Hematocrit Auto (Bld) [Volum e fraction]Ordered By: Kyra Dee on 07-17-2022 Hematocrit (Bld) [Volume fraction] 39.9 % 34.0-46.4 [facility] Hemoglobin [Mass/volume] in BloodOrdered By: Kyra Dee on 07-17-2022 Hemoglobin (Bld) [Mass/Vol] 13.3 g/dL 11.8-15.4 [facility] Hepatic Panelon 07-17-2022 Albumin [Mass/Vol] 4.2 g/dL Normal 3.5-5.7 [facility] Comment on above: Performed By: #### C BC, LIPASE, HEPATIC, BMP ####[address] Albumin/Globulin [Mass ratio] 1.7 {ratio} Normal [facility] Comment on above: Performed By: #### C BC, LIPASE, HEPATIC, BMP ####[place] [id number] [facility] ALP [Catalytic activity/Vol] 47 U/L Normal 34-104 [facility] Comment on above: Performed By: #### C BC, LIPASE, HEPATIC, BMP ####[place] [id number] [facility] ALT [Catalytic activity/Vol] 10 U/L Normal 7-52 [facility] Comment on above: Performed By: #### C BC, LIPASE, HEPATIC, BMP ####[place] [phone] [facility] AST [Catalytic activity/Vol] 14 U/L Normal 13-39 [facility] Comment on above: Performed By: #### C BC, LIPASE, HEPATIC, BMP ####[place] [id number] [facility] Bilirubin [Mass/Vol] 0.6 mg/dL Normal 0.3-1.0 [facility] Comment on above: Performed By: #### C BC, LIPASE, HEPATIC, BMP ####[facility] [place] [id number] [facility] Bilirubin,Indirect 0.5 mg/dL Normal [facility] Comment on above: Performed By: #### C BC, LIPASE, HEPATIC, BMP ####[place] [id number] [place] [id number] [facility] Bilirubin.indirect [Mass/Vol] 0.10 mg/dL Normal 0.03-0.18 [facility] Comment on above: Performed By: #### C BC, LIPASE, HEPATIC, BMP ####[place] [id number] [place] [id number] [facility] Globulin (S) [Mass/Vol] 2.5 g/dL Normal [facility] Comment on above: Performed By: #### C BC, LIPASE, HEPATIC, BMP ####[place] [id number] [place] [id number] [facility] Protein [Mass/Vol] 6.7 g/dL Normal 6.4-8.9 [facility] Comment on above: Performed By: #### C BC, LIPASE, HEPATIC, BMP ####[place] [id number] [facility] Ketones Auto test strip (U) [Mass/Vol]Ordered By: Kyra Dee on 07-17-2022 Ketones (U) [Mass/Vol] Trace Negative [facility] - UrinalysisOrder ed By: Kyra Dee on 07-17-2022 Hyaline casts LM Ql (Urine sed) 0-8 [LPF] 0-8 [facility] Leukocytes [#/volume] correc valente for nucleated erythrocytes in Blood by Automated counOrdered By: Kyra Dee on 07-17-2022 WBC corrected for nucl RBC Auto (Bld) [#/Vol] 11.4 10*3/uL 3.8-11.6 [facility] Lipaseon 07-17-2022 Lipase [Catalytic activity/Vol] 15.0 U/L Normal 11.0-82.0 [facility] Comment on above: Result Comment: PERF ORMED BY: [facility] [address] [place] [id number] PATHOLOGIST TIME PIECE REPAIRER ZURI HOOD M.D. Performed By: #### C BC, LIPASE, HEPATIC, BMP ####[facility] [id number] [place] [id number] [facility] Lipase [Enzymatic activity/v olume] in Serum or PlasmaOrdered By: Kyra Dee on 07-17-2022 Lipase [Catalytic activity/Vol] 15.0 U/L 11.0-82.0 [facility] Lymphocytes Auto (Bld) [#/Vo l]Ordered By: Kyra Dee on 07-17-2022 Lymphocytes (Bld) [#/Vol] 1.7 10*3/uL 1.00-4.8 [facility] Lymphocytes/100 WBC Auto (Bl d)Ordered By: Kyra Dee on 07-17-2022 Lymphocytes/100 WBC (Bld) 14.7 % . [facility] MCH Auto (RBC) [Entitic mass ]Ordered By: Kyra Dee on 07-17-2022 MCH (RBC) [Entitic mass] 29.3 pg 24.7-34.3 [facility] MCHC Auto (RBC) [Mass/Vol]Or dered By: Kyra eDe on 07-17-2022 MCHC (RBC) [Mass/Vol] 33.4 g/dL 32.0-35.0 [facility] MCV Auto (RBC) [Entitic vol] Ordered By: Kyra Dee on 07-17-2022 MCV (RBC) [Entitic vol] 87.9 fL 80-100 [facility] Monocyte distribution width [Entitic volume] in Blood by AutomatedOrdered By: Kyra Dee on 07-17-2022 Monocyte distribution width Auto (Bld) [Entitic vol] 16.75 % 0.00-20.00 [facility] Monocytes Auto (Bld) [#/Vol] Ordered By: Kyra Dee on 07-17-2022 Monocytes (Bld) [#/Vol] 1.2 10*3/uL 0.0-0.8 [facility] Monocytes/100 WBC Auto (Bld) Ordered By: Kyra Dee on 07-17-2022 Monocytes/100 WBC (Bld) 10.3 % . [facility] Neutrophils Auto (Bld) [#/Vo l]Ordered By: Kyra Dee on 07-17-2022 Neutrophils (Bld) [#/Vol] 8.2 10*3/uL 1.8-7.7 [facility] Neutrophils/100 WBC Auto (Bl d)Ordered By: Kyra Dee on 07-17-2022 Neutrophils/100 WBC (Bld) 72.5 % . [facility] Nitrite Test strip Ql (U)Ord ered By: Kyra Dee on 07-17-2022 Nitrite Ql (U) Negative Negative [facility] No Panel InformationOrdered By: Kyra Dee on 07-17-2022 Estimated GFR (CKD-EPI) > 60.0 mL/Min [facility] Creatinine Clearance (Chem 66.61 [facility] Nucleated erythrocytes [Pres ence] in Blood by Automated countOrdered By: Kyra Dee on 07-17-2022 Nucleated RBC Auto Ql (Bld) 0.1 /100{WBC} 0-0.5 [facility] Platelet mean volume Auto (B ld) [Entitic vol]Ordered By: Kyra Dee on 07-17-2022 Platelet mean volume (Bld) [Entitic vol] 7.6 fL 6.3-10.7 [facility] Platelets Auto (Bld) [#/Vol] Ordered By: Kyra Dee on 07-17-2022 Platelets (Bld) [#/Vol] 380 10*3/uL 150-450 [facility] Potassium [Moles/volume] in Serum or PlasmaOrdered By: Kyra Dee on 07-17-2022 Potassium [Moles/Vol] 3.7 mmol/L 3.5-5.1 [facility] Protein Auto test strip (U) [Mass/Vol]Ordered By: Kyra Dee on 07-17-2022 Protein (U) [Mass/Vol] 30 mg/dL Negative [facility] Protein [Mass/volume] in Ser um or PlasmaOrdered By: Kyra Dee on 07-17-2022 Protein [Mass/Vol] 6.7 g/dL 6.4-8.9 [facility] RBC Auto (Bld) [#/Vol]Ordere d By: Kyra Dee on 07-17-2022 RBC (Bld) [#/Vol] 4.53 10*6/uL 3.60-5.00 [facility] Serum or plasma albumin/glob ulin mass ratioOrdered By: Kyra Dee on 07-17-2022 Albumin/Globulin [Mass ratio] 1.7 {ratio} [facility] Serum or plasma anion gap de terminationOrdered By: Kyra Dee on 07-17-2022 Anion gap [Moles/Vol] 12.3 mmol/L 6.0-15.0 [facility] Serum or plasma non-glucuron idated bilirubin measurement (mass/volume)Ordered By: Kyra Dee on 07-17-2022 Bilirubin.indirect [Mass/Vol] 0.5 mg/dL [facility] Sodium [Moles/volume] in Ser um or PlasmaOrdered By: Kyra Dee on 07-17-2022 Sodium [Moles/Vol] 138 mmol/L 136-145 [facility] Specific gravity Auto test s trip (U) [Rel density]Ordered By: Kyra Dee on 07-17-2022 Specific gravity (U) [Rel density] 1.021 1.001-1.03 0 [facility] Squamous epithelial cells de tection in urine sediment by light microscopyOrdered By: Kyra Dee on 07-17-2022 Epithelial cells.squamous LM Ql (Urine sed) 3-4 [HPF] 0-2 [facility] Troponin I High Sensitivityo n 07-17-2022 Troponin I High Sensitivity 2.4 pg/mL Normal 0.0-15.0 [facility] Comment on above: Result Comment: PERF ORMED BY: [facility] [address] [place] [address] PATHOLOGIST TIME PIECE REPAIRER ZURI HOOD M.D. Performed By: #### H S TROP ####[facility] Troponin I.cardiac [Mass/vol ume] in Serum or Plasma by Detection limit <= 0.01 ng/Ordered By: Kyra Dee on 07-17-2022 Troponin I.cardiac DL <= 0.01 ng/mL [Mass/Vol] 2.4 pg/mL 0.0-15.0 [facility] Urea nitrogen [Mass/volume] in Serum or PlasmaOrdered By: Kyra Dee on 07-17-2022 Urea nitrogen [Mass/Vol] 15 mg/dL 7-25 [facility] Urine Cultureon 07-17-2022 Bacteria identified Cx Nom (U) <9,000 colonies/ml mixed bacterial skin contaminants 2 Days PERFORMED BY: [facility] [address] [place] [id number] PATHOLOGIST TIME PIECE REPAIRER ZURI HOOD M.D. [facility] Comment on above: Performed By: #### C UU, ADDONUAPLUS, CG ####[facility] [place] [id number] [facility] Urine bacteria detection by automated methodOrdered By: Kyra Dee on 07-17-2022 Bacteria Auto Ql (U) 2+ None Seen [facility] Urine clarity by refractomet ry automatedOrdered By: Kyra Dee on 07-17-2022 Clarity Refractometry automated (U) Cloudy Clear [facility] Urine culture routineOrdered By: Kyra Dee on 07-17-2022 Bacteria identified Cx Nom (U) 2 Days [facility] Urine glucose measurement by automated test strip (mass/volume)Ordered By: Kyra Dee on 07-17-2022 Glucose Auto test strip (U) [Mass/Vol] Normal mg/dL Normal [facility] Urine hemoglobin detection b y automated test stripOrdered By: Kyra Dee on 07-17-2022 Hemoglobin Auto test strip Ql (U) 1+ Negative [facility] Urine leukocyte esterase det ection by automated test stripOrdered By: Kyra Dee on 07-17-2022 Leukocyte esterase Auto test strip Ql (U) 2+ Negative [facility] Urobilinogen Auto test strip (U) [Mass/Vol]Ordered By: Kyra Dee on 07-17-2022 Urobilinogen (U) [Mass/Vol] Normal mg/dL Normal [facility] WBC Auto (Bld) [#/Vol]Ordere d By: Kyra Dee on 07-17-2022 WBC (Bld) [#/Vol] 11.4 10*3/uL 3.8-11.6 [facility] XR KUBon 07-17-2022 XR KUB [facility] Main [place] [address] [place] [address] XRay Report Signed Patient: Giselle Nova MR#: [id number] : 1980 Acct:[id number] Age/Sex: 41 / F ADM Date: 07/17/22 Loc: ER Room: Type: [facility] ER Attending Dr: Copies to: Kyra [...] Lisa Bunch M.D.07/17/2022 1:00 PM Dictation Location: [place] [address] Transcribed By: [facility] 07/17/22 1300 Dictated By: Lisa Bunch MD 07/17/22 1258 Signed By: 07/17/22 1300 Normal [facility] pH Auto test strip (U)Ordere d By: Kyra Dee on 07-17-2022 pH (U) 6.0 [pH] 5.0-9.0 [facility] SCREENING MAMMOGRAM W/DIANA, BILATERAL*on 05-18-2022 SCREENING MAMMOGRAM [...] VERY IMPORTANT TO YOUR HEALTH. THE CURRENT [employer] OF [employer] AND N[employer] COMPREHENSIVE CANCER NETWORK GUIDELINES RECOMMENDS ANNUAL MAMMOGRAPHY BEGINNING AT AGE 39 THIS FACILITY USES A REMINDER SYSTEM TO ENSURE ALL PATIENTS RECEIVE REMINDER NOTIFICATIONS AT THE APPROPRIATE TIME BASED ON THE RECOMMENDATIONS OF THIS EXAM. Board Certified Radiologist. Accredited by the ACR and FDA. Report reported and signed by Ck Escalante on 05/18/[address] [facility] Activated partial thrombopla stin time (aPTT) in platelet poor plasma by coagulation aOrdered By: Kristen Viera on 07-16-2021 aPTT Coag (PPP) [Time] 32.0 s 25.1-36.5 [facility] Basophils Auto (Bld) [#/Vol] Ordered By: Kristen Viera on 07-16-2021 Basophils (Bld) [#/Vol] 0.1 10*3/uL 0.0-0.2 [facility] Basophils/100 WBC Auto (Bld) Ordered By: Kristen Viera on 07-16-2021 Basophils/100 WBC (Bld) 1.0 % [facility] Blood hemoglobin measurement (mass/volume)Ordered By: Kristen Viera on 07-16-2021 Hemoglobin (Bld) [Mass/Vol] 13.8 g/dL 11.8-15.4 [facility] Blood leukocytes automated c ount (number/volume)Ordered By: Kristen Viera on 07-16-2021 WBC (Bld) [#/Vol] 11.5 10*3/uL 4.5-11.0 [facility] Creatine kinase [Enzymatic a ctivity/volume] in Serum or PlasmaOrdered By: Kristen Viera on 07-16-2021 CK [Catalytic activity/Vol] 61 U/L 22-269 [facility] Creatinine and Glomerular fi ltration rate.predicted panel (S/P/Bld)Ordered By: Kristen Viera on 07-16-2021 Creatinine [Mass/Vol] 0.70 mg/dL 0.44-1.03 [facility] Eosinophils Auto (Bld) [#/Vo l]Ordered By: Kristen Viera on 07-16-2021 Eosinophils (Bld) [#/Vol] 0.4 10*3/uL 0.0-0.45 [facility] Eosinophils/100 WBC Auto (Bl d)Ordered By: Kristen Viera on 07-16-2021 Eosinophils/100 WBC (Bld) 3.6 % [facility] Erythrocyte distribution wid th Auto (RBC) [Ratio]Ordered By: Kristen Viera on 07-16-2021 Erythrocyte distribution width (RBC) [Ratio] 13.2 % 11.9-15.3 [facility] Estimated glomerular filtrat ion rate (GFR) non- AmericanOrdered By: Kristen Viera on 07-16-2021 GFR/1.73 sq M.predicted among non-blacks MDRD (S/P/Bld) [Vol rate/Area] > 60 mL/Min [facility] Hematocrit Auto (Bld) [Volum e fraction]Ordered By: Kristen Viera on 07-16-2021 Hematocrit (Bld) [Volume fraction] 40.4 % 34.0-46.4 [facility] Laboratory - Chemistry and C hemistry - challengeOrdered By: Kristen Viera on 07-16-2021 Natriuretic peptide B (Bld) [Mass/Vol] 76.0 pg/mL 5-100 [facility] Laboratory - CoagulationOrde red By: Kristen Viera on 07-16-2021 PT Coag (PPP) [Time] 11.5 s 9.0-12.9 [facility] Laboratory - Hematology and Cell countsOrdered By: Kristen Viera on 07-16-2021 Nucleated RBC/100 WBC (Bld) [Ratio] 0.0 % 0-0.5 [facility] Lymphocytes Auto (Bld) [#/Vo l]Ordered By: Kristen Viera on 07-16-2021 Lymphocytes (Bld) [#/Vol] 1.3 10*3/uL 1.00-4.8 [facility] Lymphocytes/100 WBC Auto (Bl d)Ordered By: Kristen Viera on 07-16-2021 Lymphocytes/100 WBC (Bld) 11.6 % [facility] MCH Auto (RBC) [Entitic mass ]Ordered By: Kristen Viera on 07-16-2021 MCH (RBC) [Entitic mass] 30.1 pg 24.7-34.3 [facility] MCHC Auto (RBC) [Mass/Vol]Or dered By: Kristen Viera on 07-16-2021 MCHC (RBC) [Mass/Vol] 34.1 g/dL 32.0-35.0 [facility] MCV Auto (RBC) [Entitic vol] Ordered By: Kristen Viera on 07-16-2021 MCV (RBC) [Entitic vol] 88.2 fL 80-100 [facility] Monocytes Auto (Bld) [#/Vol] Ordered By: Kristen Viera on 07-16-2021 Monocytes (Bld) [#/Vol] 0.8 10*3/uL 0.0-0.8 [facility] Monocytes/100 WBC Auto (Bld) Ordered By: Kristen Viera on 07-16-2021 Monocytes/100 WBC (Bld) 7.0 % [facility] Neutrophils Auto (Bld) [#/Vo l]Ordered By: Kristen Viera on 07-16-2021 Neutrophils (Bld) [#/Vol] 8.8 10*3/uL 1.8-7.7 [facility] Neutrophils/100 WBC Auto (Bl d)Ordered By: Kristen Viera on 07-16-2021 Neutrophils/100 WBC (Bld) 76.8 % [facility] No Panel InformationOrdered By: Kristen Viera on 07-16-2021 Estimated GFR () > 60 mL/Min [facility] Comment on above: GFR estimated refere nce range: According to KDOQI guidelines, <60 ml/min/1.73m2 is sufficient to diagnose a patient with chronic kidney disease. Pharmacy Creatinine Clearance (Chem 99.01 [facility] Platelet mean volume Auto (B ld) [Entitic vol]Ordered By: Kristen Viera on 07-16-2021 Platelet mean volume (Bld) [Entitic vol] 7.8 fL 6.3-10.7 [facility] Platelet poor plasma interna tional normalized ratio (INR) by coagulation assay (relatOrdered By: Kristen Viera on 07-16-2021 INR Coag (PPP) [Relative time] 1.0 {INR} [facility] Comment on above: INR Therapeutic Rang e [...] 07-16-2021 Platelets (Bld) [#/Vol] 351 10*3/uL 150-450 [facility] RBC Auto (Bld) [#/Vol]Ordere d By: Kristen Viera on 07-16-2021 RBC (Bld) [#/Vol] 4.58 10*6/uL 3.60-5.00 [facility] Serum or plasma calcium rkistina urement (mass/volume)Ordered By: Kristen Viera on 07-16-2021 Calcium [Mass/Vol] 8.7 mg/dL 8.2-10.2 [facility] Serum or plasma chloride will surement (moles/volume)Ordered By: Kristen Viera on 07-16-2021 Chloride [Moles/Vol] 107 mmol/L 95-114 [facility] Serum or plasma creatine kin ase MB (CKMB)/total creatine kinase (CK) ratio by calculaOrdered By: Kristen Viera on 07-16-2021 CK.MB Calc [Catalytic fraction] 3.2 % 0.00-2.50 [facility] Serum or plasma creatine kin ase MB measurement (mass/volume)Ordered By: Kristen Viera on 07-16-2021 CK.MB [Mass/Vol] 2.0 ng/mL 0.6-6.3 [facility] Serum or plasma glucose kristina urement (mass/volume)Ordered By: Kristen Virea on 07-16-2021 Glucose [Mass/Vol] 86 mg/dL 70-100 [facility] Comment on above: ADA recommended refe rence rangeRandom Glucose Reference Range is dependent on time and content of last meal. Glucose of more than 200 mg/dL in a nonstressed, ambulatory subject supports the diagnosis of Diabetes Mellitus. Serum or plasma potassium me asurement (moles/volume)Ordered By: Kristen Viera on 07-16-2021 Potassium [Moles/Vol] 3.9 mmol/L 3.5-5.1 [facility] Serum or plasma sodium measu rement (moles/volume)Ordered By: Kristen Viera on 07-16-2021 Sodium [Moles/Vol] 136 mmol/L 136-146 [facility] Serum or plasma total carbon dioxide measurement (moles/volume)Ordered By: Kristen Viera on 07-16-2021 CO2 [Moles/Vol] 18.5 mmol/L 22.0-30.0 [facility] Serum or plasma urea nitroge n measurement (mass/volume)Ordered By: Kristen Viera on 07-16-2021 Urea nitrogen [Mass/Vol] 13 mg/dL 9- [facility] Troponin I.cardiac [Mass/vol ume] in Serum or Plasma by High sensitivity methodOrdered By: Kristen Viera on 07-16-2021 Troponin I.cardiac High sensitivity method [Mass/Vol] < 3 pg/mL 0-15 [facility] Vital Signs Date Time Vital Sign Value Performing Clinician Facility 12-11-2023 08:24-0400 Blood Pressure Location Fred BILL [facility] 12-11-2023 08:24-0400 Diastolic blood pressure 88 mm[Hg] Fred BILL [facility] 12-11-2023 08:24-0400 Heart rate 84 /min Fred BILL [facility] 12-11-2023 08:24-0400 Respiratory rate 16 /min Fred BILL [facility] 12-11-2023 08:24-0400 Systolic blood pressure 140 mm[Hg] Fred BILL [facility] 04-23-2023 15:57-0500 Body height 166.4 cm Maciel Rdz DO Work Phone: [facility] 04-23-2023 15:57-0500 Body mass index (BMI) [Ratio] 22.94 kg/m2 Maciel Rdz DO Work Phone: [facility] 04-23-2023 15:57-0500 Body weight 63.5 kg Maciel Rdz DO Work Phone: [facility] 04-23-2023 15:57-0500 Diastolic blood pressure 66 mm[Hg] Maciel Rdz DO Work Phone: [facility] 04-23-2023 15:57-0500 Systolic blood pressure 104 mm[Hg] Maciel Rdz DO Work Phone: [facility] 07-18-2022 12:04-0400 Body temperature 98.5 [degF] DO Arcenio Rdz Work Phone: [facility] 07-18-2022 12:04-0400 Diastolic blood pressure 56 mm[Hg] DO Arcenio Rdz Work Phone: [facility] 07-18-2022 12:04-0400 Heart rate 88 /min DO Arcenio Floreser Work Phone: [facility] 07-18-2022 12:04-0400 Respiratory rate 14 /min DO Arcenio Floreser Work Phone: [facility] 07-18-2022 12:04-0400 SaO2% (BldA) [Mass fraction] 98 % DO Arcenio Floreser Work Phone: 4(633)313-468075 [address] 07-18-2022 12:04-0400 Systolic blood pressure 92 mm[Hg] DO Arcenio Floreser Work Phone: 7(844)748-893487 [place] [address] 07-18-2022 00:48-0400 Body weight 65.5 kg DO Arcenio Rdz Work Phone: 3(546)407-544075 [address] 07-17-2022 19:16-0400 Inhaled oxygen flow rate 8 L/min DO Arcenio Rdz Work Phone: 5(102)629-636087 [place] [address] 07-17-2022 18:21-0400 Body height 167.64 cm DO Arcenio Rdz Work Phone: 6(196)878-841687 [place] [address] 07-17-2022 18:21-0400 Body mass index (BMI) [Ratio] 22.8 kg/m2 DO Arcenio Rdz Work Phone: 2(171)777-779687 [place] [address] 07-17-2022 18:21-0400 Body weight 64.41 kg DO Arcenio Rdz Work Phone: 9(147)268-139187 [place] [address] 07-17-2022 16:01-0400 Body temperature 98.3 [degF] DO Arcenio Rdz Work Phone: 3(031)000-240387 [place] [address] 07-17-2022 16:01-0400 Diastolic blood pressure 57 mm[Hg] DO Arcenio Rdz Work Phone: 9(609)527-440975 [address] 07-17-2022 16:01-0400 Heart rate 70 /min DO Arcenio Rdz Work Phone: 4(534)896-100675 [address] 07-17-2022 16:01-0400 Respiratory rate 16 /min DO Arcenio Rdz Work Phone: 4(478)170-723075 [address] 07-17-2022 16:01-0400 SaO2% (BldA) [Mass fraction] 98 % DO Arcenio Floreser Work Phone: 7(078)456-325754 [place] [address] 07-17-2022 16:01-0400 Systolic blood pressure 105 mm[Hg] DO Arcenio Floreser Work Phone: 8(496)868-354575 [address] 07-16-2021 15:44-0400 Diastolic blood pressure 65 mm[Hg] DO Arcenio Floreser Work Phone: [facility] 07-16-2021 15:44-0400 Heart rate 76 /min DO Arcenio Rdz Work Phone: [facility] 07-16-2021 15:44-0400 Respiratory rate 20 /min DO Arcenio Rdz Work Phone: [facility] 07-16-2021 15:44-0400 SaO2% (BldA) [Mass fraction] 97 % DO Arcenio Rdz Work Phone: [facility] 07-16-2021 15:44-0400 Systolic blood pressure 106 mm[Hg] DO Arcenio Rdz Work Phone: [facility] 07-16-2021 11:58-0400 Body height 167.64 cm DO Arcenio Rdz Work Phone: [facility] 07-16-2021 11:58-0400 Body mass index (BMI) [Ratio] 22.6 kg/m2 DO Arcenio Rdz Work Phone: [facility] 07-16-2021 11:58-0400 Body temperature 98.8 [degF] DO Arcenio Rdz Work Phone: [facility] 07-16-2021 11:58-0400 Body weight 63.5 kg DO Arcenio Rdz Work Phone: [facility] Encounters Encounter Date Encounter Type Care Provider Facility Start: 01-16-2024 ambulatory Fred BILL Facili ty:[id number] Start: 12-25-2023 End: 12-25-2023 ambulatory FRED BILL Not Available Start: 12-19-2023 End: 12-19-2023 ambulatory Fred BILL Facility:[id number] Start: 12-11-2023 End: 12-11-2023 ambulatory Fred BILL Facility:[facility] Start: 12-11-2023 End: 12-11-2023 Patient encounter procedure Fred BILL [facility] Start: 12-09-2023 End: 12-09-2023 ambulatory FREDJACKIE BILL Not Available Start: 11-06-2023 End: 11-06-2023 ambulatory MACIEL RDZ Not Available Start: 06-03-2023 End: 06-03-2023 ambulatory Fredjackie Bill Facility:[facility] Start: 06-03-2023 End: 06-03-2023 ambulatory DO Arcenio Rdz Work Phone: [facility] Work Phone: Start: 06-03-2023 End: 06-03-2023 Patient encounter procedure DO Arcenio Kendell Work Phone: [facility] Work Phone: Start: 04-23-2023 End: 04-23-2023 Patient encounter status Maciel Rdz DO Work Phone: [facility] Start: 04-23-2023 End: 04-23-2023 Periodic preventive med est patient 40-64yrs Maciel Rdz DO Work Phone: [facility] Comment on above: Encounter for gyneco logical examination without abnormal finding; Encounter for Papanicolaou smear of vagina; Breast cancer screening by mammogram Start: 04-23-2023 End: 04-23-2023 ambulatory MACIEL RDZ Not Available Start: 12-03-2022 End: 12-03-2022 Patient encounter procedure Fred R MANUELITO [facility] Start: 11-28-2022 End: 11-28-2022 ambulatory Fredjackie Bill Facility:[facility] Start: 11-28-2022 End: 11-28-2022 ambulatory DO Arcenio Rdz Work Phone: [facility] Work Phone: Start: 11-28-2022 End: 11-28-2022 Patient encounter procedure DO Arcenio Rdz Work Phone: [facility] [address] Work Phone: Start: 10-10-2022 End: 10-10-2022 ambulatory DO Arcenio Rdz Work Phone: [facility] Work Phone: Start: 10-10-2022 End: 10-10-2022 Patient encounter procedure DO Arcenio Rdz Work Phone: [facility] [place] Work Phone: Start: 07-23-2022 Encounter for preprocedural laboratory examination DR YULY TERAN . [facility] Start: 07-20-2022 End: 07-21-[address] FRED BILL . Facility:[facility] Start: 07-20-2022 End: 07-21-2022 Encounter for preprocedural laboratory examination DR FRED BILL . Facility:[facility] Start: 07-17-2022 End: 07-18-2022 ambulatory Jillian Hahn Facility:[facility] Start: 07-17-2022 End: 07-18-2022 Evaluation and management of inpatient DO Arcenio Rdz Work Phone: [facility] Work Phone: Start: 07-17-2022 End: 07-18-2022 observation encounter DO Arcenio Rdz Work Phone: [facility] Work Phone: Start: 05-29-2022 End: 05-29-2022 ambulatory DO Arcenio Rdz Work Phone: [facility] Work Phone: Start: 05-29-2022 End: 05-29-2022 Patient encounter procedure DO Arcenio Rdz Work Phone: [facility] [place] Work Phone: Start: 07-16-2021 End: 07-16-2021 Emergency department patient visit DO Arcenio Rdz Work Phone: [facility] Procedures Date Procedure Procedure [...] procedure 04/27/2024 3:30 PM EST Office Visit [facility] [address] [place] [address] Maciel Rdz, DO [address] [place] [address] [facility] Start: 05-20-2023 End: 06-21-2024 DBT Breast - bilateral screening Bilateral screening mammogram with tomosynthesis Imaging Routine Breast cancer screening by mammogram Expected: 05/20/2023, Expires: 06/21/2024 [facility] Comment on above: Expected: 05/20/2023 , Expires: 06/21/2024 Start: 05-19-2023 Screening for malignant neoplasm of breast Mammogram [facility] Start: 11-16-2022 Influenza vaccination Influenza Vacc ine (#1) [facility] Start: 10-10-2022 [facility] Start: 08-02-2022 ambulatory Ambulatory Facility:[facility] 1 Start: 07-18-2022 Blood chemistry [facility] Start: 07-18-2022 End: 07-18-2022 [facility] Start: 07-17-2022 [facility] Start: 07-17-2022 Hospital admission [facility] Start: 07-17-2022 Referral to urologist Dayami [facility] Start: 07-17-2022 [facility] Start: 07-17-2022 Urine culture Urine Culture [facility] Calcium [Mass/time] in 24 hour Urine [facility] Calcium [Mass/volume ] in 24 hour Urine [facility] Magnesium [Mass/time ] in 24 hour Urine [facility] Magnesium [Mass/volume] in Urine [facility] Oxalate [Mass/time] in 24 hour Urine [facility] Patient Education [facility] Work Phone: Patient referral [facility] Work Phone: Phosphate [Mass/time ] in 24 hour Urine [facility] Phosphate [Mass/volume] in Urine [facility] THINPREP IMAGING PAP W/REFL HPV MRNA E6/E7 THINPREP IMAGING PAP W/REFL HPV MRNA E6/E7 Pathology and Cytology Routine Encounter for Papanicolaou smear of vagina Ordered: 04/23/2023 [facility] Work Phone: Comment on above: Ordered: 04/23/2023 Urate [Mass/time] in 24 hour Urine [facility] Urate [Mass/volume] in Urine [facility] Immunizations Immunization Date Immunization Notes Care Provider Timbo bray 11-07-2020 COVID-19 mRNA, Comirnaty (Pfizer) DO Arcenio Rdz Work Phone: [facility] 10-17-2020 COVID-19 mRNA, Comirnaty (Pfizer) DO Arcenio Rdz Work Phone: [facility] 03-18-2020 SARS-CoV-2 (COVID-19 ) mRNA BNT-162b2 vax Fred BILL [facility] Comment on above: Result Comment: pt i s fully vaccinated but does not know the dates Payers Date Payer Category Payer Private Health Insurance [id number] 2022 Self-pay [id number] 2014 Managed Care HMO (unspecified) AETNAY AETNA [id number] 2014-Present [address] [place] [address] HMO [id number] 1979 Unknown [id number] [id number] 93 1979 Unknown [id number] [id number] 93 1979 Unknown [id number] [id number] 93 1979 Unknown [id number] 2.16.840.1.999248.3.579.2.1 259 1979 Unknown [id number] 2.16.840.1.914629.3.579.2.1 259 1979 Unknown [id number] 2.16.840.1.726178.3.579.2.1 259 1979 Unknown [id number] 2.16.840.1.245593.3.579.2.1 259 1979 Unknown [id number] 2.16.840.1.208742.3.579.2.7 27 1979 Unknown [id number] 2.16.840.1.608907.3.579.2.7 27 1959 Private Health Insurance [id number] 1959 Unknown [id number] Unknown [id number] 2.16840.1.266345.3.579.2.5 31 Unknown [id number] 2.16840.1.667037.3.579.2.5 31 Unknown [id number] 2.16840.1.028453.3.579.2.5 31 Unknown [id number] [id number] 31 Social History Date Type Detail Facility Start: 07-16-2021 End: 12-11-2023 Tobacco smoking status KSIS Never smoked tobacco (finding) [facility] Start: 1980 Sex Assigned At Female F [facility] Tobacco smoking status No Smokin g Status Entered [facility] [place] Start: 04-23-2023 Sex Assigned At Female F [facility] Start: 04-23-2023 Tobacco use and exposure [...] manipulation and stent placement Polymeric ureteral stent ()[id number] 1992 FDA Start: 11-07-2019 Cystoscopy, with ureteral calculus manipulation and stent placement Polymeric ureteral stent ()[id number] FDA Start: 07-17-2022 Goals Date Patient Goal Desired Activity /State Functional Status Date Assessment Result Facility 12-11-2023 Functional Status N/A [facility] 07-18-2022 Functional status Patient at Baseline [facility] Work Phone: 07-17-2022 Functional status Patient at Baseline [facility] Work Phone: Mental Status Date Assessment Result Facility 07-18-2022 Cognitive function Cognitive Sta tus Patient at Baseline [facility] Work Phone: 07-17-2022 Cognitive function Cognitive Sta tus Patient at Baseline [facility] Work Phone: Clinical Notes 07-17-2022 to [...] Follow these instructions at home: Medicines Take hmdn-woq-gampilu and prescription medicines only as told by [...] to keep your pee pale yellow. ?Take cbvg-grs-mazjpmx or prescription medicines. ?Eat foods that are [...] provider. Document Revised: 11/02/2022 Document Reviewed: 11/02/2022 [employer] Patient Education 2023 [employer]. 12/11/2023 09:07:19 Laser Therapy for Kidney Stones [...] including vitamins, herbs, eye drops, creams, and buok-vwg-fdxhvbh medicines. Any problems you or family members [...] unless your provider tells you to. ?Taking lwqc-zin-gljqfoe medicines, vitamins, herbs, and supplements. Tests You [...] provider. Document Revised: 11/02/2022 Document Reviewed: 11/02/2022 Assembly Patient Education 2023 [employer] 12/11/2023 09:07:15 Kidney Stones, Oxty-eb-Xtaq Kidney Stones Kidney stones are rock-like masses [...] Follow these instructions at home: Medicines Take ebvd-dvj-jqkqhaz and prescription medicines only as told by [...] provider. Document Revised: 10/26/2022 Document Reviewed: 10/26/2022 [employer] Patient Education 2023 [employer]. Follow Up Care 12/04/2022 08:26:02 With:MANUELITO CRABTREE, Fred Devine, URL Address: [facility] [address] , [place] [address]- [phone] When: Unknown Comments:nigel SAUCEDO [facility] 12-11-2023 Note Patient Education Nephrology Laser [...] these instructions at home: Medicines ? Take hseo-ldl-kgycogl and prescription medicines only as told by [...] keep your pee pale yellow. ? Take gady-xjx-nbnmhwr or prescription medicines. ? Eat foods that [...] Reviewed: 11/02/2022 Elsevier Patient Education ? 2023 [employer]. Laser Therapy for Kidney Stones Laser therapy [...] including vitamins, herbs, eye drops, creams, and kjjp-hpk-strymsy medicines. ? Any problems you or family [...] Do not e (more content not included)... [facility] 04-23-2023 History of Present illness Narrative Images from the original note were not included. Maciel Rdz, DO Obstetrics and Gynecology Giselle Nova 1980 04/23/23 [id number] Yearly Wellness Exam Chief Complaint Patient presents with Gynecologic Exam LMP: TLH BS 2021 HRT: None Last pap 2-1-23 neg. Last mammogram 05-18-22 [facility]. 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 Visit Vitals BP 104/66 Ht 5' [...] Procedure Laterality Date APPENDECTOMY 1996 HYSTERECTOMY 03/01/2021 [facility] HYSTEROSCOPY 10/29/2014 D+C/Ablation LEG SURGERY Left 2012 melanoma - left leg LITHOTRIPSY 2006 & 2008 & 2011 LITHOTRIPSY 10/2019 OTHER SURGICAL HISTORY Bilateral 2006 Repair of bilateral cervical lacerations SKIN SURGERY 2012 wide excision;Disease:Melanoma VAGINAL DELIVERY x2 Past Medical History: Diagnosis Date Allergies History of kidney stones Melanoma ([facility]) 2012 Migraines ([facility]) x2 ROS General: Chills denies. Allergy/Immunology: Rash [...] costovertebral angle tenderness, no obvious scoliosis/kyphosis. 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 documented in this encounter [facility] 09-19-2022 Hospital Discharge instructions Follow Up Care 09/19/2022 09:40:53 With:MANUELITO CRABTREE, Fred Devine, GUEVARAL Address: [facility] [address] [place] [address]- [phone] When: Unknown [facility] 07-17-2022 Consult note Note Date/Time July 17, 2022 6:48pm [facility] [address] [place] [id number] Urology Consult Note Signed Patient: Giselle Nova MR#: [id number] : 1980 Acct:[id number] Age/Sex: 41 / F Adm Date: 3 Loc: 4N Room: [address] [place] [address] Type: ADM INOo Attending Dr: Jillian Hahn [...] Cloudy A, Urine pH 6.0, Ur Specific [place] 1.021, Urine Protein 30 H, Urine Glucose [...] % (Auto) 72.5, Lymph % (Auto) 14.7, Otoe % (Auto) 10.3, Eos % (Auto) 1.9, Baso % (Auto) 0.6, Nucleat RBC Rel Count 0.1, Neut # (Auto) 8.2 H, Lymph # (Auto) 1.7, Otoe # (Auto) 1.2 H, Eos # (Auto) [...] damage. Documented By: Dominique Sifuentes MD 07/17/22 [id number] Signed By: <Electronically signed by Dominique Sifuentes MD> 07/17/22 0479 [facility] Work Phone: 1(230) 456-121405-02-2023 History and physical note Author Jillian Hahn [facility] July 17, 2022 3:34pm Note Date/Time July 17, 2022 3:34pm [facility] [address] [place] [address] Hospitalist H&P Signed Patient: Giselle Nova MR#: [id number] : 1980 Acct:[id number] Age/Sex: 41 / F Adm Date: 3 Loc: Room: [address] [place] [address] Type: ADM IN Attending Dr: Jillian Hahn [...] % (Auto) 14.7 % (.) 07/17/22 12:09 Otoe % (Auto) 10.3 % (.) 07/17/22 12:09 Eos % (Auto) 1.9 % (.) 07/17/22 12:09 Baso % (Auto) 0.6 % (.) 07/17/22 12:09 Nucleat RBC Rel Count 0.1 /100 WBC (0-0.5) 07/17/22 12:09 Neut # (Auto) 8.2 x10E3/uL (1.8-7.7) H 07/17/22 12:09 Lymph # (Auto) 1.7 x10E3/uL (1.00-4.8) 07/17/22 12:09 Otoe # (Auto) 1.2 x10E3/uL (0.0-0.8) H 07/17/22 [...] pH 6.0 (5.0-9.0) 07/17/22 12:09 Ur Specific [place] 1.021 (1.001-1.030) 07/17/22 12:09 Urine Protein 30 [...] <Electronically signed by Jillian Hahn MD> 07/17/22 [id number] [facility] Work Phone: Consult note Author Dominique Sifuentes [facility] July 17, 2022 6:52pm Note Date/Time July 17, 2022 6:48pm [facility] [address] [place] [address] Urology Consult Note Signed Patient: Giselle Nova MR#: [id number] : 1980 Acct:[id number] Age/Sex: 41 / F Adm Date: 3 Loc: 4N Room: [address] [place] [address] Type: ADM INOo Attending Dr: Jillian Hahn [...] Cloudy A, Urine pH 6.0, Ur Specific [place] 1.021, Urine Protein 30 H, Urine Glucose [...] % (Auto) 72.5, Lymph % (Auto) 14.7, Otoe % (Auto) 10.3, Eos % (Auto) 1.9, Baso % (Auto) 0.6, Nucleat RBC Rel Count 0.1, Neut # (Auto) 8.2 H, Lymph # (Auto) 1.7, Otoe # (Auto) 1.2 H, Eos # (Auto) [...] damage. Documented By: Dominique Sifuentes MD 07/17/22 [id number] Signed By: <Electronically signed by Dominique Sifuentes MD> 07/17/22 1852 [facility] Work Phone: Evaluation + Plan note Future Appointments Appointment Date:12/04/2022 08:00:00 AM Scheduled Provider:rFed BILL MD Location:[facility] Appointment Type:URO Office Visit [facility] evaluation noteNo assessment information available [facility] Work Phone: Evaluation note* Diagnosis Onset Date Resolution Status Calculus of proximal left ureter acute Left nephrolithiasis acute Migraine acute Pyelonephritis acute Renal colic acute Urinary tract infection acut e [facility] Work Phone: Evaluation note* Diagnosis Encounter for gynecological examination without abnormal finding Encounter for Papanicolaou smear of vagina Breast cancer screening by mammogram [facility] N[facility] No data available for this section [facility] Discharge instructions Additional Instructions Patient was Rest Tylenol Motrin if needed for pain Take antibiotic as instructed. Sinusitis Follow-up with Dr. Cote tomorrow Return here if any problems persist or worsen as instructed include chest pain, shortness of breath, numbness, tingling or any other complaint[facility] Work Phone: Hospital Discharge instructions Additional [...] Take stool softeners. You can buy AZO pras-jee-ejlrmbk and use as needed for burning with urination. This will make your urine orange. Drink plenty of water and fluids You must follow up to ensure your stent is removed. Failure to do so may result in recurrent infections and renal failure.[facility] Work Phone: Progress note Author Pete Cardozo [facility] July 18, 2022 3:13pm Note Date/Time July 18, 2022 12:18p m [facility] [address] [place] [address] Hospitalist Progress Note Signed Patient: Giselle Nova MR#: [id number] : 1980 Acct:[id number] Age/Sex: 41 / F Adm Date: 3 Loc: 4N Room: [address] [place] [address] Type: DIS INOo Attending Dr: Pete Cardozo [...] signed by Pete Cardozo MD> 07/18/22 1513 [facility] Work Phone: Progress note No data available for this section [facility] Chief Complaint and Reason for Visit Chief [...] Active Tushar Madsen MD Emergency Provider Active Wholesale Manager Relationship Specialty Start Date End Date Enrico Woods DO [address] [place] [address] PCP - Medical [employer] 08/16/22 Arcenio Rdz DO [address] [place] [address] PCP - General Family Medicine 07/24/22 Team [...] section and content) DATE CREATED AUTHOR 05/20/[address] [facility] dical Specialist DATE CREATED AUTHOR AUTHOR'S ORGANIZ ATION 07/24/2022 [facility] DATE CREATED AUTHOR AUTHOR'S ORGANIZ ATION 06/11/2023 [facility] DATE CREATED AUTHOR AUTHOR'S ORGANIZ ATION 12/30/[address] [facility] dical Specialists [facility] DATE CREATED AUTHOR AUTHOR'S ORGANIZ ATION 01/09/2024 [facility] Reason for Visit (unrecogniz ed section and content) Reason Comments Gynecologic Exam LMP: TLH BS 2020HRT: NoneLast pap 04-18-22 neg.Last mammogram 05-18-22 [facility].Denies [employer]ER concerns. FOR RECORDS PERTAINING TO PATIENTS WHO [...] BE BASED ON THE PRIMARY CLINICAL RECORDS. [employer] provides no warranty or guarantee of the accuracy or completeness of information in this document.
[2024-01-23] MEDS: LACTATED RINGER'S SOLUTION 1,000 ML 50 ML IV (07:37)
[2024-01-23] MEDS: GENTAMICIN SULFATE 120 MG in 0.9 % SODIUM CHLORIDE 100 ML 206 MG IV (07:51)
--- NOTE | 2024-01-23 08:41 | PM.URSON ---
Urology Surgery Operative Note Operative Note Procedure Date: 01/23/24 Time Out Performed: yes Pre-op Diagnosis: Left nephrolithiasis Post-op Diagnosis: same as pre-op Procedures performed: 1. Left ESWL. Anesthesia: General-LMA Primary Surgeon: Fred Bill Complications: None Estimated blood loss (mL): 0 Findings: Multiple small left renal calculi Specimens: None Drains: None Indications for Procedures: This lady has recurrent left nephrolithiasis and she is unable to take any stone prevention medications due to being exquisitely sensitive to these meds. She underwent left ESWL about a month ago. She still has persistent left renal calculi. She now presents for a second left ESWL. She has signed an informed consent after risks were explained. Some of these risks include bleeding, perinephric hematoma, infection and anesthesia to name a few Detailed description of Procedure: The patient was brought to the Operating Room and placed on Siemens electromagnetic lithotripsy treatment table in the supine position. SCDs were placed on their lower extremities and turned on and functioning during the entire case. Timeout was done by all parties in the room. We all agreed upon the patient's identification and the planned procedures for this patient. General Anesthesia was then administered via LMA. Treatment head was then brought to the patient's correct side. While using flourscopy the stone group in the midpole was identified and lined up into the crosshairs. We then began applying shocks. We started at a power level 2.0 and increased to a maximum power level 3.5. We seem to have successful fragmentation after applying 1000 shocks. We then moved to the lower pole. We similarly lined up a visible stone group and applied thousand shocks. These also seem to fragment. A third group of small stones was lined up in the lower pole and they were similarly cracked up with the thousand shocks. At the end of the procedure we had applied 3000 shocks. We did not have any visible stones remaining via fluoroscopy. The procedure was then terminated. She was then transferred to a rlittle birch bed and wheeled to PACU in stable condition.
== END 2024-01-23 09:50 | disposition home or self-care (01) ==
PROVIDERS: PCP Family Medicine; Visit Provider Urology
PROC: (CPT 873; principal; 2024-01-23 08:00)
DX: N20.0 Calculus of kidney (principal); Z85.820 Personal history of malignant melanoma of skin; Z90.49 Acquired absence of other specified parts of digestive tract; Z90.710 Acquired absence of both cervix and uterus
CPT/HCPCS: 50590; 74018; J1100; J1580; J2250; J2405; J2704; J3010